=== PATIENT | female | born 1980 | race Caucasian/White ===

== ENCOUNTER 2016-06-04 23:43 | Emergency (ER) | payer OTHER ==
[2016-06-05] MEDS ORDERED: Aspirin Low Dose CHEW TAB* 81 MG PO ONE (00:02)
[2016-06-05] MEDS ORDERED: Ondansetron INJ* 2 MG/ML VIAL IV ONE (00:45)
[2016-06-05] MEDS ORDERED: Ketorolac INJ* 30 MG/ML 1 ML VIAL IV PUSH ONE (00:46)
[2016-06-05 00:49] LABS: ALT 14 U/L (7-52); AST 17 U/L (13-39); Albumin 3.8 g/dL (3.2-5.2); Alkaline Phosphatase 65 U/L (34-104); Anion Gap 6 mmol/L (2-11); BUN/Creatinine Ratio 16.7 (8-20); Blood Urea Nitrogen 14 mg/dL (6-24); CO2 Carbon Dioxide 25 mmol/L (22-32); Calcium 8.6 mg/dL (8.6-10.3); Chloride 106 mmol/L (101-111); EGFR African American 100.4 (>60); EGFR Non-African American 78.1 (>60); Globulin 2.9 g/dL (2-4); Glucose 107 mg/dL (70-100); Hematocrit 37 % (35-47); Hemoglobin 12.1 g/dl (12.0-16.0); Magnesium 1.9 mg/dL (1.9-2.7); Mean Corpuscular HGB Conc 33 g/dl (31-36); Mean Corpuscular Hemoglobin 28 pg (27-31); Mean Corpuscular Volume 83 fL (80-97); Mean Platelet Volume 9 um3 (7.4-10.4); Potassium 3.9 mmol/L (3.5-5.0); Red Blood Count 4.39 10^6/ul (4.0-5.4); Red Cell Distribution Width 14 % (10.5-15); Sodium 137 mmol/L (133-145); Total Protein 6.7 g/dL (6.4-8.9); White Blood Count 10.8 10^3/ul (3.5-10.8)
--- NOTE | 2016-06-05 01:02 | ED ---
Evaristo Morrison Anna, scribed for Moshe Banks MD on 06/05/16 at 0014 . HPI Chest Pain - HPI Summary HPI Summary: Patient is a 35 y/o female coming to [facility] presenting with sudden onset of constant chest pain that began tonight at 2130. She describes the severity as 6/ 10. The pain radiates to her back. She additionally felt nausea and SOB beginning at the same time. She has felt palpitations for the last five days, worse at night and exacerbated by lying down. Her family history is significant for MS and CAD before age 55. - History of Current Complaint Chief Complaint: EDChestPainROMI Hx Obtained From: Patient Onset/Duration: Started Hours Ago Timing: Constant Pain Intensity: 6 Pain Scale Used: 0-10 Numeric - Allergy/Home Medications Allergies/Adverse Reactions: Allergies Allergy/AdvReac Type Severity Reaction Status Date / Time No Known Allergies Allergy Verified 10/13/15 13:28 Home Medications: Home Medications Bupropion XL* [Wellbutrin XL *] DAILY 06/05/16 [History] Ibuprofen TAB* [Motrin TAB* 800 MG] 800 mg PO Q6H 06/05/16 [History Confirmed ] LORazepam TAB(*) [Ativan TAB(*)] 2 mg PO BID 06/05/16 [History Confirmed ] Methocarbamol TAB* [Robaxin TAB*] 1,000 mg PO TID 06/05/16 [History Confirmed ] Morphine Sulfate ER 30 mg PO BID 06/05/16 [History Confirmed 06/05/16] Pregabalin CAP(*) [Lyrica CAP(*)] 150 mg PO TID 06/05/16 [History Confirmed 09/16] Vortioxetine HBr [Brintellix] 10 mg PO DAILY 06/05/16 [History Confirmed ] hydrOXYzine HCL TAB* [Atarax TAB*] 25 mg PO TID PRN 06/05/16 [History Confirmed 06/05/16] oxyCODONE/Acetamin 10/325(NF) [Percocet 10/325 (NF)] 1 tab PO BID PRN 06/05/16 [ History Confirmed 06/05/16] PMH/Surg Hx/FS Hx/Imm Hx Endocrine/Hematology History: Denies: Hx Diabetes, Hx Thyroid Disease Cardiovascular History: Reports: Hx Hypertension - not since 2012 Denies: Hx Pacemaker/ICD Respiratory History: Denies: Hx Asthma, Hx Chronic Obstructive Pulmonary Disease (COPD) GI History: Denies: Hx Ulcer History: Reports: Other Problems/Disorders - history of renal calculi Sensory History: Reports: Hx Contacts or Glasses - not wearing Denies: Hx Hearing Aid Opthamlomology History: Reports: Hx Contacts or Glasses - not wearing Psychiatric History: Reports: Hx Anxiety, Hx Depression, Other Psychiatric Issues/Disorders - opiate addiction Denies: Hx Panic Disorder - Surgical History Surgery Procedure, Year, and Place: 2 C-SECTIONS - Immunization History Date of Tetanus Vaccine: utd Date of Influenza Vaccine: utd Infectious Disease History: No Infectious Disease History: Denies: Hx Clostridium Difficile, Hx Hepatitis, Hx Human Immunodeficiency Virus (HIV), Hx of Known/Suspected MRSA, Hx Shingles, Hx Tuberculosis, Hx Known/ Suspected VRE, Hx Known/Suspected VRSA, History Other Infectious Disease, Traveled Outside the [place] in Last 30 Days - Family History Known Family History: Positive: Cardiac Disease - father [place] 48yo alive, Hypertension, Diabetes, Other - copd, parents - Social History Alcohol Use: None Substance Use Type: Reports: Prescribed Substance Use Comment - Amount & Last Used: Percocet bid, morphine er 30 mg bid Smoking Status (MU): Former Smoker Have You Smoked in the Last Year: No Review of Systems Positive: Palpitations, Chest Pain Positive: Shortness Of Breath Positive: Nausea Positive: Myalgia - back pain All Other Systems Reviewed And Are Negative: Yes Physical Exam Triage Information Reviewed: Yes Vital Signs On Initial Exam: Initial Vitals Temp Pulse Resp BP Pulse Ox 97.8 F 74 16 152/77 100 06/04/16 23:47 06/04/16 23:47 06/04/16 23:47 06/04/16 23:47 06/04/16 23:47 Vital Signs Reviewed: Yes Appearance: Positive: Well-Appearing, Pain Distress - mild discomfort Skin: Positive: Warm Head/Face: Positive: Normal Head/Face Inspection Eyes: Positive: COURTNEY ENT: Positive: Hearing grossly normal Neck: Positive: Supple Respiratory/Lung Sounds: Positive: Breath Sounds Present, Other - mild ant cwt to palp Cardiovascular: Positive: RRR. Negative: Murmur Abdomen Description: Positive: Nontender, Soft Bowel Sounds: Positive: Present Musculoskeletal: Positive: Strength/ROM Intact Neurological: Positive: Sensory/Motor Intact, Alert, Oriented to Person Place, Time, Normal Gait Psychiatric: Positive: Affect/Mood Appropriate - Christian Coma Scale Coma Scale Total: 15 Diagnostics - Vital Signs Vital Signs Temp Pulse Resp BP Pulse Ox 06/04/16 23:47 97.8 F 74 16 152/77 100 - Laboratory Lab Results: Lab Results 06/05/16 06/05/16 06/05/16 Range/Units 00:20 00:20 00:20 WBC 10.8 (3.5-10.8) 10^3/ul RBC 4.39 (4.0-5.4) 10^6/ul Hgb 12.1 (12.0-16.0) g/dl Hct 37 (35-47) % MCV 83 (80-97) fL MCH 28 (27-31) pg MCHC 33 (31-36) g/dl RDW 14 (10.5-15) % Plt Count 223 (150-450) 10^3/ul MPV 9 (7.4-10.4) um3 Neut % (Auto) 63.9 (38-83) % Lymph % (Auto) 28.1 (25-47) % [place] % (Auto) 4.9 (1-9) % Eos % (Auto) 2.7 (0-6) % Baso % (Auto) 0.4 (0-2) % Absolute Neuts (auto) 6.9 (1.5-7.7) 10^3/ul Absolute Lymphs (auto) 3.0 (1.0-4.8) 10^3/ul Absolute Monos (auto) 0.5 (0-0.8) 10^3/ul Absolute Eos (auto) 0.3 (0-0.6) 10^3/ul Absolute Basos (auto) 0 (0-0.2) 10^3/ul Absolute Nucleated RBC 0.01 10^3/ul Nucleated RBC % 0.1 Sodium 137 (133-145) mmol/L Potassium 3.9 (3.5-5.0) mmol/L Chloride 106 (101-111) mmol/L Carbon Dioxide 25 (22-32) mmol/L Anion Gap 6 (2-11) mmol/L BUN 14 (6-24) mg/dL Creatinine 0.84 (0.51-0.95) mg/dL Est GFR ( Amer) 100.4 (>60) Est GFR (Non-Af Amer) 78.1 (>60) BUN/Creatinine Ratio 16.7 (8-20) Glucose 107 H (70-100) mg/dL Lactic Acid 1.1 (0.5-2.0) mmol/L Calcium 8.6 (8.6-10.3) mg/dL Magnesium 1.9 (1.9-2.7) mg/dL Total Bilirubin 0.20 (0.2-1.0) mg/dL AST 17 (13-39) U/L ALT 14 (7-52) U/L Alkaline Phosphatase 65 (34-104) U/L Troponin I 0.00 (<0.04) ng/mL Total Protein 6.7 (6.4-8.9) g/dL Albumin 3.8 (3.2-5.2) g/dL Globulin 2.9 (2-4) g/dL Albumin/Globulin Ratio 1.3 (1-3) TSH Pending Result Diagrams: 06/05/16 00:20 06/05/16 00:20 Lab Statement: Any lab studies that have been ordered have been reviewed, and results considered in the medical decision making process. - Radiology CXR Xray Interpretation: No Acute Changes Radiology Interpretation Completed By: ED Physician - EKG 2350 Cardiac Rate: NL - 80 bpm EKG Rhythm: Sinus Rhythm ST Segment: Normal Ectopy: None EKG Interpretation: No STEMI Re-Evaluation - Re-Evaluation First Eval Re-Evaluation Time: 03:27 Change: Improved Comment: Discussed results and plan of care with patient. Patient agrees with plan. Chest Pain Course/Dx - Course Assessment/Plan: Patient is a 35 y/o female coming to [facility] presenting with sudden onset of constant chest pain that radiates to her back that began tonight at 2130. She describes the severity as 6/10. She additionally felt nausea and SOB beginning at the same time. She has felt palpitations for the last five days, worse at night and exacerbated by lying down. Her family history is significant for MS and CAD before age 55. EKG reveals NSR at 80 bpm with no ectopy and no STEMI. CXR is normal. Labs are WNL except for glucose of 107. Initial troponin is 0.00. Second troponin is 0.00. Patient will be discharged home with follow up from her doctor. - Diagnoses Provider Diagnoses: Chest pain Discharge - Discharge Plan Condition: Stable Disposition: HOME Patient Education Materials: Chest Pain (ED), Palpitations (ED) Referrals: Sebastian Zhang DO [Primary Care Provider] - Additional Instructions: Follow up with primary care physician within 48 hours. Return to the emergency department for changing or worsening symptoms. The documentation as recorded by the Evaristo pineda Anna accurately reflects the service I personally performed and the decisions made by , Moshe Banks MD.
[2016-06-05 01:33] LABS: TSH (Thyroid Stimulating Horm) 2.23 mcIU/mL (0.34-5.60)
[2016-06-05] MEDS ORDERED: LORazepam INJ* 2 MG/ML 1 ML VIAL IV PUSH ONE (02:23)
[2016-06-05 03:33] VITALS: BP 127/59
--- NOTE | 2016-06-05 07:20 | RAD ---
INDICATION: Chest pain. COMPARISON: Comparison is made with a prior chest x-ray study from June 07, 2010. TECHNIQUE: Dual-energy PA and lateral views of the chest were obtained. FINDINGS: The heart is within normal limits in size. Mediastinal and hilar contours appear within normal limits. The lungs are clear. No pleural effusion or pneumothorax is seen. Postsurgical changes are noted in the lower cervical spine. IMPRESSION: NO EVIDENCE FOR ACTIVE CARDIOPULMONARY DISEASE.
== END 2016-06-05 03:38 | disposition home or self-care (01) ==
LOC: ED 23:43
DX: R07.9 Chest pain, unspecified (principal)
CPT/HCPCS: 36415; 71020; 80053; 83605; 83735; 84443; 84484; 84702; 85025; 93005; 96374; 96375; 99283; A9270-GY; J1885; J2060; J2405

== ENCOUNTER 2016-11-10 20:37 | Emergency (ER) | payer OTHER ==
[2016-11-10 20:51] VITALS: BP 131/68
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
--- NOTE | 2016-11-10 21:39 | RAD ---
INDICATION: Pain at the third and fourth fingers after slamming hand in a door COMPARISON: None. TECHNIQUE: 4 views of the right hand were obtained. FINDINGS: The adequately corticated bones are in normal alignment. No significant focal osseous abnormality or fracture is seen. Joint spaces appear maintained. IMPRESSION: Normal right hand radiograph. If the patient's symptoms persist, follow-up imaging is recommended.
== END 2016-11-10 21:56 | disposition home or self-care (01) ==
LOC: UCEAST 20:37
DX: S63.612A Unspecified sprain of right middle finger, initial encounter (principal); S63.614A Unspecified sprain of right ring finger, initial encounter; W22.8XXA Striking against or struck by other objects, initial encounter; Y93.9 Activity, unspecified; Y99.9 Unspecified external cause status; Z87.442 Personal history of urinary calculi
CPT/HCPCS: 99213; G0463

== ENCOUNTER 2017-04-20 10:52 | Emergency (ER) | payer OTHER ==
[2017-04-20 10:59] VITALS: BP 166/87
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
--- NOTE | 2017-04-20 12:25 | RAD ---
HISTORY: C-spine injury, pain, status post fusion COMPARISONS: February 13, 2017 VIEWS: 6, Frontal, swimmer's, lateral, open-mouth odontoid, and bilateral oblique views of the cervical spine. FINDINGS: The cervical spine is visualized from the skull base through T1. ALIGNMENT: There is straightening of the normal cervical lordosis. VERTEBRAL BODIES: The patient is status post limiting spinal fusion with bilateral lateral mass screws from C3 through C7. There is no hardware failure or osteolysis. There is mild anterolateral marginal ossified formation. JOINTS: There is no subluxation or dislocation. The facet joints are unremarkable. On the oblique views, there is no osseous neural foraminal narrowing. INTERVERTEBRAL DISCS: There is diffuse loss of intervertebral disc height. SOFT TISSUE: The prevertebral soft tissues are normal. OTHER: The skull base is normal. The lung apices are clear. IMPRESSION: STATUS POST SPINAL FUSION. NO ACUTE OSSEOUS INJURY TO THE CERVICAL SPINE.
== END 2017-04-20 12:45 | disposition home or self-care (01) ==
LOC: UCEAST 10:52
DX: S16.1XXA Strain of muscle, fascia and tendon at neck level, initial encounter (principal); Y04.2XXA Assault by strike against or bumped into by another person, initial encounter; Y92.9 Unspecified place or not applicable; Z87.891 Personal history of nicotine dependence
CPT/HCPCS: 72050; 99212; G0463

== ENCOUNTER 2017-08-21 09:06 | Inpatient (IN) | payer OTHER ==
[2017-08-21] MEDS ORDERED: Heparin VIAL(*) 5000 UNITS/ML VIAL (FIVE THOUSAND) ONE (09:08)
[2017-08-21] MEDS ORDERED: ceFAZolin 2 GM PREMIX (*) 2 GM/50 ML BAG IVPB ONE (09:08)
[2017-08-21] MEDS ORDERED: Buffered Lidocaine 0.9% SYRIN* 5 ML/SYR SYRINGE ONE (09:08)
[2017-08-21] MEDS: Buffered Lidocaine 0.9% SYRIN* 5 ML/SYR SYRINGE INTRADERM ONE ×2 (10:09→10:10)
[2017-08-21] MEDS ORDERED: Bupivacaine 0.25% SDV* 30 ML ONE (11:18)
[2017-08-21] MEDS ORDERED: fentaNYL* 50 MCG/ML 5 ML VIAL (250 MCG VIAL) ONE (11:57)
[2017-08-21] MEDS ORDERED: fentaNYL* 50 MCG/ML 2 ML VIAL (100 MCG VIAL) ONE ×2 (12:23→15:08)
[2017-08-21] MEDS ORDERED: Midazolam* 1 MG/ML 5 ML VIAL (5 MG) ONE (12:23)
[2017-08-21] MEDS ORDERED: Rocuronium* 10 MG/ML VIAL ONE (12:29)
[2017-08-21] MEDS ORDERED: DiMENhydriNATE IV* 50 MG/ML VIAL ONE ×2 (13:02→13:30)
[2017-08-21] MEDS ORDERED: Dexamethasone IV* 4 MG/ML 1 ML (4 MG) ONE (13:02)
[2017-08-21] MEDS ORDERED: Propofol* 10 MG/ML 20 ML BTL IV PUSH ONE (13:02)
[2017-08-21] MEDS ORDERED: Ketorolac INJ* 30 MG/ML 1 ML VIAL ONE (13:02)
[2017-08-21] MEDS ORDERED: HYDROmorphone INJ* 1 MG/ML CARPUJECT SYRINGE ONE (13:03)
[2017-08-21] MEDS ORDERED: Acetaminophen IV 1GM/100ML * 1,000 MG/100 ML VIAL IVPB ONE (13:24)
[2017-08-21] MEDS ORDERED: Ondansetron INJ* 2 MG/ML VIAL IV PRN ×2 (13:24→13:32)
[2017-08-21] MEDS ORDERED: Naloxone* 0.4 MG/ML 1 ML VIAL IV PRN (13:24)
[2017-08-21] MEDS ORDERED: Acetaminophen IV 1GM/100ML * 100 ML ONE (13:25)
--- NOTE | 2017-08-21 13:28 | BRIEFOPN ---
Brief Operative Note - Surgery Procedures: Procedures Preop Dx: Morbid Obesity Postop Dx: Same Procedure: Laparoscopic Sleeve Gastrectomy Surgeon: Dulce Maria Assist: SIMON Toribio; EMILY Palmer Anesthesia: GET; Klufas Fluids: 1300mL RL EBL: <10mL Drains: None Specimen: Portion of stomach Complications: None Findings: Dictated
[2017-08-21] MEDS ORDERED: DiMENhydriNATE IV* 50 MG/ML VIAL IV PUSH ONE (13:30)
[2017-08-21] MEDS ORDERED: Acetaminophen ADULT LIQ* 650 MG/20.3 ML UDC PO PRN (13:32)
[2017-08-21] MEDS ORDERED: diPHENhydraMINE IV* 50 MG/ML 1 ml VIAL (BENADRYL) SLOW PUSH PRN (13:32)
[2017-08-21] MEDS: HYDROmorphone INJ* 1 MG/ML CARPUJECT SYRINGE IV PRN ×10 (13:35→14:52)
[2017-08-21] MEDS ORDERED: HYDROmorphone INJ* 2 MG/ML CARPUJECT SYRINGE IV PRN (13:44)
[2017-08-21] MEDS ORDERED: HYDROmorphone INJ* 2 MG/ML CARPUJECT SYRINGE ONE (14:17)
[2017-08-21] MEDS ORDERED: fentaNYL* 50 MCG/ML 2 ML VIAL (100 MCG VIAL) IV SLOW PU ONE (15:10)
[2017-08-21] MEDS: Ketorolac INJ* 30 MG/ML 1 ML VIAL IV PRN ×2 (16:18→22:22)
[2017-08-21] MEDS: Heparin VIAL(*) 5000 UNITS/ML VIAL (FIVE THOUSAND) SUBCUT SCH ×2 (16:19→21:45)
[2017-08-21] MEDS: HYDROmorphone INJ* 2 MG/ML CARPUJECT SYRINGE IV PRN ×3 (16:39→22:21)
[2017-08-21] MEDS: Famotidine IV* 10 MG/ML 2 ML (20 mg) IV SLOW PU SCH (19:39)
[2017-08-21] MEDS: oxyCODONE TAB* 5 MG TAB PO SCH (19:51)
[2017-08-21] MEDS: LORazepam TAB(*) 1 MG PO SCH (19:51)
[2017-08-21] MEDS: Lurasidone(*) 80 MG TAB PO SCH (19:51)
[2017-08-21] MEDS: Morphine TAB Extended Release (*) 30 MG TAB.ER PO SCH (19:51)
[2017-08-21] MEDS: Pregabalin CAP(*) 100 MG PO SCH (19:51)
[2017-08-21] MEDS: tiZANidine TAB* 2 MG PO SCH (19:52)
[2017-08-21] MEDS: CMC:Vilazodone (NF) 40 MG TAB PO SCH (19:52)
[2017-08-21] MEDS: Ondansetron 40 MG VIAL* 2 MG/ML 20 ML VIAL IV PRN (21:44)
[2017-08-22] MEDS: HYDROmorphone INJ* 2 MG/ML CARPUJECT SYRINGE IV PRN ×6 (01:18→18:39)
[2017-08-22] MEDS: Ketorolac INJ* 30 MG/ML 1 ML VIAL IV PRN ×2 (04:42→15:38)
[2017-08-22] MEDS: Ondansetron 40 MG VIAL* 2 MG/ML 20 ML VIAL IV PRN ×2 (04:54→15:38)
[2017-08-22] MEDS: Heparin VIAL(*) 5000 UNITS/ML VIAL (FIVE THOUSAND) SUBCUT SCH ×3 (05:11→21:50)
--- NOTE | 2017-08-22 06:21 | OP ---
CC: Sebastian Zhang DO; [facility]; Juanito SargentDO * DATE OF OPERATION: 08/21/17 - ROOM #351 DATE OF : 84 SURGEON: Selwyn العراقي MD PROCUREMENT ENGINEER: NATALIIA Capps ANESTHESIOLOGIST: Franchesca Diaz MD ANESTHESIA: General endotracheal. PRE-OP DIAGNOSIS: Clinically severe obesity. POST-OP DIAGNOSIS: Clinically severe obesity. OPERATIVE PROCEDURE: Laparoscopic sleeve gastrectomy. ESTIMATED BLOOD LOSS: Minimal. IV FLUIDS: 1.3 L of crystalloid. SPECIMEN: Portion of the stomach. DRAINS: None. COMPLICATIONS: None. COUNTS: Instrument, needle, and sponge counts correct. DESCRIPTION OF PROCEDURE: The patient was brought to the operating room and placed on the table supine. Sequential compression devices were placed on both lower extremities. General anesthesia was administered. The patient received appropriate intravenous antibiotics. The abdomen was prepped and draped in the usual sterile fashion and time-out was performed. Local anesthetic was infiltrated to the skin and soft tissue prior to each incision. Entry into the abdomen was through a left upper quadrant incision accommodating a 5-mm optical trocar. After accessing the peritoneal cavity, carbon dioxide was insufflated to a pressure of 15 mmHg. Under direct visualization, an additional 5-mm trocar was placed in the left upper quadrant laterally, 12-mm trocars were placed in the supraumbilical midline and right upper quadrant. A Ventura liver retractor was placed percutaneously in the subxiphoid position and used to elevate the left lobe of the liver. The gastric anatomy appeared normal. The greater curvature was measured 6 cm from the pylorus and the short gastric vessels were divided to free the greater curvature including a posterior short gastric near the fundus. Once the vessels were divided, the sleeve gastrectomy was performed over a 40-Vietnamese bougie with the EndoGIA stapler with purple cartridges with reinforcement. After completing the gastric resection, the specimen was placed to retrieval bag and retrieved through the right upper quadrant wound. Hemostasis was assured. Ports were removed under direct visualization and carbon dioxide was released. Wounds were closed with 4-0 Monocryl in a subcuticular fashion and Steri-Strips were applied. The patient tolerated this procedure well, was extubated and transferred to Recovery in stable condition. [id number]/[facility] #: [id number] [facility]
--- NOTE | 2017-08-22 09:09 | PN ---
Progress Note - Progress Note Date of Service: 08/22/17 SOAP: Subjective:POD#1 s/p lap sleeve gastrectomy mild nausea overnight;c/o upper abd discomfort;no dysuria;no flatus; ambulating in halls [] Objective:afeb VSS,O2sat 99%;lungs:clear bilat;heart:RRR,48-50bpm;abd:+bs,soft; dressings intact,no drainage or surrounding erythema;ext:nontender [] Assessment:stable POD#1 [] Plan:start bariatric clears;d/c pulse ox;reassess this afternoon []
[2017-08-22] MEDS: Morphine TAB Extended Release (*) 30 MG TAB.ER PO SCH ×2 (09:45→21:10)
[2017-08-22] MEDS: oxyCODONE TAB* 5 MG TAB PO SCH ×3 (09:45→21:11)
[2017-08-22] MEDS: LORazepam TAB(*) 1 MG PO SCH ×2 (09:45→21:10)
[2017-08-22] MEDS: Famotidine IV* 10 MG/ML 2 ML (20 mg) IV SLOW PU SCH ×2 (09:46→21:10)
[2017-08-22] MEDS: tiZANidine TAB* 2 MG PO SCH ×3 (10:19→21:11)
[2017-08-22] MEDS: Pregabalin CAP(*) 100 MG PO SCH ×3 (10:40→21:11)
[2017-08-22] MEDS: Lisdexamfetamine(NF) 10 MG CAP PO SCH (10:41)
[2017-08-22] MEDS: D5W 1/2 NS KCl 20 Meq 1000 ML* 1,000 ML IV SCH ×2 (13:53→21:50)
[2017-08-22] MEDS: HYDROcodone/ACET. 7.5/325 LIQ* 15 ML UDC PO PRN (19:49)
[2017-08-22] MEDS: Lurasidone(*) 80 MG TAB PO SCH (21:10)
[2017-08-22] MEDS: CMC:Vilazodone (NF) 40 MG TAB PO SCH (21:12)
[2017-08-23] MEDS: Ketorolac INJ* 30 MG/ML 1 ML VIAL IV PRN (03:09)
[2017-08-23] MEDS: HYDROmorphone INJ* 2 MG/ML CARPUJECT SYRINGE IV PRN (03:10)
[2017-08-23] MEDS: Ondansetron 40 MG VIAL* 2 MG/ML 20 ML VIAL IV PRN (03:10)
[2017-08-23] MEDS: Heparin VIAL(*) 5000 UNITS/ML VIAL (FIVE THOUSAND) SUBCUT SCH (05:41)
[2017-08-23] MEDS: D5W 1/2 NS KCl 20 Meq 1000 ML* 1,000 ML IV SCH (05:45)
[2017-08-23] MEDS: Lisdexamfetamine(NF) 10 MG CAP PO SCH (07:37)
[2017-08-23] MEDS: Morphine TAB Extended Release (*) 30 MG TAB.ER PO SCH (07:37)
[2017-08-23] MEDS: oxyCODONE TAB* 5 MG TAB PO SCH (07:37)
[2017-08-23 07:40] VITALS: BP 113/60
[2017-08-23] MEDS: LORazepam TAB(*) 1 MG PO SCH (08:52)
[2017-08-23] MEDS: Famotidine IV* 10 MG/ML 2 ML (20 mg) IV SLOW PU SCH (08:53)
[2017-08-23] MEDS: tiZANidine TAB* 2 MG PO SCH (08:59)
[2017-08-23] MEDS: Pregabalin CAP(*) 100 MG PO SCH (09:00)
--- NOTE | 2017-08-23 09:19 | PN ---
Progress Note - Progress Note Date of Service: 08/23/17 Note: S: POD #2. Also seen by Dr. العراقي. Doing well w/ po intake; no N/V. Ambulating well. Pain controlled. O: Vital Signs - 8 hr 08/23/17 08/23/17 08/23/17 02:06 03:10 03:11 Temperature 97.7 F Pulse Rate 70 Respiratory 16 18 16 Rate Blood Pressure 122/65 (mmHg) O2 Sat by Pulse 100 Oximetry 08/23/17 08/23/17 08/23/17 05:42 07:24 07:37 Temperature 97.6 F Pulse Rate 68 Respiratory 16 16 18 Rate Blood Pressure 113/60 (mmHg) O2 Sat by Pulse 99 Oximetry 08/23/17 08/23/17 08/23/17 08:00 08:52 09:00 Temperature Pulse Rate Respiratory 18 18 18 Rate Blood Pressure (mmHg) O2 Sat by Pulse 99 Oximetry Intake and Output Last 24 Hours 08/21/17 08/22/17 08/23/17 08/24/17 06:59 06:59 06:59 06:59 Intake Total 3345 4801 568 Output Total 1550 2950 500 Balance 1795 1851 68 Weight 238 lb Intake: IV Fluids 3345 3361 388 D5 1/2 20 KCL 1980 388 LR 3345 1381 Oral 0 1440 180 Output: Urine 1550 2950 500 Other: # Bowel Movements 0 Heart: reg Lungs: clear Abd: lap sites clean and dry; steris intact; soft; min incisional tenderness; remainder soft, nontender A: s/p lap sleeve gastrectomy, doing well P: home today; instructions reviewed; see d/c summary
[2017-08-23] MEDS: HYDROcodone/ACET. 7.5/325 LIQ* 15 ML UDC PO PRN (09:56)
--- NOTE | 2017-08-24 08:18 | DS ---
AMENDED REPORT NOW INCLUDES COSIGNER DESIGNATION - ESIGNED BEFORE ADJUSTMENTS CC: Dr. Sebastian Zhang; Dr. Mario Iglesias; Dr. Juanito Sargent * DISCHARGE SUMMARY: DATE OF ADMISSION: 08/21/17 DATE OF DISCHARGE: 08/23/17 ATTENDING SURGEON: Selwyn العراقي MD * (DICTATED BY NATALIIA AWAD) HOSPITAL COURSE: Please refer to admission history and physical and operative note for details. The patient was taken to the operating room on 08/21/17 and underwent laparoscopic sleeve gastrectomy with Dr. العراقي. Surgery itself was uneventful and she has had a fairly expected postoperative course with gradual improvement in pain and oral intake. PHYSICAL EXAM ON THE MORNING OF DISCHARGE: Vital Signs: Temperature 97.6, blood pressure 113/60, pulse 68, respirations 16, room air saturation 99%. General: Appears comfortable and in no acute distress. Heart: Regular rate and rhythm. No murmur noted. Lungs: Clear to auscultation. No rales or wheezes. Abdomen: Soft with incisional tenderness as would be expected. Incision is healing well under Steri-Strips which are left in place. No evidence of wound infection or hematoma. Remainder of the abdomen is soft and nontender. IMPRESSION: Status post laparoscopic sleeve gastrectomy, doing well. PLAN: Home today. Instructions were reviewed regarding wound care, diet, and activity. She will resume all of her usual home medications including her pain regimen with use of hydrocodone/APAP liquid p.r.n. for the breakthrough. She is off the methotrexate and therefore will also hold the folic acid. She has an appointment scheduled for next week at the [facility] for metabolic and bariatric surgery with Dr. العراقي. NATALIIA AWAD [id number]/[facility] #: [id number] [facility]PITALMalvin
== END 2017-08-23 10:30 | disposition home or self-care (01) | DRG 403 ==
LOC: AA 09:06 → SSU 15:50
PROVIDERS: ADMIT Surgery; ATTEND Surgery
PROC: 0DB64Z3 Excision of Stomach, Percutaneous Endoscopic Approach, Vertical (ICD-10-PCS; principal; 2017-08-21 10:45)
DX: E66.01 Morbid (severe) obesity due to excess calories (principal); I10 Essential (primary) hypertension; M79.7 Fibromyalgia; G89.29 Other chronic pain; K59.03 Drug induced constipation; T40.2X5A Adverse effect of other opioids, initial encounter; M06.00 Rheumatoid arthritis without rheumatoid factor, unspecified site; F32.9 Major depressive disorder, single episode, unspecified; F41.9 Anxiety disorder, unspecified; F43.10 Post-traumatic stress disorder, unspecified; F50.81 Binge eating disorder; G47.33 Obstructive sleep apnea (adult) (pediatric); Z68.41 Body mass index [BMI] 40.0-44.9, adult; Z98.51 Tubal ligation status; Z82.49 Family history of ischemic heart disease and other diseases of the circulatory system; Z80.42 Family history of malignant neoplasm of prostate; Z82.61 Family history of arthritis; Z83.3 Family history of diabetes mellitus; Z84.1 Family history of disorders of kidney and ureter; Z72.89 Other problems related to lifestyle; Z87.891 Personal history of nicotine dependence; Z98.1 Arthrodesis status; Z87.442 Personal history of urinary calculi
CPT/HCPCS: 43775; 81025; 88307; A9270-GY; J0690; J1100; J1170; J1240; J1644; J1885; J2250; J2704; J3010

== ENCOUNTER 2018-07-23 11:28 | Inpatient (IN) | payer OTHER ==
[2018-07-23] MEDS ORDERED: oxyCODONE/Acetamin 5/325 MG* TAB PO ONE (11:56)
[2018-07-23] MEDS ORDERED: Albuterol/Ipratropium NEB.SOL* Albuterol 2.5 MG/Ipratropium 0.5 MG 3 ML INH ONE (11:57)
--- OUTSIDE RECORDS SUMMARY | 2018-07-23 12:01 | XMS REPORT | Continuity of Care Document ---
:1980 External Reference #:[id number] Author Name Juanito Sargent DO, MPH Address [address] [place] [address], [address] [place] [address] Care Team Providers Name Role Phone Mario Iglesias MD Care Team Information Steward/Stewardess Bath Unavailable Sebastian Zhang M.D. 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 Cigarette Use Former Cigarette Smoker 1-5 Cigarettes Daily ETOH Use Denies alcohol use Tobacco Use Start: Unknown End: Unknown Patient is a former smoker Smoking Status Reviewed: 07/17/18 Patient is a former smoker Allergies, Adverse Reactions, Alerts Description No Known Drug Allergies Medications Active Medications SIG Qnty Indications Ordering Provider Date Tizanidine HCL si/2-1 by 120tabs Juanito Sargent DO, 05/17/2018 4mg mouth every 6 MPH Tablets hours as directed Lyrica si by mouth 90caps Juanito Sargent DO, 10/16/2017 200mg Capsules every 8 hours as MPH directed chronic pain patient, [id number], id # [id number] Oxycodone HCL si by mouth 90tabs Juanito Sargent DO, 12/25/2016 15mg every 8 hours as MPH Tablets directed chronic pain patient Morphine Sulfate ER si by mouth 60tabs Juanito Sargent DO, 09/11/2016 q12 hours as MPH 30mg Tablets ER directed chronic pain. Kevzara Unknown 150mg/1.14ML Solution Auto-Inject Viactiv Unknown [id number] Chewtabs Wellbutrin XL si by mouth Unknown 300mg every day as Tablets ER 24HR directed chronic pain patient Flintstones Complete Unknown 60mg Chewtabs Alpha-Lipoic Acid take one capsule Unknown by mouth every 8 200mg Capsules hours as directed chronic pain. Vitamin D3 Unknown 5000Unit Chewtabs Vitamin C Unknown 500mg Capsules Vitamin B12 5 qd Unknown 100mcg Tablets Vitamin B-1 Unknown 250mg Tablets Vyvanse once a Unknown 70mg Capsules day-Dr.Karen Jackson Hydroxyzine HCL si by mouth Unknown 25mg every night at Tablets bedtime chronic pain patient Viibryd 1 by mouth daily Unknown 40mg Tablets Latuda daily 30tabs Unknown 80mg Tablets Ativan 1 by mouth twice Unknown 2mg Tablets daily as needed History Medications Promethazine HCL si/2 by mouth 5tabs Juanito Sargent, DO, 05/21/2017 - 25mg every 12 hours as MPH 08/20/2017 Tablets directed Lyrica si by mouth 90caps Juanito Sargent, DO, 01/24/2017 - 200mg Capsules every 8 hours as MPH 10/16/2017 directed chronic pain patient dose increase. [id number], Alpha Lipoic Acid take one capsule 60caps SargentMalvinph, DO, 01/24/2017 - 200mg by mouth every 12 MPH 02/24/2017 Capsules hours as directed chronic pain. Lyrica si by mouth 90caps SargentMalvinph, DO, 10/20/2016 - 150mg Capsules three times a day MPH 01/24/2017 as directed chronic pain patient code: [id number], Oxycodone HCL si by mouth 90tabs Sargent Juanito, DO, 09/11/2016 - 10mg every 6 to 8 hours MPH 12/25/2016 Tablets as directed chronic pain patient Tizanidine HCL si by mouth 90tabs Juanito Sargent DO, 08/29/2016 - 4mg every 8 hours as MPH 05/17/2018 Tablets directed chronic pain. Provigil si by mouth Unknown - 200mg Tablets every morning as 03/19/2018 directed Wellbutrin XL si by mouth Unknown - 150mg every day as 10/23/2016 Tablets ER 24HR directed Robaxin siby mouth Unknown - 500mg Tablets every 8 hours as 08/29/2016 needed Percocet si by mouth Unknown - 10-325mg Tablets every 12 hours as 09/11/2016 directed chronic pain patient Morphine Sulfate ER si by mouth q12 Unknown - 30mg hours as directed 09/11/2016 Tablets ER chronic pain. Methotrexate Sodium 5 by mouth on Unknown - 2.5mg Fridays08/20/2017 Tablets Folic Acid 1 by mouth every Unknown - 1mg Tablets day 08/20/2017 Enbrel Unknown - 25mg/0.5ML Soln 03/19/2018 Prefill Syringe Humira Pen Unknown - 40mg/0.4ML 05/17/2018 PNKT Immunizations Description No Information Available Vital Signs Date Vital Result Comment 07/17/2018 11:19am BP Systolic 144 mmHg BP Diastolic 86 mmHg Heart Rate 82 /min Respiratory Rate 20 /min Height 66 inches 5'6" Weight 228.00 lb Pain Level 5 Pain at this time. Pain Level With Medicine 4 on average with meds Pain Level Without Medicine 9 01/09 without meds BMI (Body Mass Index) 36.8 kg/m2 06/17/2018 11:27am BP Systolic 130 mmHg BP Diastolic 84 mmHg Heart Rate 82 /min Respiratory Rate 20 /min Height 66 inches 5'6" Weight 228.00 lb Pain Level 7 Pain at this time. Pain Level With Medicine 6 on average with meds Pain Level Without Medicine 10 01/09 without meds BMI (Body Mass Index) 36.8 kg/m2 05/17/2018 11:16am BP Systolic 128 mmHg BP Diastolic 74 mmHg Heart Rate 78 /min Respiratory Rate 20 /min Height 66 inches 5'6" Weight 224.00 lb Pain Level 9 Pain at this time. Pain Level With Medicine 8 on average with meds Pain Level Without Medicine 10 01/09 without meds BMI (Body Mass Index) 36.2 kg/m2 04/18/2018 10:55am BP Systolic 138 mmHg BP Diastolic 86 mmHg Heart Rate 84 /min Respiratory Rate 20 /min Height 66 inches 5'6" Weight 223.00 lb Pain Level 8 Pain at this time. Pain Level With Medicine 7 on average with meds Pain Level Without Medicine 10 01/09 without meds Pain Level After Procedure 3 BP Systolic Recheck 138 mmHg Pulse: 88 BP Diastolic Recheck 82 mmHg Pulse: 88 BMI (Body Mass Index) 36.0 kg/m2 03/19/2018 11:25am BP Systolic 128 mmHg BP Diastolic 84 mmHg Heart Rate 86 /min Respiratory Rate 20 /min Height 66 inches 5'6" Weight 221.00 lb Pain Level 7 Pain at this time. Pain Level With Medicine 6 on average with meds Pain Level Without Medicine 10 01/09 without meds BMI (Body Mass Index) 35.7 kg/m2 02/15/2018 11:01am BP Systolic 124 mmHg BP Diastolic 86 mmHg Heart Rate 82 /min Respiratory Rate 20 /min Height 66 inches 5'6" Weight 216.00 lb Pain Level 6 Pain at this time. Pain Level With Medicine 5 on average with meds Pain Level Without Medicine 10 01/09 without meds Pain Level After Procedure 4 BP Systolic Recheck 120 mmHg Pulse:80 BP Diastolic Recheck 78 mmHg Pulse:80 BMI (Body Mass Index) 34.9 kg/m2 01/17/2018 11:00am BP Systolic 140 mmHg BP Diastolic 86 mmHg Heart Rate 88 /min Respiratory Rate 20 /min Height 66 inches 5'6" Weight 209.00 lb Pain Level 8 Pain at this time. Pain Level With Medicine 7 on average with meds Pain Level Without Medicine 10 01/09 without meds BMI (Body Mass Index) 33.7 kg/m2 12/19/2017 2:46pm Respiratory Rate 20 /min Height 66 inches 5'6" Weight 213.00 lb Pain Level Without Medicine 10 01/09 without meds BMI (Body Mass Index) 34.4 kg/m2 11/19/2017 2:57pm BP Systolic 132 mmHg BP Diastolic 84 mmHg Heart Rate 80 /min Respiratory Rate 20 /min Height 66 inches 5'6" Weight 213.00 lb Pain Level 6 Pain at this time. Pain Level With Medicine 5 on average with meds Pain Level Without Medicine 10 01/09 without meds Pain Level After Procedure 4 BP Systolic Recheck 126 mmHg Pulse: 88 BP Diastolic Recheck 74 mmHg Pulse: 88 BMI (Body Mass Index) 34.4 kg/m2 11/05/2017 2:09pm BP Systolic 118 mmHg BP Diastolic 74 mmHg Heart Rate 76 /min Respiratory Rate 20 /min Height 66 inches 5'6" Weight 212.00 lb Pain Level 6 Pain at this time. Pain Level With Medicine 6 on average with meds Pain Level Without Medicine 10 01/09 without meds Pain Level After Procedure 5 BP Systolic Recheck 112 mmHg Pulse: 72 BP Diastolic Recheck 70 mmHg Pulse: 72 BMI (Body Mass Index) 34.2 kg/m2 10/19/2017 11:09am BP Systolic 126 mmHg BP Diastolic 78 mmHg Heart Rate 74 /min Respiratory Rate 20 /min Height 66 inches 5'6" Weight 219.00 lb Pain Level 6 Pain at this time. Pain Level With Medicine 6 on average with meds Pain Level Without Medicine 10 01/09 without meds BMI (Body Mass Index) 35.3 kg/m2 09/18/2017 11:08am BP Systolic 126 mmHg BP Diastolic 78 mmHg Heart Rate 74 /min Respiratory Rate 20 /min Height 66 inches 5'6" Weight 228.00 lb Pain Level 5 Pain at this time. Pain Level With Medicine 4 on average with meds Pain Level Without Medicine 10 01/09 without meds Pain Level After Procedure 4 BP Systolic Recheck 124 mmHg Pulse:74 BP Diastolic Recheck 76 mmHg Pulse:74 BMI (Body Mass Index) 36.8 kg/m2 08/20/2017 10:52am BP Systolic 136 mmHg BP Diastolic 84 mmHg Heart Rate 82 /min Respiratory Rate 20 /min Height 66 inches 5'6" Weight 236.00 lb Pain Level 7 Pain at this time. Pain Level With Medicine 6 on average with meds Pain Level Without Medicine 10 01/09 without meds BMI (Body Mass Index) 38.1 kg/m2 07/20/2017 11:01am BP Systolic 128 mmHg BP Diastolic 82 mmHg Heart Rate 80 /min Respiratory Rate 20 /min Height 66 inches 5'6" Weight 247.00 lb Pain Level 8 Pain at this time. Pain Level With Medicine 7 on average with meds Pain Level Without Medicine 10 01/09 without meds Pain Level After Procedure 7 BP Systolic Recheck 130 mmHg Pulse: 74 BP Diastolic Recheck 78 mmHg Pulse: 74 BMI (Body Mass Index) 39.9 kg/m2 06/20/2017 10:28am BP Systolic 128 mmHg BP Diastolic 84 mmHg Heart Rate 86 /min Respiratory Rate 20 /min Height 66 inches 5'6" Weight 254.00 lb Pain Level 8 Pain at this time. Pain Level With Medicine 7 on average with meds Pain Level Without Medicine 10 01/09 without meds BMI (Body Mass Index) 41.0 kg/m2 05/21/2017 11:25am BP Systolic 128 mmHg BP Diastolic 84 mmHg Heart Rate 86 /min Respiratory Rate 20 /min Height 66 inches 5'6" Weight 267.00 lb Pain Level 6 Pain at this time. Pain Level With Medicine 5 on average with meds Pain Level Without Medicine 10 01/09 without meds Pain Level After Procedure 3 BP Systolic Recheck 126 mmHg Pulse: 80 BP Diastolic Recheck 72 mmHg Pulse: 80 BMI (Body Mass Index) 43.1 kg/m2 05/04/2017 1:09pm BP Systolic 128 mmHg BP Diastolic 76 mmHg Heart Rate 74 /min Respiratory Rate 20 /min Height 66 inches 5'6" Weight 267.00 lb Pain Level 6 Pain at this time. Pain Level With Medicine 5 on average with meds Pain Level Without Medicine 10 01/09 without meds Pain Level After Procedure 5 BP Systolic Recheck 128 mmHg Pulse: 78 BP Diastolic Recheck 72 mmHg Pulse: 78 BMI (Body Mass Index) 43.1 kg/m2 04/20/2017 9:56am BP Systolic 136 mmHg BP Diastolic 88 mmHg Heart Rate 84 /min Respiratory Rate 20 /min Height 66 inches 5'6" Weight 276.00 lb Pain Level 8 Pain at this time. Pain Level With Medicine 7 on average with meds Pain Level Without Medicine 10 01/09 without meds BMI (Body Mass Index) 44.5 kg/m2 03/22/2017 9:54am BP Systolic 130 mmHg BP Diastolic 84 mmHg Heart Rate 82 /min Respiratory Rate 20 /min Height 66 inches 5'6" Weight 270.00 lb Pain Level 6 Pain at this time. Pain Level With Medicine 5 on average with meds Pain Level Without Medicine 10 01/09 without meds BMI (Body Mass Index) 43.6 kg/m2 03/08/2017 2:15pm BP Systolic 136 mmHg BP Diastolic 80 mmHg Heart Rate 84 /min Respiratory Rate 20 /min Height 66 inches 5'6" Weight 270.00 lb Pain Level 8 Pain at this time. Pain Level With Medicine 7 on average with meds Pain Level Without Medicine 10 01/09 without meds Pain Level After Procedure 5 BP Systolic Recheck 128 mmHg Pulse: 92 BP Diastolic Recheck 88 mmHg Pulse: 92 BMI (Body Mass Index) 43.6 kg/m2 02/20/2017 3:27pm BP Systolic 144 mmHg BP Diastolic 86 mmHg Heart Rate 80 /min Respiratory Rate 18 /min Height 66 inches 5'6" Weight 277.00 lb Pain Level 6 Pain at this time. Pain Level With Medicine 5 on average with meds Pain Level Without Medicine 10 01/09 without meds BMI (Body Mass Index) 44.7 kg/m2 01/24/2017 2:06pm BP Systolic 140 mmHg BP Diastolic 80 mmHg Heart Rate 76 /min Respiratory Rate 16 /min Height 66 inches 5'6" Weight 278.00 lb Pain Level 8 8/10, Pain at this time. Pain Level With Medicine 6 6/10, on average with meds Pain Level Without Medicine 10 01/09 without meds BMI (Body Mass Index) 44.9 kg/m2 01/09/2017 12:00pm BP Systolic 130 mmHg BP Diastolic 76 mmHg Heart Rate 80 /min Respiratory Rate 20 /min Height 66 inches 5'6" Weight 268.00 lb Pain Level 7 Pain at this time. Pain Level With Medicine 6 on average with meds Pain Level Without Medicine 10 01/09 without meds BMI (Body Mass Index) 43.3 kg/m2 12/25/2016 9:28am BP Systolic 138 mmHg BP Diastolic 84 mmHg Heart Rate 78 /min Respiratory Rate 20 /min Height 66 inches 5'6" Weight 268.00 lb Pain Level 8 8 Pain Level With Medicine 8 on average with meds Pain Level Without Medicine 10 10 without meds BMI (Body Mass Index) 43.3 kg/m2 11/27/2016 2:30pm BP Systolic 132 mmHg BP Diastolic 84 mmHg Heart Rate 80 /min Respiratory Rate 20 /min Height 66 inches 5'6" Weight 268.00 lb Pain Level 8 Pain at this time. Pain Level With Medicine 7 on average with meds Pain Level Without Medicine 10 01/09 without meds BMI (Body Mass Index) 43.3 kg/m2 11/23/2016 9:20am BP Systolic 126 mmHg BP Diastolic 78 mmHg Heart Rate 72 /min Respiratory Rate 20 /min Height 66 inches 5'6" Weight 268.00 lb Pain Level 7 Pain at this time. Pain Level With Medicine 6 on average with meds Pain Level Without Medicine 10 01/09 without meds BMI (Body Mass Index) 43.3 kg/m2 10/23/2016 11:11am BP Systolic 128 mmHg BP Diastolic 82 mmHg Heart Rate 80 /min Respiratory Rate 20 /min Height 66 inches 5'6" Weight 268.00 lb Pain Level 8 Pain at this time. Pain Level With Medicine 7 on average with meds Pain Level Without Medicine 10 01/09 without meds Pain Level After Procedure 6 BP Systolic Recheck 130 mmHg Pulse: 84 BP Diastolic Recheck 86 mmHg Pulse: 84 BMI (Body Mass Index) 43.3 kg/m2 10/10/2016 2:19pm BP Systolic 140 mmHg BP Diastolic 86 mmHg Heart Rate 80 /min Respiratory Rate 20 /min Height 66 inches 5'6" Weight 268.00 lb Pain Level 7 Pain at this time. Pain Level With Medicine 6 on average with meds Pain Level Without Medicine 01/09 without meds BMI (Body Mass Index) 43.3 kg/m2 09/25/2016 11:26am BP Systolic 130 mmHg BP Diastolic 76 mmHg Heart Rate 88 /min Respiratory Rate 20 /min Height 66 inches 5'6" Weight 274.00 lb Pain Level 8 Pain at this time. Pain Level With Medicine 7 on average with meds Pain Level Without Medicine 10 01/09 without meds Pain Level After Procedure 7 BP Systolic Recheck 126 mmHg Pulse: 80 BP Diastolic Recheck 82 mmHg Pulse: 80 BMI (Body Mass Index) 44.2 kg/m2 09/11/2016 10:19am BP Systolic 136 mmHg BP Diastolic 82 mmHg Heart Rate 84 /min Respiratory Rate 20 /min Height 66 inches 5'6" Weight 274.00 lb Pain Level 8 Pain at this time. Pain Level Without Medicine 10 01/09 without meds BMI (Body Mass Index) 44.2 kg/m2 08/29/2016 9:34am BP Systolic 136 mmHg BP Diastolic 84 mmHg Heart Rate 84 /min Respiratory Rate 20 /min Height 66 inches 5'6" Weight 260.00 lb Pain Level 8 Pain at this time. Pain Level Without Medicine 10 01/09 without meds BMI (Body Mass Index) 42.0 kg/m2 Results Test Date Facility Test Result H/L Range Note Comp Metabolic Panel 06/04/2018 [facility] Sodium 139 mmol/L N 135-145 [address] [place] [address] [phone] Potassium 4.0 mmol/L N 3.5-5.0 Chloride 104 mmol/L N 101-111 Co2 Carbon Dioxide 31 mmol/L N 22-32 Anion Gap 4 mmol/L N 2-11 Glucose 89 mg/dL N 70-100 Blood Urea Nitrogen 16 mg/dL N 6-24 Creatinine 0.80 mg/dL N 0.51-0.95 BUN/Creatinine Ratio 20.0 N 8-20 Calcium 9.1 mg/dL N 8.6-10.3 Total Protein 6.6 g/dL N 6.4-8.9 Albumin 4.1 g/dL N 3.2-5.2 Globulin 2.5 g/dL N 2-4 Albumin/Globulin Ratio 1.6 N 1-3 Total Bilirubin 0.30 mg/dL N 0.2-1.0 Alkaline Phosphatase 72 U/L N 34-104 Alt 23 U/L N 7-52 Ast 18 U/L N 13-39 Egfr Non- 81.6 >60 Egfr 98.8 >60 2 Iron & Iron Binding 06/04/2018 [facility] Iron 84 g/ dL N 50-[address] [place] [address] [phone] Unsaturated Iron Binding < 317 g/dL Total Iron Binding Capacity 332 g/dL N 250-450 Transferrin 237 mg/dL N 203-362 % Iron Saturation 25 % N 15-55 Laboratory test 06/04/2018 [facility] Ferritin 21.6 ng /mL N 11-307 3 finding [address] [place] [address] [phone] Folic Acid (Folate) > 20.00 ng/mL >3.99 4 Vitamin B12 > 1450 pg/mL High 180-914 5 Vitamin D Total 25(Oh) 33.8 ng/mL N 20-50 6 Vitamin B1 (Whole Blood) 223 nmol/L Abnormal 70-180 7 PTH Related Peptide <0.2 pmol/L <2.0 8 Vitamin E Level 9.6 mg/L 5.5 - 17.0 9 Urine Microalbumin 06/04/2018 [facility] Ur Microalbumin < 15.[address] (mg/L) [place], [place] [id number] [phone] Urine Creatinine 62.27 mg/dL Urine Microalbumin/Creatinine TNP <31 10 Urinalysis Profile 06/04/2018 [facility] Urine Color Yellow [address] [place] [address] [phone] Urine Appearance Cloudy Urine Specific [place] 1.016 N 1.010-1.030 Urine pH 8.0 N 5-9 Urine Urobilinogen Negative Negative Urine Ketones Negative Negative Urine Protein Negative Negative Urine Leukocytes Negative Negative Urine Blood 1+ Abnormal Negative Urine Nitrite Negative Negative Urine Bilirubin Negative Negative Urine Glucose Negative Negative Urine White Blood Cell Trace(0-5/hpf) Absent Urine Red Blood Cell 3+(>10/hpf) Abnormal Absent Urine Bacteria Absent Absent Urine Squamous Epithelial Cell Present Abnormal Absent Lipid Profile 06/04/2018 [facility] Triglycerides 56 mg/dL 11 (Trig/Chol/HDL) [address] [place], [place] [id number] [phone] Cholesterol 139 mg/dL 12 HDL Cholesterol 49.1 mg/dL 13 LDL Cholesterol 79 mg/dL 14 Laboratory test 06/04/2018 [facility] TSH (Thyroid 0.97 N 0.34-5.60 [address] Stimulating mcIU/[place] [address] Horm) [phone] Urine Culture And 06/04/2018 [facility] Urine Culture SEE RESULT [address] [place] [address] [phone] CBC Auto Diff 06/04/2018 [facility] White Blood 6.3 N 3.5-10.[address] Count 10^3/uL [place], [place] [address] [phone] Red Blood Count 4.55 10^6/uL N 4.00-5.40 Hemoglobin 13.2 g/dL N 12.0-16.0 Hematocrit 40 % N 35-47 Mean Corpuscular Volume 87 fL N 80-97 Mean Corpuscular Hemoglobin 29 pg N 27-31 Mean Corpuscular HGB Conc 33 g/dL N 31-36 Red Cell Distribution Width 13 % N 10.5-15 Platelet Count 253 10^3/uL N 150-450 Mean Platelet Volume 9.2 fL N 7.4-10.4 Abs Neutrophils 4.0 10^3/uL N 1.5-7.7 Abs Lymphocytes 1.8 10^3/uL N 1.0-4.8 Abs Monocytes 0.3 10^3/uL N 0-0.8 Abs Eosinophils 0.1 10^3/uL N 0-0.6 Abs Basophils 0 10^3/uL N 0-0.2 Abs Nucleated RBC 0 10^3/uL Granulocyte % 64.3 % Lymphocyte % 29.1 % Monocyte % 5.1 % Eosinophil % 1.1 % Basophil % 0.4 % Nucleated Red Blood Cells % 0.1 1 FASTING 2 Because ethnic data is not always readily available, this report includes an eGFR for both -Americans and non- Americans. The National Kidney Disease Education Program (NKDEP) does not endorse the use of the MDRD equation for patients that are not between the ages of 18 and 70, are , have extremes of body size, muscle mass, or nutritional status, or are non- or non-. According to the National Kidney Foundation, irrespective of diagnosis, the stage of the disease is based on the level of kidney function: Stage Description GFR(mL/min/1.73 m(2)) 1 Kidney damage with normal or decreased GFR 90 2 Kidney damage with mild decrease in GFR 60-89 3 Moderate decrease in GFR 30-59 4 Severe decrease in GFR 15-29 5 Kidney failure <15 (or dialysis) 3 FASTING 4 FASTING 5 Normal Range 180 to 914 Indeterminate Range 145 to 180 Deficient Range <145 6 FASTING 7 ADDITIONAL INFORMATION This test was developed and its performance characteristics determined by [facility] in a manner consistent with CLIA requirements. This test has not been cleared or approved by the U.S. Food and Drug Administration. Test Performed by: [facility] - [address] [address] 8 ADDITIONAL INFORMATION This test was developed and its performance characteristics determined by [facility] in a manner consistent with CLIA requirements. This test has not been cleared or approved by the U.S. Food and Drug Administration. Test Performed by: [facility] - [address] [address] 9 ADDITIONAL INFORMATION This test was developed and its performance characteristics determined by [facility] in a manner consistent with CLIA requirements. This test has not been cleared or approved by the U.S. Food and Drug Administration. Test Performed by: [facility] - [address] [address] 10 Unable to calculate due to low microalbumin 11 Desirable: <150 Borderline High: 150-199 High: 200-499 Very High: >500 12 Desirable: <200 Borderline High: 200-239 High: >239 13 Low: <40 Desirable: 40-60 High: >60 14 Desirable: <100 Near Optimal: 100-129 Borderline High: 130-159 High: 160-189 Very High: >189 15 FASTING 16 SEE RESULT BELOW Name: CHAVA GILES : [address]: Sebastian Zhang DO Acct: [id number] Unit: [id number] AGE: 37 Location: LAB Re06/04/18 SEX: F Status: REG REF SPEC: [id number] SAUL: 06/04/[address]: Sebastian Zhang DO REQ: [id number] RECD: 06/04/18 STATUS: TRENT PICKENS DR: Juanito Sargent DO _ SOURCE: URINE [facility]: ORDERED: Urine Culture Procedure Result Reported Site Urine Culture Final 06/06/18908 ML Organism 1 KLEBSIELLA PNEUMONIAE [place] Count 75-100,000 (Many) CFU/ML 1. KLEBSIELLA PNEUMONIAE [facility] RX --------- ------ Ampicillin >=32 R Cefazolin <=4 S Cefepime <=1 S Ceftriaxone <=1 S Ciprofloxacin <=0.25 S Gentamicin <=1 S Levofloxacin <=0.12 S Meropenem <=0.25 S Nitrofurantoin 64 I Tetracycline <=1 S Pipercillin/Tazobactam <=4 S Trimethoprim/Sulfamethoxazole <=20 S Amoxicillin/Clavulanic Acid <=2 S Aztreonam <=1 S Contact the Microbiology Department for any additional antibiotic reporting. * - Main Lab . END OF REPORT DEPARTMENT OF PATHOLOGY, [address] [place] [address] Matthias Link M.D. Director [facility] # [id number] Procedures Date Code Description Status 06/17/2018 55451 Therapeutic, Prophylactic Or Diagnostic Injection Subq/Im Completed 05/17/2018 53758 Therapeutic, Prophylactic Or Diagnostic Injection Subq/Im Completed 05/17/2018 87589 Brief Emotional/Behav Assessment W/ Scoring Doc Per Completed Standard Inst 04/18/2018 Arthrocentesis Aspiration Inj, Small Joint/Bursa W US Completed Guidance 04/18/2018 Arthrocentesis Aspiration Inj, Small Joint/Bursa W US Completed Guidance 04/18/2018 Arthrocentesis Aspiration Inj, Small Joint/Bursa W US Completed Guidance 04/18/2018 Arthrocentesis Aspiration Inj, Small Joint/Bursa W US Completed Guidance 04/18/2018 Arthrocentesis Aspiration Inj, Small Joint/Bursa W US Completed Guidance 04/18/2018 Arthrocentesis Aspiration Inj, Small Joint/Bursa W US Completed Guidance 04/18/2018 Arthrocentesis Aspiration Inj, Small Joint/Bursa W US Completed Guidance 04/18/2018 Arthrocentesis Aspiration Inj, Small Joint/Bursa W US Completed Guidance 04/18/2018 Arthrocentesis Aspiration Inj, Small Joint/Bursa W US Completed Guidance 03/19/2018 03447 Therapeutic, Prophylactic Or Diagnostic Injection Subq/Im Completed 03/19/2018 47584 Omt 1-2 Body Regions Completed 02/15/2018 01618 Injection For Nerve Block, Suprascapular Nerve Completed 02/15/201802860 Injection, Single Or Mutiple Trigger Points One Or Two Completed Muscles 02/15/201896937 Injection, Tendon Origin/Insertion Completed 02/15/201815854 Injection, Tendon Origin/Insertion Completed 02/15/201871940 Inject Tendon/Ligament Completed 02/15/201861018 Inject Tendon/Ligament Completed 02/15/201801514 Inject Tendon/Ligament Completed 02/15/201823457 Inject Tendon/Ligament Completed 01/17/2018 11700 Therapeutic, Prophylactic Or Diagnostic Injection Subq/Im Completed 12/19/2017 89431 Omt 1-2 Body Regions Completed 12/19/2017 Arthrocentesis/Aspiration/Inj Of Major Joint Or Bursa W/ Completed Ultra 11/19/201712943 Arthrocentesis Aspirtation Inj,Intermediate W/ US Guide & Completed Report 11/19/2017 08057 Therapeutic, Prophylactic Or Diagnostic Injection Subq/Im Completed 11/19/2017 10533 Omt 1-2 Body Regions Completed 11/05/201772108 Injection, Single Or Mutiple Trigger Points One Or Two Completed Muscles 11/05/201750502 Injection, Tendon Origin/Insertion Completed 11/05/201726499 Injection, Tendon Origin/Insertion Completed 11/05/201714860 Inject Tendon/Ligament Completed 11/05/201736112 Inject Tendon/Ligament Completed 11/05/201717733 Inject Tendon/Ligament Completed 11/05/201734428 Inject Tendon/Ligament Completed 10/19/2017 48718 Omt 1-2 Body Regions Completed 10/19/2017 31992 Therapeutic, Prophylactic Or Diagnostic Injection Subq/Im Completed 10/19/201756380 Arthrocentesis/Aspiration/Inj Of Major Joint Or Bursa W/ Completed Ultra 09/18/201750910 Inject Tendon/Ligament Completed 09/18/201712181 Inject Tendon/Ligament Completed 09/18/201727891 Inject Tendon/Ligament Completed 09/18/201756216 Inject Tendon/Ligament Completed 09/18/201781325 Injection, Tendon Origin/Insertion Completed 09/18/201755770 Injection, Tendon Origin/Insertion Completed 09/18/201709559 Injection, Single Or Mutiple Trigger Points One Or Two Completed Muscles 09/18/2017 46966 Therapeutic, Prophylactic Or Diagnostic Injection Subq/Im Completed 08/20/2017 76129 Omt 3-4 Body Regions Completed 07/20/201710210 Inject Tendon/Ligament Completed 07/20/201798539 Inject Tendon/Ligament Completed 07/20/201761901 Inject Tendon/Ligament Completed 07/20/201703392 Inject Tendon/Ligament Completed 07/20/201742598 Injection, Tendon Origin/Insertion Completed 07/20/201791840 Injection, Tendon Origin/Insertion Completed 07/20/201716621 Injection, Single Or Mutiple Trigger Points One Or Two Completed Muscles 07/20/2017 33022 Therapeutic, Prophylactic Or Diagnostic Injection Subq/Im Completed 06/20/2017 62711 Omt 3-4 Body Regions Completed 06/20/2017 64493 Therapeutic, Prophylactic Or Diagnostic Injection Subq/Im Completed 05/21/201703882 Inject Tendon/Ligament Completed 05/21/201769936 Inject Tendon/Ligament Completed 05/21/201746886 Inject Tendon/Ligament Completed 05/21/201743131 Inject Tendon/Ligament Completed 05/21/201702740 Injection, Tendon Origin/Insertion Completed 05/21/201749620 Injection, Tendon Origin/Insertion Completed 05/21/201778035 Injection, Single Or Mutiple Trigger Points One Or Two Completed Muscles 05/21/2017 30758 Injection For Nerve Block, Suprascapular Nerve Completed 05/21/2017 61176 Omt 1-2 Body Regions Completed 05/04/2017 86879 Omt 1-2 Body Regions Completed 05/04/201717953 Arthrocentesis/Aspiration/Inj Of Major Joint Or Bursa W/ Completed Ultra 04/20/2017 97928 Therapeutic, Prophylactic Or Diagnostic Injection Subq/Im Completed 03/22/2017 16503 Omt 1-2 Body Regions Completed 03/08/2017 17814 Omt 1-2 Body Regions Completed 03/08/2017 37386 Injection For Nerve Block, Other Peripheral Nerve Or Completed Branch 02/20/2017 11726 Omt 1-2 Body Regions Completed 01/24/2017 96511 Omt 3-4 Body Regions Completed 01/09/2017 69950 Omt 1-2 Body Regions Completed 01/09/2017 84815 Test Autonomic Nervous System, Sudomotor Completed 01/04/2017 71902 Nerve Conduction 11-12 Studies Completed 12/25/2016 15242 Omt 1-2 Body Regions Completed 11/27/2016 43804 Omt 1-2 Body Regions Completed 11/27/2016 42162 Nerve Conduction 11-12 Studies Completed 11/23/2016 16292 Omt 1-2 Body Regions Completed 10/23/201660389 Arthrocentesis/Aspiration/Inj Of Major Joint Or Bursa W/ Completed Ultra 10/10/201661311 Injection, Single Or Mutiple Trigger Points One Or Two Completed Muscles 10/10/2016 96237 Injection For Nerve Block, Greater Occipital Nerve Completed 10/10/2016 21468 Therapeutic, Prophylactic Or Diagnostic Injection Subq/Im Completed 10/10/2016 10458 Omt 1-2 Body Regions Completed 09/25/2016 10133 Omt 1-2 Body Regions Completed 09/25/2016 82888 Therapeutic, Prophylactic Or Diagnostic Injection Subq/Im Completed 09/25/2016 51321 Injection For Nerve Block, Suprascapular Nerve Completed 09/25/201620032 Injection, Single Or Mutiple Trigger Points One Or Two Completed Muscles 09/25/201641703 Injection, Tendon Origin/Insertion Completed 09/25/201649989 Injection, Tendon Origin/Insertion Completed 09/25/2016 30534 Inject Tendon/Ligament Completed 09/25/201646214 Inject Tendon/Ligament Completed 09/25/2016 25067 Inject Tendon/Ligament Completed 09/25/2016 96051 Inject Tendon/Ligament Completed Encounters Type Date Location Provider Dx Diagnosis Office Visit 06/17/2018 Main Office as Of Juanito Sargent DO, G89.29 Other chronic pain 11:30a 05/03/13 MPH 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, cervical region M54.5 Low back pain M65.879 Other synovitis and tenosynovitis, unsp ankle and foot R53.83 Other fatigue 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 Office Visit 05/17/2018 11:30a Main Office as Juanito Sargent G89.29 Other chronic Of 05/03/13 DO, MPH pain 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, cervical region M54.5 Low back pain Z13.31 Encounter for screening for depression Z79.891 USP (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 R53.83 Other fatigue Office Visit 04/18/2018 11:15a Main Office as Juanito Sargent G89.29 Other chronic Of 05/03/13 DO, MPH pain 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, cervical region M25.542 Pain in joints of left hand M25.541 Pain in joints of right hand M54.5 Low back pain R53.83 Other fatigue 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 Office Visit 03/19/2018 11:00a Main Office as Juanito Sargent G89.29 Other chronic Of 05/03/13 DO, MPH pain 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, cervical region M54.5 Low back pain M25.511 Pain in right shoulder M25.512 Pain in left shoulder M99.07 Segmental and somatic dysfunction of upper extremity R53.83 Other fatigue 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 Office Visit 02/15/2018 11:15a Main Office as Juanito Sargent G89.29 Other chronic Of 05/03/13 DO, MPH pain 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, cervical region M54.5 Low back pain M65.88 Other synovitis and tenosynovitis, other site M79.12 Myalgia of auxiliary muscles, head and neck M54.2 Cervicalgia Z79.891 USP (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 Office Visit 01/17/2018 11:30a Main Office as Juanito Sargent G89.29 Other chronic Of 05/03/13 DO, MPH pain 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, cervical region M54.5 Low back pain R53.83 Other fatigue 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 Office Visit 12/19/2017 2:30p Main Office as Juanito Sargent G89.29 Other chronic Of 05/03/13 DO, MPH pain 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, cervical region M54.5 Low back pain M25.511 Pain in right shoulder M99.07 Segmental and somatic dysfunction of upper extremity M25.552 Pain in left hip R53.83 Other fatigue 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 Office Visit 11/19/2017 2:45p Main Office as Juanito Sargent G89.29 Other chronic Of 05/03/13 DO, MPH pain 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, cervical region M54.2 Cervicalgia M79.1 Myalgia M25.521 Pain in right elbow M99.07 Segmental and somatic dysfunction of upper extremity R53.83 Other fatigue Z79.891 USP (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 Office Visit 11/05/2017 2:00p Main Office as Juanito Sargent, G89.29 Other chronic Of 05/03/13 DO, MPH pain 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, cervical region M54.2 Cervicalgia M79.1 Myalgia M46.02 Spinal enthesopathy, cervical region M65.88 Other synovitis and tenosynovitis, other site 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 Office Visit 10/19/2017 11:00a Main Office as Juanito Sargent G89.29 Other chronic Of 05/03/13 DO, MPH pain 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, cervical region M54.2 Cervicalgia M25.552 Pain in left hip M99.06 Segmental and somatic dysfunction of lower extremity R53.83 Other fatigue 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 Office Visit 09/18/2017 11:00a Main Office as Juanito Sargent G89.29 Other chronic Of 05/03/13 DO, MPH pain 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, cervical region M54.2 Cervicalgia M65.88 Other synovitis and tenosynovitis, other site M79.1 Myalgia 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 R53.83 Other fatigue Office Visit 08/20/2017 10:45a Main Office as Juanito Sargent G89.29 Other chronic Of 05/03/13 DO, MPH pain 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, cervical region M54.2 Cervicalgia M99.01 Segmental and somatic dysfunction of cervical region M54.6 Pain in thoracic spine M99.02 Segmental and somatic dysfunction of thoracic region M25.511 Pain in right shoulder M99.07 Segmental and somatic dysfunction of upper extremity Z79.891 USP (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 Office Visit 07/20/2017 11:00a Main Office as Juanito Sargent G89.29 Other chronic Of 05/03/13 DO, MPH pain 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, cervical region M54.2 Cervicalgia M99.01 Segmental and somatic dysfunction of cervical region M65.88 Other synovitis and tenosynovitis, other site M79.1 Myalgia M54.6 Pain in thoracic spine M99.02 Segmental and somatic dysfunction of thoracic region M25.511 Pain in right shoulder M99.07 Segmental and somatic dysfunction of upper extremity R53.83 Other fatigue Z79.891 USP (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 Office Visit 06/20/2017 11:00a Main Office as Juanito Sargent G89.29 Other chronic Of 05/03/13 DO, MPH pain 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, cervical region M54.2 Cervicalgia M99.01 Segmental and somatic dysfunction of cervical region M79.1 Myalgia M54.6 Pain in thoracic spine M99.02 Segmental and somatic dysfunction of thoracic region M25.511 Pain in right shoulder M99.07 Segmental and somatic dysfunction of upper extremity R53.83 Other fatigue Z79.891 USP (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 Office Visit 05/21/2017 11:30a Main Office as Juanito Sargent G89.29 Other chronic Of 05/03/13 DO, MPH pain 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, cervical region M54.2 Cervicalgia M79.1 Myalgia M65.88 Other synovitis and tenosynovitis, other site M54.13 Radiculopathy, cervicothoracic region M99.01 Segmental and somatic dysfunction of cervical region 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 Office Visit 05/04/2017 1:00p Main Office as Juanito Sargent G89.29 Other chronic Of 05/03/13 DO, MPH pain M54.5 Low back pain M54.16 Radiculopathy, lumbar region M54.2 Cervicalgia M99.01 Segmental and somatic dysfunction of cervical region Z13.89 Encounter for screening for other disorder M46.1 Sacroiliitis, not elsewhere classified Office Visit 04/20/2017 10:15a Main Office as Juanito Sargent G89.29 Other chronic Of 05/03/13 DO, MPH pain M54.5 Low back pain M54.16 Radiculopathy, lumbar region M54.2 Cervicalgia R53.83 Other fatigue 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 Office Visit 03/22/2017 9:45a Main Office as Juanito Sargent G89.29 Other chronic Of 05/03/13 DO, MPH pain M54.5 Low back pain M54.16 Radiculopathy, lumbar region M54.2 Cervicalgia 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, cervical region M99.01 Segmental and somatic dysfunction of cervical region Z79.891 USP (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 Office Visit 03/08/2017 2:15p Main Office as Juanito Sargent G89.29 Other chronic Of 05/03/13 DO, MPH pain M54.5 Low back pain M54.16 Radiculopathy, lumbar region M54.2 Cervicalgia M99.01 Segmental and somatic dysfunction of cervical region Z79.891 USP (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 Office Visit 02/20/2017 3:30p Main Office as Juanito Sargent G89.29 Other chronic Of 05/03/13 DO, MPH pain M54.5 Low back pain M54.16 Radiculopathy, lumbar region M54.2 Cervicalgia M99.01 Segmental and somatic dysfunction of cervical region 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 Office Visit 01/24/2017 2:00p Main Office as Chelsea Baer G89.29 Other chronic Of 05/03/13 [employer] pain M54.5 Low back pain M99.03 Segmental and somatic dysfunction of lumbar region M54.6 Pain in thoracic spine M99.02 Segmental and somatic dysfunction of thoracic region M54.2 Cervicalgia M99.01 Segmental and somatic dysfunction of cervical region 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, cervical region M54.17 Radiculopathy, lumbosacral region Z79.891 USP (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 G90.3 Multi-system degeneration of the autonomic nervous system Z71.89 Other specified counseling Office Visit 01/09/2017 11:45a Main Office as Juanito Sargent G89.29 Other chronic Of 05/03/13 DO, MPH pain 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, cervical region M99.01 Segmental and somatic dysfunction of cervical region M54.5 Low back pain G54.4 Lumbosacral root disorders, not elsewhere classified Z79.891 USP (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 G90.3 Multi-system degeneration of the autonomic nervous system Office Visit 12/25/2016 9:30a Main Office as Chelsea Baer G89.29 Other chronic Of 05/03/13 [employer] pain 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, cervical region M54.12 Radiculopathy, cervical region M99.01 Segmental and somatic dysfunction of cervical region M54.6 Pain in thoracic spine M54.5 Low back pain G54.4 Lumbosacral root disorders, not elsewhere classified Z71.89 Other specified counseling 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 Office Visit 11/27/2016 2:15p Main Office as Juanito Sargent G89.29 Other chronic Of 05/03/13 DO, MPH pain 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, cervical region M99.01 Segmental and somatic dysfunction of cervical region M54.12 Radiculopathy, cervical region Z79.891 USP (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 Office Visit 11/23/2016 9:15a Main Office as Juanito Sargent G89.29 Other chronic Of 05/03/13 DO, MPH pain 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, cervical region M54.12 Radiculopathy, cervical region M99.01 Segmental and somatic dysfunction of cervical region M54.5 Low back pain M79.1 Myalgia R53.83 Other fatigue 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 Office Visit 10/23/2016 11:00a Main Office as Juanito Sargent G89.29 Other chronic Of 05/03/13 DO, MPH pain 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, cervical region M54.12 Radiculopathy, cervical region M54.5 Low back pain M79.1 Myalgia R53.83 Other fatigue M99.01 Segmental and somatic dysfunction of cervical region M70.62 Trochanteric bursitis, left hip 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 Office Visit 10/10/2016 2:45p Main Office as Juanito Sargent G89.29 Other chronic Of 05/03/13 DO, MPH pain 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, cervical region M54.12 Radiculopathy, cervical region M65.88 Other synovitis and tenosynovitis, other site M79.1 Myalgia M54.5 Low back pain R53.83 Other fatigue 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 Office Visit 09/25/2016 11:00a Main Office as Juanito Sargent G89.29 Other chronic Of 05/03/13 DO, MPH pain 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, cervical region M54.12 Radiculopathy, cervical region M54.5 Low back pain M79.1 Myalgia M46.07 Spinal enthesopathy, lumbosacral region M65.88 Other synovitis and tenosynovitis, other site R53.83 Other fatigue 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 M99.01 Segmental and somatic dysfunction of cervical region Office Visit 09/11/2016 10:00a Main Office as Juanito Sargent G89.29 Other chronic Of 05/03/13 DO, MPH pain 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, cervical region M54.12 Radiculopathy, cervical region M54.5 Low back pain Z79.891 USP (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 Office Visit 08/29/2016 9:00a Main Office as Juanito Sargent G89.29 Other chronic Of 05/03/13 DO, MPH pain 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, cervical region M54.12 Radiculopathy, cervical region M54.5 Low back pain Z71.3 Dietary counseling and surveillance Z71.89 Other specified counseling Z79.891 USP (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 Plan of Treatment Future Appointment(s):08/14/2018 11:30 am - Juanito Sargent DO MPH at Main Office as Of 05/03/1403 - Juanito Sargent DO, MPHG89.29 Other chronic painComments:Chronic. Symptoms and complaints discussed and reviewed today. No significant changes in physical findings. Continue current medical pain management.M54.5 Low back painComments:Chronic. Symptoms and complaints discussed and reviewed today.No changes in physical findings. Patient is stable and comfortable when current medical therapy is rendered.M72.2 Plantar fascial fibromatosisComments:Injection therapy to left foot tendon sheath, performed today under musculoskeletal ultrasound for visualization and demarcation of structures and needle guidance for injection - see procedure sheet.R53.83 Other fatigueComments:Symptoms and complaints discussed and reviewed today. No significant changes in physical findings. Continue current medical pain management. B12 injection administered after patient evaluated. 1ml IM for fatigue. (See Consent for injection-B12 document for lot number and expiration date.)Z79.891 USP (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New Labs:Urine Drug Screen, Ordered: 07/17/18Comments:Urine drug screen sample taken. Rapid Point of Care Cup was reviewed in office with patient. Will send out UDT Rapid to [facility] lab for confirmation testing. Urine Drug Testing (UDT) was done today to monitor opiate use and to monitor possible use of illicit substances. I will discuss the results at the next appointment from the [facility] lab.The following tests were ordered:6 AM, AMPH, JOSELUIS, RAMIREZ, BUP, CARIS, COCM, COT, ETG, FENT, MCSHSG, OPI, OXY, PCP, TAPEN, XTSY, ZOLP. A urine drug test (UDT) was ordered for this patient and collected on site today. Creatinine has been ordered as well for specimen validity, not for kidney function. Preliminary UDT results are not final and should not be used to determine patient care or plan of treatment. Initially a qualitative immunoassay screen will be done. Any inconsistent or positive findings will be further tested with a more comprehensive quantitative confirmation LCMS study. It is part of the treatment process of prescribing controlled substances and is considered standard of care.AllComments:The injections that we are requesting on the behalf of the patient areTendon Sheath Injection () quantity of 4, Tendon Origin Insertion () quantity of 2,Trigger Point Injection () quantity of 6, Bilateral Suprascapular Nerve Block (37424) quantity of 2. If she is able to have injections as a secondary option for pain relief, that may be another option other than increases in opioid medications. Please feel free to contact the office with any questions.All above symptoms and complaints discussed as well as diagnoses reviewed.Continue trial of opioid pain management - note changes below; injection therapy, osteopathic manipulation ( OMT), PT / modalities, and consults as needed to manage chronic pain.Side effects discussed; anticipatory guidance given. Patient clearly understands and agrees with all medical treatments and suggestions. All medicines prescribed are adequate and appropriate for this patient's complaint of pain, medical history, physical, and personal goals.Goals of Treatment are to provide adequate and appropriate multidisciplinary medical pain management to increase/ maintain patient's quality of life and functionality while maintaining satisfactory side effect profile and minimizing snf end-organ damage. Activity as toleratedContinue with PCP
[2018-07-23 12:10] LABS: Influenza A Molecular NEGATIVE (Negative); Influenza B Molecular NEGATIVE (Negative)
--- NOTE | 2018-07-23 12:22 | ED ---
Respiratory - HPI Summary HPI Summary: Patient is a 37 y/o female who presents to the ED c/o cough. 3 days ago she began to have a wet cough, and reports having thick yellow sputum. Today she also have constant SOB and chest pressure, radiating from her left ribs to her back. Patient describes the sensation as a rattle in my chest. Pain is rated a 10/10 in severity, and is made worse with deep breaths. This morning she also had a subjective fever, and reports having chills and diaphoresis. She denies any LE edema. As per partner, she also had a panic attack this morning after feeling racing palpitations. Patient is on Kevzara for her RA, and she takes it every other week. She denies any recent surgery, travel, or hospitalizations in the past several months. She is a former smoker, and notes that she has second- hand smoke exposure at home. Patient denies taking control. She denies any hx of asthma. PMHx RA, left plantar fasciitis, C3-C7 fusion, fibromyalgia, osteoarthritis. LNMP currently. - History of Current Complaint Chief Complaint: EDFluSymptoms Stated Complaint: SOB/CHEST PAIN/UPPER BACK PAIN/COUGHING PER PT Time Seen by Provider: 07/23/18 11:43 Hx Obtained From: Patient, Family/Patternmaker Bench - Partner Onset/Duration: Gradual Onset, Lasting Days - 3, Worse Since Timing: Constant Current Severity: Severe Pain Intensity: 10 Character: Cough (Productive) Sputum Amount: Moderate Sputum Color: Yellow Aggravating Factor(s): Deep Breaths Alleviating Factor(s): Nothing Associated Signs and Symptoms: Fever - subjective, SOB, Chest Pain, Chills, Diaphoresis - Allergy/Home Medications Allergies/Adverse Reactions: Allergies Allergy/AdvReac Type Severity Reaction Status Date / Time No Known Allergies Allergy Verified 05/14/18 14:14 Home Medications: Home Medications Calcium Carb/Vitamin D3/Vit K1 [Viactiv 500-500-40 mg-Unt-Mcg] 1 chw PO BID [History Confirmed 07/23/18] Cholecalciferol (Vitamin D3) [Vitamin D3] 2,000 unit PO DAILY 07/23/18 [History Confirmed 07/23/18] Cyanocobalamin TAB* [Vitamin B12 TAB*] 2,500 mcg PO DAILY 07/23/18 [History Confirmed 07/23/18] Docusate CAP* [Colace Cap*] 100 mg PO QID 07/23/18 [History Confirmed 07/23/18] Lisdexamfetamine (NF) [Vyvanse (NF)] 70 mg PO DAILY 07/23/18 [History Confirmed 07/23/18] Lurasidone(*) [Latuda] 80 mg PO BEDTIME 07/23/18 [History Confirmed 07/23/18] Morphine Sulfate [Morphine Sulfate ER] 30 mg PO BID 07/23/18 [History Confirmed 07/23/18] Pedi Multivit No.25/Folic Acid [Flintstones Multivit Chew Tab] 300 mcg PO BID [History Confirmed 07/23/18] Pregabalin CAP(*) [Lyrica CAP(*)] 200 mg PO TID 07/23/18 [History Confirmed ] Sarilumab [Kevzara] 200 mg SUBCUT .EVERY OTHER WED. 07/23/18 [History Confirmed 07/23/18] Senna TAB* [Senokot TAB*] 1 tab PO QID 07/23/18 [History Confirmed 07/23/18] Thiamine Mononitrate (Vit B1) [Vitamin B-1] 250 mg PO DAILY 07/23/18 [History Confirmed 07/23/18] Vilazodone (NF) [Viibryd (NF)] 40 mg PO BEDTIME 07/23/18 [History Confirmed ] buPROPion SR TAB* [Wellbutrin SR TAB*] 200 mg PO QAM 07/23/18 [History Confirmed 07/23/18] tiZANidine TAB* [Zanaflex TAB*] 4 mg PO QID 07/23/18 [History Confirmed 07/23/18 ] PMH/Surg Hx/FS Hx/Imm Hx Endocrine/Hematology History: Denies: Hx Diabetes, Hx Thyroid Disease Cardiovascular History: Denies: Hx Hypertension, Hx Pacemaker/ICD, Other Cardiovascular Problems/ Disorders Respiratory History: Reports: Hx Sleep Apnea - position controled Denies: Hx Asthma, Hx Chronic Obstructive Pulmonary Disease (COPD), Other Respiratory Problems/Disorders GI History: Denies: Hx Ulcer, Other GI Disorders History: Reports: Other Problems/Disorders - history of renal calculi Denies: Hx Renal Disease Musculoskeletal History: Reports: Hx Arthritis - hands, elbows, ankles, osteoarthritis, Hx Rheumatoid Arthritis, Hx Bursitis - left hip, Other Musculoskeletal History - left plantar fasciitis Sensory History: Reports: Hx Contacts or Glasses - not wearing Denies: Hx Hearing Aid Opthamlomology History: Reports: Hx Contacts or Glasses - not wearing Neurological History: Reports: Hx Nerve Disease - myopathic feet, legs and hands , fibromyalgia Denies: Other Neuro Impairments/Disorders Psychiatric History: Reports: Hx Anxiety, Hx Depression, Hx Panic Disorder - ANXIETY, Hx Post Traumatic Stress Disorder, Hx Bipolar Disorder, Other Psychiatric Issues/Disorders - opiate addiction - Surgical History Surgery Procedure, Year, and Place: 3 C-SECTIONS. C3 to C7 fusion. TUBAL LIGATION Hx Anesthesia Reactions: No - Immunization History Date of Tetanus Vaccine: utd Date of Influenza Vaccine: utd Infectious Disease History: No Infectious Disease History: Denies: Hx Clostridium Difficile, Hx Hepatitis, Hx Human Immunodeficiency Virus (HIV), Hx of Known/Suspected MRSA, Hx Shingles, Hx Tuberculosis, Hx Known/ Suspected VRE, Hx Known/Suspected VRSA, History Other Infectious Disease, Traveled Outside the [place] in Last 30 Days - Family History Known Family History: Positive: Cardiac Disease - father [place] 48yo alive, Hypertension, Diabetes, Respiratory Disease - COPD - parents - Social History Alcohol Use: None Hx Substance Use: Yes Substance Use Type: Reports: Prescribed Substance Use Comment - Amount & Last Used: Percocet bid, morphine er 30 mg bid Hx Tobacco Use: Yes Smoking Status (MU): Former Smoker Amount Used/How Often: 1/4 pack a day for 9 months Have You Smoked in the Last Year: No Review of Systems Positive: Fever - subjective, Chills, Skin Diaphoresis Positive: Palpitations - tachycardia, Chest Pain - pressure Positive: Shortness Of Breath, Cough - wet Negative: Edema - LE Positive: Anxious - panic attack All Other Systems Reviewed And Are Negative: Yes Physical Exam - Summary Physical Exam Summary: Constitutional: Well-developed, Well-nourished, Alert. (-) Distressed Skin: Warm, Dry HENT: Normocephalic; Atraumatic Eyes: Conjunctiva normal Neck: Musculoskeletal ROM normal neck. (-) JVD, (-) Stridor, (-) Tracheal deviation Cardio: Rhythm regular, Mildly tachycardic rate, Heart sounds normal; Intact distal pulses; The pedal pulses are 2+ and symmetric. Radial pulses are 2+ and symmetric. (-) Murmur Pulmonary/Chest wall: Effort normal, Chest wall non-tender, (+) Crackles and wheezes in left side, (+) High-pitched crackles and wheezes in left external lung roberts, (-) Respiratory distress, (-) Rales Abd: Soft, (-) tenderness, (-) Distension, (-) Guarding, (-) Rebound Musculoskeletal: (-) Edema Lymph: (-) Cervical adenopathy Neuro: Alert, Oriented x3 Psych: Mood and affect Normal Triage Information Reviewed: Yes Vital Signs On Initial Exam: Initial Vitals Temp Pulse Resp BP Pulse Ox 98.7 F 128 20 104/72 95 07/23/18 11:30 07/23/18 11:30 07/23/18 11:30 07/23/18 11:30 07/23/18 11:30 Vital Signs Reviewed: Yes Diagnostics - Vital Signs Vital Signs Temp Pulse Resp BP Pulse Ox 07/23/18 11:30 98.7 F 128 20 104/72 95 - Laboratory Lab Results: Lab Results 07/23/18 Range/Units 11:35 Influenza A (Rapid) Negative (Negative) Influenza B (Rapid) Negative (Negative) Result Diagrams: 07/23/18 12:07 07/23/18 12:07 Lab Statement: Any lab studies that have been ordered have been reviewed, and results considered in the medical decision making process. - Radiology CXR Radiology Interpretation Completed By: Radiologist Summary of Radiographic Findings: LEFT UPPER LOBE CONSOLIDATION. RECOMMEND FOLLOW-UP UNTIL RESOLUTION TO EXCLUDE UNDERLYING PULMONARY PARENCHYMAL PATHOLOGY. ED physician reviewed radiology report. - EKG 11:44 Cardiac Rate: Tachycardia - 106 bpm EKG Rhythm: Sinus Tachycardia Summary of EKG Findings: Tachycardia at 106 bpm, normal MA, normal QRS, normal QTc, normal axis, normal ST, normal T-waves, normal EKG. Re-Evaluation - Re-Evaluation First Eval Re-Evaluation Time: 14:30 Change: Unchanged Comment: Pt is still in a lot of pain, but has not yet received her morphine. Disposition - Course Course Of Treatment: Patient is a 37 y/o female who presents to the ED c/o wet cough, SOB, chest pressure, subjective fever, chills, and diaphoresis. She is a former smoker, and notes that she has second-hand smoke exposure at home. A physical exam revealed Chest wall non-tender, Crackles and wheezes in left side , High-pitched crackles and wheezes in left external lung roberts, mildly tachycardic. A CXR revealed LEFT UPPER LOBE CONSOLIDATION. RECOMMEND FOLLOW-UP UNTIL RESOLUTION TO EXCLUDE UNDERLYING PULMONARY PARENCHYMAL PATHOLOGY. An EKG revealed tachycardia at a rate of 106 bpm. Bloodwork revealed a lactic acid of 2.7. Rapid flu tests were both negative. In the course, patient was given a breathing treatment, Zithromax, Ativan, Morphine, fluids, Percocet, KCl, Lyrica , and Zosyn. Final dx are PNA and sepsis. Patient is admitted to Dr. Taylor. She is agreeable with this plan. - Diagnoses Provider Diagnoses: Pneumonia, Sepsis - Physician Notifications Discussed Care Of Patient With: Betsy Taylor Time Discussed With Above Provider: 14:54 Instructed by Provider To: Admit As Inpatient Discharge - Sign-Out/Discharge Documenting (check all that apply): Patient Departure - Admit Patient Received Moderate/Deep Sedation with Procedure: No - Discharge Plan Condition: Stable Disposition: ADMITTED TO [facility] - Billing Disposition and Condition Condition: STABLE Disposition: Admitted to [facility] - Attestation Statements Document Initiated by Maria E: Yes Documenting Scribe: Rach Jimenez Provider For Whom Maria E is Documenting (Include Credential): Jennifer Galvez MD Scribe Attestation: Rcah Morrison scribed for Jennifer Mejias MD on 07/23/18 at 2235. Scribe Documentation Reviewed: Yes Provider Attestation: The documentation as recorded by the Rach pineda accurately reflects the service I personally performed and the decisions made by me, Jennifer Galvez MD Status of Scribe Document: Viewed
[2018-07-23 12:31] LABS: ABS Basophils 0 10^3/ul (0-0.2); ABS Eosinophils 0.1 10^3/ul (0-0.6); ABS Lymphocytes 0.5 10^3/ul (1.0-4.8); ABS Monocytes 0.4 10^3/ul (0-0.8); ABS Neutrophils 8.3 10^3/ul (1.5-7.7); ABS Nucleated RBC 0 10^3/ul; Eosinophil % 0.9 %; Hematocrit 39 % (33-41); Hemoglobin 13.1 g/dL (12.0-16.0); Lymphocyte % 5.8 %; Mean Corpuscular HGB Conc 34 g/dL (31-36); Mean Corpuscular Hemoglobin 30 pg (27-31); Mean Corpuscular Volume 88 fL (80-97); Mean Platelet Volume 9.6 fL (7.4-10.4); Nucleated Red Blood Cells % 0; Platelet Count 176 10^3/uL (150-450); Red Blood Count 4.43 10^6 /uL (3.70-4.87); Red Cell Distribution Width 13 % (10.5-15); White Blood Count 9.4 10^3/uL (3.5-10.8)
[2018-07-23 12:45] LABS: Activated Partial Thrombo Time 27.9 seconds (26.0-36.3); INR 0.99 (0.82-1.09)
[2018-07-23 12:58] LABS: Albumin 3.7 g/dL (3.2-5.2); Albumin/Globulin Ratio 1.5 (1-3); BUN/Creatinine Ratio 18.6 (8-20); Calcium 9.2 mg/dL (8.6-10.3); EGFR African American 66.3 (>60); EGFR Non-African American 54.8 (>60); Globulin 2.5 g/dL (2-4); Potassium 3.4 mmol/L (3.5-5.0); Total Bilirubin 0.5 mg/dL (0.2-1.0); Total Protein 6.2 g/dL (6.4-8.9); Troponin I 0.01 ng/mL (<0.04)
[2018-07-23] MEDS ORDERED: Azithromycin 500 mg/250 ml NS 500 MG/250 ML BAG IVPB ONE (13:38)
[2018-07-23] MEDS ORDERED: ED Piperacillin/Tazobac 3.375 3.375 GM/100 ML PREMIX.SET IVPB ONE (13:38)
[2018-07-23] MEDS ORDERED: Potassium Chlor TAB* 20 MEQ TAB.ER PO ONE (14:04)
[2018-07-23] MEDS: Morphine 4 MG/ML VIAL (1 ml) 4 MG/ML VIAL IV PRN ×2 (14:37→20:00)
[2018-07-23] MEDS ORDERED: NS 0.9% 1000 ML** 1,000 ML IV.FLUID IV ONE (14:57)
[2018-07-23] MEDS ORDERED: LORazepam TAB(*) 1 MG PO ONE (15:00)
[2018-07-23] MEDS ORDERED: Pregabalin CAP(*) 100 MG PO ONE (15:00)
[2018-07-23] MEDS ORDERED: Morphine TAB Extended Release (*) 30 MG TAB.ER PO ONE (15:00)
[2018-07-23] MEDS ORDERED: Oxycodone TAB(NF) 10 MG TAB IMMEDIATE RELEASE PO ONE (15:05)
[2018-07-23 15:43] LABS: C Reactive Protein 12.08 mg/L (<8.01)
[2018-07-23] MEDS ORDERED: NS 0.9% 1000 ML** 1,000 ML IV SCH (16:45)
[2018-07-23] MEDS ORDERED: DOXYcycline IV* 100 MG in NS 0.9% 250 ML* 250 ML IVPB SCH ×2 (17:00→21:00)
[2018-07-23] MEDS ORDERED: Albuterol 2.5 MG/3 ML NEB.SOL* (0.083%) INH PRN (17:01)
[2018-07-23 17:05] LABS: Urine Appearance Clear; Urine Bacteria 3+ (Absent); Urine Bilirubin Negative (Negative); Urine Blood 1+ (Negative); Urine Color Yellow; Urine Glucose Negative (Negative); Urine Ketones Negative (Negative); Urine Nitrite Negative (Negative); Urine Protein Negative (Negative); Urine Red Blood Cell Trace(0-2/hpf) (Absent); Urine Squamous Epithelial Cell Present (Absent); Urine Urobilinogen Negative (Negative); Urine White Blood Cell Trace(0-5/hpf) (Absent)
[2018-07-23] MEDS ORDERED: methylPREDNISolone SOD 40 MG* 1 ML VIAL IV ONE (17:17)
[2018-07-23] MEDS ORDERED: Piperacillin/Tazobac (*) 3.375 GM BAG ONE (17:46)
[2018-07-23] MEDS ORDERED: oxyCODONE TAB* 5 MG TAB PO ONE (18:01)
[2018-07-23] MEDS ORDERED: cefTRIAXone(*) 1 GM in NS 0.9% 50 ML* 50 ML IVPB SCH (20:00)
[2018-07-23] MEDS: Senna TAB PO SCH (20:04)
[2018-07-23] MEDS: oxyCODONE TAB* 5 MG TAB PO SCH (20:05)
[2018-07-23] MEDS: Docusate CAP* 100 MG PO SCH (20:05)
[2018-07-23] MEDS: LORazepam TAB(*) 1 MG PO SCH (20:06)
[2018-07-23] MEDS: Pregabalin CAP(*) 100 MG PO SCH (20:06)
[2018-07-23] MEDS: hydrOXYzine HCL TAB* 25 MG PO SCH (20:06)
[2018-07-23] MEDS: CMCS:Vilazodone (NF) 40 MG TAB PO SCH (20:07)
[2018-07-23] MEDS: tiZANidine TAB* 2 MG PO PRN (20:07)
[2018-07-23] MEDS: Lurasidone(*) 80 MG TAB PO SCH (20:08)
--- NOTE | 2018-07-23 20:36 | HP ---
CC: Dr. Zhang; Dr. Iglesias; Dr. Sargent * HISTORY AND PHYSICAL: DATE OF ADMISSION: 07/23/18 PROVIDER: Tamia Hwang NP PRIMARY CARE PROVIDER: Dr. Zhang. PAIN MANAGEMENT PHYSICIAN: Dr. Sargent ATTENDING PHYSICIAN WHILE IN THE HOSPITAL: Dr. Betsy Taylor * (dictated by Tamia Hwang NP) CHIEF COMPLAINT: Shortness of breath and chest pain. HISTORY OF PRESENT ILLNESS: Ms. Giles is a 37-year-old female with a past medical history significant for rheumatoid arthritis, Raynaud's, osteoarthritis , inflammatory arthropathy, degenerative disk disease, fibromyalgia and chronic pain since the age of 29, who presented to the emergency room with complaints of 3 days of cough with progressively worsening shortness of breath. The patient reports that she developed a cough approximately 3 days ago with thick yellow sputum and was doing okay today. She developed some shortness of breath and chills and was concerned. She felt like she was tachycardiac with her heart racing. She also complained of left upper chest pain radiating to her back due to her increased shortness of breath, fever and chills. She presented to emergency room for further evaluation. She denied any edema. She denied any hemoptysis. No nausea, vomiting, diarrhea or abdominal pain, hematuria, dysuria, focal weakness or sensory loss. No visual complaints, dysphagia, arthralgias, myalgias, rashes, lesions, or open sores. While in the emergency room, the patient had routine lab work drawn. She had a chest x-ray, which showed left upper lobe pneumonia. The patient became hypoxic and hypotensive in the emergency room and due to these symptoms of progressively worsening shortness of breath, we were asked to see and evaluate her for admission. PAST MEDICAL HISTORY: Significant for: 1. Rheumatoid arthritis. 2. Raynaud's. 3. Osteoarthritis. 4. Inflammatory arthropathy. 5. Degenerative disk disease. 6. Fibromyalgia. 7. Chronic pain since the age of 29. PAST SURGICAL HISTORY: 1. Posterior cervical fusion of C3 to C7. 2. in 2006, 2008, and 2016. 3. Gastric sleeve. HOME MEDICATIONS: Include: 1. Morphine 30 mg p.o. b.i.d. 2. Senna 1 tab 4 times a day. 3. Docusate 100 mg p.o. 4 times a day. 4. Vitamin D3 2000 units p.o. daily. 5. Vitamin B1 250 mcg p.o. daily. 6. Vitamin B12 25 mcg p.o. daily. 7. Calcium carbonate, vitamin D, vitamin K1 one chew p.o. daily. 8. Atarax 25 mg p.o. at bedtime. 9. Children's multivitamin 300 mcg p.o. b.i.d. 10. Kevzara 200 mg subcu every other Sunday. Last dose was 07/10/18. 11. Alpha lipoic acid 200 mg p.o. b.i.d. 12. Zanaflex 4 mg p.o. 4 times a day. 13. Lyrica 200 mg p.o. t.i.d. 14. Oxycodone 15 mg p.o. t.i.d. 15. Wellbutrin 200 mg p.o. q.a.m. 16. Lorazepam 2 mg p.o. b.i.d. 17. Viibryd 40 mg at bedtime. 18. Latuda 80 mg p.o. at bedtime. 19. Vyvanse 70 mg p.o. daily. ALLERGIES: No known drug allergies. FAMILY HISTORY: Father with a history of [place] at 48 and hypertension. Mother with a history of hypertension. Father with a history of type 2 diabetes. Father with the history of prostate cancer. Mother with the history of lung cancer, Stage 1. SOCIAL HISTORY: The patient reports she quit smoking in 2014, prior to that, she smoked a half a pack a day for approximately 9 months. She does report occasional alcohol use. Denies any illicit drug use. She has a significant other. She lives with her children. Surrogate decision maker in the event she is unable to make her own decisions is her father. She is a full code. REVIEW OF SYSTEMS: The patient does report chills, left-sided chest pain, cough , productive of yellow secretions and increased shortness of breath. Denies any nausea, vomiting, diarrhea, abdominal pain, hematuria, dysuria, focal weakness, sensory loss. Denies any visual complaints, dysphagia, arthralgias, myalgias, rashes, lesions, or open sores. Denies any psychosis or anxiety. Denies any unintended weight loss. PHYSICAL EXAMINATION GENERAL: At this time, Ms. giles is a 37-year-old female, she is resting on the stretcher in the emergency room. She does appear to be [id number] short of breath. She does have audible wheezing and rhonchi. She is alert and oriented x3. VITAL SIGNS: Blood pressure 92/46, heart rate 126, respirations are 26, O2 saturation 91% on 12 L. Face mask temperature was 98.7. HEENT: Head is atraumatic, normocephalic. Eyes: EOMs are intact. Sclerae anicteric, not pale. Oral mucosa appear to be moist. NECK: Supple. LUNGS: With expiratory wheezes and scattered rhonchi throughout bilat. She does have audible rhonchi. Respirations are labored. Chest expansion is symmetrical. Cardiac: S1 and S2. Regular rate and rhythm. She is tachycardiac. No murmurs , rubs, or gallops. ABDOMEN: Soft and nontender. Bowel sounds are present x4. EXTREMITIES: She is able to move all 4 extremities. There is no clubbing or cyanosis. NEUROLOGIC: She is awake, alert and oriented x3. Speech is clear. Thought process is intact. There are no gross focal deficits. PSYCH: She is awake, alert and oriented x3. She appears appropriate. SKIN: Intact. DIAGNOSTIC STUDIES/LAB DATA: WBCs are 9.4, RBCs 13.1, hematocrit was 39, platelet count 176. INR was 0.99. Sodium 137, potassium 3.4, chloride 102, carbon dioxide was 28, anion gap was 7, BUN was 21, creatinine 1.13, glucose was 97, lactic acid 2.7 and repeat was 3.0, calcium 9.2. Total bilirubin 0.50, ASTs were 66, ALTs were 120. Troponin was 0.01. C-reactive protein 12.08. Albumin 3.7. Urine pH was 5, specific gravity 1.020. Protein was negative. Ketones were negative. Blood was 1+, nitrites were negative. Bilirubin, urobilinogen, leukocyte esterase were all negative. Urine wbc's were trace, rbc 's were trace. Squamous epithelial cells were present, bacteria was 3+. Influenza A and B were both negative. Chest x-ray, radiologist impression: Left upper lobe consolidation. Recommend followup until resolution to exclude underlying pulmonary parenchymal pathology. Electrocardiogram showed sinus tachycardia at a rate of 106, QTc was 456. ASSESSMENT AND PLAN: Ms. Giles is a 37-year-old female with a past medical history significant for rheumatoid arthritis, currently on Kevzara; osteoarthritis; inflammatory arthropathy; degenerative disk disease; fibromyalgia; and chronic pain, who presented to the emergency room with shortness of breath and chest pain, found to have left-sided pneumonia. She will be admitted inpatient in ICU for: 1. Sepsis. The patient does meet sepsis criteria with tachycardia and tachypnea, hypoxia, elevated creatinine and elevated lactic acid of 2.7. Suspect this is related to pneumonia. She was given 30 cc/kg bolus in the emergency room and repeat lactic acid was drawn prior to completion of her IV bolus. I will continue her on IV at 100 cc/hour. We will repeat a lactic acid at 2030 today. She will be placed on doxycycline and ceftriaxone. I will also give her Solu-Medrol 60 mg x1 and then start her on 40 mg p.o. daily. We may need to broaden coverage if the patient does not improve as she is immunocompromised from her RA treatment. 2. Acute hypoxic respiratory failure. suspect this is related to pneumonia. Will continue treatment as listed above. If patients respiratory status does not improve will consider Vapotherm. 3. Hypokalemia. The patient did have a low potassium of 3.4. She was given 20 mEq of potassium in the ER. We will repeat a BMP in the morning. 4. Rheumatoid arthritis. Currently on Kevzara. We will hold this medication at this time. 5. Chronic pain. The patient does have chronic pain, for which she takes morphine 30 mg p.o. b.i.d., Lyrica 200 mg 3 times a day, Zanaflex 4 mg 4 times a day. She reports that she takes tizanidine 2 mg p.o. 4 times a day and oxycodone 15 mg p.o. 3 times a day. 6. Elevated creatinine. I suspect this could be a component of dehydration as the patient reports that she has not been drinking a lot in the last couple of days. She was given IV fluids. We will repeat a BMP in the a.m. 7. Elevated lactic acid. I suspect this is related to sepsis related to her pneumonia. We will repeat lactic acid at 2030. Continue with fluid bolusing as needed. 8. History of gastric sleeve. The patient will be continued on home supplements as previous prescribed. 9. FEN. She can have a regular diet. 10. DVT prophylaxis. I will place her on heparin subcu. 11. Code status. She is a full code. TIME SPENT: Time spent on this admission was approximately 60 minutes, greater than half that time was spent at the bedside reviewing events leading thus far to her hospitalization, performing my physical exam and reviewing my plan of care. I have discussed this with my attending, Dr. Betsy Taylor; she is in agreement with my plan. Addendum : CT showed bilateral multilobar pneumonia left worse than right. Patient breathing continued to become worse and she was placed on Vapotherm in the ICU. TAMIA HWANG, TERESITA [id number]/CPS #: [id number] CESIA
[2018-07-23] MEDS: Albuterol/Ipratropium NEB.SOL* Albuterol 2.5 MG/Ipratropium 0.5 MG 3 ML INH PRN (20:42)
[2018-07-23] MEDS: NS 0.9% 1000 ML** 1,000 ML IV SCH (21:00)
[2018-07-23] MEDS ORDERED: Vancomycin(*) 2,000 MG in NS 0.9% 500 ML* 500 ML IVPB ONE (21:00)
[2018-07-23] MEDS ORDERED: tiZANidine TAB* 2 MG PO SCH (21:00)
[2018-07-23] MEDS ORDERED: Vancomycin per Pharmacy* NOTE FOLLOW UP PRN (21:28)
[2018-07-23] MEDS: Heparin VIAL(*) 5000 UNITS/ML VIAL (FIVE THOUSAND) SUBCUT SCH (21:40)
[2018-07-23] MEDS ORDERED: NS 0.9% 1000 ML** 1,000 ML IV ONE (22:18)
--- NOTE | 2018-07-23 22:28 | PN ---
Sepsis Event Evaluation Date of Evaluation: 07/23/18 Time of Evaluation: 19:00 Current Stage of Sepsis: Severe Sepsis Vital Signs - Last 12 Hours: Vital Signs - 12 hr Temp Pulse Resp BP Pulse Ox 07/23/18 21:04 126 23 111/55 95 07/23/18 21:00 128 26 92 07/23/18 20:42 121 20 96 07/23/18 20:30 124 31 112/54 95 07/23/18 20:15 124 26 103/57 96 07/23/18 20:06 23 07/23/18 20:00 124 26 100/58 98 07/23/18 19:42 99.9 F 127 25 109/60 93 07/23/18 19:34 124 22 109/60 88 07/23/18 19:30 99.9 F 07/23/18 19:03 99.8 F 124 28 102/68 93 07/23/18 19:00 120 32 92 07/23/18 18:58 123 28 102/88 91 07/23/18 18:52 122 31 95/70 94 07/23/18 18:50 124 28 114/63 93 07/23/18 18:49 123 28 99/59 85 07/23/18 18:48 121 45 105/67 92 07/23/18 18:29 127 28 84/64 95 07/23/18 18:13 126 26 94/58 07/23/18 17:58 128 26 92/46 91 07/23/18 17:57 126 25 89/62 91 07/23/18 17:44 21 99/59 07/23/18 17:28 127 24 110/64 90 07/23/18 17:14 129 22 106/57 91 07/23/18 17:00 128 23 95 07/23/18 16:58 130 26 110/62 93 07/23/18 16:43 125 17 88/61 93 07/23/18 16:28 128 22 111/60 94 07/23/18 16:13 126 27 102/69 93 07/23/18 16:00 124 23 94 07/23/18 15:58 121 30 89/62 94 07/23/18 15:43 125 29 113/55 96 07/23/18 15:28 125 31 108/64 97 07/23/18 15:18 22 07/23/18 15:13 121 23 111/63 92 07/23/18 15:00 121 24 92 07/23/18 14:58 121 30 108/64 92 07/23/18 14:43 117 33 111/70 93 07/23/18 14:37 22 07/23/18 14:28 114 28 102/58 93 07/23/18 14:23 127 20 95/55 93 07/23/18 14:01 112 37 94 07/23/18 13:59 112 28 92/51 93 07/23/18 13:46 22 07/23/18 13:33 118 22 105/63 94 07/23/18 13:03 123 23 107/66 94 07/23/18 13:01 122 20 94 07/23/18 12:33 119 25 99/59 93 07/23/18 12:03 110 21 95/61 95 07/23/18 11:57 120 18 100 07/23/18 11:30 98.7 F 128 20 104/72 95 Lactic Acid: 07/23/18 07/23/18 07/23/18 12:07 16:38 20:28 Lactic Acid 2.7 H* 3.0 H* 3.7 H* - Cardiopulmonary Exam Capillary Refill: Immediate Respiratory: Symmetrical Chest Expansion and Respiratory Effort, - - scattered rhonchi thoughout bilat Cardiovascular: NL Sounds; No Murmurs; No JVD, No Edema - Peripheral Pulse Exam Radial Pulses: Bilateral Normal Pedal Pulses: Bilateral Normal - Skin Exam Skin Exam: Normal Turgor, Flushed - Christian Coma Scale Best Eye Response: 4 - Spontaneous Best Motor Response: 6 - Obeys Commands Best Verbal Response: 5 - Oriented Coma Scale Total: 15 Assess/Plan/Problems-Billing Assessment: Ms. Giles is a 37 y.o female with a Pmhx of RA, osteoarthritis , fibromyalgia and chronic pain who presented to the ER with cough , fever, chills and shortness of breath found to have let upper lobe pneumonia. - Patient Problems (1) Sepsis Current Visit: Yes Status: Acute Comment: - suspect this is related to pneumonia - Lactic acid is trending up will continue to repeat lactic acid, next lactic acid is at 2030 - Will give normal saline at 100cc hour and increase as needed (2) Pneumonia Current Visit: Yes Status: Acute Code(s): J18.9 - PNEUMONIA, UNSPECIFIED ORGANISM SNOMED Code(s): 661007534 Comment: - CT chest showed multilobar PNA bilat - sputum - concerning for staph and strep - consult to Dr. Phillips - will change antibiotics to broaden coverage - will cover with cefepime, levaquin and vancomycin - may need to consider fungal coverage if no improvement - nebulizer as needed for shortness of breath - will add Vapotherm if no improvement - solumedrol 60 mg IV given urine pending Status and Disposition: inpatient ICU
[2018-07-23] MEDS ORDERED: Ketorolac INJ* 15 MG/ML 1 ML VIAL IV PUSH PRN (23:12)
[2018-07-24] MEDS ORDERED: Cefepime 2 GM in Dextrose(*) 2 GM/50 ML BAG IV SCH (04:00)
[2018-07-24] MEDS: NS 0.9% 1000 ML** 1,000 ML IV SCH ×3 (04:15→13:44)
[2018-07-24] MEDS: Heparin VIAL(*) 5000 UNITS/ML VIAL (FIVE THOUSAND) SUBCUT SCH ×3 (05:13→21:42)
[2018-07-24 05:28] LABS: Hematocrit 32 % (33-41); Hemoglobin 10.7 g/dL (12.0-16.0); Mean Corpuscular HGB Conc 33 g/dL (31-36); Mean Corpuscular Hemoglobin 29 pg (27-31); Mean Corpuscular Volume 88 fL (80-97); Mean Platelet Volume 9.7 fL (7.4-10.4); Platelet Count 160 10^3/uL (150-450); Red Blood Count 3.68 10^6 /uL (3.70-4.87); Red Cell Distribution Width 14 % (10.5-15); White Blood Count 29.6 10^3/uL (3.5-10.8)
[2018-07-24 05:45] LABS: Albumin 2.9 g/dL (3.2-5.2); Albumin/Globulin Ratio 1.4 (1-3); Calcium 7.2 mg/dL (8.6-10.3); EGFR African American 92.1 (>60); EGFR Non-African American 76.1 (>60); Globulin 2.1 g/dL (2-4); Indirect Bilirubin 0.2 mg/dL (0.3-1.0); Potassium 4.6 mmol/L (3.5-5.0); Total Bilirubin 0.4 mg/dL (0.2-1.0)
[2018-07-24 05:57] LABS: ABS Basophils 0 10^3/ul (0-0.2); ABS Eosinophils 0 10^3/ul (0-0.6); ABS Lymphocytes 0.6 10^3/ul (1.0-4.8); ABS Monocytes 0.5 10^3/ul (0-0.8); ABS Neutrophils 28.5 10^3/ul (1.5-7.7); ABS Nucleated RBC 0 10^3/ul; Eosinophil % 0 %; Lymphocyte % 2.1 %; Nucleated Red Blood Cells % 0
[2018-07-24] MEDS: oxyCODONE TAB* 5 MG TAB PO SCH ×3 (07:35→21:43)
[2018-07-24] MEDS: LORazepam TAB(*) 1 MG PO SCH ×2 (07:36→21:42)
[2018-07-24] MEDS: Pregabalin CAP(*) 100 MG PO SCH ×3 (07:37→21:42)
[2018-07-24] MEDS: predniSONE TAB* 20 MG PO SCH (07:38)
[2018-07-24] MEDS: buPROPion SR TAB.SR* 200 MG PO SCH (07:38)
[2018-07-24] MEDS: Lisdexamfetamine(NF) 10 MG CAP PO SCH (07:39)
[2018-07-24] MEDS: Cyanocobalamin TAB* 500 MCG PO SCH (07:41)
[2018-07-24] MEDS: Cholecalciferol TAB* 1000 UNITS PO SCH (07:41)
[2018-07-24] MEDS: Senna TAB PO SCH ×4 (07:41→21:43)
[2018-07-24] MEDS: Vitamin THERAPEUTIC TAB PO SCH (07:41)
[2018-07-24] MEDS: Docusate CAP* 100 MG PO SCH ×4 (07:42→21:44)
[2018-07-24] MEDS: Thiamine TAB* 100 MG TAB PO SCH (07:43)
[2018-07-24] MEDS: Albuterol/Ipratropium NEB.SOL* Albuterol 2.5 MG/Ipratropium 0.5 MG 3 ML INH PRN ×3 (08:10→23:29)
[2018-07-24] MEDS ORDERED: Morphine 10 MG/ML VIAL (1 ml) ONE ×3 (08:34→09:59)
[2018-07-24] MEDS ORDERED: Levofloxacin 750 MG IVPREMIX(* 750 MG/150 ML BAG IVPB SCH (09:00)
[2018-07-24] MEDS ORDERED: Vancomycin(*) 1,000 MG in NS 0.9% 250 ML* 250 ML IVPB SCH (09:00)
[2018-07-24] MEDS ORDERED: Morphine 10 MG/ML VIAL (1 ml) IV ONE ×3 (09:03→10:10)
--- NOTE | 2018-07-24 10:10 | PN ---
Date of Service: 07/24/18 Critical Care Services: 37 y/o female admitted last night with community-acquired pneumonia, which is probably a pneumococcal pneumonia (positive pneumococcal antigen in urine). Came to ICU because of high O2 needs, but this AM is oxygenating well with nasal O2 at 8-10 L/min. Patient complains of nonpleuritic pain in left hemithorax which requires high doses of morphine - she has a hx of fibromyalgia , and has been on high-dose opiates as an outpatient. Vital Signs: Temp Pulse Resp BP SpO2 FiO2 100.4 F 117 25 101/61 98 95 Physical Exam: Gen:Anxious HEENT:Pupils midposition. OP clear Lungs: Scaterred rhonchi, R>L Cardiac: Reg rhythm Extremities:Warm. No cyanosis or edema Fluid Balance (Past 24 Hours): 07/24/18 06:59 Intake Total 4165 Output Total 1355 Balance 2810 Weight 244 lb 7.882 oz Intake: IV Fluids 3471 NS (0.9%) 3471 IVPB 694 ABX - CEFEPIME 60 ABX - CEFTRIAXONE 59 ABX - VANCOMYCIN 575 Output: Frank 1355 Other: Estimated Void Large # Voids 1 Labs: Laboratory Results - last 24 hr 07/23/18 07/23/18 07/23/18 11:35 12:07 12:07 WBC 9.4 RBC 4.43 Hgb 13.1 Hct 39 MCV 88 MCH 30 MCHC 34 RDW 13 Plt Count 176 MPV 9.6 Neut % (Auto) 88.9 Lymph % (Auto) 5.8 Dixon % (Auto) 4.3 Eos % (Auto) 0.9 Baso % (Auto) 0.1 Absolute Neuts (auto) 8.3 H Absolute Lymphs (auto) 0.5 L Absolute Monos (auto) 0.4 Absolute Eos (auto) 0.1 Absolute Basos (auto) 0 Absolute Nucleated RBC 0 Nucleated RBC % 0 INR (Anticoag Therapy) 0.99 APTT 27.9 Sodium Potassium Chloride Carbon Dioxide Anion Gap BUN Creatinine Est GFR ( Amer) Est GFR (Non-Af Amer) BUN/Creatinine Ratio Glucose Lactic Acid Calcium Total Bilirubin Direct Bilirubin Indirect Bilirubin AST ALT Alkaline Phosphatase Troponin I C-Reactive Protein Total Protein Albumin Globulin Albumin/Globulin Ratio Urine Color Urine Appearance Urine pH Ur Specific Brock Urine Protein Urine Ketones Urine Blood Urine Nitrate Urine Bilirubin Urine Urobilinogen Ur Leukocyte Esterase Urine WBC (Auto) Urine RBC (Auto) Ur Squamous Epith Cells Urine Bacteria Urine Glucose Influenza A (Rapid) Negative Influenza B (Rapid) Negative 07/23/18 07/23/18 07/23/18 12:07 12:07 16:38 WBC RBC Hgb Hct MCV MCH MCHC RDW Plt Count MPV Neut % (Auto) Lymph % (Auto) Dixon % (Auto) Eos % (Auto) Baso % (Auto) Absolute Neuts (auto) Absolute Lymphs (auto) Absolute Monos (auto) Absolute Eos (auto) Absolute Basos (auto) Absolute Nucleated RBC Nucleated RBC % INR (Anticoag Therapy) APTT Sodium 137 Potassium 3.4 L Chloride 102 Carbon Dioxide 28 Anion Gap 7 BUN 21 Creatinine 1.13 H Est GFR ( Amer) 66.3 Est GFR (Non-Af Amer) 54.8 BUN/Creatinine Ratio 18.6 Glucose 97 Lactic Acid 2.7 H* 3.0 H* Calcium 9.2 Total Bilirubin 0.50 Direct Bilirubin Indirect Bilirubin AST 66 H ALT 120 H Alkaline Phosphatase 69 Troponin I 0.01 C-Reactive Protein 12.08 H Total Protein 6.2 L Albumin 3.7 Globulin 2.5 Albumin/Globulin Ratio 1.5 Urine Color Urine Appearance Urine pH Ur Specific Brock Urine Protein Urine Ketones Urine Blood Urine Nitrate Urine Bilirubin Urine Urobilinogen Ur Leukocyte Esterase Urine WBC (Auto) Urine RBC (Auto) Ur Squamous Epith Cells Urine Bacteria Urine Glucose Influenza A (Rapid) Influenza B (Rapid) 07/23/18 07/23/18 07/24/18 16:46 20:28 00:40 WBC RBC Hgb Hct MCV MCH MCHC RDW Plt Count MPV Neut % (Auto) Lymph % (Auto) Dixon % (Auto) Eos % (Auto) Baso % (Auto) Absolute Neuts (auto) Absolute Lymphs (auto) Absolute Monos (auto) Absolute Eos (auto) Absolute Basos (auto) Absolute Nucleated RBC Nucleated RBC % INR (Anticoag Therapy) APTT Sodium Potassium Chloride Carbon Dioxide Anion Gap BUN Creatinine Est GFR ( Amer) Est GFR (Non-Af Amer) BUN/Creatinine Ratio Glucose Lactic Acid 3.7 H* 2.7 H* Calcium Total Bilirubin Direct Bilirubin Indirect Bilirubin AST ALT Alkaline Phosphatase Troponin I C-Reactive Protein Total Protein Albumin Globulin Albumin/Globulin Ratio Urine Color Yellow Urine Appearance Clear Urine pH 5.0 Ur Specific Brock 1.020 Urine Protein Negative Urine Ketones Negative Urine Blood 1+ A Urine Nitrate Negative Urine Bilirubin Negative Urine Urobilinogen Negative Ur Leukocyte Esterase Negative Urine WBC (Auto) Trace(0-5/hpf) Urine RBC (Auto) Trace(0-2/hpf) Ur Squamous Epith Cells Present A Urine Bacteria 3+ A Urine Glucose Negative Influenza A (Rapid) Influenza B (Rapid) 07/24/18 07/24/18 07/24/18 05:18 05:18 05:18 WBC 29.6 H RBC 3.68 L Hgb 10.7 L Hct 32 L MCV 88 MCH 29 MCHC 33 RDW 14 Plt Count 160 MPV 9.7 Neut % (Auto) 96.2 Lymph % (Auto) 2.1 Dixon % (Auto) 1.6 Eos % (Auto) 0 Baso % (Auto) 0.1 Absolute Neuts (auto) 28.5 H Absolute Lymphs (auto) 0.6 L Absolute Monos (auto) 0.5 Absolute Eos (auto) 0 Absolute Basos (auto) 0 Absolute Nucleated RBC 0 Nucleated RBC % 0 INR (Anticoag Therapy) APTT Sodium 139 Potassium 4.6 Chloride 113 H Carbon Dioxide 22 Anion Gap 4 BUN 17 Creatinine 0.85 Est GFR ( Amer) 92.1 Est GFR (Non-Af Amer) 76.1 BUN/Creatinine Ratio 20.0 Glucose 149 H Lactic Acid 1.7 Calcium 7.2 L Total Bilirubin 0.40 Direct Bilirubin 0.20 H Indirect Bilirubin 0.2 L AST 38 ALT 76 H Alkaline Phosphatase 34 Troponin I C-Reactive Protein Total Protein 5.0 L Albumin 2.9 L Studies: CXR: Patchy infiltrate left midlung field Nutrition: Oral diet Impression: 1. Pneumococcal pneumonia 2. Fibromyalgia, with high opioid requirement 3. Anxiety disorder Plan: 1. Switch antibiotics to ceftriaxone (2 gm daily) 2. Maintain outpatient pain regimen 3. Transfer out of ICU Critical Care Time: 40 minutes
[2018-07-24] MEDS: cefTRIAXone(*) 2 GM in NS 0.9% 100 ML* 100 ML IVPB SCH (11:08)
[2018-07-24] MEDS: Morphine TAB Extended Release (*) 30 MG TAB.ER PO SCH (12:03)
[2018-07-24] MEDS: Acetaminophen TAB* 325 MG PO PRN (15:25)
[2018-07-24] MEDS: tiZANidine TAB* 2 MG PO PRN (15:25)
[2018-07-24] MEDS: oxyCODONE TAB* 5 MG TAB PO PRN ×2 (18:31→22:36)
--- NOTE | 2018-07-24 21:22 | CONS ---
PULMONARY CONSULTATION REPORT: DATE OF CONSULT: 07/24/18 CONSULTATION REQUESTED BY: Tamia Hwang NP. REASON FOR CONSULT: Evaluation of shortness of breath and abnormal CT chest. HISTORY OF PRESENT ILLNESS: The patient is a 37-year-old female with history of rheumatoid arthritis on immunosuppressive medications, fibromyalgia, chronic pain, Raynaud's and osteoarthritis. The patient presents for evaluation of worsening shortness of breath and chest pain. The patient reports having cough over the past 3 days prior to admission with worsening shortness of breath. Cough is productive of yellow phlegm. The patient also reports chills and subjective fevers. The patient also reported palpitations. She had discomfort in her left upper chest radiating to her back associated with chest pain. Denied lower extremity edema. The patient denied hemoptysis. Denied nausea, vomiting, diarrhea, abdominal pain, hematuria, dysuria, headaches, sensory symptoms. She has chronic pain and fibromyalgia and reports worsening of those symptoms. She has denied visual complaints, dysphagia, arthralgias, myalgias, rash, lesions or open sores. Further evaluation in the emergency room included labs and chest x-ray. She was noted to have elevated white count at 29.6. The patient had elevated lactate on admission, which normalized after fluid hydration. The patient had chest x-ray which was personally reviewed by me and also the CT of chest was also personally reviewed. Chest x-ray showed evidence of air space opacities with evidence of dense consolidation in the left lung. CT scan of the chest showed dense consolidation in the left lower lobe and the lingular segment. The patient is also with multiple other patchy airspace opacities, also airspace opacity in the left lower lung. The patient had Strep pneumo antigen that was positive. Her UA and urine culture is positive for Klebsiella. Sputum cultures showed 3+ gram positive cocci and change resembling Strep and 3+ cocci in clusters resembling Staph. Susceptibilities are pending. She was initiated on broad spectrum antibiotics. She is on ceftriaxone, has received vancomycin on admission. She was also given a dose of cefepime. The patient was also started on prednisone for stress dose steroid effect. She was also started on MetaNeb and nebulizer with albuterol. The patient was seen and examined at bedside. The patient reports a slight improvement in her chest pain with pain medications. The patient is still significantly short of breath with talking. Her O2 requirements have improved since admission. She has required high flow oxygen on admission. She is currently requiring O2 through nasal cannula around 4 L. PAST MEDICAL HISTORY: 1. Rheumatoid arthritis. 2. Raynaud's. 3. Osteoarthritis. 4. Inflammatory arthropathy. 5. Degenerative disk disease. 6. Fibromyalgia. 7. Chronic pain since age 29. PAST SURGICAL HISTORY: 1. Posterior cervical fusion of C3-C7. 2. in 2006, 2008, and 2016. 3. Gastric sleeve. MEDICATIONS AT HOME: 1. Morphine 30 mg p.o. b.i.d. 2. Senna 1 tablet daily. 3. Docusate 100 mg p.o. q.4 times. 4. Vitamin D3. 5. Vitamin B1 and B12. 6. Calcium and vitamin D and vitamin K. 7. Atarax. 8. Multivitamin. 9. Kevzara 200 mg subcutaneous every Sunday, last dose on 07/10/18. 10. Alpha lipoic acid 200 mg p.o. b.i.d. 11. Zanaflex. 12. Lyrica. 13. Oxycodone. 14. Wellbutrin. 15. Ativan. 16. Viibryd. 17. Latuda. 18. Vyvanse. ALLERGIES: No known drug allergies. FAMILY HISTORY: Father with AK at age 48 and hypertension. Mother with history of hypertension. Father with also history of prostate cancer and mother with lung cancer stage I. SOCIAL HISTORY: Quit smoking in 2014, smoked half a pack per day for approximately 9 months. She does not report alcohol abuse or drug abuse. REVIEW OF SYSTEMS: All 14 systems reviewed and as per HPI. PHYSICAL EXAM: Obese female in bed, in mild distress secondary to shortness of breath. Vital Signs: Temperature 97.8, pulse 110 beats per minute, respiratory rate 20 per minute, O2 sat 96% on 3 L, blood pressure 139/70. HEENT : Pupils equal, reactive to light. Mucous membranes are dry. Lungs: Expiratory wheeze on left side and crackles bilaterally, more on the left lung. Cardiovascular: S1, S2 present, regular. Abdomen: Obese, bowel sounds present, nontender, nondistended. Extremities: Normal range of motion. Neurological: Alert, awake, oriented x3. No focal deficits. Skin: No rash. DIAGNOSTIC STUDIES/LAB DATA: WBC count 29.6, hemoglobin 10.7, hematocrit 32, platelet count 160,000. Sodium 139, potassium 4.6, chloride 113, bicarb 22, BUN 17, creatinine 0.85, lactate normalized since admission. Chest x-ray and CT chest as described above in HPI. IMPRESSION AND RECOMMENDATIONS: 37-year-old female admitted with shortness of breath, cough productive of brown phlegm, diagnosed with Streptococcal pneumonia. The patient is with urinary Strep antigen positive and also sputum cultures positive for Strep pneumonia. The patient is currently on Rocephin. Susceptibilities are pending from sputum cultures. The patient is afebrile. O2 requirements are coming down. Continue with current management. Titrate FiO2 as needed. Will continue with MetaNeb and nebulizers as needed for wheezing. Will also provide the patient with flutter device with instructions regarding usage. Thank you for allowing me to participate in the care of your patient. Will follow up with you. [id number]/CPS #: [id number] CESIA
[2018-07-24] MEDS: hydrOXYzine HCL TAB* 25 MG PO SCH (21:43)
[2018-07-24] MEDS: Ibuprofen TAB* 400 MG PO PRN (22:36)
[2018-07-25] MEDS: CMCS:Vilazodone (NF) 40 MG TAB PO SCH ×2 (00:05→22:33)
[2018-07-25] MEDS: Lurasidone(*) 80 MG TAB PO SCH ×2 (00:05→22:20)
[2018-07-25] MEDS: NS 0.9% 1000 ML** 1,000 ML IV SCH (00:05)
[2018-07-25] MEDS: Morphine TAB Extended Release (*) 30 MG TAB.ER PO SCH ×2 (00:09→12:10)
[2018-07-25] MEDS: Acetaminophen TAB* 325 MG PO PRN ×3 (02:35→22:22)
[2018-07-25] MEDS: oxyCODONE TAB* 5 MG TAB PO PRN ×3 (02:36→18:57)
[2018-07-25] MEDS: Heparin VIAL(*) 5000 UNITS/ML VIAL (FIVE THOUSAND) SUBCUT SCH ×3 (06:29→22:17)
[2018-07-25 08:29] LABS: Hematocrit 32 % (33-41); Hemoglobin 10.5 g/dL (12.0-16.0); Mean Corpuscular HGB Conc 33 g/dL (31-36); Mean Corpuscular Hemoglobin 29 pg (27-31); Mean Corpuscular Volume 88 fL (80-97); Mean Platelet Volume 9.6 fL (7.4-10.4); Platelet Count 156 10^3/uL (150-450); Red Blood Count 3.63 10^6 /uL (3.70-4.87); Red Cell Distribution Width 14 % (10.5-15); White Blood Count 35.8 10^3/uL (3.5-10.8)
[2018-07-25] MEDS ORDERED: Vancomycin Trough Check NOTE FOLLOW UP ONE (08:30)
[2018-07-25] MEDS: LORazepam TAB(*) 1 MG PO SCH ×2 (09:20→22:21)
[2018-07-25] MEDS: Vitamin THERAPEUTIC TAB PO SCH (09:20)
[2018-07-25] MEDS: Cholecalciferol TAB* 1000 UNITS PO SCH (09:20)
[2018-07-25] MEDS: Senna TAB PO SCH ×4 (09:21→22:22)
[2018-07-25] MEDS: Pregabalin CAP(*) 100 MG PO SCH ×3 (09:21→22:22)
[2018-07-25] MEDS: Thiamine TAB* 100 MG TAB PO SCH (09:21)
[2018-07-25] MEDS: Cyanocobalamin TAB* 500 MCG PO SCH (09:22)
[2018-07-25] MEDS: Docusate CAP* 100 MG PO SCH ×4 (09:22→22:21)
[2018-07-25] MEDS: oxyCODONE TAB* 5 MG TAB PO SCH ×3 (09:23→22:20)
[2018-07-25] MEDS: predniSONE TAB* 20 MG PO SCH (09:23)
[2018-07-25] MEDS: buPROPion SR TAB.SR* 200 MG PO SCH (10:46)
[2018-07-25] MEDS: Lisdexamfetamine(NF) 10 MG CAP PO SCH (10:46)
[2018-07-25] MEDS: Albuterol/Ipratropium NEB.SOL* Albuterol 2.5 MG/Ipratropium 0.5 MG 3 ML INH PRN ×2 (12:02→18:13)
[2018-07-25] MEDS: cefTRIAXone(*) 2 GM in NS 0.9% 100 ML* 100 ML IVPB SCH (12:10)
[2018-07-25] MEDS: Ibuprofen TAB* 400 MG PO PRN ×2 (12:32→18:56)
--- NOTE | 2018-07-25 15:11 | PN ---
Subjective Date of Service: 07/25/18 Interval History: Pt still feels SOB, but is slowly improving Objective Active Medications: Acetaminophen (Tylenol Tab*) 650 mg PO Q4H PRN PRN Reason: FEVER/PAIN Last Admin: 07/25/18 02:35 Dose: 650 mg Albuterol (Ventolin 2.5 Mg/3 Ml Neb.Gabbi*) 2.5 mg INH Q4H PRN PRN Reason: SOB/WHEEZING Albuterol/Ipratropium (Duoneb (Albuterol 2.5 Mg/Ipratropium 0.5 Mg)) 1 neb INH Q4H PRN PRN Reason: SOB/WHEEZING Last Admin: 07/25/18 12:02 Dose: 1 neb Bupropion HCl (Wellbutrin Sr Tab*) 200 mg PO QAM [facility] Last Admin: 07/25/18 10:46 Dose: 200 mg Cholecalciferol (Vitamin D Tab*) 2,000 units PO DAILY [facility] Last Admin: 07/25/18 09:20 Dose: 2,000 units Cyanocobalamin (Vitamin B12 Tab*) 2,500 mcg PO DAILY [facility] Last Admin: 07/25/18 09:22 Dose: 2,500 mcg Docusate Sodium (Colace Cap*) 100 mg PO QID [facility] Last Admin: 07/25/18 12:10 Dose: 100 mg Heparin Sodium (Porcine) (Heparin Vial(*)) 5,000 units SUBCUT Q8HR [facility] Last Admin: 07/25/18 14:07 Dose: 5,000 units Hydroxyzine HCl (Atarax Tab*) 25 mg PO BEDTIME [facility] Last Admin: 07/24/18 21:43 Dose: 25 mg Ceftriaxone Sodium 2 gm/ (Sodium Chloride) 100 mls @ 200 mls/hr IVPB Q24H [facility] Last Admin: 07/25/18 12:10 Dose: 200 mls/hr Ibuprofen (Motrin Tab*) 400 mg PO Q6H PRN PRN Reason: PAIN Last Admin: 07/25/18 12:32 Dose: 400 mg Lisdexamfetamine Dimesylate (Vyvanse(Nf)) 70 mg PO DAILY [facility] Last Admin: 07/25/18 10:46 Dose: 70 mg Lorazepam (Ativan Tab(*)) 2 mg PO BID [facility] Last Admin: 07/25/18 09:20 Dose: 2 mg Lurasidone HCl (Latuda) 80 mg PO BEDTIME [facility] Last Admin: 07/25/18 00:05 Dose: 80 mg Morphine Sulfate (Ms Contin(*)) 30 mg PO Q12H [facility] Last Admin: 07/25/18 12:10 Dose: 30 mg Multivitamins (Theragran Tab*) 1 tab PO DAILY [facility] Last Admin: 07/25/18 09:20 Dose: 1 tab Oxycodone HCl (Roxycodone Tab*) 15 mg PO TID [facility] Last Admin: 07/25/18 14:10 Dose: 15 mg Oxycodone HCl (Roxycodone Tab*) 5 mg PO Q4H PRN PRN Reason: PAIN Last Admin: 07/25/18 14:45 Dose: 5 mg Prednisone (Deltasone Tab*) 40 mg PO DAILY [facility] Last Admin: 07/25/18 09:23 Dose: 40 mg Pregabalin (Lyrica Cap(*)) 200 mg PO TID [facility] Last Admin: 07/25/18 14:11 Dose: 200 mg Senna (Senokot Tab*) 1 tab PO QID [facility] Last Admin: 07/25/18 12:11 Dose: 1 tab Thiamine HCl (Vitamin B-1 Tab*) 250 mg PO DAILY [facility] Last Admin: 07/25/18 09:21 Dose: 250 mg Tizanidine HCl (Zanaflex Tab*) 4 mg PO QID PRN PRN Reason: SPASMS Vilazodone HCl (Viibryd (Nf)) 40 mg PO BEDTIME [facility] Last Admin: 07/25/18 00:05 Dose: 40 mg Vital Signs - 8 hr 07/25/18 07/25/18 07/25/18 07:38 09:20 09:21 Temperature 97.0 F Pulse Rate 91 Respiratory 20 18 18 Rate Blood Pressure 111/61 (mmHg) O2 Sat by Pulse 99 Oximetry 07/25/18 07/25/18 07/25/18 09:23 11:09 11:27 Temperature 97.5 F Pulse Rate 97 Respiratory 18 20 20 Rate Blood Pressure 127/68 (mmHg) O2 Sat by Pulse 97 Oximetry 07/25/18 07/25/18 07/25/18 12:04 12:10 13:09 Temperature Pulse Rate 91 Respiratory 18 20 20 Rate Blood Pressure (mmHg) O2 Sat by Pulse 95 Oximetry 07/25/18 07/25/18 07/25/18 14:10 14:11 14:45 Temperature Pulse Rate Respiratory 18 18 20 Rate Blood Pressure (mmHg) O2 Sat by Pulse Oximetry Oxygen Devices in Use Now: Nasal Cannula Appearance: 37 yo F in nAD, aAOx3 Eyes: No Scleral Icterus, PERRLA Ears/Nose/Mouth/Throat: NL Teeth, Lips, Gums, Mucous Membranes Moist Neck: NL Appearance and Movements; NL JVP, Trachea Midline Respiratory: Symmetrical Chest Expansion and Respiratory Effort, - - coarse breath sounds b/l mid lungs Cardiovascular: NL Sounds; No Murmurs; No JVD, RRR Abdominal: NL Sounds; No Tenderness; No Distention, No Hepatosplenomegaly Lymphatic: No Cervical Adenopathy Extremities: No Edema, No Clubbing, Cyanosis Skin: No Rash or Ulcers, No Nodules or Sclerosis Neurological: Alert and Oriented x 3, NL Muscle Strength and Tone Result Diagrams: 07/25/18 07:59 07/24/18 05:18 Additional Lab and Data: Lab Results 07/23/18 Range/Units 11:35 Influenza A (Rapid) Negative (Negative) Influenza B (Rapid) Negative (Negative) Microbiology and Other Data: Microbiology 07/23/18 12:12 Aerobic Blood Culture - Preliminary Blood Venous No Growth Day 2 Anaerobic Blood Culture - Preliminary No Growth Day 2 07/23/18 12:07 Aerobic Blood Culture - Preliminary Blood Venous No Growth Day 2 Anaerobic Blood Culture - Preliminary No Growth Day 2 07/23/18 18:44 Gram Stain - Final Sputum Expectorated Sputum Culture - Final Streptococcus Pneumoniae Normal Kellie 07/23/18 16:46 Urine Culture - Final Urine Klebsiella Pneumoniae 07/23/18 16:46 Legionella Urinary Antigen - Final Urine Negative Legionella Antigen Streptococcus pneumoniae Ag Screen - Final Positive S. Pneumo Antigen 07/23/18 19:40 Nasal Screen MRSA (PCR) - Final Nasal Mrsa Not Detected Assess/Plan/Problems-Billing Assessment: Ms. Giles is a 37 y.o female with a Pmhx of RA, osteoarthritis , fibromyalgia and chronic pain who presented to the ER with cough , fever, chills and shortness of breath found to have let upper lobe pneumonia. - Patient Problems (1) Pneumonia Comment: - CT chest showed multilobar PNA bilat -pneumonia caused severe sepsis with acute hypoxemic respiratory failure and lactic acidodid (resolved) - sputum positive for Strep pneumo - consult to Dr. Phillips -appreciated -will start weaning down prednisone today, no significant wheezing noted today - cont Ceftriaxone - nebulizer as needed for shortness of breath (2) Rheumatoid arthritis Comment: hold Kevzara for now when infected (3) UTI (urinary tract infection) Comment: Urine cx positive for K. Pneumoniae, due to immunosupression pt will be treated with Ceftriaxone as above (4) Chronic pain Comment: cont home doses of narcotics in addition to oxycodone prn breaktrough pain. (5) DVT prophylaxis Comment: HSQ Status and Disposition: inpatient
[2018-07-25] MEDS: tiZANidine TAB* 2 MG PO PRN ×2 (17:27→22:21)
--- NOTE | 2018-07-25 17:30 | PN ---
Progress Note - Progress Note Date of Service: 07/25/18 - Pulm f/u Note: Pt seen and [id number] at bedside. SOB is improved, fatigue is unchanged. Not coughing much Active Medications Generic Name Dose Route Start Last Admin Trade Name Freq PRN Reason Stop Dose Admin Acetaminophen 650 mg 07/23/18 16:33 07/25/18 17:22 Tylenol Tab* PO 650 mg Q4H PRN Administration FEVER/PAIN Albuterol 2.5 mg 07/23/18 17:01 Ventolin 2.5 Mg/3 Ml Neb.Gabbi* INH Q4H PRN SOB/WHEEZING Albuterol/Ipratropium 1 neb 07/23/18 18:16 07/25/18 12:02 Duoneb (Albuterol 2.5 Mg/Ipratropium 0.5 Mg) INH 1 neb Q4H PRN Administration SOB/WHEEZING Bupropion HCl 200 mg 07/24/18 09:00 07/25/18 10:46 Wellbutrin Sr Tab* PO 200 mg QAM ANITA Administration Cholecalciferol 2,000 units 07/24/18 09:00 07/25/18 09:20 Vitamin D Tab* PO 2,000 units DAILY ANITA Administration Cyanocobalamin 2,500 mcg 07/24/18 09:00 07/25/18 09:22 Vitamin B12 Tab* PO 2,500 mcg DAILY ANITA Administration Docusate Sodium 100 mg 07/23/18 21:00 07/25/18 17:17 Colace Cap* PO 100 mg QID ANITA Administration Heparin Sodium (Porcine) 5,000 units 07/23/18 22:00 07/25/18 14:07 Heparin Vial(*) SUBCUT 5,000 units Q8HR ANITA Administration Hydroxyzine HCl 25 mg 07/23/18 21:00 07/24/18 21:43 Atarax Tab* PO 25 mg BEDTIME ANITA Administration Ceftriaxone Sodium 2 gm/ 100 mls @ 200 mls/hr 07/24/18 11:00 07/25/18 12:10 Sodium Chloride IVPB 200 mls/hr Q24H ANITA Administration Ibuprofen 400 mg 07/24/18 17:23 07/25/18 12:32 Motrin Tab* PO 400 mg Q6H PRN Administration PAIN Lisdexamfetamine Dimesylate 70 mg 07/24/18 09:00 07/25/18 10:46 Vyvanse(Nf) PO 70 mg DAILY ANITA Administration Lorazepam 2 mg 07/23/18 21:00 07/25/18 09:20 Ativan Tab(*) PO 2 mg BID ANITA Administration Lurasidone HCl 80 mg 07/23/18 21:00 07/25/18 00:05 Latuda PO 80 mg BEDTIME ANITA Administration Morphine Sulfate 30 mg 07/24/18 12:00 07/25/18 12:10 Ms Contin(*) PO 30 mg Q12H ANITA Administration Multivitamins 1 tab 07/24/18 09:00 07/25/18 09:20 Theragran Tab* PO 1 tab DAILY ANITA Administration Oxycodone HCl 15 mg 07/23/18 21:00 07/25/18 14:10 Roxycodone Tab* PO 15 mg TID ANITA Administration Oxycodone HCl 5 mg 07/24/18 17:24 07/25/18 14:45 Roxycodone Tab* PO 5 mg Q4H PRN Administration PAIN Prednisone 20 mg 07/26/18 09:00 Deltasone Tab* PO DAILY ANITA Pregabalin 200 mg 07/23/18 21:00 07/25/18 14:11 Lyrica Cap(*) PO 200 mg TID ANITA Administration Senna 1 tab 07/23/18 21:00 07/25/18 17:17 Senokot Tab* PO 1 tab QID ANITA Administration Thiamine HCl 250 mg 07/24/18 09:00 07/25/18 09:21 Vitamin B-1 Tab* PO 250 mg DAILY ANITA Administration Tizanidine HCl 4 mg 07/24/18 17:25 07/25/18 17:27 Zanaflex Tab* PO 4 mg QID PRN Administration SPASMS Vilazodone HCl 40 mg 07/23/18 21:00 07/25/18 00:05 Viibryd (Nf) PO 40 mg BEDTIME ANITA Administration Vital Signs Temp Pulse Resp BP Pulse Ox 97.9 F 96 18 133/74 97 07/25/18 15:48 07/25/18 15:48 07/25/18 15:48 07/25/18 15:48 07/25/18 15:48 Laboratory Results - last 24 hr 07/25/18 07:59 WBC 35.8 H RBC 3.63 L Hgb 10.5 L Hct 32 L MCV 88 MCH 29 MCHC 33 RDW 14 Plt Count 156 MPV 9.6 O/E: Pt in NAD HEENT: PERRLA, mucus membranes moist Lungs: Good a/e b/l, clear to auscultation CVS: S1, S2+ Abd: Obese, BS+ Ext: Normal ROM Neuro: No focal deficits Skin: NO rash I/R: 37 y o obese f with strep PNA and hypoxic resp failure Pt improving FiO2 requirement trending down c/w abx Encouraged flutter usage and deep breathing OOB to chair and ambulate as tolerated
[2018-07-25] MEDS ORDERED: Ondansetron ODT TAB* 4 MG SL PRN (21:24)
[2018-07-25] MEDS: hydrOXYzine HCL TAB* 25 MG PO SCH (22:23)
[2018-07-26] MEDS: Morphine TAB Extended Release (*) 30 MG TAB.ER PO SCH ×2 (01:53→11:32)
[2018-07-26] MEDS: Ibuprofen TAB* 400 MG PO PRN ×4 (01:54→21:02)
[2018-07-26] MEDS: oxyCODONE TAB* 5 MG TAB PO PRN ×5 (01:54→21:02)
[2018-07-26] MEDS: Heparin VIAL(*) 5000 UNITS/ML VIAL (FIVE THOUSAND) SUBCUT SCH ×3 (06:18→20:58)
[2018-07-26 06:50] LABS: Hematocrit 30 % (33-41); Mean Corpuscular HGB Conc 33 g/dL (31-36); Mean Corpuscular Hemoglobin 29 pg (27-31); Mean Corpuscular Volume 88 fL (80-97); Mean Platelet Volume 9.3 fL (7.4-10.4); Platelet Count 143 10^3/uL (150-450); Red Blood Count 3.43 10^6 /uL (3.70-4.87); Red Cell Distribution Width 14 % (10.5-15); White Blood Count 23.7 10^3/uL (3.5-10.8)
[2018-07-26 06:51] LABS: ABS Basophils 0 10^3/ul (0-0.2); ABS Eosinophils 0.1 10^3/ul (0-0.6); ABS Lymphocytes 2.2 10^3/ul (1.0-4.8); ABS Monocytes 0.7 10^3/ul (0-0.8); ABS Neutrophils 20.7 10^3/ul (1.5-7.7); ABS Nucleated RBC 0 10^3/ul; Eosinophil % 0.4 %; Lymphocyte % 9.2 %; Nucleated Red Blood Cells % 0
[2018-07-26 07:05] LABS: BUN/Creatinine Ratio 22.8 (8-20); Calcium 7.9 mg/dL (8.6-10.3); EGFR African American 146.1 (>60); EGFR Non-African American 120.7 (>60); Potassium 3.5 mmol/L (3.5-5.0)
[2018-07-26] MEDS: Albuterol/Ipratropium NEB.SOL* Albuterol 2.5 MG/Ipratropium 0.5 MG 3 ML INH PRN ×3 (07:56→22:19)
[2018-07-26] MEDS: Cholecalciferol TAB* 1000 UNITS PO SCH (08:10)
[2018-07-26] MEDS: Thiamine TAB* 100 MG TAB PO SCH (08:10)
[2018-07-26] MEDS: LORazepam TAB(*) 1 MG PO SCH ×2 (08:11→20:55)
[2018-07-26] MEDS: Senna TAB PO SCH ×4 (08:11→20:54)
[2018-07-26] MEDS: Docusate CAP* 100 MG PO SCH ×4 (08:11→20:54)
[2018-07-26] MEDS: buPROPion SR TAB.SR* 200 MG PO SCH (08:12)
[2018-07-26] MEDS: Pregabalin CAP(*) 100 MG PO SCH ×3 (08:12→20:55)
[2018-07-26] MEDS: Vitamin THERAPEUTIC TAB PO SCH (08:12)
[2018-07-26] MEDS: oxyCODONE TAB* 5 MG TAB PO SCH ×3 (08:13→20:54)
[2018-07-26] MEDS: Cyanocobalamin TAB* 500 MCG PO SCH (08:14)
[2018-07-26] MEDS: tiZANidine TAB* 2 MG PO PRN ×3 (08:26→22:15)
[2018-07-26] MEDS: Lisdexamfetamine(NF) 10 MG CAP PO SCH (08:26)
[2018-07-26] MEDS ORDERED: predniSONE TAB* 20 MG PO SCH (09:00)
[2018-07-26] MEDS: cefTRIAXone(*) 2 GM in NS 0.9% 100 ML* 100 ML IVPB SCH (11:32)
--- NOTE | 2018-07-26 14:31 | PN ---
Subjective Date of Service: 07/26/18 Interval History: Pt c/o felling very winded when walking to bathroom and "exhausted " after taking a shower Objective Active Medications: Acetaminophen (Tylenol Tab*) 650 mg PO Q4H PRN PRN Reason: FEVER/PAIN Last Admin: 07/25/18 22:22 Dose: 650 mg Albuterol (Ventolin 2.5 Mg/3 Ml Neb.Gabbi*) 2.5 mg INH Q4H PRN PRN Reason: SOB/WHEEZING Albuterol/Ipratropium (Duoneb (Albuterol 2.5 Mg/Ipratropium 0.5 Mg)) 1 neb INH Q4H PRN PRN Reason: SOB/WHEEZING Last Admin: 07/26/18 07:56 Dose: 1 neb Bupropion HCl (Wellbutrin Sr Tab*) 200 mg PO QAM [facility] Last Admin: 07/26/18 08:12 Dose: 200 mg Cholecalciferol (Vitamin D Tab*) 2,000 units PO DAILY [facility] Last Admin: 07/26/18 08:10 Dose: 2,000 units Cyanocobalamin (Vitamin B12 Tab*) 2,500 mcg PO DAILY [facility] Last Admin: 07/26/18 08:14 Dose: 2,500 mcg Docusate Sodium (Colace Cap*) 100 mg PO QID [facility] Last Admin: 07/26/18 11:33 Dose: 100 mg Heparin Sodium (Porcine) (Heparin Vial(*)) 5,000 units SUBCUT Q8HR [facility] Last Admin: 07/26/18 14:19 Dose: 5,000 units Hydroxyzine HCl (Atarax Tab*) 25 mg PO BEDTIME [facility] Last Admin: 07/25/18 22:23 Dose: 25 mg Ceftriaxone Sodium 2 gm/ (Sodium Chloride) 100 mls @ 200 mls/hr IVPB Q24H [facility] Last Admin: 07/26/18 11:32 Dose: 200 mls/hr Ibuprofen (Motrin Tab*) 400 mg PO Q6H PRN PRN Reason: PAIN Last Admin: 07/26/18 14:24 Dose: 400 mg Lisdexamfetamine Dimesylate (Vyvanse(Nf)) 70 mg PO DAILY [facility] Last Admin: 07/26/18 08:26 Dose: 70 mg Lorazepam (Ativan Tab(*)) 2 mg PO BID [facility] Last Admin: 07/26/18 08:11 Dose: 2 mg Lurasidone HCl (Latuda) 80 mg PO BEDTIME [facility] Last Admin: 07/25/18 22:20 Dose: 80 mg Morphine Sulfate (Ms Contin(*)) 30 mg PO Q12H [facility] Last Admin: 07/26/18 11:32 Dose: 30 mg Multivitamins (Theragran Tab*) 1 tab PO DAILY [facility] Last Admin: 07/26/18 08:12 Dose: 1 tab Ondansetron HCl (Zofran Odt Tab*) 4 mg SL Q6H PRN PRN Reason: NAUSEA/VOMITING Last Admin: 07/25/18 22:17 Dose: 4 mg Oxycodone HCl (Roxycodone Tab*) 15 mg PO TID [facility] Last Admin: 07/26/18 14:18 Dose: 15 mg Oxycodone HCl (Roxycodone Tab*) 5 mg PO Q4H PRN PRN Reason: PAIN Last Admin: 07/26/18 11:32 Dose: 5 mg Prednisone (Deltasone Tab*) 20 mg PO DAILY [facility] Last Admin: 07/26/18 08:12 Dose: 20 mg Pregabalin (Lyrica Cap(*)) 200 mg PO TID [facility] Last Admin: 07/26/18 14:19 Dose: 200 mg Senna (Senokot Tab*) 1 tab PO QID [facility] Last Admin: 07/26/18 11:33 Dose: 1 tab Thiamine HCl (Vitamin B-1 Tab*) 250 mg PO DAILY [facility] Last Admin: 07/26/18 08:10 Dose: 250 mg Tizanidine HCl (Zanaflex Tab*) 4 mg PO QID PRN PRN Reason: SPASMS Last Admin: 07/26/18 08:26 Dose: 4 mg Vilazodone HCl (Viibryd (Nf)) 40 mg PO BEDTIME [facility] Last Admin: 07/25/18 22:33 Dose: 40 mg Vital Signs - 8 hr 07/26/18 07/26/18 07/26/18 07:34 07:53 08:00 Temperature 98.1 F Pulse Rate 79 81 Respiratory 26 18 22 Rate Blood Pressure 141/82 (mmHg) O2 Sat by Pulse 97 99 Oximetry 07/26/18 07/26/18 07/26/18 08:11 08:12 08:13 Temperature Pulse Rate Respiratory 18 18 18 Rate Blood Pressure (mmHg) O2 Sat by Pulse Oximetry 07/26/18 07/26/18 07/26/18 11:11 11:22 11:32 Temperature 98.1 F Pulse Rate 77 Respiratory 20 24 18 Rate Blood Pressure 142/84 (mmHg) O2 Sat by Pulse 97 Oximetry 07/26/18 07/26/18 14:18 14:19 Temperature Pulse Rate Respiratory 20 20 Rate Blood Pressure (mmHg) O2 Sat by Pulse Oximetry Oxygen Devices in Use Now: Nasal Cannula Appearance: 37 yo F in nAD, aAOx3 Eyes: No Scleral Icterus, PERRLA Ears/Nose/Mouth/Throat: NL Teeth, Lips, Gums, Mucous Membranes Moist Neck: NL Appearance and Movements; NL JVP, Trachea Midline Respiratory: Symmetrical Chest Expansion and Respiratory Effort, Clear to Auscultation Cardiovascular: NL Sounds; No Murmurs; No JVD, RRR Abdominal: NL Sounds; No Tenderness; No Distention Lymphatic: No Cervical Adenopathy Extremities: No Edema, No Clubbing, Cyanosis Skin: No Rash or Ulcers Neurological: Alert and Oriented x 3, NL Muscle Strength and Tone Result Diagrams: 07/26/18 06:40 07/26/18 06:40 Additional Lab and Data: Lab Results 07/23/18 Range/Units 11:35 Influenza A (Rapid) Negative (Negative) Influenza B (Rapid) Negative (Negative) Microbiology and Other Data: Microbiology 07/23/18 12:12 Aerobic Blood Culture - Preliminary Blood Venous No Growth Day 2 Anaerobic Blood Culture - Preliminary No Growth Day 2 07/23/18 12:07 Aerobic Blood Culture - Preliminary Blood Venous No Growth Day 2 Anaerobic Blood Culture - Preliminary No Growth Day 2 07/23/18 18:44 Gram Stain - Final Sputum Expectorated Sputum Culture - Final Streptococcus Pneumoniae Normal Kellie 07/23/18 16:46 Urine Culture - Final Urine Klebsiella Pneumoniae 07/23/18 16:46 Legionella Urinary Antigen - Final Urine Negative Legionella Antigen Streptococcus pneumoniae Ag Screen - Final Positive S. Pneumo Antigen 07/23/18 19:40 Nasal Screen MRSA (PCR) - Final Nasal Mrsa Not Detected Assess/Plan/Problems-Billing Assessment: Ms. Giles is a 37 y.o female with a Pmhx of RA, osteoarthritis , fibromyalgia and chronic pain who presented to the ER with cough , fever, chills and shortness of breath found to have let upper lobe pneumonia. - Patient Problems (1) Pneumonia Comment: - CT chest showed multilobar PNA bilat -pneumonia caused severe sepsis with acute hypoxemic respiratory failure and lactic acidosis (resolved) - sputum positive for Strep pneumo - consult to Dr. Phillips -appreciated -will d/c prednisone today, no significant wheezing noted today, lungs actually clear on ascultation, but pt still has 02 needs - cont Ceftriaxone - marked leukocytosis-improving (2) Rheumatoid arthritis Comment: hold Kevzara for now when infected (3) UTI (urinary tract infection) Comment: Urine cx positive for K. Pneumoniae, due to immunosupression pt will be treated with Ceftriaxone as above (4) Chronic pain Comment: cont home doses of narcotics in addition to oxycodone prn breaktrough pain. (5) DVT prophylaxis Comment: HSQ Status and Disposition: inpatient
--- NOTE | 2018-07-26 14:43 | PN ---
Progress Note - Progress Note Date of Service: 07/26/18 - Pulm f/u note Note: Pt seen and examined at bedside. Pt reports feeling better. Not much cough, is fatigued, appetite is poor Active Medications Generic Name Dose Route Start Last Admin Trade Name Freq PRN Reason Stop Dose Admin Acetaminophen 650 mg 07/23/18 16:33 07/25/18 22:22 Tylenol Tab* PO 650 mg Q4H PRN Administration FEVER/PAIN Albuterol 2.5 mg 07/23/18 17:01 Ventolin 2.5 Mg/3 Ml Neb.Gabbi* INH Q4H PRN SOB/WHEEZING Albuterol/Ipratropium 1 neb 07/23/18 18:16 07/26/18 07:56 Duoneb (Albuterol 2.5 Mg/Ipratropium 0.5 Mg) INH 1 neb Q4H PRN Administration SOB/WHEEZING Bupropion HCl 200 mg 07/24/18 09:00 07/26/18 08:12 Wellbutrin Sr Tab* PO 200 mg QAM [facility] Administration Cholecalciferol 2,000 units 07/24/18 09:00 07/26/18 08:10 Vitamin D Tab* PO 2,000 units DAILY [facility] Administration Cyanocobalamin 2,500 mcg 07/24/18 09:00 07/26/18 08:14 Vitamin B12 Tab* PO 2,500 mcg DAILY [facility] Administration Docusate Sodium 100 mg 07/23/18 21:00 07/26/18 11:33 Colace Cap* PO 100 mg QID [facility] Administration Heparin Sodium (Porcine) 5,000 units 07/23/18 22:00 07/26/18 14:19 Heparin Vial(*) SUBCUT 5,000 units Q8HR [facility] Administration Hydroxyzine HCl 25 mg 07/23/18 21:00 07/25/18 22:23 Atarax Tab* PO 25 mg BEDTIME [facility] Administration Ceftriaxone Sodium 2 gm/ 100 mls @ 200 mls/hr 07/24/18 11:00 07/26/18 11:32 Sodium Chloride IVPB 200 mls/hr Q24H [facility] Administration Ibuprofen 400 mg 07/24/18 17:23 07/26/18 14:24 Motrin Tab* PO 400 mg Q6H PRN Administration PAIN Lisdexamfetamine Dimesylate 70 mg 07/24/18 09:00 07/26/18 08:26 Vyvanse(Nf) PO 70 mg DAILY [facility] Administration Lorazepam 2 mg 07/23/18 21:00 07/26/18 08:11 Ativan Tab(*) PO 2 mg BID [facility] Administration Lurasidone HCl 80 mg 07/23/18 21:00 07/25/18 22:20 Latuda PO 80 mg BEDTIME [facility] Administration Morphine Sulfate 30 mg 07/24/18 12:00 07/26/18 11:32 Ms Contin(*) PO 30 mg Q12H [facility] Administration Multivitamins 1 tab 07/24/18 09:00 07/26/18 08:12 Theragran Tab* PO 1 tab DAILY [facility] Administration Ondansetron HCl 4 mg 07/25/18 21:24 07/25/18 22:17 Zofran Odt Tab* SL 4 mg Q6H PRN Administration NAUSEA/VOMITING Oxycodone HCl 15 mg 07/23/18 21:00 07/26/18 14:18 Roxycodone Tab* PO 15 mg TID [facility] Administration Oxycodone HCl 5 mg 07/24/18 17:24 07/26/18 11:32 Roxycodone Tab* PO 5 mg Q4H PRN Administration PAIN Pregabalin 200 mg 07/23/18 21:00 07/26/18 14:19 Lyrica Cap(*) PO 200 mg TID [facility] Administration Senna 1 tab 07/23/18 21:00 07/26/18 11:33 Senokot Tab* PO 1 tab QID [facility] Administration Thiamine HCl 250 mg 07/24/18 09:00 07/26/18 08:10 Vitamin B-1 Tab* PO 250 mg DAILY [facility] Administration Tizanidine HCl 4 mg 07/24/18 17:25 07/26/18 08:26 Zanaflex Tab* PO 4 mg QID PRN Administration SPASMS Vilazodone HCl 40 mg 07/23/18 21:00 07/25/18 22:33 Viibryd (Nf) PO 40 mg BEDTIME [facility] Administration Vital Signs Temp Pulse Resp BP Pulse Ox 98.1 F 77 20 142/84 97 07/26/18 11:22 07/26/18 11:22 07/26/18 14:19 07/26/18 11:22 04/26/19 11:22 O/E: Pt in NAD, lying in bed, is comfortable HEENT: PERRLA, mucus membranes moist Lungs: Good a/e b/l, clear to auscultation, no wheeze CVS: S1, S2+, regular Abd: Obese, BS+ Ext: Normal ROM Neuro: No focal deficits Skin: No rash Laboratory Results - last 24 hr 07/26/18 07/26/18 06:40 06:40 WBC 23.7 H RBC 3.43 L Hgb 10.0 L Hct 30 L MCV 88 MCH 29 MCHC 33 RDW 14 Plt Count 143 L MPV 9.3 Neut % (Auto) 87.5 Lymph % (Auto) 9.2 [place] % (Auto) 2.8 Eos % (Auto) 0.4 Baso % (Auto) 0.1 Absolute Neuts (auto) 20.7 H Absolute Lymphs (auto) 2.2 Absolute Monos (auto) 0.7 Absolute Eos (auto) 0.1 Absolute Basos (auto) 0 Absolute Nucleated RBC 0 Nucleated RBC % 0 Sodium 142 Potassium 3.5 Chloride 114 H Carbon Dioxide 24 Anion Gap 4 BUN 13 Creatinine 0.57 Est GFR ( Amer) 146.1 Est GFR (Non-Af Amer) 120.7 BUN/Creatinine Ratio 22.8 H Glucose 84 Calcium 7.9 L I/R: 37 y o obese f with strep PNA and hypoxic resp failure Pt improving FiO2 requirement trending down, Sats 98% on 2L c/w abx to complete 10 day course total Encouraged flutter usage and deep breathing OOB to chair and ambulate as tolerated Assess O2 requirements with ambulation
[2018-07-26] MEDS: hydrOXYzine HCL TAB* 25 MG PO SCH (20:55)
[2018-07-26] MEDS: Lurasidone(*) 80 MG TAB PO SCH (20:55)
[2018-07-26] MEDS: CMCS:Vilazodone (NF) 40 MG TAB PO SCH (20:56)
[2018-07-27] MEDS: Morphine TAB Extended Release (*) 30 MG TAB.ER PO SCH ×2 (00:21→11:56)
[2018-07-27] MEDS: oxyCODONE TAB* 5 MG TAB PO PRN ×4 (05:03→22:05)
[2018-07-27] MEDS: Ibuprofen TAB* 400 MG PO PRN ×3 (05:04→17:21)
[2018-07-27] MEDS: tiZANidine TAB* 2 MG PO PRN ×4 (05:04→21:57)
[2018-07-27] MEDS: Heparin VIAL(*) 5000 UNITS/ML VIAL (FIVE THOUSAND) SUBCUT SCH ×3 (05:05→21:59)
[2018-07-27] MEDS: Albuterol/Ipratropium NEB.SOL* Albuterol 2.5 MG/Ipratropium 0.5 MG 3 ML INH PRN (05:31)
[2018-07-27 07:24] LABS: Hematocrit 30 % (33-41); Mean Corpuscular HGB Conc 33 g/dL (31-36); Mean Corpuscular Hemoglobin 29 pg (27-31); Mean Corpuscular Volume 87 fL (80-97); Mean Platelet Volume 9.6 fL (7.4-10.4); Platelet Count 148 10^3/uL (150-450); Red Cell Distribution Width 14 % (10.5-15); White Blood Count 11.1 10^3/uL (3.5-10.8)
[2018-07-27 08:01] LABS: ABS Basophils 0 10^3/ul (0-0.2); ABS Eosinophils 0.2 10^3/ul (0-0.6); ABS Lymphocytes 2.9 10^3/ul (1.0-4.8); ABS Monocytes 0.6 10^3/ul (0-0.8); ABS Neutrophils 7.3 10^3/ul (1.5-7.7); ABS Nucleated RBC 0 10^3/ul; Eosinophil % 1.8 %; Lymphocyte % 26.7 %; Nucleated Red Blood Cells % 0
[2018-07-27 08:20] LABS: BUN/Creatinine Ratio 17.2 (8-20); C Reactive Protein 81.9 mg/L (<8.01); Calcium 8.3 mg/dL (8.6-10.3); EGFR African American 127.8 (>60); EGFR Non-African American 105.6 (>60); Potassium 3.1 mmol/L (3.5-5.0)
[2018-07-27] MEDS: Cyanocobalamin TAB* 500 MCG PO SCH (08:57)
[2018-07-27] MEDS: Senna TAB PO SCH ×4 (08:58→21:57)
[2018-07-27] MEDS: Docusate CAP* 100 MG PO SCH ×4 (08:58→21:57)
[2018-07-27] MEDS: Vitamin THERAPEUTIC TAB PO SCH (08:58)
[2018-07-27] MEDS: Lisdexamfetamine(NF) 10 MG CAP PO SCH (08:59)
[2018-07-27] MEDS: Thiamine TAB* 100 MG TAB PO SCH (09:00)
[2018-07-27] MEDS: Cholecalciferol TAB* 1000 UNITS PO SCH (09:01)
[2018-07-27] MEDS: buPROPion SR TAB.SR* 200 MG PO SCH (09:01)
[2018-07-27] MEDS: LORazepam TAB(*) 1 MG PO SCH ×2 (09:01→21:57)
[2018-07-27] MEDS: Pregabalin CAP(*) 100 MG PO SCH ×3 (09:02→21:58)
[2018-07-27] MEDS: oxyCODONE TAB* 5 MG TAB PO SCH ×3 (09:03→21:56)
[2018-07-27 09:34] LABS: Erythrocyte Sed Rate 70 mm/Hr (0-19)
[2018-07-27] MEDS: cefTRIAXone(*) 2 GM in NS 0.9% 100 ML* 100 ML IVPB SCH (11:57)
[2018-07-27] MEDS ORDERED: Potassium Chlor TAB* 20 MEQ TAB.ER PO ONE (14:14)
--- NOTE | 2018-07-27 14:19 | PN ---
Subjective Date of Service: 07/27/18 Interval History: Pt feels well, still SOB when walking, still requiring 02 Objective Active Medications: Acetaminophen (Tylenol Tab*) 650 mg PO Q4H PRN PRN Reason: FEVER/PAIN Last Admin: 07/25/18 22:22 Dose: 650 mg Albuterol (Ventolin 2.5 Mg/3 Ml Neb.Gabbi*) 2.5 mg INH Q4H PRN PRN Reason: SOB/WHEEZING Albuterol/Ipratropium (Duoneb (Albuterol 2.5 Mg/Ipratropium 0.5 Mg)) 1 neb INH Q4H PRN PRN Reason: SOB/WHEEZING Last Admin: 07/27/18 05:31 Dose: 1 neb Bupropion HCl (Wellbutrin Sr Tab*) 200 mg PO QAM [facility] Last Admin: 07/27/18 09:01 Dose: 200 mg Cholecalciferol (Vitamin D Tab*) 2,000 units PO DAILY [facility] Last Admin: 07/27/18 09:01 Dose: 2,000 units Cyanocobalamin (Vitamin B12 Tab*) 2,500 mcg PO DAILY [facility] Last Admin: 07/27/18 08:57 Dose: 2,500 mcg Docusate Sodium (Colace Cap*) 100 mg PO QID [facility] Last Admin: 07/27/18 11:57 Dose: 100 mg Heparin Sodium (Porcine) (Heparin Vial(*)) 5,000 units SUBCUT Q8HR [facility] Last Admin: 07/27/18 05:05 Dose: 5,000 units Hydroxyzine HCl (Atarax Tab*) 25 mg PO BEDTIME [facility] Last Admin: 07/26/18 20:55 Dose: 25 mg Ceftriaxone Sodium 2 gm/ (Sodium Chloride) 100 mls @ 200 mls/hr IVPB Q24H [facility] Last Admin: 07/27/18 11:57 Dose: 200 mls/hr Ibuprofen (Motrin Tab*) 400 mg PO Q6H PRN PRN Reason: PAIN Last Admin: 07/27/18 11:57 Dose: 400 mg Lisdexamfetamine Dimesylate (Vyvanse(Nf)) 70 mg PO DAILY [facility] Last Admin: 07/27/18 08:59 Dose: 70 mg Lorazepam (Ativan Tab(*)) 2 mg PO BID [facility] Last Admin: 07/27/18 09:01 Dose: 2 mg Lurasidone HCl (Latuda) 80 mg PO BEDTIME [facility] Last Admin: 07/26/18 20:55 Dose: 80 mg Morphine Sulfate (Ms Contin(*)) 30 mg PO Q12H [facility] Last Admin: 07/27/18 11:56 Dose: 30 mg Multivitamins (Theragran Tab*) 1 tab PO DAILY [facility] Last Admin: 07/27/18 08:58 Dose: 1 tab Ondansetron HCl (Zofran Odt Tab*) 4 mg SL Q6H PRN PRN Reason: NAUSEA/VOMITING Last Admin: 07/25/18 22:17 Dose: 4 mg Oxycodone HCl (Roxycodone Tab*) 15 mg PO TID [facility] Last Admin: 07/27/18 09:03 Dose: 15 mg Oxycodone HCl (Roxycodone Tab*) 5 mg PO Q4H PRN PRN Reason: PAIN Last Admin: 07/27/18 09:03 Dose: 5 mg Potassium Chloride (Klor Con Er Tab*) 60 meq PO ONCE ONE Stop: 07/27/18 14:15 Pregabalin (Lyrica Cap(*)) 200 mg PO TID [facility] Last Admin: 07/27/18 09:02 Dose: 200 mg Senna (Senokot Tab*) 1 tab PO QID [facility] Last Admin: 07/27/18 11:57 Dose: 1 tab Thiamine HCl (Vitamin B-1 Tab*) 250 mg PO DAILY [facility] Last Admin: 07/27/18 09:00 Dose: 250 mg Tizanidine HCl (Zanaflex Tab*) 4 mg PO QID PRN PRN Reason: SPASMS Last Admin: 07/27/18 11:57 Dose: 4 mg Vilazodone HCl (Viibryd (Nf)) 40 mg PO BEDTIME [facility] Last Admin: 07/26/18 20:56 Dose: 40 mg Vital Signs - 8 hr 07/27/18 07/27/18 07/27/18 07:29 08:00 08:17 Temperature 98.2 F Pulse Rate 90 Respiratory 16 22 18 Rate Blood Pressure 151/80 (mmHg) O2 Sat by Pulse 97 Oximetry 07/27/18 07/27/18 07/27/18 09:01 09:02 09:03 Temperature Pulse Rate Respiratory 18 18 18 Rate Blood Pressure (mmHg) O2 Sat by Pulse Oximetry 07/27/18 07/27/18 07/27/18 11:03 11:49 11:56 Temperature 98.5 F Pulse Rate 88 Respiratory 24 20 24 Rate Blood Pressure 136/89 (mmHg) O2 Sat by Pulse 97 Oximetry 07/27/18 13:55 Temperature Pulse Rate Respiratory 20 Rate Blood Pressure (mmHg) O2 Sat by Pulse Oximetry Oxygen Devices in Use Now: Nasal Cannula Appearance: 37 yo F in NAD, AAOx3 Eyes: No Scleral Icterus, PERRLA Ears/Nose/Mouth/Throat: NL Teeth, Lips, Gums, Mucous Membranes Moist Neck: NL Appearance and Movements; NL JVP, Trachea Midline Respiratory: Symmetrical Chest Expansion and Respiratory Effort, Clear to Auscultation Cardiovascular: NL Sounds; No Murmurs; No JVD, RRR Abdominal: NL Sounds; No Tenderness; No Distention Lymphatic: No Cervical Adenopathy Extremities: No Edema, No Clubbing, Cyanosis Skin: No Rash or Ulcers, No Nodules or Sclerosis Neurological: Alert and Oriented x 3, NL Muscle Strength and Tone Result Diagrams: 07/27/18 06:24 07/27/18 06:24 Additional Lab and Data: Lab Results 07/23/18 Range/Units 11:35 Influenza A (Rapid) Negative (Negative) Influenza B (Rapid) Negative (Negative) Microbiology and Other Data: Microbiology 07/23/18 12:12 Aerobic Blood Culture - Preliminary Blood Venous No Growth Day 2 Anaerobic Blood Culture - Preliminary No Growth Day 2 07/23/18 12:07 Aerobic Blood Culture - Preliminary Blood Venous No Growth Day 2 Anaerobic Blood Culture - Preliminary No Growth Day 2 07/23/18 18:44 Gram Stain - Final Sputum Expectorated Sputum Culture - Final Streptococcus Pneumoniae Normal Kellie 07/23/18 16:46 Urine Culture - Final Urine Klebsiella Pneumoniae 07/23/18 16:46 Legionella Urinary Antigen - Final Urine Negative Legionella Antigen Streptococcus pneumoniae Ag Screen - Final Positive S. Pneumo Antigen 07/23/18 19:40 Nasal Screen MRSA (PCR) - Final Nasal Mrsa Not Detected Assess/Plan/Problems-Billing Assessment: Ms. Giles is a 37 y.o female with a Pmhx of RA, osteoarthritis , fibromyalgia and chronic pain who presented to the ER with cough , fever, chills and shortness of breath found to have let upper lobe pneumonia. - Patient Problems (1) Pneumonia Comment: - CT chest showed multilobar PNA bilat -pneumonia caused severe sepsis with acute hypoxemic respiratory failure and lactic acidosis (resolved) - sputum positive for Strep pneumo - consult to Dr. Phillips -appreciated - prednisone d/c'd on 07/26/18 today, no significant wheezing noted today, lungs actually clear on ascultation, but pt still has 02 needs - cont Ceftriaxone - marked leukocytosis-improving (2) Rheumatoid arthritis Comment: hold Kevzara for now when infected (3) UTI (urinary tract infection) Comment: Urine cx positive for K. Pneumoniae, due to immunosupression pt will be treated with Ceftriaxone as above (4) Chronic pain Comment: cont home doses of narcotics in addition to oxycodone prn breaktrough pain. (5) DVT prophylaxis Comment: HSQ Status and Disposition: inpatient
[2018-07-27] MEDS: Lurasidone(*) 80 MG TAB PO SCH (21:56)
[2018-07-27] MEDS: CMCS:Vilazodone (NF) 40 MG TAB PO SCH (21:57)
[2018-07-27] MEDS: hydrOXYzine HCL TAB* 25 MG PO SCH (21:59)
[2018-07-28] MEDS: Ibuprofen TAB* 400 MG PO PRN ×4 (00:25→22:20)
[2018-07-28] MEDS: Morphine TAB Extended Release (*) 30 MG TAB.ER PO SCH ×2 (00:25→11:19)
[2018-07-28] MEDS: oxyCODONE TAB* 5 MG TAB PO PRN ×4 (06:10→20:54)
[2018-07-28] MEDS: Heparin VIAL(*) 5000 UNITS/ML VIAL (FIVE THOUSAND) SUBCUT SCH ×3 (06:11→20:54)
[2018-07-28] MEDS: oxyCODONE TAB* 5 MG TAB PO SCH ×3 (09:07→20:51)
[2018-07-28] MEDS: LORazepam TAB(*) 1 MG PO SCH ×2 (09:08→20:52)
[2018-07-28] MEDS: Thiamine TAB* 100 MG TAB PO SCH (09:09)
[2018-07-28] MEDS: Docusate CAP* 100 MG PO SCH ×4 (09:09→20:52)
[2018-07-28] MEDS: buPROPion SR TAB.SR* 200 MG PO SCH (09:09)
[2018-07-28] MEDS: Vitamin THERAPEUTIC TAB PO SCH (09:11)
[2018-07-28] MEDS: Cyanocobalamin TAB* 500 MCG PO SCH (09:11)
[2018-07-28] MEDS: tiZANidine TAB* 2 MG PO PRN ×3 (09:11→20:51)
[2018-07-28] MEDS: Senna TAB PO SCH ×4 (09:12→20:54)
[2018-07-28] MEDS: Pregabalin CAP(*) 100 MG PO SCH ×3 (09:13→20:53)
[2018-07-28] MEDS: Cholecalciferol TAB* 1000 UNITS PO SCH (09:13)
[2018-07-28] MEDS: Lisdexamfetamine(NF) 10 MG CAP PO SCH (11:18)
[2018-07-28] MEDS: cefTRIAXone(*) 2 GM in NS 0.9% 100 ML* 100 ML IVPB SCH (11:18)
--- NOTE | 2018-07-28 13:37 | PN ---
Subjective Date of Service: 07/28/18 Interval History: Pt feels better. Still coughing-better with flutter valve. Off 02 but desaturates when walking Objective Active Medications: Acetaminophen (Tylenol Tab*) 650 mg PO Q4H PRN PRN Reason: FEVER/PAIN Last Admin: 07/25/18 22:22 Dose: 650 mg Albuterol (Ventolin 2.5 Mg/3 Ml Neb.Gabbi*) 2.5 mg INH Q4H PRN PRN Reason: SOB/WHEEZING Last Admin: 07/27/18 20:29 Dose: 2.5 mg Albuterol/Ipratropium (Duoneb (Albuterol 2.5 Mg/Ipratropium 0.5 Mg)) 1 neb INH Q4H PRN PRN Reason: SOB/WHEEZING Last Admin: 07/27/18 05:31 Dose: 1 neb Bupropion HCl (Wellbutrin Sr Tab*) 200 mg PO QAM [facility] Last Admin: 07/28/18 09:09 Dose: 200 mg Cholecalciferol (Vitamin D Tab*) 2,000 units PO DAILY [facility] Last Admin: 07/28/18 09:13 Dose: 2,000 units Cyanocobalamin (Vitamin B12 Tab*) 2,500 mcg PO DAILY [facility] Last Admin: 07/28/18 09:11 Dose: 2,500 mcg Docusate Sodium (Colace Cap*) 100 mg PO QID [facility] Last Admin: 07/28/18 09:09 Dose: 100 mg Heparin Sodium (Porcine) (Heparin Vial(*)) 5,000 units SUBCUT Q8HR [facility] Last Admin: 07/28/18 06:11 Dose: 5,000 units Hydroxyzine HCl (Atarax Tab*) 25 mg PO BEDTIME [facility] Last Admin: 07/27/18 21:59 Dose: 25 mg Ceftriaxone Sodium 2 gm/ (Sodium Chloride) 100 mls @ 200 mls/hr IVPB Q24H [facility] Last Admin: 07/28/18 11:18 Dose: 200 mls/hr Ibuprofen (Motrin Tab*) 400 mg PO Q6H PRN PRN Reason: PAIN Last Admin: 07/28/18 09:10 Dose: 400 mg Lisdexamfetamine Dimesylate (Vyvanse(Nf)) 70 mg PO DAILY [facility] Last Admin: 07/28/18 11:18 Dose: 70 mg Lorazepam (Ativan Tab(*)) 2 mg PO BID [facility] Last Admin: 07/28/18 09:08 Dose: 2 mg Lurasidone HCl (Latuda) 80 mg PO BEDTIME [facility] Last Admin: 07/27/18 21:56 Dose: 80 mg Morphine Sulfate (Ms Contin(*)) 30 mg PO Q12H [facility] Last Admin: 07/28/18 11:19 Dose: 30 mg Multivitamins (Theragran Tab*) 1 tab PO DAILY [facility] Last Admin: 07/28/18 09:11 Dose: 1 tab Ondansetron HCl (Zofran Odt Tab*) 4 mg SL Q6H PRN PRN Reason: NAUSEA/VOMITING Last Admin: 07/25/18 22:17 Dose: 4 mg Oxycodone HCl (Roxycodone Tab*) 15 mg PO TID [facility] Last Admin: 07/28/18 09:07 Dose: 15 mg Oxycodone HCl (Roxycodone Tab*) 5 mg PO Q4H PRN PRN Reason: PAIN Last Admin: 07/28/18 11:20 Dose: 5 mg Pregabalin (Lyrica Cap(*)) 200 mg PO TID [facility] Last Admin: 07/28/18 09:13 Dose: 200 mg Senna (Senokot Tab*) 1 tab PO QID [facility] Last Admin: 07/28/18 09:12 Dose: 1 tab Thiamine HCl (Vitamin B-1 Tab*) 250 mg PO DAILY [facility] Last Admin: 07/28/18 09:09 Dose: 250 mg Tizanidine HCl (Zanaflex Tab*) 4 mg PO QID PRN PRN Reason: SPASMS Last Admin: 07/28/18 09:11 Dose: 4 mg Vilazodone HCl (Viibryd (Nf)) 40 mg PO BEDTIME [facility] Last Admin: 07/27/18 21:57 Dose: 40 mg Vital Signs - 8 hr 07/28/18 07/28/18 07/28/18 06:10 07:00 07:36 Temperature 98.8 F 98.8 F Pulse Rate 69 69 Respiratory 20 16 16 Rate Blood Pressure 126/71 126/71 (mmHg) O2 Sat by Pulse 96 96 Oximetry 07/28/18 07/28/18 07/28/18 08:00 09:07 09:08 Temperature Pulse Rate Respiratory 18 20 20 Rate Blood Pressure (mmHg) O2 Sat by Pulse Oximetry 07/28/18 07/28/18 07/28/18 09:13 11:19 11:20 Temperature Pulse Rate Respiratory 20 26 26 Rate Blood Pressure (mmHg) O2 Sat by Pulse Oximetry 07/28/18 07/28/18 11:28 11:34 Temperature 98.3 F Pulse Rate 80 Respiratory 26 26 Rate Blood Pressure 139/77 (mmHg) O2 Sat by Pulse 94 Oximetry Oxygen Devices in Use Now: None Appearance: 37 yo F in nAD, aAOx3 Eyes: No Scleral Icterus, PERRLA Ears/Nose/Mouth/Throat: NL Teeth, Lips, Gums, Mucous Membranes Moist Neck: NL Appearance and Movements; NL JVP, Trachea Midline Respiratory: Symmetrical Chest Expansion and Respiratory Effort, Clear to Auscultation Cardiovascular: NL Sounds; No Murmurs; No JVD, RRR Abdominal: NL Sounds; No Tenderness; No Distention Lymphatic: No Cervical Adenopathy Extremities: No Edema, No Clubbing, Cyanosis Skin: No Rash or Ulcers, No Nodules or Sclerosis Neurological: Alert and Oriented x 3, NL Muscle Strength and Tone Result Diagrams: 07/27/18 06:24 07/27/18 06:24 Additional Lab and Data: Lab Results 07/23/18 Range/Units 11:35 Influenza A (Rapid) Negative (Negative) Influenza B (Rapid) Negative (Negative) Microbiology and Other Data: Microbiology 07/23/18 12:12 Aerobic Blood Culture - Preliminary Blood Venous No Growth Day 2 Anaerobic Blood Culture - Preliminary No Growth Day 2 07/23/18 12:07 Aerobic Blood Culture - Preliminary Blood Venous No Growth Day 2 Anaerobic Blood Culture - Preliminary No Growth Day 2 07/23/18 18:44 Gram Stain - Final Sputum Expectorated Sputum Culture - Final Streptococcus Pneumoniae Normal Kellie 07/23/18 16:46 Urine Culture - Final Urine Klebsiella Pneumoniae 07/23/18 16:46 Legionella Urinary Antigen - Final Urine Negative Legionella Antigen Streptococcus pneumoniae Ag Screen - Final Positive S. Pneumo Antigen 07/23/18 19:40 Nasal Screen MRSA (PCR) - Final Nasal Mrsa Not Detected Assess/Plan/Problems-Billing Assessment: Ms. Giles is a 37 y.o female with a Pmhx of RA, osteoarthritis , fibromyalgia and chronic pain who presented to the ER with cough , fever, chills and shortness of breath found to have let upper lobe pneumonia. - Patient Problems (1) Pneumonia Comment: - CT chest showed multilobar PNA bilat -pneumonia caused severe sepsis with acute hypoxemic respiratory failure and lactic acidosis (resolved) - sputum positive for Strep pneumo - consult to Dr. Phillips -appreciated - prednisone d/c'd on 07/26/18 , no significant wheezing noted today, lungs actually clear on ascultation, but pt still has 02 needs when ambulating - cont Ceftriaxone - marked leukocytosis-improving (2) Rheumatoid arthritis Comment: hold Kevzara for now when infected (3) UTI (urinary tract infection) Comment: Urine cx positive for K. Pneumoniae, due to immunosupression pt will be treated with Ceftriaxone as above (4) Chronic pain Comment: cont home doses of narcotics in addition to oxycodone prn breaktrough pain. (5) DVT prophylaxis Comment: HSQ Status and Disposition: inpatient .Likely d/c home tomorrow
[2018-07-28] MEDS: CMCS:Vilazodone (NF) 40 MG TAB PO SCH (20:51)
[2018-07-28] MEDS: hydrOXYzine HCL TAB* 25 MG PO SCH (20:53)
[2018-07-28] MEDS: Lurasidone(*) 80 MG TAB PO SCH (20:54)
[2018-07-29] MEDS: Morphine TAB Extended Release (*) 30 MG TAB.ER PO SCH (00:27)
[2018-07-29] MEDS: Heparin VIAL(*) 5000 UNITS/ML VIAL (FIVE THOUSAND) SUBCUT SCH (06:10)
[2018-07-29] MEDS: oxyCODONE TAB* 5 MG TAB PO PRN (06:12)
[2018-07-29] MEDS: Ibuprofen TAB* 400 MG PO PRN (06:12)
[2018-07-29] MEDS: tiZANidine TAB* 2 MG PO PRN (06:15)
[2018-07-29 06:48] LABS: Hematocrit 37 % (33-41); Hemoglobin 12.4 g/dL (12.0-16.0); Mean Corpuscular HGB Conc 33 g/dL (31-36); Mean Corpuscular Hemoglobin 29 pg (27-31); Mean Corpuscular Volume 86 fL (80-97); Mean Platelet Volume 9.1 fL (7.4-10.4); Platelet Count 219 10^3/uL (150-450); Red Blood Count 4.33 10^6 /uL (3.70-4.87); Red Cell Distribution Width 14 % (10.5-15); White Blood Count 10.1 10^3/uL (3.5-10.8)
[2018-07-29 07:03] LABS: BUN/Creatinine Ratio 19.7 (8-20); C Reactive Protein 95.6 mg/L (<8.01); Calcium 8.8 mg/dL (8.6-10.3); EGFR African American 104.8 (>60); EGFR Non-African American 86.6 (>60); Potassium 4.3 mmol/L (3.5-5.0)
[2018-07-29 07:27] LABS: ABS Basophils 0 10^3/ul (0-0.2); ABS Eosinophils 0.4 10^3/ul (0-0.6); ABS Lymphocytes 2.9 10^3/ul (1.0-4.8); ABS Monocytes 0.7 10^3/ul (0-0.8); ABS Nucleated RBC 0 10^3/ul; Lymphocyte % 29.2 %; Nucleated Red Blood Cells % 0.2
[2018-07-29] MEDS ORDERED: Saline NASAL SPRAY 0.65%* BTL BOTH NARES PRN (09:05)
[2018-07-29] MEDS: Docusate CAP* 100 MG PO SCH (09:06)
[2018-07-29] MEDS: Lisdexamfetamine(NF) 10 MG CAP PO SCH (09:06)
[2018-07-29] MEDS: oxyCODONE TAB* 5 MG TAB PO SCH (09:08)
[2018-07-29] MEDS: Cholecalciferol TAB* 1000 UNITS PO SCH (09:09)
[2018-07-29] MEDS: LORazepam TAB(*) 1 MG PO SCH (09:09)
[2018-07-29] MEDS: Vitamin THERAPEUTIC TAB PO SCH (09:10)
[2018-07-29] MEDS: Pregabalin CAP(*) 100 MG PO SCH (09:10)
[2018-07-29] MEDS: Cyanocobalamin TAB* 500 MCG PO SCH (09:11)
[2018-07-29] MEDS: Senna TAB PO SCH (09:11)
[2018-07-29] MEDS: Thiamine TAB* 100 MG TAB PO SCH (09:12)
[2018-07-29] MEDS: buPROPion SR TAB.SR* 200 MG PO SCH (09:15)
[2018-07-29] MEDS: cefTRIAXone(*) 2 GM in NS 0.9% 100 ML* 100 ML IVPB SCH (10:12)
[2018-07-29 11:37] VITALS: BP 147/86
--- NOTE | 2018-07-29 12:44 | PN ---
Progress Note - Progress Note Date of Service: 07/29/18 - Pulm f/u note Note: Pt seen and examined at bedside, LORazepam TAB(*) [Ativan 1 MG TAB (*)] 2 mg PO BID 06/05/16 [History Confirmed 07/23/18] hydrOXYzine HCL TAB* [Atarax 25 MG TAB*] 25 mg PO BEDTIME 06/05/16 [History Confirmed 07/23/18] oxyCODONE TAB* [Roxycodone TAB 5 mg*] 15 mg PO TID 11/10/16 [His Vital Signs Temp Pulse Resp BP Pulse Ox 97.7 F 70 20 147/86 98 07/29/18 11:15 07/29/18 11:15 07/29/18 11:15 07/29/18 11:15 07/29/18 11:15 tory Confirmed 07/23/18] Alpha Lipoic Acid 200 mg PO BID 08/14/17 [History Confirmed 07/23/18] Calcium Carb/Vitamin D3/Vit K1 [Viactiv Soft Chew] 1 chw PO BID 07/23/18 [ History Confirmed 07/23/18] Cholecalciferol (Vitamin D3) [Vitamin D3] 2,000 unit PO DAILY 07/23/18 [History Confirmed 07/23/18] Cyanocobalamin TAB* [Vitamin B12 TAB*] 2,500 mcg PO DAILY 07/23/18 [History Confirmed 07/23/18] Docusate CAP* [Colace Cap*] 100 mg PO QID 07/23/18 [History Confirmed 07/23/18] Lisdexamfetamine (NF) [Vyvanse (NF)] 70 mg PO DAILY 07/23/18 [History Confirmed 07/23/18] Lurasidone(*) [Latuda] 80 mg PO BEDTIME 07/23/18 [History Confirmed 07/23/18] Morphine Sulfate [Morphine Sulfate ER] 30 mg PO BID 07/23/18 [History Confirmed 07/23/18] Pedi Multivit No.25/Folic Acid [Flintstones Multivit Chew Tab] 300 mcg PO BID [History Confirmed 07/23/18] Pregabalin CAP(*) [Lyrica CAP(*)] 200 mg PO TID 07/23/18 [History Confirmed ] Sarilumab [Kevzara] 200 mg SUBCUT .EVERY OTHER WED. 07/23/18 [History Confirmed 07/23/18] Senna TAB* [Senokot TAB*] 1 tab PO QID 07/23/18 [History Confirmed 07/23/18] Thiamine Mononitrate (Vit B1) [Vitamin B-1] 250 mg PO DAILY 07/23/18 [History Confirmed 07/23/18] Vilazodone (NF) [Viibryd (NF)] 40 mg PO BEDTIME 07/23/18 [History Confirmed ] buPROPion SR TAB* [Wellbutrin SR TAB*] 200 mg PO QAM 07/23/18 [History Confirmed 07/23/18] tiZANidine TAB* [Zanaflex TAB*] 4 mg PO QID 07/23/18 [History Confirmed 07/23/18 ] Cefdinir [Cefdinir 300 MG CAP] 300 mg PO BID #6 cap 07/29/18 [Rx] Vital Signs - 12 hr Temp Pulse Resp BP Pulse Ox 07/29/18 11:15 97.7 F 70 20 147/86 98 07/29/18 09:10 20 07/29/18 09:09 20 07/29/18 09:08 20 07/29/18 08:50 16 07/29/18 07:58 96.3 F 65 20 110/67 98 07/29/18 06:12 18 07/29/18 04:53 97.5 F 71 20 108/58 07/29/18 03:00 18 O/E: Pt in NAD, lying in bed, is comfortable HEENT: PERRLA, mucus membranes moist Lungs: Good a/e b/l, clear to auscultation, no wheeze CVS: S1, S2+, regular Abd: Obese, BS+ Ext: Normal ROM Neuro: No focal deficits Skin: No rash Laboratory Results - last 24 hr 07/29/18 07/29/18 06:29 06:30 WBC 10.1 RBC 4.33 Hgb 12.4 Hct 37 MCV 86 MCH 29 MCHC 33 RDW 14 Plt Count 219 MPV 9.1 Neut % (Auto) 59.9 Lymph % (Auto) 29.2 [place] % (Auto) 6.6 Eos % (Auto) 4.0 Baso % (Auto) 0.3 Absolute Neuts (auto) 6.0 Absolute Lymphs (auto) 2.9 Absolute Monos (auto) 0.7 Absolute Eos (auto) 0.4 Absolute Basos (auto) 0 Absolute Nucleated RBC 0 Nucleated RBC % 0.2 Sodium 137 D Potassium 4.3 Chloride 104 Carbon Dioxide 28 Anion Gap 5 BUN 15 Creatinine 0.76 Est GFR ( Amer) 104.8 Est GFR (Non-Af Amer) 86.6 BUN/Creatinine Ratio 19.7 Glucose 98 Calcium 8.8 C-Reactive Protein 95.60 H I/R: 37 y o obese f with strep PNA and hypoxic resp failure Pt improved, off O2, saturating well on RA c/w abx to complete 10 day course total, change to po as per susceptibilities Encouraged flutter usage and deep breathing Will f/u as outpt in 3 weeks for f/u of resolution of PNA Pt also with h/o sl apnea, rpt study was negative few years ago however pt with snoring and disruptive sleep and still with concern with sl apnea Will need rpt study as out pt
--- NOTE | 2018-07-29 16:06 | DS ---
CC: Dr. Sebastian Zhang; Dr. Sargent; Dr. Phillips; Dr. Iglesias * DISCHARGE SUMMARY: DATE OF ADMISSION: 07/23/18 DATE OF DISCHARGE: 07/29/18 PRIMARY CARE PROVIDER: Dr. Sebastian Zhang. CONDITION ON DISCHARGE: Stable. DISPOSITION: The patient is being discharged to home. DISCHARGE DIAGNOSIS: Severe sepsis with lactic acidosis and acute hypoxemic respiratory failure requiring high-flow oxygen in the intensive care unit in a patient with Streptococcus pneumoniae pneumonia. SECONDARY DIAGNOSES: 1. History of rheumatoid arthritis. 2. History of Raynaud's. 3. Osteoarthritis. 4. Inflammatory arthropathy. 5. Degenerative disk disease. 6. Fibromyalgia. 7. Status post gastric sleeve surgery. 8. History of C-spine fusion from C3-C7. MEDICATIONS AT DISCHARGE: Include: 1. Cefdinir 300 mg p.o. b.i.d. for a total of 3 days and stop. The remaining medications are unchanged from home and include: 1. Alcides lipoic acid 200 mg b.i.d. 2. Wellbutrin SR 200 mg b.i.d. 3. Calcium carbonate and vitamin D one chewable b.i.d. 4. Vitamin D3 2000 units daily. 5. Vitamin B12 2500 mcg daily. 6. Colace 100 mg 4 times a day p.r.n. 7. Hydroxyzine 25 mg at bedtime. 8. Vyvanse 70 mg a day. 9. Lorazepam 2 mg b.i.d. p.r.n. 10. Latuda 80 mg at bedtime. 11. Morphine sulfate 30 mg b.i.d. 12. Oxycodone 15 mg 3 times a day p.r.n. 13. vitamin with folic acid 300 mcg b.i.d. 14. Lyrica 200 mg 3 times a day. 15. Kevzara 200 mcg subcutaneously every other Sunday. 16. Senokot 1 tablet 4 times a day p.r.n. 17. Thiamine 250 mg daily. 18. Zanaflex 4 mg 4 times a day p.r.n. 19. Viibryd 40 mg at bedtime. CONSULTATIONS DURING THE HOSPITAL STAY: Included Dr. Phillips from Pulmonology. LABORATORY DATA AND STUDIES PERFORMED DURING THE HOSPITAL STAY: Included: On , white blood cell count of 10.1, hemoglobin of 12.4, hematocrit of 37, platelets of 119. The patient's ESR was last checked on 07/27/18 and was 70. On 07/29/18, sodium of 137, potassium 4.3, chloride 104, carbon dioxide 28, BUN 15, creatinine 0.76. C-reactive protein checked on 07/29/18 was 95.6. Urinalysis: Positive bacteria, squamous epithelial cells present. Negative for esterase, negative for nitrite, negative for wbc's, trace of blood. Serology was negative for influenza. Microbiology shows urine culture is positive for Klebsiella pneumoniae over 100, 000 colonies. Urine strep pneumo antigen was positive, negative for legionella antigen. Sputum cultures are positive for Strep pneumoniae. Chest CT obtained on 07/23/18, impression: "Findings most consistent with multilobar pneumonia involving the lobes of both lungs with areas of consolidation in the lingua, left lower lobe and lesser burden in the right lower lobe. Differential considerations include typical and atypical organisms including fungi and opportunistic etiologies, no cavitary lesions." HOSPITALIZATION COURSE: Chava Giles is a 37-year-old female with history of rheumatoid arthritis, on biologic agents, who presented to the hospital with acute respiratory distress on 07/23/18. She had significant hypoxemia requiring high- flow oxygen. Her lactic acid was markedly elevated and peaked at 3.7 on the day of admission. She was treated for severe sepsis with broad- spectrum antibiotics, intravenous fluids, and oxygen support. Throughout her hospital stay, the patient's cultures were positive for Strep pneumoniae pneumonia with positive sputum cultures and positive urine antigen. The patient 's antibiotics were narrowed to ceftriaxone. The patient's hospitalization was complicated by hypoxemia that lasted for several days. She was seen by Dr. Phillips in consultation. Bronchospasm developed at admission, the patient was placed on rather high-dose steroids but that was tapered off by the time of discharge. By the time of discharge, the patient needed no oxygen and ambulated on room air with oxygen saturation in the 96% range. She is going to be discharged home, recommendation to follow up with her primary care provider in approximately 4 to 7 days. As per discussion with Dr. Phillips, recommendation was to continue 3 more days of antibiotic treatment by the time of discharge. Please note the patient was treated with a total of 7 days of ceftriaxone during her hospitalization. PHYSICAL EXAM AT THE TIME OF DISCHARGE: Blood pressure of 110/67, heart rate of 65 and regular, respiratory rate 20, oxygen saturation 98% on room air, temperature 96.3. General: The patient is a pleasant 37-year-old female who is in no acute distress. Alert, awake and oriented x3. HEENT: Head: Atraumatic, normocephalic. Eyes: Pupils are equal, round, and reactive to light and accommodation. Oropharynx clear. Mucosa moist. Neck: Supple. No JVD. No bruits bilaterally. Cardiovascular: Regular rate and rhythm. No murmurs. Respiratory: Clear to auscultation bilaterally. Abdomen: Soft, nontender. Bowel sounds are present in all 4 quadrants. Extremities: There is no edema. Pulses 2+ bilaterally. No clubbing or cyanosis. On neuro evaluation, speech is clear. Cranial nerves II through XII are grossly intact. Motor strength is 5/5 bilaterally. Please note that this is a short summary of the patient's hospitalization. Please refer to further medical records for details. TIME SPENT: Approximately, 40 minutes was spent on the patient's discharge. CONDITION ON DISCHARGE: Stable. [id number]/[facility] #: [id number] [facility]ITAL[facility]
== END 2018-07-29 11:15 | disposition home health service (06) | DRG 720 ==
LOC: ED 11:28 → OBSVTOIN 16:33 → MED 16:33 → ICU 18:20 → MED 07-24 10:24
PROVIDERS: ADMIT Internal Medicine; ATTEND Internal Medicine
PROC: 5A09357 Assistance with Respiratory Ventilation, Less than 24 Consecutive Hours, Continuous Positive Airway Pressure (ICD-10-PCS; principal; 2018-07-23)
DX: A41.9 Sepsis, unspecified organism (principal); J13 Pneumonia due to Streptococcus pneumoniae; J96.01 Acute respiratory failure with hypoxia; E87.2 Acidosis; N39.0 Urinary tract infection, site not specified; Z68.41 Body mass index [BMI] 40.0-44.9, adult; R65.20 Severe sepsis without septic shock; I95.9 Hypotension, unspecified; M06.9 Rheumatoid arthritis, unspecified; I73.00 Raynaud's syndrome without gangrene; M19.90 Unspecified osteoarthritis, unspecified site; B96.1 Klebsiella pneumoniae [K. pneumoniae] as the cause of diseases classified elsewhere; M79.7 Fibromyalgia; E66.9 Obesity, unspecified; G89.29 Other chronic pain; M50.30 Other cervical disc degeneration, unspecified cervical region; E87.6 Hypokalemia; Z90.3 Acquired absence of stomach [part of]; Z79.891 Long term (current) use 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; Z79.899 Other long term (current) drug therapy; Z82.49 Family history of ischemic heart disease and other diseases of the circulatory system; Z83.3 Family history of diabetes mellitus; Z80.1 Family history of malignant neoplasm of trachea, bronchus and lung; Z80.42 Family history of malignant neoplasm of prostate; Z87.891 Personal history of nicotine dependence
CPT/HCPCS: 36415; 71046; 71250; 80048; 80053; 80076; 81003; 81015; 83605; 84484; 85025; 85027; 85610; 85652; 85730; 86140; 87040; 87070; 87077; 87086; 87186; 87205; 87641; 87899; 93005; 94640; 94667; 94668; 99282; A9270-GY; J0456; J0692; J0696; J1644; J1885; J2270; J2543; J2920; J3370; J7512

== ENCOUNTER 2018-08-19 18:37 | Emergency (ER) | payer OTHER ==
--- OUTSIDE RECORDS SUMMARY | 2018-08-19 18:54 | XMS REPORT | Continuity of Care Document ---
:1980 External Reference #:[id number] Author Name Juanito Sargent DO MPH Address [address] [place] [address], [address] [place] [address] Care Team Providers Name Role Phone Mario Iglesias MD Care Team Information Chief Physical Therapist Unavailable Sebastian Zhang M.D. Primary Care Physician Unavailable Payers Date Identification Numbers Payment Provider Subscriber Policy Number: [id number] [facility] Chava Giles PayID: [id number] [employer] Claims Dept [address] [place] [address] Family History Date Family Member(s) Observation Comments [...] is a former smoker Smoking Status Reviewed: 08/14/18 Patient is a former smoker Allergies, Adverse Reactions, Alerts Description No Known Drug Allergies Medications Active Medications SIG Qnty Indications Ordering Date Provider Tizanidine HCL si/2-1 by 120tabs Juanito Sargent, 05/17/2018 4mg mouth every 6 DO, MPH Tablets hours as directed Lyrica si by mouth 90caps Juanito Sargent, 10/16/2017 200mg Capsules every 8 hours as DO, MPH directed chronic pain patient, [facility] [id number], id # [id number] Oxycodone HCL si by mouth 90tabs Juanito Sargent, 12/25/2016 15mg every 8 hours as DO, MPH Tablets directed chronic pain patient Morphine Sulfate ER si by mouth q12 60tabs Juanito Sargent, 09/11/2016 hours as directed DO, MPH 30mg Tablets ER chronic pain. Ventolin HFA 1-2 puffs as Unknown needed every 4-6 108(90Base) mcg/Act hours for Aerosol shortness for breath Viactiv Unknown [id number] Chewtabs Wellbutrin XL si by mouth Unknown [...] Medications Promethazine HCL si/2 by mouth 5tabs Sargent, Juanito, DO, 05/21/2017 - 25mg every 12 hours as MPH 08/20/2017 Tablets directed Lyrica si by mouth 90caps Sargent, Juanito, DO, 01/24/2017 - 200mg Capsules every 8 hours as MPH 10/16/2017 directed chronic pain patient dose increase. [id number], Alpha Lipoic Acid take one capsule 60caps Sargent, Juanito, DO, 01/24/2017 - 200mg by mouth every 12 MPH 02/24/2017 Capsules hours as directed chronic pain. Lyrica si by mouth 90caps Sargent, Juanito, DO, 10/20/2016 - 150mg Capsules three times a day MPH 01/24/2017 as directed chronic pain patient code: [id number], Oxycodone HCL si by mouth 90tabs Juanito Sargent DO, 09/11/2016 - 10mg every 6 to [...] Humira Pen Unknown - 40mg/0.4ML 05/17/2018 PNKT Kevzara Unknown - 150mg/1.14ML 08/14/2018 Solution Auto-Inject Vital Signs Date Vital Result Comment 08/14/2018 11:14am BP Systolic 128 mmHg BP Diastolic 86 mmHg Heart Rate 84 /min Respiratory Rate 20 /min Height 66 inches 5'6" Weight 218.00 lb Pain Level 6 Pain at this time. Pain Level With Medicine 6 on average with meds Pain Level Without Medicine 9 01/09 without meds Pain Level After Procedure 5 BP Systolic Recheck 136 mmHg Pulse: 90 BP Diastolic Recheck 88 mmHg Pulse: 90 BMI (Body Mass Index) 35.2 kg/m2 07/17/2018 11:19am BP Systolic 144 mmHg BP [...] Pain Level Without Medicine 01/09 without meds Pain Level After Procedure [...] this time. Pain Level With Medicine 6 /10, on average with meds Pain Level Without [...] Pain Level Without Medicine 01/09 without meds Pain Level After Procedure [...] H/L Range Note Comp Metabolic Panel 06/04/2018 [facility] Sodium 139 mmol/L N 135-145 [address] [place] [address] [phone] Potassium 4.0 mmol/L N 3.5-5.0 Chloride 104 [...] >60 2 Iron & Iron Binding 06/04/2018 [facility] Iron 84 g/ dL N 50-[address] [place] [address] [phone] Unsaturated Iron Binding < 317 g/dL Total Iron Binding Capacity 332 g/dL N 250-450 Transferrin 237 mg/dL N 203-362 % Iron Saturation 25 % N 15-55 Laboratory test 06/04/2018 [facility] Ferritin 21.6 ng /mL N 11-[address] [place] [address] [phone] Folic Acid (Folate) > 20.00 ng/mL >3.99 4 Vitamin B12 > 1450 pg/mL High 180-914 5 Vitamin D Total 25(Oh) 33.8 ng/mL N 20-50 6 Vitamin B1 (Whole Blood) 223 nmol/L Abnormal 70-180 7 PTH Related Peptide <0.2 pmol/L <2.0 8 Vitamin E Level 9.6 mg/L 5.5 - 17.0 9 Urine Microalbumin 06/04/2018 [facility] Ur Microalbumin < 15.0 Random 101 (mg/L) [place] [address] [phone] Urine Creatinine 62.27 mg/dL Urine Microalbumin/Creatinine TNP <31 10 Urinalysis Profile 06/04/2018 [facility] Urine Color Yellow [address] [place] [address] [phone] Urine Appearance Cloudy Urine Specific [place] 1.016 N 1.010-1.030 Urine pH 8.0 N [...] Cell Present Abnormal Absent Lipid Profile 06/04/2018 [facility] Triglycerides 56 mg/dL 11 (Trig/Chol/HDL) [address] [place] [address] [phone] Cholesterol 139 mg/dL 12 HDL Cholesterol 49.1 mg/dL 13 LDL Cholesterol 79 mg/dL 14 Laboratory test 06/04/2018 [facility] TSH (Thyroid 0.97 N 0.34-5.[address] Stimulating mcIU/[place] [address] Horm) [phone] Urine Culture And 06/04/2018 [facility] Urine Culture SEE RESULT [address] [place] [address] [phone] CBC Auto Diff 06/04/2018 [facility] White Blood 6.3 N 3.5-10.[address] Count 10^3/uL [place] [id number] [phone] Red Blood Count 4.55 10^6/uL N 4.00-5.40 [...] developed and its performance characteristics determined by [facility] in a manner consistent with CLIA requirements. This test has not been cleared or approved by the U.S. Food and Drug Administration. Test Performed by: [facility] [place] [address] 8 ADDITIONAL INFORMATION This test was developed and its performance characteristics determined by [facility] in a manner consistent with CLIA requirements. This test has not been cleared or approved by the U.S. Food and Drug Administration. Test Performed by: [facility] - [address] [address] 9 ADDITIONAL INFORMATION This test was developed and its performance characteristics determined by [facility] in a manner consistent with CLIA requirements. This test has not been cleared or approved by the U.S. Food and Drug Administration. Test Performed by: [facility] [place] [address] 10 Unable to calculate due to low [...] [address]: Sebastian Zhang DO Acct: [id number] Unit: [id number] AGE: 37 Location: LAB Re06/04/18 SEX: F Status: REG REF SPEC: [id number] SAUL: 06/04/[address]: Sebastian Zhang DO REQ: [id number] RECD: 06/04/18 STATUS: TRENT PICKENS DR: Juanito Sargent DO _ SOURCE: URINE SPDESC: ORDERED: Urine Culture Procedure Result Reported Site Urine Culture Final 06/06/18- 09 ML Organism 1 KLEBSIELLA PNEUMONIAE [place] Count 75-100,000 (Many) CFU/ML 1. KLEBSIELLA PNEUMONIAE [...] Department for any additional antibiotic reporting. * [facility] - Main Lab . END OF REPORT DEPARTMENT OF PATHOLOGY, [address] [place] [address] Matthias Link M.D. Director [facility] # [id number] Procedures Date Code Description Status 07/17/2018 35449 Therapeutic, Prophylactic Or Diagnostic Injection Subq/Im Completed 07/17/2018 29957 U/S Guidance For Needle Placement Completed 07/17/201855888 Inject Tendon/Ligament Completed 06/17/2018 34188 Therapeutic, Prophylactic Or Diagnostic Injection Subq/Im Completed 05/17/2018 35684 Therapeutic, Prophylactic Or Diagnostic Injection Subq/Im Completed 05/17/2018 08434 Brief Emotional/Behav Assessment W/ Scoring Doc Per [...] Small Joint/Bursa W US Completed Guidance 03/19/2018 37152 Omt 1-2 Body Regions Completed 03/19/2018 50538 Therapeutic, Prophylactic Or Diagnostic Injection Subq/Im Completed 02/15/201866321 Inject Tendon/Ligament Completed 02/15/201823569 Inject Tendon/Ligament Completed 02/15/201853627 Inject Tendon/Ligament Completed 02/15/201852754 Inject Tendon/Ligament Completed 02/15/201837051 Injection, Tendon Origin/Insertion Completed 02/15/201885862 Injection, Tendon Origin/Insertion Completed 02/15/201886414 Injection, Single Or Mutiple Trigger Points One Or Two Completed Muscles 02/15/2018 25076 Injection For Nerve Block, Suprascapular Nerve Completed 01/17/2018 44081 Therapeutic, Prophylactic Or Diagnostic Injection Subq/Im Completed 12/19/2017 00260 Omt 1-2 Body Regions Completed 12/19/201777116 Arthrocentesis/Aspiration/Inj Of Major Joint Or Bursa W/ Completed Ultra 11/19/2017 55655 Omt 1-2 Body Regions Completed 11/19/2017 70748 Therapeutic, Prophylactic Or Diagnostic Injection Subq/Im Completed 11/19/201762657 Arthrocentesis Aspirtation Inj,Intermediate W/ US Guide & Completed Report 11/05/201721801 Inject Tendon/Ligament Completed 11/05/201719738 Inject Tendon/Ligament Completed 11/05/201790735 Inject Tendon/Ligament Completed 11/05/201763461 Inject Tendon/Ligament Completed 11/05/201794640 Injection, Tendon Origin/Insertion Completed 11/05/201727613 Injection, Tendon Origin/Insertion Completed 11/05/201778934 Injection, Single Or Mutiple Trigger Points One Or Two Completed Muscles 10/19/2017 26463 Omt 1-2 Body Regions Completed 10/19/2017 93272 Therapeutic, Prophylactic Or Diagnostic Injection Subq/Im Completed 10/19/201753001 Arthrocentesis/Aspiration/Inj Of Major Joint Or Bursa W/ Completed Ultra 09/18/2017 54973 Therapeutic, Prophylactic Or Diagnostic Injection Subq/Im Completed 09/18/201790751 Injection, Single Or Mutiple Trigger Points One Or Two Completed Muscles 09/18/201723947 Injection, Tendon Origin/Insertion Completed 09/18/201791595 Injection, Tendon Origin/Insertion Completed 09/18/201755592 Inject Tendon/Ligament Completed 09/18/2017 39170 Inject Tendon/Ligament Completed 09/18/2017 20428 Inject Tendon/Ligament Completed 09/18/201717350 Inject Tendon/Ligament Completed 08/20/2017 19538 Omt 3-4 Body Regions Completed 07/20/2017 97839 Therapeutic, Prophylactic Or Diagnostic Injection Subq/Im Completed 07/20/201757431 Injection, Single Or Mutiple Trigger Points One Or Two Completed Muscles 07/20/201756350 Injection, Tendon Origin/Insertion Completed 07/20/201751029 Injection, Tendon Origin/Insertion Completed 07/20/201790982 Inject Tendon/Ligament Completed 07/20/2017 07605 Inject Tendon/Ligament Completed 07/20/2017 90223 Inject Tendon/Ligament Completed 07/20/201716000 Inject Tendon/Ligament Completed 06/20/2017 02832 Omt 3-4 Body Regions Completed 06/20/2017 96046 Therapeutic, Prophylactic Or Diagnostic Injection Subq/Im Completed 05/21/201760063 Inject Tendon/Ligament Completed 05/21/201759878 Inject Tendon/Ligament Completed 05/21/201723963 Inject Tendon/Ligament Completed 05/21/2017 73878 Inject Tendon/Ligament Completed 05/21/2017 35913 Injection, Tendon Origin/Insertion Completed 05/21/201747437 Injection, Tendon Origin/Insertion Completed 05/21/201755520 Injection, Single Or Mutiple Trigger Points One Or Two Completed Muscles 05/21/2017 46849 Injection For Nerve Block, Suprascapular Nerve Completed 05/21/2017 89768 Omt 1-2 Body Regions Completed 05/04/2017 61915 Omt 1-2 Body Regions Completed 05/04/201790740 Arthrocentesis/Aspiration/Inj Of Major Joint Or Bursa W/ Completed Ultra 04/20/2017 82907 Therapeutic, Prophylactic Or Diagnostic Injection Subq/Im Completed 03/22/2017 10981 Omt 1-2 Body Regions Completed 03/08/2017 39334 Injection For Nerve Block, Other Peripheral Nerve Or Completed Branch 03/08/2017 57406 Omt 1-2 Body Regions Completed 02/20/2017 96372 Omt 1-2 Body Regions Completed 01/24/2017 43294 Omt 3-4 Body Regions Completed 01/09/2017 88676 Omt 1-2 Body Regions Completed 01/09/2017 20295 Test Autonomic Nervous System, Sudomotor Completed 01/04/2017 44784 Nerve Conduction 11-12 Studies Completed 12/25/2016 50999 Omt 1-2 Body Regions Completed 11/27/2016 09288 Omt 1-2 Body Regions Completed 11/27/2016 02183 Nerve Conduction 11-12 Studies Completed 11/23/2016 52500 Omt 1-2 Body Regions Completed 10/23/2016 32147 Arthrocentesis/Aspiration/Inj Of Major Joint Or Bursa W/ Completed Ultra 10/10/2016 43711 Injection, Single Or Mutiple Trigger Points One Or Two Completed Muscles 10/10/2016 97569 Injection For Nerve Block, Greater Occipital Nerve Completed 10/10/2016 28167 Therapeutic, Prophylactic Or Diagnostic Injection Subq/Im Completed 10/10/2016 76408 Omt 1-2 Body Regions Completed 09/25/2016 39640 Omt 1-2 Body Regions Completed 09/25/2016 16249 Therapeutic, Prophylactic Or Diagnostic Injection Subq/Im Completed 09/25/2016 55715 Injection For Nerve Block, Suprascapular Nerve Completed 09/25/2016 22182 Injection, Single Or Mutiple Trigger Points One Or Two Completed Muscles 09/25/2016 03007 Injection, Tendon Origin/Insertion Completed 09/25/2016 77608 Injection, Tendon Origin/Insertion Completed 09/25/2016 10827 Inject Tendon/Ligament Completed 09/25/2016 43013 Inject Tendon/Ligament Completed 09/25/2016 39401 Inject Tendon/Ligament Completed 09/25/2016 99251 Inject Tendon/Ligament Completed Encounters Type Date Location Provider Dx Diagnosis Office Visit 07/17/2018 Main Office as Of Juanito Sargent DO, G89.29 Other chronic pain 11:15a 05/03/13 MPH M54.5 Low back pain M72.2 Plantar fascial fibromatosis R53.83 Other fatigue 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 Office Visit 06/17/2018 11:30a Main Office as Juanito Sargent G89.29 Other chronic Of 05/03/13 DO, MPH pain 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, cervical region M54.5 Low back pain M65.879 Other synovitis and tenosynovitis, unsp ankle and foot R53.83 Other fatigue Z79.891 FDC (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 Office Visit 05/17/2018 11:30a Main Office as Juanito Sargent G89.29 Other chronic Of 05/03/13 DO, MPH pain 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, cervical region M54.5 Low back pain Z13.31 Encounter for screening for depression 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 R53.83 Other fatigue Office Visit 04/18/2018 11:15a Main Office as Juanito Sargent G89.29 Other chronic Of 05/03/13 DO, MPH pain 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, cervical region M25.542 Pain in joints of left hand M25.541 Pain in joints of right hand M54.5 Low back pain R53.83 Other fatigue Z79.891 FDC (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 Office Visit 03/19/2018 11:00a Main Office as Juanito Sargent G89.29 Other chronic Of 05/03/13 DO, MPH pain 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, cervical region M54.5 Low back pain M25.511 Pain in right shoulder M25.512 Pain in left shoulder M99.07 Segmental and somatic dysfunction of upper extremity R53.83 Other fatigue Z79.891 FDC (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 Office Visit 02/15/2018 11:15a Main Office as Juanito Sargent G89.29 Other chronic Of 05/03/13 DO, MPH pain 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, cervical region M54.5 Low back pain M65.88 Other synovitis and tenosynovitis, other site M79.12 Myalgia of auxiliary muscles, head and neck M54.2 Cervicalgia Z79.891 FDC (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 Office Visit 01/17/2018 11:30a Main Office as Juanito Sargent, G89.29 Other chronic Of 05/03/13 DO, MPH pain 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, cervical region M54.5 Low back pain R53.83 Other fatigue Z79.891 FDC (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 Office Visit 12/19/2017 2:30p Main Office as Juanito Sargent G89.29 Other chronic Of 05/03/13 DO, MPH pain 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, cervical region M54.5 Low back pain M25.511 Pain in right shoulder M99.07 Segmental and somatic dysfunction of upper extremity M25.552 Pain in left hip R53.83 Other fatigue 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 Office Visit 11/19/2017 2:45p Main Office as Juanito Sargent G89.29 Other chronic Of 05/03/13 DO, MPH pain 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, cervical region M54.2 Cervicalgia M79.1 Myalgia M25.521 Pain in right elbow M99.07 Segmental and somatic dysfunction of upper extremity R53.83 Other fatigue Z79.891 FDC (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 Office Visit 11/05/2017 2:00p Main Office as Juanito Sargent G89.29 Other chronic Of 05/03/13 DO, MPH pain 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, cervical region M54.2 Cervicalgia M79.1 Myalgia M46.02 Spinal enthesopathy, cervical region M65.88 Other synovitis and tenosynovitis, other site Z79.891 FDC (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 Office Visit 10/19/2017 11:00a Main Office as Juanito Sargent G89.29 Other chronic Of 05/03/13 DO, MPH pain 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, cervical region M54.2 Cervicalgia M25.552 Pain in left hip M99.06 Segmental and somatic dysfunction of lower extremity R53.83 Other fatigue Z79.891 FDC (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 Office Visit 09/18/2017 11:00a Main Office as Juanito Sargent G89.29 Other chronic Of 05/03/13 DO, MPH pain 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, cervical region M54.2 Cervicalgia M65.88 Other synovitis and tenosynovitis, other site M79.1 Myalgia Z79.891 FDC (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 R53.83 Other fatigue Office Visit 08/20/2017 10:45a Main Office as Juanito Sargent, G89.29 Other chronic Of 05/03/13 DO, MPH pain 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, cervical region M54.2 Cervicalgia M99.01 Segmental and somatic dysfunction of cervical region M54.6 Pain in thoracic spine M99.02 Segmental and somatic dysfunction of thoracic region M25.511 Pain in right shoulder M99.07 Segmental and somatic dysfunction of upper extremity Z79.891 FDC (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 Office Visit [...] of upper extremity R53.83 Other fatigue 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 Office Visit 06/20/2017 11:00a Main Office as Juanito Sargent, G89.29 Other chronic Of 05/03/13 DO, MPH pain 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, cervical region M54.2 Cervicalgia M99.01 Segmental and somatic dysfunction of cervical region M79.1 Myalgia M54.6 Pain in thoracic spine M99.02 Segmental and somatic dysfunction of thoracic region M25.511 Pain in right shoulder M99.07 Segmental and somatic dysfunction of upper extremity R53.83 Other fatigue 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 Office Visit 05/21/2017 11:30a Main Office as Juanito Sargent, G89.29 Other chronic Of 05/03/13 DO, MPH pain 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, cervical region M54.2 Cervicalgia M79.1 Myalgia M65.88 Other synovitis and tenosynovitis, other site M54.13 Radiculopathy, cervicothoracic region M99.01 Segmental and somatic dysfunction of cervical region Z79.891 FDC (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 Office Visit [...] region M54.2 Cervicalgia R53.83 Other fatigue 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 Office Visit 03/22/2017 9:45a Main Office as Juanito Sargent G89.29 Other chronic Of 05/03/13 DO, MPH pain M54.5 Low back pain M54.16 Radiculopathy, lumbar region M54.2 Cervicalgia 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, cervical region M99.01 Segmental and somatic dysfunction of cervical region 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 Office Visit 03/08/2017 2:15p Main Office as Juanito Sargent G89.29 Other chronic Of 05/03/13 DO, MPH pain M54.5 Low back pain M54.16 Radiculopathy, lumbar region M54.2 Cervicalgia M99.01 Segmental and somatic dysfunction of cervical region 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 Office Visit 02/20/2017 3:30p Main Office as Juanito Sargent G89.29 Other chronic Of 05/03/13 DO, MPH pain M54.5 Low back pain M54.16 Radiculopathy, lumbar region M54.2 Cervicalgia M99.01 Segmental and somatic dysfunction of cervical region 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 Office Visit 01/24/2017 2:00p Main Office as Chelsea Baer G89.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 M54.5 Low back pain M99.03 Segmental and somatic dysfunction of lumbar region M54.6 Pain in thoracic spine M99.02 Segmental and somatic dysfunction of thoracic region M54.2 Cervicalgia M99.01 Segmental and somatic dysfunction of cervical region 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, cervical region M54.17 Radiculopathy, lumbosacral region Z79.891 FDC (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 G90.3 Multi-system degeneration of the autonomic nervous system Z71.89 Other specified counseling Office Visit 01/09/2017 11:45a Main Office as Juanito Sargent G89.29 Other chronic Of 05/03/13 DO, MPH pain 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, cervical region M99.01 Segmental and somatic dysfunction of cervical region M54.5 Low back pain G54.4 Lumbosacral root disorders, not elsewhere classified 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 G90.3 Multi-system degeneration of the autonomic nervous system Office Visit 12/25/2016 9:30a Main Office as Chelsea Baer G89.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, cervical region M54.12 Radiculopathy, cervical region M99.01 Segmental and somatic dysfunction of cervical region M54.6 Pain in thoracic spine M54.5 Low back pain G54.4 Lumbosacral root disorders, not elsewhere classified Z71.89 Other specified counseling 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 Office Visit 11/27/2016 2:15p Main Office as Juanito Sargent G89.29 Other chronic Of 05/03/13 DO, MPH pain 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, cervical region M99.01 Segmental and somatic dysfunction of cervical region M54.12 Radiculopathy, cervical region Z79.891 FDC (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 Office Visit 11/23/2016 9:15a Main Office as Juanito Sargent G89.29 Other chronic Of 05/03/13 DO, MPH pain 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, cervical region M54.12 Radiculopathy, cervical region M99.01 Segmental and somatic dysfunction of cervical region M54.5 Low back pain M79.1 Myalgia R53.83 Other fatigue Z79.891 FDC (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 Office Visit 10/23/2016 11:00a Main Office as Juanito Sargent, G89.29 Other chronic Of 05/03/13 DO, MPH pain 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, cervical region M54.12 Radiculopathy, cervical region M54.5 Low back pain M79.1 Myalgia R53.83 Other fatigue M99.01 Segmental and somatic dysfunction of cervical region M70.62 Trochanteric bursitis, left hip 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 Office Visit 10/10/2016 2:45p Main Office as Juanito Sargent, G89.29 Other chronic Of 05/03/13 DO, MPH pain 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, cervical region M54.12 Radiculopathy, cervical region M65.88 Other synovitis and tenosynovitis, other site M79.1 Myalgia M54.5 Low back pain R53.83 Other fatigue Z79.891 FDC (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 Office Visit 09/25/2016 11:00a Main Office as Juanito Sargent, G89.29 Other chronic Of 05/03/13 DO, MPH pain 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, cervical region M54.12 Radiculopathy, cervical region M54.5 Low back pain M79.1 Myalgia M46.07 Spinal enthesopathy, lumbosacral region M65.88 Other synovitis and tenosynovitis, other site R53.83 Other fatigue 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 M99.01 Segmental and somatic dysfunction of cervical region Office Visit 09/11/2016 10:00a Main Office as Juanito Sargent G89.29 Other chronic Of 05/03/13 DO, MPH pain 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, cervical region M54.12 Radiculopathy, cervical region M54.5 Low back pain Z79.891 FDC (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 Office Visit 08/29/2016 9:00a Main Office as Juanito Sargent, G89.29 Other chronic Of 05/03/13 , MPH pain 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, cervical region M54.12 Radiculopathy, cervical region M54.5 Low back pain Z71.3 Dietary counseling and surveillance Z71.89 Other specified counseling 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 Symptoms and complaints discussed and reviewed today. No significant changes in physical findings. Continue current medical pain management.M54.5 Low back painComments:Chronic. Symptoms and complaints discussed and reviewed today.No changes in physical findings. Patient is stable and comfortable when current medical therapy is rendered.M65.88 Other synovitis and tenosynovitis, other siteComments:Chronic. Symptoms and complaints discussed and reviewed today. Physical findings reviewed and warrant intervention. Continue current medical pain management. Injection therapy today - tendon sheath. Informed consent given/refusal reviewed. See procedure sheet.M46.07 Spinal enthesopathy, lumbosacral regionComments:Chronic. Symptoms and complaints discussed and reviewed today. Physical findings reviewed and warrant intervention. Patient is stable and comfortable with current medical therapy. Injection therapy today.Tendon I/O injections performed. See procedure sheet.M79.18 Myalgia, other siteComments:Injection therapy today - Trigger Point injections. Informed consent given/refusal reviewed. See procedure sheet.R53.83 Other fatigueComments:Symptoms and complaints discussed and reviewed today. No significant changes in physical findings. Continue current medical pain management. B12 injection administered after patient evaluated. 1ml IM for fatigue. 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 Rapid Point of [...] controlled substances and is considered standard of care.AllComments:All above symptoms and complaints discussed as well as diagnoses reviewed.Continue trial of opioid pain management - note changes below; injection therapy, osteopathic manipulation (OMT), PT / modalities, and consults as needed [...] maintaining satisfactory side effect profile and minimizing nursing home end-organ damage. Activity as toleratedContinue with PCP
--- OUTSIDE RECORDS SUMMARY | 2018-08-19 18:54 | XMS REPORT | Continuity of Care Document ---
:1980 External Reference #:[id number] Author Name Elida Ibarra Care Team Providers Name Role Phone Sebastian Zhang D.O. Primary Care Physician Unavailable Payers Date Identification Numbers Payment Provider Subscriber Policy Number: [id number] Lev Resendiz Group Number: [id number] [address] PayID: [id number] [place] [address] Effective: 2013 Policy Number: [id number] [facility] Evgeny Resendiz Expires: 2013 PayID: [id number] [address] [address] [place] [address] Effective: 2017 Policy Number: [id number] [facility] Evgeny Resendiz Expires: 2019 PayID: [id number] [address] Advance Directives Description No Information Available Problems Active Problems Provider Date Cervical spondylosis without myelopathy Dandy Miller M.D. Onset: 2013 Myalgia & Myositis Unspecified Dandy Miller M.D. Onset: 06/13/2013 Cervical spondylosis Mario Iglesias M.D. 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 ETOH Use Occasionally consumes alcohol Tobacco Use Start: Unknown End: Patient is a former Unknown smoker Recreational Drug Use Denies Drug Use Smoking Status Reviewed: 08/13/18 Patient is a former smoker Exercise Type/Frequency Exercises rarely Allergies, Adverse Reactions, Alerts Description No Known Drug Allergies Medications Active Medications SIG Qnty Indications Ordering Provider Date Ventolin HFA 2 puffs by mouth 36gm R06.00 Chris Hernandez MD 08/13/2018 every 4 hours as 108(90Base) mcg/Act needed Aerosol Levofloxacin 1 tab by mouth 14tabs R06.00 Chris Hernandez MD 08/13/2018 750mg every day for 7 Tablets days Celebrex 1 by mouth twice 30caps M06.09 Mario Iglesias, 08/01/2018 100mg Capsules a day as needed M.D. for pain/inflammatio n. avoid other nsaids Nitro-bid apply small 30units Mario Iglesias, 05/01/2018 2% Ointment amount to webs M.D. of digits as needed for attack of raynaud's Vyvanse Take one G47.10 Mario Iglesias, 06/12/2017 50mg Capsules capsule/tablet M.D. daily by mouth Alpha-Lipoic Acid 1 by mouth bid Mario Iglesias, 02/13/2017 200mg M.D. Capsules Cefdinir take 1 capsule Unknown 300mg Capsules by mouth twice a day for 3 days Wellbutrin XL 1 by mouth every Unknown 300mg day Tablets ER 24HR Latuda 1 by mouth every Unknown 80mg Tablets day Viibryd 1 by mouth every Unknown 40mg Tablets day Tizanidine HCL take 1 tablet by Unknown 4mg mouth every 8 Tablets hours as needed Oxycodone HCL q 8 prn Unknown 15mg Tablets Hydroxyzine HCL 1-2 tablets by Unknown 25mg mouth every 6-8 Tablets hours as needed for pruritis. Lorazepam 1 tab bid Unknown 2 Tablets Lyrica 1 by mouth three Unknown 200mg Capsules times a day Morphine Sulfate 1 po q bid Tariq, 30mg MD Shara OT Tablets History Medications Kevzara sq every 2 weeks 6.84ml M06.09 aMrio Iglesias, 05/08/2018 - 200mg/1.14ML M.D. 08/01/2018 Soln Prefill Syringe Humira inject 40 mg 6units M06.09 Mario Iglesias, 02/20/2018 - 40mg/0.8ML subcutaneous once M.D. 05/08/2018 PSKT every other week prefilled syringe Enbrel 50mg sq every week, 12units M06.09 Mario Kramerdor, 08/13/2017 - 50mg/ml Soln to start 2 weeks M.D. 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 09/06/2017 Tablets mouth once weekly on fridays (on hold) Folic Acid take one 90tabs M06.09 Mario Iglesias, 04/17/2017 - 1mg capsule/tablet M.D. 11/20/2017 Tablets daily by mouth Armodafinil 1 by mouth every 30tabs G47.10 Mario Iglesias, 02/13/2017 - 250mg day M.D. 06/12/2017 Tablets Nuvigil take 4 90tabs G47.10 Mario Iglesias, 02/13/2017 - 50mg Tablets capsule/tablet M.D. 02/13/2017 daily by mouth as needed for hypersomnia Sulfasalazine take one tab by 90tabs M06.09 Mario Iglesias, 01/04/2017 - 500mg mouth three times a M.D. 04/17/[address] day Nuvigil Take one 30tabs G47.10 Mario Iglesias, 01/04/2017 - 150mg Tablets capsule/tablet M.D. 02/13/2017 daily by mouth as needed for hypersomnia, discontinue Provigil Provigil 1 tablet by mouth 30tabs G47.10 Mario Iglesias, 08/25/2016 - 200mg once a day M.D. 01/04/2017 Tablets Plaquenil No longer taking. 2 60tabs M06.4 Mario Iglesias, 08/07/2016 - 200mg tabs by mouth daily M.D. 01/04/2017 Tablets Provigil take one 60tabs G47.10 Mario Iglesias, 07/28/2016 - 100mg capsule/tablet M.D. 08/25/2016 Tablets daily by mouth twice daily as needed for hypersomnia Sertraline HCL 2 po qd Unknown - 100mg 11/23/2016 Tablets Vitamin D3 1 by mouth every Unknown - 2000Unit day 08/16/2016 Capsules Ibuprofen by mouth bid a day Unknown - 800mg 08/01/2018 Tablets Morphine Sulfate Unknown - 30mg 07/20/2016 Tablets Robaxin 2 tid prn 60tabs Mojennyfer, - 500mg Tablets MD Shara 09/28/2016 OT Voltaren apply 2 grams 300g Unknown - 1% Gel topically q6 hours 06/13/2013 prn Cymbalta 1 po daily 30caps Unknown - 60mg Caps DR 07/20/2016 Part Labetalol HCL 1 po bid 180tabs Unknown - 100mg 08/16/2016 Tablets Morphine Sulfate ER 1 tab po daily prn Unknown - pain 06/13/2013 15mg Tablets ER Percocet 1 po q6 hours prn 100tabs Unknown - 10-325mg pain 09/28/2016 Tablets Skelaxin 1 po tid prn 90tabs Unknown - 800mg 06/13/2013 Tablets Xanax 1 po bid prn Unknown - 2mg Tablets 07/20/2016 Xanax 1 po bid prn 15tabs Unknown - 1mg Tablets 04/30/2013 Wellbutrin XL 1 po qd 90tabs Unknown - 150mg 11/23/2016 Tablets ER 24HR Zoloft 1 po qd 30tabs Unknown - 100mg Tablets 04/30/2013 Immunizations CPT Code Status Date Vaccine Reaction Lot # [id number] Given 06/12/2017 Pneumococcal Conjugate Vaccine 13 no reaction noted [id number] Valent For Intramuscular Use [id number] Given 01/04/2017 Influenza Virus Vaccine, [id number] Quadrivalent, Split, Preservative Free Vital Signs Date Vital Result Comment 08/13/2018 2:20pm Height 65 inches 5'5" Weight 218.00 lb Heart Rate 72 /min BP Systolic Sitting 126 mmHg Lue large cuff BP Diastolic Sitting 84 mmHg Lue large cuff Respiratory Rate 16 /min O2 % BldC Oximetry 96 % BMI (Body Mass Index) 36.3 kg/m2 Neck Circumference in inches 15 08/01/2018 10:36am Height 65 inches 5'5" Weight 219.38 lb Heart Rate 59 /min BP Systolic Sitting 126 mmHg BP Diastolic Sitting 68 mmHg Body Temperature 97.6 F Pain Level 7 O2 % BldC Oximetry 98 % BMI (Body Mass Index) 36.5 kg/m2 05/01/2018 11:34am Height 65 inches 5'5" Heart Rate 95 /min BP Systolic Sitting 141 mmHg BP Diastolic Sitting 94 mmHg Respiratory Rate 14 /min Pain Level 6 02/20/2018 10:01am Height 65 inches 5'5" Weight 221.00 lb Heart Rate 76 /min BP Systolic Sitting 88 mmHg BP Diastolic Sitting 55 mmHg Respiratory Rate 14 /min Pain Level 7 BMI (Body Mass Index) 36.8 kg/m2 11/20/2017 11:31am Height 65 inches 5'5" Weight 210.50 lb Heart Rate 87 /min BP Systolic Sitting 112 mmHg BP Diastolic Sitting 68 mmHg Pain Level 7 O2 % BldC Oximetry 98 % BMI (Body Mass Index) 35.0 kg/m2 09/06/2017 4:37pm Height 65 inches 5'5" Weight 233.50 lb Heart Rate 100 /min BP Systolic Sitting 112 mmHg BP Diastolic Sitting 74 mmHg Respiratory Rate 14 /min Pain Level 6 BMI (Body Mass Index) 38.9 kg/m2 08/13/2017 3:55pm Height 65 inches 5'5" Weight 241.00 lb Heart Rate 100 /min BP Systolic Standing 126 mmHg BP Diastolic Standing 86 mmHg Respiratory Rate 14 /min Pain Level 7 BMI (Body Mass Index) 40.1 kg/m2 06/12/2017 4:27pm Height 65 inches 5'5" Weight 250.00 lb Heart Rate 84 /min BP Systolic Sitting 112 mmHg BP Diastolic Sitting 80 mmHg Respiratory Rate 14 /min Pain Level 7 BMI (Body Mass Index) 41.6 kg/m2 04/17/2017 1:27pm Height 65 inches 5'5" Weight 276.00 lb Heart Rate 80 /min BP Systolic Sitting 124 mmHg BP Diastolic Sitting 70 mmHg Respiratory Rate 16 /min Pain Level 6 BMI (Body Mass Index) 45.9 kg/m2 02/13/2017 3:26pm Height 65 inches 5'5" Weight 278.25 lb Heart Rate 70 /min BP Systolic Sitting 120 mmHg BP Diastolic Sitting 74 mmHg Respiratory Rate 14 /min Pain Level 7 BMI (Body Mass Index) 46.3 kg/m2 01/04/2017 11:24am Height 65 inches 5'5" Weight 278.25 lb Heart Rate 66 /min BP Systolic Sitting 114 mmHg BP Diastolic Sitting 73 mmHg Body Temperature 97.0 F O2 % BldC Oximetry 98 % BMI (Body Mass Index) 46.3 kg/m2 11/23/2016 11:34am Height 66 inches 5'6" Weight 267.25 lb Heart Rate 76 /min BP Systolic Sitting 110 mmHg BP Diastolic Sitting 60 mmHg Respiratory Rate 14 /min Pain Level 9 BMI (Body Mass Index) 43.1 kg/m2 09/28/2016 10:50am Height 66 inches 5'6" Weight 267.25 lb Heart Rate 80 /min BP Systolic Sitting 130 mmHg BP Diastolic Sitting 76 mmHg Respiratory Rate 14 /min Pain Level 5 BMI (Body Mass Index) 43.1 kg/m2 08/29/2016 11:15am Height 66 inches 5'6" Weight 263.00 lb Heart Rate 77 /min BP Systolic Sitting 132 mmHg BP Diastolic Sitting 81 mmHg Body Temperature 98.6 F Pain Level 8 BMI (Body Mass Index) 42.4 kg/m2 08/16/2016 10:05am Height 66 inches 5'6" Weight 258.00 lb Heart Rate 82 /min BP Systolic Sitting 120 mmHg BP Diastolic Sitting 85 mmHg Body Temperature 98.1 F Pain Level 9 BMI (Body Mass Index) 41.6 kg/m2 08/07/2016 11:27am Height 66 inches 5'6" Heart Rate 76 /min declined BP Systolic Sitting 110 mmHg BP Diastolic Sitting 60 mmHg Respiratory Rate 14 /min Pain Level 9 07/20/2016 1:03pm Height 66 inches 5'6" Weight 264.00 lb Heart Rate 76 /min BP Systolic Sitting 121 mmHg BP Diastolic Sitting 82 mmHg Respiratory Rate 14 /min Body Temperature 97.2 F BMI (Body Mass Index) 42.6 kg/m2 06/13/2013 11:17am Height 66 inches 5'6" Weight 189.00 lb BP Systolic 124 mmHg BP Diastolic 88 mmHg Pain Level 7 shoulders, hands, low back BMI (Body Mass Index) 30.5 kg/m2 08/11/2010 3:22pm Height 66 inches 5'6" Weight 191.00 lb Heart Rate 72 /min BP Systolic Sitting 110 mmHg BP Diastolic Sitting 66 mmHg BMI (Body Mass Index) 30.8 kg/m2 Results Test Date Facility Test Result H/L Range Note Laboratory test 04/26/2018 [facility] Erythrocyte Sed 29 mm/Hr High 0-14 [address] [place] [address] [phone] C Reactive Protein 14.96 mg/L High <8.01 2 CBC Auto Diff 04/26/2018 [facility] White Blood 9.0 10^3/uL N 3.5-10.[address] [place] [address] [phone] Red Blood Count 4.33 10^6/uL N 4.00-5.40 Hemoglobin 12.7 g/dL N 12.0-16.0 Hematocrit 38 % N 35-47 Mean Corpuscular Volume 87 fL N 80-97 Mean Corpuscular Hemoglobin 29 pg N 27-31 Mean Corpuscular HGB Conc 34 g/dL N 31-36 Red Cell Distribution Width 14 % N 10.5-15 Platelet Count 230 10^3/uL N 150-450 Mean Platelet Volume 10.0 fL N 7.4-10.4 Abs Neutrophils 5.9 10^3/uL N 1.5-7.7 Abs Lymphocytes 2.4 10^3/uL N 1.0-4.8 Abs Monocytes 0.5 10^3/uL N 0-0.8 Abs Eosinophils 0.1 10^3/uL N 0-0.6 Abs Basophils 0 10^3/uL N 0-0.2 Abs Nucleated RBC 0 10^3/uL Granulocyte % 65.7 % Lymphocyte % 26.7 % Monocyte % 5.8 % Eosinophil % 1.5 % Basophil % 0.3 % Nucleated Red Blood Cells % 0.1 Comp Metabolic Panel 04/26/2018 [facility] Sodium 137 mmol/L N 135-[address] [place] [address] [phone] Potassium 4.9 mmol/L N 3.5-5.0 Chloride 104 mmol/L N 101-111 Co2 Carbon Dioxide 28 mmol/L N 22-32 Anion Gap 5 mmol/L N 2-11 Glucose 71 mg/dL N 70-100 Blood Urea Nitrogen 24 mg/dL N 6-24 Creatinine 0.87 mg/dL N 0.51-0.95 BUN/Creatinine Ratio 27.6 High 8-20 Calcium 9.3 mg/dL N 8.6-10.3 Total Protein 6.8 g/dL N 6.4-8.9 Albumin 4.0 g/dL N 3.2-5.2 Globulin 2.8 g/dL N 2-4 Albumin/Globulin Ratio 1.4 N 1-3 Total Bilirubin 0.40 mg/dL N 0.2-1.0 Alkaline Phosphatase 69 U/L N 34-104 Alt 22 U/L N 7-52 Ast 39 U/L N 13-39 Egfr Non- 74.1 >60 Egfr 89.7 >60 3 Laboratory test 02/14/2018 [facility] Erythrocyte Sed 48 mm/Hr High 0-14 [address] [place] [address] [phone] C Reactive Protein 20.83 mg/L High <8.01 5 CBC Auto Diff 02/14/2018 [facility] White Blood 8.8 10^3/uL N 3.5-10.[address] [place] [address] [phone] Red Blood Count 4.49 10^6/uL N 4.00-5.40 Hemoglobin 13.3 g/dL N 12.0-16.0 Hematocrit 39 % N 35-47 Mean Corpuscular Volume 87 fL N 80-97 Mean Corpuscular Hemoglobin 30 pg N 27-31 Mean Corpuscular HGB Conc 34 g/dL N 31-36 Red Cell Distribution Width 13 % N 10.5-15 Platelet Count 228 10^3/uL N 150-450 Mean Platelet Volume 9.7 fL N 7.4-10.4 Abs Neutrophils 5.6 10^3/uL N 1.5-7.7 Abs Lymphocytes 2.5 10^3/uL N 1.0-4.8 Abs Monocytes 0.5 10^3/uL N 0-0.8 Abs Eosinophils 0.1 10^3/uL N 0-0.6 Abs Basophils 0 10^3/uL N 0-0.2 Abs Nucleated RBC 0 10^3/uL Granulocyte % 64.2 % N 38-83 Lymphocyte % 28.2 % N 25-47 Monocyte % 6.3 % N 0-7 Eosinophil % 0.9 % N 0-6 Basophil % 0.4 % N 0-2 Nucleated Red Blood Cells % 0.1 Comp Metabolic Panel 02/14/2018 [facility] Sodium 139 mmol/L N 135-[address] [place] [address] [phone] Potassium 4.1 mmol/L N 3.5-5.0 Chloride 104 mmol/L N 101-111 Co2 Carbon Dioxide 29 mmol/L N 22-32 Anion Gap 6 mmol/L N 2-11 Glucose 83 mg/dL N 70-100 Blood Urea Nitrogen 16 mg/dL N 6-24 Creatinine 0.76 mg/dL N 0.51-0.95 BUN/Creatinine Ratio 21.1 High 8-20 Calcium 9.0 mg/dL N 8.6-10.3 Total Protein 6.7 g/dL N 6.4-8.9 Albumin 3.9 g/dL N 3.2-5.2 Globulin 2.8 g/dL N 2-4 Albumin/Globulin Ratio 1.4 N 1-3 Total Bilirubin 0.30 mg/dL N 0.2-1.0 Alkaline Phosphatase 74 U/L N 34-104 Alt 15 U/L N 7-52 Ast 15 U/L N 13-39 Egfr Non- 86.6 >60 Egfr 104.8 >60 6 Laboratory test 11/16/2017 [facility] Erythrocyte Sed 29 mm/Hr High 0-14 [address] [place] [address] [phone] C Reactive Protein 8.96 mg/L High <8.01 8 CBC Auto Diff 11/16/2017 [facility] White Blood 9.6 10^3/uL N 3.5-10.[address] [place] [address] [phone] Red Blood Count 4.74 10^6/uL N 4.00-5.40 Hemoglobin 13.4 g/dL N 12.0-16.0 Hematocrit 41 % N 35-47 Mean Corpuscular Volume 86 fL N 80-97 Mean Corpuscular Hemoglobin 28 pg N 27-31 Mean Corpuscular HGB Conc 33 g/dL N 31-36 Red Cell Distribution Width 13 % N 10.5-15 Platelet Count 237 10^3/uL N 150-450 Mean Platelet Volume 10.1 um3 N 7.4-10.4 Abs Neutrophils 7.3 10^3/uL N 1.5-7.7 Abs Lymphocytes 1.7 10^3/uL N 1.0-4.8 Abs Monocytes 0.5 10^3/uL N 0-0.8 Abs Eosinophils 0 10^3/uL N 0-0.6 Abs Basophils 0 10^3/uL N 0-0.2 Abs Nucleated RBC 0 10^3/uL Granulocyte % 76.3 % N 38-83 Lymphocyte % 17.5 % Low 25-47 Monocyte % 5.5 % N 0-7 Eosinophil % 0.4 % N 0-6 Basophil % 0.3 % N 0-2 Nucleated Red Blood Cells % 0 Comp Metabolic Panel 11/16/2017 [facility] Sodium 141 mmol/L N 135-[address] [place] [address] [phone] Potassium 4.2 mmol/L N 3.5-5.0 Chloride 106 mmol/L N 101-111 Co2 Carbon Dioxide 29 mmol/L N 22-32 Anion Gap 6 mmol/L N 2-11 Glucose 84 mg/dL N 70-100 Blood Urea Nitrogen 18 mg/dL N 6-24 Creatinine 0.74 mg/dL N 0.51-0.95 BUN/Creatinine Ratio 24.3 High 8-20 Calcium 9.0 mg/dL N 8.6-10.3 Total Protein 6.8 g/dL N 6.4-8.9 Albumin 4.2 g/dL N 3.2-5.2 Globulin 2.6 g/dL N 2-4 Albumin/Globulin Ratio 1.6 N 1-3 Total Bilirubin 0.40 mg/dL N 0.2-1.0 Alkaline Phosphatase 73 U/L N 34-104 Alt 16 U/L N 7-52 Ast 17 U/L N 13-39 Egfr Non- 89.3 >60 Egfr 108.1 >60 9 Laboratory test 08/21/2017 [facility] Surgical SEE RESULT [address] [place] [address] [phone] CBC No Diff 08/14/2017 [facility] White Blood 15.6 High 3.5-[address] Count 10^3/uL 0.8 [place] [address] [phone] Red Blood Count 4.79 10^6/uL N 4.0-5.4 Hemoglobin 13.7 g/dL N 12.0-16.0 Hematocrit 41 % N 35-47 Mean Corpuscular Volume 87 fL N 80-97 Mean Corpuscular Hemoglobin 29 pg N 27-31 Mean Corpuscular HGB Conc 33 g/dL N 31-36 Red Cell Distribution Width 14 % N 10.5-15 Platelet Count 268 10^3/uL N 150-450 Mean Platelet Volume 10.1 um3 N 7.4-10.4 Basic Metabolic 08/14/2017 [facility] Sodium 138 mmol/L Low 139-[address] [place] [address] [phone] Potassium 4.3 mmol/L N 3.5-5.0 Chloride 100 mmol/L Low 101-111 Co2 Carbon Dioxide 28 mmol/L N 22-32 Anion Gap 10 mmol/L N 2-11 Glucose 81 mg/dL N 70-100 Blood Urea Nitrogen 20 mg/dL N 6-24 Creatinine 0.89 mg/dL N 0.51-0.95 BUN/Creatinine Ratio 22.5 High 8-20 Calcium 9.9 mg/dL N 8.6-10.3 Egfr Non- 72.6 >60 Egfr 93.4 >60 12 Quantiferon 08/14/2017 [facility] QuantiFERON-Tb Negative Negative 13 Gold TB [address] [place] [address] [phone] TB1 Ag minus Nil Result 0 IU/mL TB2 Ag minus Nil Result -0.01 IU/mL TB Mitogen minus Nil Result 9.05 IU/mL TB Nil Result 0.05 IU/mL 14 Urinalysis Profile 08/07/2017 [facility] Urine Color Yellow [address] [place] [address] [phone] Urine Appearance Clear Urine Specific [place] 1.031 High 1.010-1.030 Urine pH 5.0 N 5-9 Urine Urobilinogen Negative Negative Urine Ketones Negative Negative Urine Protein Negative Negative Urine Leukocytes Negative Negative Urine Blood Negative Negative Urine Nitrite Negative Negative Urine Bilirubin Negative Negative Urine Glucose Negative Negative Urine Microalbumin 08/07/2017 [facility] Ur Microalbumin < 15.[address] (mg/L) mg/[place] [address] [phone] Urine Creatinine 228.32 mg/dL Urine Microalbumin/Creatinine TNP ug/mg <31 15 CBC No Diff 08/07/2017 [facility] White Blood 10.2 10^3/uL N 3.5-10.[address] [place] [address] [phone] Red Blood Count 4.76 10^6/uL N 4.0-5.4 Hemoglobin 13.9 g/dL N 12.0-16.0 Hematocrit 41 % N 35-47 Mean Corpuscular Volume 86 fL N 80-97 Mean Corpuscular Hemoglobin 29 pg N 27-31 Mean Corpuscular HGB Conc 34 g/dL N 31-36 Red Cell Distribution Width 14 % N 10.5-15 Platelet Count 266 10^3/uL N 150-450 Mean Platelet Volume 9.8 um3 N 7.4-10.4 Laboratory test 08/07/2017 [facility] Erythrocyte Sed 33 mm/Hr High 0-[address] [place] [address] [phone] Comp Metabolic 08/07/2017 [facility] Sodium 139 N 139-[address] mmol/[place] [address] [phone] Chloride 104 mmol/L N 101-111 Co2 Carbon Dioxide 30 mmol/L N 22-32 Glucose 92 mg/dL N 70-100 Blood Urea Nitrogen 26 mg/dL High 6-24 Creatinine 0.99 mg/dL High 0.51-0.95 BUN/Creatinine Ratio 26.3 High 8-20 Calcium 9.9 mg/dL N 8.6-10.3 Total Protein 7.4 g/dL N 6.4-8.9 Albumin 4.6 g/dL N 3.2-5.2 Globulin 2.8 g/dL N 2-4 Albumin/Globulin Ratio 1.6 N 1-3 Total Bilirubin 0.40 mg/dL N 0.2-1.0 Alkaline Phosphatase 96 U/L N 34-104 Alt 27 U/L N 7-52 Ast 22 U/L N 13-39 Egfr Non- 64.2 >60 Egfr 82.6 >60 16 Potassium 5.2 mmol/L High 3.5-5.0 Anion Gap 5 mmol/L N 2-11 Lipid Profile 08/07/2017 [facility] Triglycerides 57 mg/dL 17 (Trig/Chol/HDL) [address] [place] [address] [phone] Cholesterol 162 mg/dL 18 HDL Cholesterol 43.7 mg/dL 19 LDL Cholesterol 107 mg/dL 20 Laboratory test 08/07/2017 [facility] C Reactive 17.84 mg/L High < 5.[address] [place] [address] [phone] TSH (Thyroid Stim Horm) 0.89 mcIU/mL N 0.34-5.60 22 Laboratory test 06/05/2017 [facility] C Reactive 20.10 mg/L High < 5.[address] [place] [address] [phone] Erythrocyte Sed Rate 29 mm/Hr High 0-14 CBC Auto Diff 06/05/2017 [facility] White Blood 9.9 10^3/uL N 3.5-10.[address] [place] [address] [phone] Red Blood Count 4.75 10^6/uL N 4.0-5.4 Hemoglobin 13.9 g/dL N 12.0-16.0 Hematocrit 42 % N 35-47 Mean Corpuscular Volume 89 fL N 80-97 Mean Corpuscular Hemoglobin 29 pg N 27-31 Mean Corpuscular HGB Conc 33 g/dL N 31-36 Red Cell Distribution Width 14 % N 10.5-15 Platelet Count 229 10^3/uL N 150-450 Mean Platelet Volume 10 um3 N 7.4-10.4 Abs Neutrophils 7.4 10^3/uL N 1.5-7.7 Abs Lymphocytes 1.9 10^3/uL N 1.0-4.8 Abs Monocytes 0.4 10^3/uL N 0-0.8 Abs Eosinophils 0.1 10^3/uL N 0-0.6 Abs Basophils 0 10^3/uL N 0-0.2 Abs Nucleated RBC 0 10^3/uL Granulocyte % 75.3 % N 38-83 Lymphocyte % 19.4 % Low 25-47 Monocyte % 3.9 % N 0-7 Eosinophil % 1.1 % N 0-6 Basophil % 0.3 % N 0-2 Nucleated Red Blood Cells % 0 Comp Metabolic Panel 06/05/2017 [facility] Sodium 139 mmol/L N 133-[address] [place] [address] [phone] Potassium 4.7 mmol/L N 3.5-5.0 Chloride 105 mmol/L N 101-111 Co2 Carbon Dioxide 29 mmol/L N 22-32 Anion Gap 5 mmol/L N 2-11 Glucose 93 mg/dL N 70-100 Blood Urea Nitrogen 15 mg/dL N 6-24 Creatinine 0.89 mg/dL N 0.51-0.95 BUN/Creatinine Ratio 16.9 N 8-20 Calcium 9.8 mg/dL N 8.6-10.3 Total Protein 7.0 g/dL N 6.4-8.9 Albumin 4.5 g/dL N 3.2-5.2 Globulin 2.5 g/dL N 2-4 Albumin/Globulin Ratio 1.8 N 1-3 Total Bilirubin 0.40 mg/dL N 0.2-1.0 Alkaline Phosphatase 73 U/L N 34-104 Alt 24 U/L N 7-52 Ast 23 U/L N 13-39 Egfr Non- 72.6 >60 Egfr 93.4 >60 24 Hepatitis 06/05/2017 [facility] Hepatitis C Nonreactive Nonreactive Acute Panel [address] [place] [address] [phone] Hepatitis A AB Igm Nonreactive Nonreactive Hepatitis B Core AB Igm Nonreactive Nonreactive Hepatitis B Surface Ag Nonreactive Nonreactive Laboratory test 04/16/2017 [facility] Erythrocyte Sed 21 mm/Hr High 0-[address] [place] [address] [phone] C Reactive Protein 26.12 mg/L High < 5.00 26 CBC Auto Diff 04/16/2017 [facility] White Blood 8.8 10^3/uL N 3.5-10.[address] [place] [address] [phone] Red Blood Count 4.75 10^6/uL N 4.0-5.4 Hemoglobin 13.6 g/dL N 12.0-16.0 Hematocrit 41 % N 35-47 Mean Corpuscular Volume 86 fL N 80-97 Mean Corpuscular Hemoglobin 29 pg N 27-31 Mean Corpuscular HGB Conc 33 g/dL N 31-36 Red Cell Distribution Width 14 % N 10.5-15 Platelet Count 237 10^3/uL N 150-450 Mean Platelet Volume 10 um3 N 7.4-10.4 Abs Neutrophils 6.5 10^3/uL N 1.5-7.7 Abs Lymphocytes 1.6 10^3/uL N 1.0-4.8 Abs Monocytes 0.5 10^3/uL N 0-0.8 Abs Eosinophils 0.1 10^3/uL N 0-0.6 Abs Basophils 0 10^3/uL N 0-0.2 Abs Nucleated RBC 0 10^3/uL Granulocyte % 74.1 % N 38-83 Lymphocyte % 18.7 % Low 25-47 Monocyte % 6.0 % N 1-9 Eosinophil % 0.9 % N 0-6 Basophil % 0.3 % N 0-2 Nucleated Red Blood Cells % 0 Comp Metabolic Panel 04/16/2017 [facility] Sodium 136 mmol/L N 133-145 [address] [place] [address] [phone] Potassium 4.4 mmol/L N 3.5-5.0 Chloride 106 mmol/L N 101-111 Co2 Carbon Dioxide 23 mmol/L N 22-32 Anion Gap 7 mmol/L N 2-11 Glucose 86 mg/dL N 70-100 Blood Urea Nitrogen 19 mg/dL N 6-24 Creatinine 0.70 mg/dL N 0.51-0.95 BUN/Creatinine Ratio 27.1 High 8-20 Calcium 9.3 mg/dL N 8.6-10.3 Total Protein 6.9 g/dL N 6.4-8.9 Albumin 4.3 g/dL N 3.2-5.2 Globulin 2.6 g/dL N 2-4 Albumin/Globulin Ratio 1.7 N 1-3 Total Bilirubin 0.40 mg/dL N 0.2-1.0 Alkaline Phosphatase 79 U/L N 34-104 Alt 18 U/L N 7-52 Ast 20 U/L N 13-39 Egfr Non- 95.8 >60 Egfr 123.2 >60 27 Laboratory test 04/16/2017 [facility] Uric Acid 5.0 mg/dL N 2.3-6.6 28 finding [address] [place] [address] [phone] Creatine Kinase(CK) 77 U/L N 10-223 29 Laboratory test 02/13/2017 [facility] Erythrocyte Sed 22 mm/Hr High 0-[address] [place] [address] [phone] C Reactive Protein 15.81 mg/L High < 5.00 30 CBC Auto Diff 02/13/2017 [facility] White Blood 8.7 10^3/uL N 3.5-10.[address] [place] [address] [phone] Red Blood Count 4.62 10^6/uL N 4.0-5.4 Hemoglobin 13.0 g/dL N 12.0-16.0 Hematocrit 40 % N 35-47 Mean Corpuscular Volume 86 fL N 80-97 Mean Corpuscular Hemoglobin 28 pg N 27-31 Mean Corpuscular HGB Conc 33 g/dL N 31-36 Red Cell Distribution Width 13 % N 10.5-15 Platelet Count 241 10^3/uL N 150-450 Mean Platelet Volume 10 um3 N 7.4-10.4 Abs Neutrophils 5.3 10^3/uL N 1.5-7.7 Abs Lymphocytes 2.7 10^3/uL N 1.0-4.8 Abs Monocytes 0.6 10^3/uL N 0-0.8 Abs Eosinophils 0.2 10^3/uL N 0-0.6 Abs Basophils 0 10^3/uL N 0-0.2 Abs Nucleated RBC 0.01 10^3/uL Granulocyte % 60.8 % N 38-83 Lymphocyte % 30.6 % N 25-47 Monocyte % 6.6 % N 1-9 Eosinophil % 1.8 % N 0-6 Basophil % 0.2 % N 0-2 Nucleated Red Blood Cells % 0.1 Laboratory test 02/13/2017 [facility] Creatine 108 U/L N 10- [address] Kinase(CK) [place] [address] [phone] Comp Metabolic 02/13/2017 [facility] Sodium 138 N 133-[address] mmol/[place] [address] [phone] Potassium 4.3 mmol/L N 3.5-5.0 Chloride 104 mmol/L N 101-111 Co2 Carbon Dioxide 32 mmol/L N 22-32 Anion Gap 2 mmol/L N 2-11 Glucose 80 mg/dL N 70-100 Blood Urea Nitrogen 14 mg/dL N 6-24 Creatinine 0.83 mg/dL N 0.51-0.95 BUN/Creatinine Ratio 16.9 N 8-20 Calcium 9.2 mg/dL N 8.6-10.3 Total Protein 7.0 g/dL N 6.4-8.9 Albumin 4.3 g/dL N 3.2-5.2 Globulin 2.7 g/dL N 2-4 Albumin/Globulin Ratio 1.6 N 1-3 Total Bilirubin 0.30 mg/dL N 0.2-1.0 Alkaline Phosphatase 72 U/L N 34-104 Alt 12 U/L N 7-52 Ast 16 U/L N 13-39 Egfr Non- 78.7 >60 Egfr 101.2 >60 31 Laboratory test 02/13/2017 [facility] Uric Acid 4.1 mg/dL N 2.3-6.[address] [place] [address] [phone] Laboratory test 12/25/2016 [facility] Erythrocyte Sed 25 mm/Hr High 0-14 [address] [place] [address] [phone] C Reactive Protein 25.96 mg/L High < 5.00 33 Laboratory test 12/25/2016 [facility] Creatine 66 U/L N 10- 223 [address] Kinase(CK) [place] [address] [phone] Angiotensin Converting Enzyme 55 U/L Abnormal 8 - 53 35 Comp Metabolic Panel 12/25/2016 [facility] Sodium 137 mmol/L N 133-[address] [place] [address] [phone] Potassium 4.3 mmol/L N 3.5-5.0 Chloride 104 mmol/L N 101-111 Co2 Carbon Dioxide 26 mmol/L N 22-32 Anion Gap 7 mmol/L N 2-11 Glucose 89 mg/dL N 70-100 Blood Urea Nitrogen 17 mg/dL N 6-24 Creatinine 0.90 mg/dL N 0.51-0.95 BUN/Creatinine Ratio 18.9 N 8-20 Calcium 9.7 mg/dL N 8.6-10.3 Total Protein 7.7 g/dL N 6.4-8.9 Albumin 4.6 g/dL N 3.2-5.2 Globulin 3.1 g/dL N 2-4 Albumin/Globulin Ratio 1.5 N 1-3 Total Bilirubin 0.50 mg/dL N 0.2-1.0 Alkaline Phosphatase 76 U/L N 34-104 Alt 13 U/L N 7-52 Ast 15 U/L N 13-39 Egfr Non- 71.7 N >60 Egfr 92.2 N >60 36 Iron & Iron Binding 12/25/2016 [facility] Iron 111 g/dL N 50 -[address] [place] [address] [phone] Unsaturated Iron Binding 284 g/dL N Total Iron Binding Capacity 395 g/dL N 250-450 % Iron Saturation 28 % N 15-55 Laboratory test 12/25/2016 [facility] T3 Free 4.40 pg/mL High 2.5-3.9 [address] [place] [address] [phone] CBC Auto Diff 12/25/2016 [facility] White Blood 10.4 N 3.5- 10.[address] Count 10^3/[place] [address] [phone] Red Blood Count 4.84 10^6/uL N 4.0-5.4 Hemoglobin 13.7 g/dL N 12.0-16.0 Hematocrit 42 % N 35-47 Mean Corpuscular Volume 86 fL N 80-97 Mean Corpuscular Hemoglobin 28 pg N 27-31 Mean Corpuscular HGB Conc 33 g/dL N 31-36 Red Cell Distribution Width 13 % N 10.5-15 Platelet Count 285 10^3/uL N 150-450 Mean Platelet Volume 10 um3 N 7.4-10.4 Abs Neutrophils 7.7 10^3/uL N 1.5-7.7 Abs Lymphocytes 1.9 10^3/uL N 1.0-4.8 Abs Monocytes 0.5 10^3/uL N 0-0.8 Abs Eosinophils 0.2 10^3/uL N 0-0.6 Abs Basophils 0 10^3/uL N 0-0.2 Abs Nucleated RBC 0 10^3/uL N Granulocyte % 74.2 % N 38-83 Lymphocyte % 18.7 % Low 25-47 Monocyte % 4.8 % N 1-9 Eosinophil % 2.0 % N 0-6 Basophil % 0.3 % N 0-2 Nucleated Red Blood Cells % 0 N Laboratory 12/25/2016 [facility] Anti Ssa/Ro <0.2 U N 38 test finding [address] [place], [place] [id number] [phone] Hepatitis 12/25/2016 [facility] Hepatitis B Nonreactive N Nonreactive Acute Panel [address] [place] [address] Antigen [phone] Hepatitis B Core IgM Nonreactive N Nonreactive Hepatitis A AB IgM Nonreactive N Nonreactive Hepatitis C Antibody Nonreactive N Nonreactive Laboratory test 09/28/2016 [facility] T3 Free 3.90 pg/mL N 2.5 -3.9 finding [address] [place], [place] [id number] [phone] CBC Auto Diff 09/28/2016 [facility] White Blood 11.1 High 3.5- 10.[address] Count 10^3/uL [place], [place] [id number] [phone] Red Blood Count 4.78 10^6/uL N 4.0-5.4 Hemoglobin 13.4 g/dL N 12.0-16.0 Hematocrit 42 % N 35-47 Mean Corpuscular Volume 88 fL N 80-97 Mean Corpuscular Hemoglobin 28 pg N 27-31 Mean Corpuscular HGB Conc 32 g/dL N 31-36 Red Cell Distribution Width 13 % N 10.5-15 Platelet Count 254 10^3/uL N 150-450 Mean Platelet Volume 10 um3 N 7.4-10.4 Abs Neutrophils 7.5 10^3/uL N 1.5-7.7 Abs Lymphocytes 2.7 10^3/uL N 1.0-4.8 Abs Monocytes 0.7 10^3/uL N 0-0.8 Abs Eosinophils 0.2 10^3/uL N 0-0.6 Abs Basophils 0 10^3/uL N 0-0.2 Abs Nucleated RBC 0 10^3/uL N Granulocyte % 67.5 % N 38-83 Lymphocyte % 24.6 % Low 25-47 Monocyte % 6.0 % N 1-9 Eosinophil % 1.5 % N 0-6 Basophil % 0.4 % N 0-2 Nucleated Red Blood Cells % 0 N Iron & Iron Binding 09/28/2016 [facility] Iron 48 g/dL Low 50-[address] [place] [address] [phone] Unsaturated Iron Binding 336 g/dL N Total Iron Binding Capacity 384 g/dL N 250-450 % Iron Saturation 13 % Low 15-55 Laboratory test 09/28/2016 [facility] C Reactive 13.48 mg/L High < 5.[address] [place] [address] [phone] Comp Metabolic 09/28/2016 [facility] Sodium 136 mmol/L N 133- [address] [place] [address] [phone] Potassium 4.7 mmol/L N 3.5-5.0 Chloride 104 mmol/L N 101-111 Co2 Carbon Dioxide 26 mmol/L N 22-32 Anion Gap 6 mmol/L N 2-11 Glucose 77 mg/dL N 70-100 Blood Urea Nitrogen 18 mg/dL N 6-24 Creatinine 0.86 mg/dL N 0.51-0.95 BUN/Creatinine Ratio 20.9 High 8-20 Calcium 9.0 mg/dL N 8.6-10.3 Total Protein 6.8 g/dL N 6.4-8.9 Albumin 4.1 g/dL N 3.2-5.2 Globulin 2.7 g/dL N 2-4 Albumin/Globulin Ratio 1.5 N 1-3 Total Bilirubin 0.30 mg/dL N 0.2-1.0 Alkaline Phosphatase 76 U/L N 34-104 Alt 51 U/L N 7-52 Ast 53 U/L High 13-39 Egfr Non- 75.5 N >60 Egfr 97.1 N >60 40 Laboratory test 09/28/2016 [facility] Creatine 42 U/L N 10- [address] Kinase([place]) [place] [address] [phone] Anti Ssa/Ro <0.2 U N 41 Angiotensin Converting Enzyme 40 U/L N 8 - 53 42 Erythrocyte Sed Rate 21 mm/Hr High 0-14 Hepatitis 09/28/2016 [facility] Hepatitis B Nonreactive N Nonreactive Acute Panel [address] [place] [address] Antigen [phone] Hepatitis B Core IgM Nonreactive N Nonreactive Hepatitis A AB IgM Nonreactive N Nonreactive Hepatitis C Antibody Nonreactive N Nonreactive Laboratory test 07/20/2016 [facility] Angiotensin 40 U/L N 8 - [address] [place] [address] Enzyme [phone] Anca AB Ser If 07/20/2016 [facility] C-Anca Negative N Negative [address] [place] [address] [phone] P-Anca Negative N Negative 44 Laboratory 07/20/2016 [facility] Aso Negative N <200 [address] (Antistreptolysin O) IU/mL Iu/[place] [address] Titer [phone] Creatine Kinase(CK) 82 U/L N 10-223 46 Hla B27 07/20/2016 [facility] Hla B27 Negative N [address] [place] [address] [phone] Hla B27 Interp See Comment N 48 Connective Tissue 07/20/2016 [facility] Anti-Nuclear < 0.1 U N [address] [place] [address] [phone] Cyclic Citrullinated Peptide <15.6 U N 50 Interpretation See Comment N 51 Laboratory test 07/20/2016 [facility] Rheumatoid Factor <15 IU/ mL N <[address] [place], [place] [address] [phone] Erythrocyte Sed Rate 30 mm/Hr High 0-14 53 C Reactive Protein 30.58 mg/L High < 5.00 54 Anca Panel For 07/20/2016 [facility] Myeloperoxidase AB < 0.2 U N [address] [place] [address] [phone] Proteinase 3 AB < 0.2 U N 56 Laboratory test 07/20/2016 [facility] Free Cortisol 0.08 g/dL N [address] [place] [address] [phone] Lyme Disease Serology Negative N Negative 58 Vitamin B12 And 07/20/2016 [facility] Vitamin B12 409 pg/mL N 180-914 59 Folate Serum [address] [place] [address] [phone] Folic Acid (Folate) > 20.00 ng/mL N >3.99 60 Laboratory test 07/20/2016 [facility] Vitamin D, 100 pg/mL Abnormal 18-78 [address] 1,25 [place] [address] [phone] Laboratory test 07/20/2016 [facility] Babesiosis <1:64 N <1: 64 [address] [place] [address] [phone] Free T4 (Free Thyroxine) 1.01 ng/dL N 0.61-1.12 63 T3 Free 4.10 pg/mL High 2.5-3.9 64 TSH (Thyroid Stim Horm) 1.01 mcIU/mL N 0.34-5.60 65 Thyroperoxidase AB 1.35 IU/mL N <9 66 CBC Auto 07/20/2016 [facility] White Blood 12.4 10^3/uL High 3.5-10.[address] [place] [address] [phone] Red Blood Count 4.63 10^6/uL N 4.0-5.4 Hemoglobin 12.7 g/dL N 12.0-16.0 Hematocrit 39 % N 35-47 Mean Corpuscular Volume 85 fL N 80-97 Mean Corpuscular Hemoglobin 28 pg N 27-31 Mean Corpuscular HGB Conc 33 g/dL N 31-36 Red Cell Distribution Width 14 % N 10.5-15 Platelet Count 280 10^3/uL N 150-450 Mean Platelet Volume 9 um3 N 7.4-10.4 Abs Neutrophils 9.1 10^3/uL High 1.5-7.7 Abs Lymphocytes 2.6 10^3/uL N 1.0-4.8 Abs Monocytes 0.5 10^3/uL N 0-0.8 Abs Eosinophils 0.2 10^3/uL N 0-0.6 Abs Basophils 0 10^3/uL N 0-0.2 Abs Nucleated RBC 0 10^3/uL N Granulocyte % 73.6 % N 38-83 Lymphocyte % 20.9 % Low 25-47 Monocyte % 4.1 % N 1-9 Eosinophil % 1.3 % N 0-6 Basophil % 0.1 % N 0-2 Nucleated Red Blood Cells % 0 N 1 Please check labs 2 days before follow up 2 Please check labs 2 days before follow up 3 Because ethnic data is not always readily [...] 15-29 5 Kidney failure <15 (or dialysis) 4 Please check labs 2 days before follow up 5 Please check labs 2 days before follow up 6 Because ethnic data is not always readily [...] 15-29 5 Kidney failure <15 (or dialysis) 7 Please check labs 2 days before follow up visit 8 Please check labs 2 days before follow up visit 9 Because ethnic data is not always readily [...] 15-29 5 Kidney failure <15 (or dialysis) 10 SEE RESULT BELOW Name: EVGENY RESENDIZ : [address]: Selwyn العراقي MD Acct: [id number] Unit: [id number] AGE: 36 Location: [place] [address] Re08/21/17 SEX: F Status: ADM IN SPEC: [id number] SAUL: 08/21/17-[address] [facility] [address]: Selwyn العراقي MD REQ: [id number] RECD: 08/21/173601 STATUS: SOUT _ ORDERED: LEVEL 5 FINAL DIAGNOSIS Stomach, partial gastrectomy: -- Benign gastric tissue with no significant pathologic abnormalities. PRE-OPERATIVE DIAGNOSIS Morbid obesity GROSS DESCRIPTION The specimen is received in formalin labeled, Portion of Stomach, and consists of an 18.0 by up to 5.0 x 2.7 cm focally disrupted portion of gastric tissue with a prominent staple line. The serosa is smooth to focally shaggy lomax-pink with a few defects and scant adherent yellow fat. The mucosa is glistening lomax-red with normal rugal folds. Certified Family Mediator sections, one cassette. Signed by and Reported on: Bessy Barnard MD 08/23/17 1005 END OF REPORT DEPARTMENT OF PATHOLOGY, [address] [place] [address] Matthias Link M.D. Director [facility] # [id number] 08/21 12 Because ethnic data is not always readily [...] 15-29 5 Kidney failure <15 (or dialysis) 13 No interferon-gamma response to M. tuberculosis antigens was detected. Infection with M. tuberculosis is unlikely. A single negative result does not exclude infection with M. tuberculosis. In patients at high risk for M.tuberculosis infection, a second test should be considered in accordance with the 2017 ATS/IDSA/CDC Clinical Practice Guidelines for Diagnosis of Tuberculosis in Adults and Children [Dilcia KOO et. al. Clin. Infect. Dis. 2017;64(2):111-115]. 14 Test Performed by: [facility] [address] [facility], [place] [address] 15 Unable to calculate due to low microalbumin 16 Because ethnic data is not always readily [...] 15-29 5 Kidney failure <15 (or dialysis) 17 Desirable: <150 Borderline High: 150-199 High: 200-499 Very High: >500 18 Desirable: <200 Borderline High: 200-239 High: >239 19 Low: <40 Desirable: 40-60 High: >60 20 Desirable: <100 Near Optimal: 100-129 Borderline High: 130-159 High: 160-189 Very High: >189 21 Acute inflammation: >10.00 22 FASTING 23 Acute inflammation: >10.00 24 Because ethnic data is not always readily [...] 15-29 5 Kidney failure <15 (or dialysis) 25 Please check labs and xrays and MRI this week 26 Acute inflammation: >10.00 27 Because ethnic data is not always readily [...] 15-29 5 Kidney failure <15 (or dialysis) 28 Please check labs and xrays and MRI this week 29 Please check labs and xrays and MRI this week 30 Acute inflammation: >10.00 31 Because ethnic data is not always readily [...] 15-29 5 Kidney failure <15 (or dialysis) 32 Please check this week 33 Acute inflammation: >10.00 34 Please check this week 35 Test Performed by: [address] [address] 36 Because ethnic data is not always readily [...] 15-29 5 Kidney failure <15 (or dialysis) 37 Please check this week 38 REFERENCE VALUE <1.0 (Negative) Test Performed by: [address] [address] 39 Acute inflammation: >10.00 40 Because ethnic data is not always readily [...] 15-29 5 Kidney failure <15 (or dialysis) 41 REFERENCE VALUE <1.0 (Negative) Test Performed by: [address] [address] 42 Test Performed by: [facility] - [address] [address] 43 Test Performed by: [facility] - [address] [address] 44 Negative for cANCA and pANCA patterns by immunofluorescence. ADDITIONAL INFORMATION This test was developed and its performance characteristics determined by [facility] in a manner consistent with CLIA requirements. This test has not been cleared or approved by the U.S. Food and Drug Administration. Test Performed by: [address] [address] 45 Normal values may vary with age, season and geographic area. Titers above upper limits may be indicative of infection, however only a two dilution rise in titer is required to be considered significant. ASO titer will usually rise above upper limits within one week of exposure, increase to peak levels at 3-5 weeks and return to baseline level at 6-12 twelve months. 46 Please check labs today 47 REFERENCE VALUE Not Applicable 48 RESULT: HLA-B27 antigen was not detected. ADDITIONAL INFORMATION Method: Flow Cytometry Performing Laboratory CLIA# [id number] Test Performed by: [facility] - [address] [address] 49 REFERENCE VALUE <=1.0 (Negative) 50 REFERENCE VALUE <20.0 (Negative) 51 Tests for antibodies to dsDNA and MULU antigens are not performed automatically unless the HUMBLE result is > or= 3.0 U. Studies performed at [facility] indicate that positive HUMBLE results <3.0 U are rarely accompanied by positive second order tests. Test Performed by: [facility] - [address] [address] 52 Test Performed by: [facility] - [address] [address] 53 Please check labs today 54 Acute inflammation: >10.00 55 REFERENCE VALUE <0.4 (Negative) 56 REFERENCE VALUE <0.4 (Negative) Test Performed by: [facility] - [address] [address] 57 Adult Reference Ranges for Cortisol, Free, LC/MS/MS: 8:00 - 10:00 AM 0.07-0.93 mcg/dL 4:00 - 6:00 PM 0.04-0.45 mcg/dL 10:00 - 11:00 PM 0.04-0.35 mcg/dL This test was developed and its analytical performance characteristics have been determined by [employer] [facility]. It has not been cleared or approved by FDA. This assay has been validated pursuant to the CLIA regulations and is used for clinical purposes. Test Performed by: [employer] [address] [place] [address] 58 Serologic response to B. burgdorferi infection is not detected, but cannot rule out early infection during which low or undetectable antibody levels to B. burgdorferi may be present. If clinically indicated, a new serum specimen should be submitted in 7-14 days. Test Performed by: [facility] - [address] [address] 59 Normal Range 180 to 914 Indeterminate Range 145 to 180 Deficient Range <145 60 Please check labs today 61 ADDITIONAL INFORMATION This test was developed and its performance characteristics determined by [facility] in a manner consistent with CLIA requirements. This test has not been cleared or approved by the U.S. Food and Drug Administration. Test Performed by: [facility] - [address] [address] 62 ADDITIONAL INFORMATION This test was developed using an analyte specific reagent. Its performance characteristics were determined by [facility] in a manner consistent with CLIA requirements. This test has not been cleared or approved by the U.S. Food and Drug Administration. Test Performed by: [facility] - [address] [address] 63 Please check labs today 64 Please check labs today 65 Please check labs today 66 Please check labs today Procedures Date Code Description Status 01/25/2017 86330 Polysomnography Sleep Staging 4+ Parameters Completed 08/29/2016 Injection Single Or Multiple Trigger Points Three Or More Completed Muscles 08/16/2016 Injection Single Or Multiple Trigger Points Three Or More Completed Muscles Encounters Type Date Location Provider Dx Diagnosis Office Visit 07/29/2018 [facility] Betsy Taylor, R65.20 Severe sepsis 9:45a nancy Zuñiga M.D. without septic Hospitalists shock E87.2 Acidosis J96.01 Acute respiratory failure with hypoxia Z87.39 Personal history of diseases of the ms sys and conn tiss I73.00 Raynaud's syndrome without gangrene M19.90 Unspecified osteoarthritis, unspecified site M06.4 Inflammatory polyarthropathy M79.7 Fibromyalgia Office Visit 07/28/2018 Yeyo Taylor J18.9 Pneumonia, 9:45a nancy Zuñiga M.D. unspecified Hospitalists organism M06.09 Rheumatoid arthritis w/o rheumatoid factor, multiple sites N39.0 Urinary tract infection, site not specified G89.29 Other chronic pain Office Visit 07/27/2018 Yeyo Taylor J15.4 Pneumonia due to 9:44a nancy Zuñiga M.D. other streptococci Hospitalists B95.3 Streptococcus pneumoniae causing diseases classd elswhr M06.9 Rheumatoid arthritis, unspecified N39.0 Urinary tract infection, site not specified G89.29 Other chronic pain [facility] J15.4 Pneumonia due to 9:44a Assnancy fisher M.D. other streptococci Hospitalists B95.3 Streptococcus pneumoniae causing diseases classd elswhr M06.9 Rheumatoid arthritis, unspecified N39.0 Urinary tract infection, site not specified G89.29 Other chronic pain Office [facility]2018 [facility], J15.4 Pneumonia due to 9:43a Assnancy fisher M.D. other streptococci Hospitalists B95.3 Streptococcus pneumoniae causing diseases classd elswhr M06.9 Rheumatoid arthritis, unspecified N39.0 Urinary tract infection, site not specified G89.29 Other chronic pain Office Visit 07/24/2018 9:42a Intens[facility]ists Jarrett Callahan J15.4 Pneumonia due to M.D. other streptococci M79.7 Fibromyalgia F41.9 Anxiety disorder, unspecified Office Visit 05/01/2018 11:20a Rheumatology Mario Fernández6.09 [facility] M.[facility]. arthritis w/o rheumatoid factor, multiple sites R79.82 Elevated C-reactive protein (CRP) Z79.899 Other halfway (current) drug therapy M54.5 Low back pain R53.82 Chronic fatigue, unspecified I73.00 Raynaud's syndrome without gangrene Office Visit 02/20/2018 10:00a Rheumatology Mario Fernández6.[facility] M.D. arthritis w/o rheumatoid factor, multiple sites M54.5 Low back pain R79.82 Elevated C-reactive protein (CRP) Z79.899 Other vermin exterminator (current) drug therapy Office Visit 11/20/2017 11:20a Rheumatology Mario Fernández6.09 [facility] M.D. arthritis w/o rheumatoid factor, multiple sites M54.5 Low back pain M79.1 Myalgia R79.82 Elevated C-reactive protein (CRP) Z79.899 Other halfway (current) drug therapy Office Visit 09/06/2017 4:20p Rheumatology Mario Fernández6.09 [facility] M.D. arthritis w/o rheumatoid factor, multiple sites D64.9 Anemia, unspecified R79.82 Elevated C-reactive protein (CRP) Z79.899 Other vermin exterminator (current) drug therapy Office Visit 08/13/2017 3:20p Rheumatology Mario Fernández6.09 [facility] M.D. arthritis w/o rheumatoid factor, multiple sites D64.9 Anemia, unspecified R79.82 Elevated C-reactive protein (CRP) Z79.899 Other halfway (current) drug therapy Office Visit 06/12/2017 4:20p Rheumatology Mario Fernández6.09 [facility] M.D. arthritis w/o rheumatoid factor, multiple sites D64.9 Anemia, unspecified R79.82 Elevated C-reactive protein (CRP) Z79.899 Other vermin exterminator (current) drug therapy Z23 Encounter for immunization Office Visit 04/17/2017 1:20p Rheumatology Mario Fernández6.[facility] M.D. arthritis w/o rheumatoid factor, multiple sites D64.9 Anemia, unspecified R79.82 Elevated C-reactive protein (CRP) Z79.899 Other halfway (current) drug therapy G47.10 Hypersomnia, unspecified M54.5 Low back pain M79.1 Myalgia Office Visit 02/13/2017 Rheumatology Mario M06.4 Inflammatory 3:20p [facility] M.D. polyarthropathy D64.9 Anemia, unspecified R79.82 Elevated C-reactive protein (CRP) Z79.899 Other halfway (current) drug therapy G47.10 Hypersomnia, unspecified M54.5 Low back pain G62.9 Polyneuropathy, unspecified Office Visit 01/04/2017 Rheumatology Mario M06.4 Inflammatory 11:20a [facility] M.D. polyarthropathy R79.82 Elevated C-reactive protein (CRP) D64.9 Anemia, unspecified E06.1 Subacute thyroiditis Z79.899 Other vermin exterminator (current) drug therapy G47.10 Hypersomnia, unspecified Z23 Encounter for immunization Office Visit 11/23/2016 11:20a Rheumatology Mario R79.82 Elevated [facility] M.D. C-reactive protein (CRP) M47.892 Other spondylosis, cervical region Z79.899 Other vermin exterminator (current) drug therapy G47.10 Hypersomnia, unspecified M79.7 Fibromyalgia Office Visit 09/28/2016 11:00a Rheumatology Mario D64.9 Anemia, [facility] M.D. unspecified R79.82 Elevated C-reactive protein (CRP) M47.892 Other spondylosis, cervical region Z79.899 Other halfway (current) drug therapy G47.10 Hypersomnia, unspecified M79.7 Fibromyalgia M81.0 Age-related osteoporosis w/o current pathological fracture Office Visit 08/29/2016 11:00a Rheumatology Kanchan Christie.7 [facility] Jaime M06.4 Inflammatory polyarthropathy M47.892 Other spondylosis, cervical region G47.10 Hypersomnia, unspecified Office Visit 08/16/2016 10:00a Rheumatology Kanchan Christie.7 [facility] Ja[facility] M06.4 Inflammatory polyarthropathy M47.892 Other spondylosis, cervical region E06.1 Subacute thyroiditis Office Visit 08/07/2016 Rheumatology Mario M06.4 Inflammatory 11:20a [facility] M.D. polyarthropathy M79.7 Fibromyalgia M47.892 Other spondylosis, cervical region Z79.899 Other halfway (current) drug therapy G47.10 Hypersomnia, unspecified Office Visit 07/20/2016 1:00p Rheumatology Kath Christie7 [facility] M06.4 Inflammatory polyarthropathy M47.892 Other spondylosis, cervical region R20.8 Other disturbances of skin sensation D64.9 Anemia, unspecified E55.9 Vitamin D deficiency, unspecified Office Visit 06/13/2013 11:00a Neurosurgery Dandy Olivo 721.0 Spondylosis [facility] Miller M.D. Cervical W/O Myelopathy 729.1 Myalgia & Myositis Unspec Office Visit 08/11/2010 3:00p DO Not Use [facility] Gaitan, 300.02 Anxiety Disorder AT [facility] Yeni Generalized V17.49 Family HX Of Other Cardiovascular Diseases V70.0 Examination General Medical Routine AT [facility] 448.1 Nevus Non-Neoplastic Plan of Treatment Future Appointment(s):09/11/2018 10:15 am - Chris Hernandez MD at [facility]09/12/2018 11:40 am - Mario Iglesias M.D. at [facility]08/13/2018 - Chris Hernandez, MDR06.00 Dyspnea, unspecifiedNew Medication:Ventolin HFA 108(90 Base) mcg/Act - 2 puffs by mouth every 4 hours as neededLevofloxacin 750 mg - 1 tab by mouth every day for 7 daysNew Xrays: Chest PA & Lat 2 VWS, Ordered: 08/13/18Comments:We will prescribe her some levaquin. She can take that if she is not getting better. I will order a repeat chest xray for her and albuterol prn.G47.30 Sleep apnea, unspecifiedNew Orders: Sleep Study Over Night & Cpap Titration If Positive, Ordered: Comments:Will order a sleep study.Follow up:1 month.
--- OUTSIDE RECORDS SUMMARY | 2018-08-19 18:55 | XMS REPORT | Continuity of Care Document ---
:1980 External Reference #:[id number] Author Name Mahi Vergara Care Team Providers Name Role Phone Sebastian Zhang D.O. Primary Care Physician Unavailable Payers Date Identification Numbers Payment Provider Subscriber Policy Number: [id number] Lev Resendiz Group Number: [id number] [address] PayID: [id number] [place] [address] Effective: 2013 Policy Number: [id number] [facility] Evgeny Resendiz Expires: 2013 PayID: [id number] [address] [address] [place] [address] Effective: 2017 Policy Number: [id number] [facility] Evgeny Resendiz Expires: 2019 PayID: [id number] [address] Advance Directives Description No Information Available Problems Active Problems Provider Date Cervical spondylosis without myelopathy Dandy Miller M.D. Onset: 2013 Myalgia & Myositis Unspecified Dandy Miller M.D. Onset: 06/13/2013 Cervical spondylosis Mario Iglesias M.D. 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 08/01/2018 Soln Prefill Syringe Humira inject 40 mg 6units M06.09 Mario Iglesias, 02/20/2018 - 40mg/0.8ML subcutaneous once M.D. 05/08/2018 PSKT every other week prefilled syringe Enbrel 50mg sq every week, 12units M06.09 Mraio Iglesias, 08/13/2017 - 50mg/ml Soln to start 2 [...] 07/20/2016 Tablets Robaxin 2 tid prn 60tabs Mokmagdalena, - 500mg Tablets MD Shara 09/28/2016 OT [...] Code Status Date Vaccine Reaction Lot # 46568 Given 06/12/2017 Pneumococcal Conjugate Vaccine 13 no reaction noted [id number] Valent For Intramuscular Use [id number] Given 01/04/2017 Influenza Virus Vaccine, [id number] Quadrivalent, Split, Preservative Free Vital Signs Date Vital Result Comment 08/01/2018 10:36am Height 65 inches 5'5" Weight [...] Result H/L Range Note Laboratory test 04/26/2018 [facility] Erythrocyte Sed 29 mm/Hr High 0-14 [address] [place] [address] [phone] C Reactive Protein 14.96 mg/L High <8.01 2 CBC Auto Diff 04/26/2018 [facility] White Blood 9.0 10^3/uL N 3.5-10.[address] [place] [address] [phone] Red Blood Count 4.33 10^6/uL N 4.00-5.40 [...] Cells % 0.1 Comp Metabolic Panel 04/26/2018 [facility] Sodium 137 mmol/L N 135-145 [address] [place] [address] [phone] Potassium 4.9 mmol/L N 3.5-5.0 Chloride 104 [...] Egfr 89.7 >60 3 Laboratory test 02/14/2018 [facility] Erythrocyte Sed 48 mm/Hr High 0-14 [address] [place] [address] [phone] C Reactive Protein 20.83 mg/L High <8.01 5 CBC Auto Diff 02/14/2018 [facility] White Blood 8.8 10^3/uL N 3.5-10.[address] [place] [address] [phone] Red Blood Count 4.49 10^6/uL N 4.00-5.40 [...] Cells % 0.1 Comp Metabolic Panel 02/14/2018 [facility] Sodium 139 mmol/L N 135-[address] [place], [place] [address] [phone] Potassium 4.1 mmol/L N 3.5-5.0 Chloride 104 [...] Non- 86.6 >60 Egfr 104.8 >60 6 Comp Metabolic Panel 11/16/2017 [facility] Sodium 141 mmol/L N 135-[address] [place] [address] [phone] Potassium 4.2 mmol/L N 3.5-5.0 Chloride 106 [...] Egfr Non- 89.3 >60 Egfr 108.1 >60 7 CBC Auto Diff 11/16/2017 [facility] White Blood 9.6 10^3/uL N 3.5-10.[address] [place] [address] [phone] Red Blood Count 4.74 10^6/uL N 4.00-5.40 [...] 0-2 Nucleated Red Blood Cells % 0 Laboratory test 11/16/2017 [facility] Erythrocyte Sed 29 mm/Hr High 0-14 [address] [place] [address] [phone] C Reactive Protein 8.96 mg/L High <8.01 9 Laboratory test 08/21/2017 [facility] Surgical SEE RESULT [address] [place] [address] [phone] Quantiferon Gold 08/14/2017 [facility] QuantiFERON-T Negative Negative [address] [place] [address] [phone] TB1 Ag minus Nil Result 0 IU/mL TB2 Ag minus Nil Result -0.01 IU/mL TB Mitogen minus Nil Result 9.05 IU/mL TB Nil Result 0.05 IU/mL 12 Basic Metabolic 08/14/2017 [facility] Sodium 138 mmol/L Low 139-145 [address] [place] [address] [phone] Potassium 4.3 mmol/L N 3.5-5.0 Chloride 100 mmol/L Low 101-111 Co2 Carbon Dioxide 28 mmol/L N 22-32 Anion Gap 10 mmol/L N 2-11 Glucose 81 mg/dL N 70-100 Blood Urea Nitrogen 20 mg/dL N 6-24 Creatinine 0.89 mg/dL N 0.51-0.95 BUN/Creatinine Ratio 22.5 High 8-20 Calcium 9.9 mg/dL N 8.6-10.3 Egfr Non- 72.6 >60 Egfr 93.4 >60 14 CBC No Diff 08/14/2017 [facility] White Blood 15.6 10^3/uL High 3.5-10.[address] [place] [address] [phone] Red Blood Count 4.79 10^6/uL N 4.0-5.4 Hemoglobin 13.7 g/dL N 12.0-16.0 Hematocrit 41 % N 35-47 Mean Corpuscular Volume 87 fL N 80-97 Mean Corpuscular Hemoglobin 29 pg N 27-31 Mean Corpuscular HGB Conc 33 g/dL N 31-36 Red Cell Distribution Width 14 % N 10.5-15 Platelet Count 268 10^3/uL N 150-450 Mean Platelet Volume 10.1 um3 N 7.4-10.4 Urinalysis Profile 08/07/2017 [facility] Urine Color Yellow [address] [place] [address] [phone] Urine Appearance Clear Urine Specific [place] 1.031 High 1.010-1.030 Urine pH 5.0 N 5-9 Urine Urobilinogen Negative Negative Urine Ketones Negative Negative Urine Protein Negative Negative Urine Leukocytes Negative Negative Urine Blood Negative Negative Urine Nitrite Negative Negative Urine Bilirubin Negative Negative Urine Glucose Negative Negative Urine Microalbumin 08/07/2017 [facility] Ur Microalbumin < 15.[address] (mg/L) mg/[place] [address] [phone] Urine Creatinine 228.32 mg/dL Urine Microalbumin/Creatinine TNP ug/mg <31 15 CBC No Diff 08/07/2017 [facility] White Blood 10.2 10^3/uL N 3.5-10.[address] [place] [address] [phone] Red Blood Count 4.76 10^6/uL N 4.0-5.4 Hemoglobin 13.9 g/dL N 12.0-16.0 Hematocrit 41 % N 35-47 Mean Corpuscular Volume 86 fL N 80-97 Mean Corpuscular Hemoglobin 29 pg N 27-31 Mean Corpuscular HGB Conc 34 g/dL N 31-36 Red Cell Distribution Width 14 % N 10.5-15 Platelet Count 266 10^3/uL N 150-450 Mean Platelet Volume 9.8 um3 N 7.4-10.4 Laboratory test 08/07/2017 [facility] Erythrocyte Sed 33 mm/Hr High 0-[address] [place] [address] [phone] Comp Metabolic 08/07/2017 [facility] Sodium 139 N 139-[address] mmol/[place] [address] [phone] Chloride 104 mmol/L N 101-111 Co2 Carbon [...] 5 mmol/L N 2-11 Lipid Profile 08/07/2017 [facility] Triglycerides 57 mg/dL 17 (Trig/Chol/HDL) [address] [place] [address] [phone] Cholesterol 162 mg/dL 18 HDL Cholesterol 43.7 mg/dL 19 LDL Cholesterol 107 mg/dL 20 Laboratory test 08/07/2017 [facility] C Reactive 17.84 mg/L High < 5.[address] [place] [address] [phone] TSH (Thyroid Stim Horm) 0.89 mcIU/mL N 0.34-5.60 22 Hepatitis 06/05/2017 [facility] Hepatitis C Nonreactive Nonreactive Acute Panel [address] [place] [address] [phone] Hepatitis A AB Igm Nonreactive Nonreactive Hepatitis B Core AB Igm Nonreactive Nonreactive Hepatitis B Surface Ag Nonreactive Nonreactive Comp Metabolic Panel 06/05/2017 [facility] Sodium 139 mmol/L N 133-[address] [place] [address] [phone] Potassium 4.7 mmol/L N 3.5-5.0 Chloride 105 [...] Egfr Non- 72.6 >60 Egfr 93.4 >60 23 CBC Auto Diff 06/05/2017 [facility] White Blood 9.9 10^3/uL N 3.5-10.[address] [place] [address] [phone] Red Blood Count 4.75 10^6/uL N 4.0-5.4 [...] 0-2 Nucleated Red Blood Cells % 0 Laboratory test 06/05/2017 [facility] C Reactive 20.10 mg/L High < 5.00 24 finding 101 [facility] [place] [address] [phone] Erythrocyte Sed Rate 29 mm/Hr High 0-14 Laboratory test 04/16/2017 [facility] Uric Acid 5.0 mg/dL N 2.3-6.6 25 finding [address] [place] [address] [phone] Creatine Kinase(CK) 77 U/L N 10-223 26 Comp Metabolic Panel 04/16/2017 [facility] Sodium 136 mmol/L N 133-145 [address] [place] [address] [phone] Potassium 4.4 mmol/L N 3.5-5.0 Chloride 106 [...] Non- 95.8 >60 Egfr 123.2 >60 27 CBC Auto Diff 04/16/2017 [facility] White Blood 8.8 10^3/uL N 3.5-10.[address] [place] [address] [phone] Red Blood Count 4.75 10^6/uL N 4.0-5.4 [...] 0-2 Nucleated Red Blood Cells % 0 Laboratory test 04/16/2017 [facility] Erythrocyte Sed 21 mm/Hr High 0-14 [address] [place] [address] [phone] C Reactive Protein 26.12 mg/L High < 5.00 29 Laboratory test 02/13/2017 [facility] Erythrocyte Sed 22 mm/Hr High 0-[address] [place] [address] [phone] C Reactive Protein 15.81 mg/L High < 5.00 30 CBC Auto Diff 02/13/2017 [facility] White Blood 8.7 10^3/uL N 3.5-10.[address] [place] [address] [phone] Red Blood Count 4.62 10^6/uL N 4.0-5.4 [...] Blood Cells % 0.1 Laboratory test 02/13/2017 [facility] Creatine 108 U/L N 10- [address] Kinase(CK) [place] [address] [phone] Comp Metabolic 02/13/2017 [facility] Sodium 138 N 133-[address] mmol/[place] [address] [phone] Potassium 4.3 mmol/L N 3.5-5.0 Chloride 104 [...] Egfr 101.2 >60 31 Laboratory test 02/13/2017 [facility] Uric Acid 4.1 mg/dL N 2.3-6.[address] [place] [address] [phone] Laboratory test 12/25/2016 [facility] Erythrocyte Sed 25 mm/Hr High 0-14 32 finding [address] [place] [address] [phone] C Reactive Protein 25.96 mg/L High < 5.00 33 Laboratory test 12/25/2016 [facility] Creatine 66 U/L N 10- 223 34 finding 101 [facility] Kinase(CK) [place] [address] [phone] Angiotensin Converting Enzyme 55 U/L Abnormal 8 - 53 35 Comp Metabolic Panel 12/25/2016 [facility] Sodium 137 mmol/L N 133-145 [address] [place] [address] [phone] Potassium 4.3 mmol/L N 3.5-5.0 Chloride 104 [...] >60 36 Iron & Iron Binding 12/25/2016 [facility] Iron 111 g/dL N 50 -212 [address] [place] [address] [phone] Unsaturated Iron Binding 284 g/dL N Total Iron Binding Capacity 395 g/dL N 250-450 % Iron Saturation 28 % N 15-55 Laboratory test 12/25/2016 [facility] T3 Free 4.40 pg/mL High 2.5-3.9 [address] [place] [address] [phone] CBC Auto Diff 12/25/2016 [facility] White Blood 10.4 N 3.5- 10.[address] Count 10^3/[place] [address] [phone] Red Blood Count 4.84 10^6/uL N 4.0-5.4 [...] Blood Cells % 0 N Laboratory 12/25/2016 [facility] Anti Ssa/Ro <0.2 U N 38 test finding [address] [place] [address] [phone] Hepatitis 12/25/2016 [facility] Hepatitis B Nonreactive N Nonreactive Acute Panel [address] [place] [address] Antigen [phone] Hepatitis B Core IgM Nonreactive N Nonreactive Hepatitis A AB IgM Nonreactive N Nonreactive Hepatitis C Antibody Nonreactive N Nonreactive Laboratory test 09/28/2016 [facility] T3 Free 3.90 pg/mL N 2.5 -3.[address] [place] [address] [phone] CBC Auto Diff 09/28/2016 [facility] White Blood 11.1 High 3.5- 10.[address] Count 10^3/[place] [address] [phone] Red Blood Count 4.78 10^6/uL N 4.0-5.4 [...] 0 N Iron & Iron Binding 09/28/2016 [facility] Iron 48 g/dL Low 50-[address] [place] [address] [phone] Unsaturated Iron Binding 336 g/dL N Total Iron Binding Capacity 384 g/dL N 250-450 % Iron Saturation 13 % Low 15-55 Laboratory test 09/28/2016 [facility] C Reactive 13.48 mg/L High < 5.00 39 finding 101 [facility] [place] [address] [phone] Comp Metabolic 09/28/2016 [facility] Sodium 136 mmol/L N 133- [address] [place] [address] [phone] Potassium 4.7 mmol/L N 3.5-5.0 Chloride 104 [...] 97.1 N >60 40 Laboratory test 09/28/2016 [facility] Creatine 42 U/L N 10- [address] Kinase(CK) [place] [address] [phone] Anti Ssa/Ro <0.2 U N 41 Angiotensin Converting Enzyme 40 U/L N 8 - 53 42 Erythrocyte Sed Rate 21 mm/Hr High 0-14 Hepatitis 09/28/2016 [facility] Hepatitis B Nonreactive N Nonreactive Acute Panel [address] [place] [address] Antigen [phone] Hepatitis B Core IgM Nonreactive N Nonreactive Hepatitis A AB IgM Nonreactive N Nonreactive Hepatitis C Antibody Nonreactive N Nonreactive Laboratory test 07/20/2016 [facility] Angiotensin 40 U/L N 8 - [address] [place] [address] Enzyme [phone] Anca AB Ser If 07/20/2016 [facility] C-Anca Negative N Negative [address] [place] [address] [phone] P-Anca Negative N Negative 44 Laboratory 07/20/2016 [facility] Aso Negative N <200 45 test finding [address] (Antistreptolysin O) IU/mL Iu/[place] [address] Titer [phone] Creatine Kinase(CK) 82 U/L N 10-223 46 Hla B27 07/20/2016 [facility] Hla B27 Negative N 47 [address] [place] [address] [phone] Hla B27 Interp See Comment N 48 Connective Tissue 07/20/2016 [facility] Anti-Nuclear < 0.1 U N 49 Panel 101 [facility] Antibody [place], [place] [address] [phone] Cyclic Citrullinated Peptide <15.6 U N 50 Interpretation See Comment N 51 Laboratory test 07/20/2016 [facility] Rheumatoid Factor <15 IU/ mL N <15 52 finding [address] [place], [place] [address] [phone] Erythrocyte Sed Rate 30 mm/Hr High 0-14 53 C Reactive Protein 30.58 mg/L High < 5.00 54 Anca Panel For 07/20/2016 [facility] Myeloperoxidase AB < 0.2 U N 55 Vasculitis [address] [place], [place] [phone] Proteinase 3 AB < 0.2 U N 56 Laboratory test 07/20/2016 [facility] Free Cortisol 0.08 g/dL N 57 finding 101 [facility] Serum [place], [place] [address] [phone] Lyme Disease Serology Negative N Negative 58 Vitamin B12 And 07/20/2016 [facility] Vitamin B12 409 pg/mL N 180-914 59 Folate Serum [address] [place], [place] [address] [phone] Folic Acid (Folate) > 20.00 ng/mL N >3.99 60 Laboratory 07/20/2016 [facility] Vitamin D, 100 pg/mL Abnormal 18-78 61 test finding 101 [facility] 1,25 [place] [address] Dihydroxy [phone] CBC Auto Diff 07/20/2016 [facility] White Blood 12.4 High 3.5- 10.[address] Count 10^3/uL [place], [place] [address] [phone] Red Blood Count 4.63 10^6/uL N 4.0-5.4 [...] Red Blood Cells % 0 N Laboratory test 07/20/2016 [facility] Babesiosis <1:64 titer N <1:64 [address] [place] [address] [phone] Free T4 (Free Thyroxine) 1.01 ng/dL N 0.61-1.12 63 T3 Free 4.10 pg/mL High 2.5-3.9 64 TSH (Thyroid Stim Horm) 1.01 mcIU/mL N 0.34-5.60 65 Thyroperoxidase AB 1.35 IU/mL N <9 66 1 Please check labs 2 days before [...] 5 Kidney failure <15 (or dialysis) 7 Because ethnic data is not always readily [...] 15-29 5 Kidney failure <15 (or dialysis) 8 Please check labs 2 days before follow up visit 9 Please check labs 2 days before follow up visit 10 SEE RESULT BELOW Name: EVGENY RESENDIZ : [address]: Selwyn العراقي MD Acct: [id number] Unit: [id number] AGE: 36 Location: [place] [address] Re08/21/17 SEX: F Status: ADM IN SPEC: [id number] SAUL: 08/21/17-[address]: Selwyn العراقي MD REQ: [id number] RECD: 08/21/17 STATUS: SOUT _ ORDERED: LEVEL 5 FINAL [...] is glistening lomax-red with normal rugal folds. 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 Signed by and Reported on: Bessy Barnard MD 08/23/17 1005 END OF REPORT DEPARTMENT OF PATHOLOGY, [address] [place] [address] Matthias Link M.D. Director [facility] # [id number] 11 No interferon-gamma response to M. tuberculosis antigens [...] KOO et. al. Clin. Infect. Dis. 2017;64(2):111-115]. 12 Test Performed by: [facility] [address] [place] [id number] 13 AA 08/21 14 Because ethnic data is not always readily [...] 15-29 5 Kidney failure <15 (or dialysis) 15 Unable to calculate due to low [...] 21 Acute inflammation: >10.00 22 FASTING 23 Because ethnic data is not always readily [...] 15-29 5 Kidney failure <15 (or dialysis) 24 Acute inflammation: >10.00 25 Please check labs and xrays and MRI this week 26 Please check labs and xrays and MRI this week 27 Because ethnic data is not always [...] and xrays and MRI this week 29 Acute inflammation: >10.00 30 Acute inflammation: >10.00 31 Because ethnic [...] check this week 35 Test Performed by: [address] [address] 36 Because ethnic data is not always [...] REFERENCE VALUE <1.0 (Negative) Test Performed by: [place] [address] 39 Acute inflammation: >10.00 40 Because ethnic [...] REFERENCE VALUE <1.0 (Negative) Test Performed by: [place] [address] 42 Test Performed by: [place] [address] 43 Test Performed by: [place] [address] 44 Negative for cANCA and pANCA patterns by immunofluorescence. ADDITIONAL INFORMATION This test was developed and its performance characteristics determined by [facility] in a manner consistent with CLIA requirements. This test has not been cleared or approved by the U.S. Food and Drug Administration. Test Performed by: [address] [place] [address] 45 Normal values may vary with age, [...] INFORMATION Method: Flow Cytometry Performing Laboratory CLIA# [id number] Test Performed by: [facility] [place] [id number] 49 REFERENCE VALUE <=1.0 (Negative) 50 REFERENCE VALUE <20.0 (Negative) 51 Tests for antibodies to dsDNA and MULU antigens are not performed automatically unless the HUMBLE result is > or= 3.0 U. Studies performed at [facility] indicate that positive HUMBLE results <3.0 U are rarely accompanied by positive second order tests. Test Performed by: [facility] - [address] [address] 52 Test Performed by: [place] [address] 53 Please check labs today 54 Acute inflammation: >10.00 55 REFERENCE VALUE <0.4 (Negative) 56 REFERENCE VALUE <0.4 (Negative) Test Performed by: [facility] - [address] [address] 57 Adult Reference Ranges for Cortisol, Free, LC/MS/MS: 8:00 - 10:00 AM 0.07-0.93 mcg/dL 4:00 - 6:00 PM 0.04-0.45 mcg/dL 10:00 - 11:00 PM 0.04-0.35 mcg/dL This test was developed and its analytical performance characteristics have been determined by [facility]. It has not been cleared or approved by FDA. This assay has been validated pursuant to the CLIA regulations and is used for clinical purposes. Test Performed by: [facility] [address] [place] [id number] 58 Serologic response to B. burgdorferi infection is not detected, but cannot rule out early infection during which low or undetectable antibody levels to B. burgdorferi may be present. If clinically indicated, a new serum specimen should be submitted in 7-14 days. Test Performed by: [facility] - [address] [address] 59 Normal Range 180 to 914 Indeterminate Range 145 to 180 Deficient Range <145 60 Please check labs today 61 ADDITIONAL INFORMATION This test was developed and its performance characteristics determined by [facility] in a manner consistent with CLIA requirements. This test has not been cleared or approved by the U.S. Food and Drug Administration. Test Performed by: [facility] - [address] [address] 62 ADDITIONAL INFORMATION This test was developed using an analyte specific reagent. Its performance characteristics were determined by [facility] in a manner consistent with CLIA requirements. This test has not been cleared or approved by the U.S. Food and Drug Administration. Test Performed by: [address] [address] 63 Please check labs today 64 Please check labs today 65 Please check labs today 66 Please check labs today Procedures Date Code Description Status 01/25/2017 81450 Polysomnography Sleep Staging 4+ Parameters Completed 08/29/2016 Injection Single Or Multiple Trigger Points Three Or More Completed Muscles 08/16/2016 Injection Single Or Multiple Trigger Points Three Or More Completed Muscles Encounters Type Date Location Provider Dx Diagnosis Office Visit 07/28/2018 [facility] Betsy Taylor J18.9 Pneumonia, 9:45a nancy Zuñiga M.D. unspecified Hospitalists ramya M06.09 Rheumatoid arthritis w/o rheumatoid factor, multiple [...] Z79.899 Other vermin exterminator (current) drug therapy M54.5 Low back pain R53.82 Chronic fatigue, unspecified I73.00 Raynaud's syndrome without gangrene Office Visit 02/20/2018 10:00a Rheumatology Mario Fernández6.09 [facility] M.[facility]. arthritis w/o rheumatoid factor, multiple sites M54.5 Low back pain R79.82 Elevated C-reactive protein (CRP) Z79.899 Other vermin exterminator (current) drug therapy Office Visit 11/20/2017 11:20a Rheumatology Mario Fernández6.09 [facility] M.D. arthritis w/o rheumatoid factor, multiple sites M54.5 Low back pain M79.1 Myalgia R79.82 Elevated C-reactive protein (CRP) Z79.899 Other skilled nursing (current) drug therapy Office Visit 09/06/2017 4:20p Rheumatology Mario Fernández6.09 [facility] M.D. arthritis w/o rheumatoid factor, multiple sites D64.9 Anemia, unspecified R79.82 Elevated C-reactive protein (CRP) Z79.899 Other skilled nursing (current) drug therapy Office Visit 08/13/2017 3:20p Rheumatology Mario Fernández6.09 [facility] M.D. arthritis w/o rheumatoid factor, multiple sites D64.9 Anemia, unspecified R79.82 Elevated C-reactive protein (CRP) Z79.899 Other vermin exterminator (current) drug therapy Office Visit 06/12/2017 4:20p Rheumatology Mario Fernández6.09 [facility] M.D. arthritis w/o rheumatoid factor, multiple sites D64.9 Anemia, unspecified R79.82 Elevated C-reactive protein (CRP) Z79.899 Other skilled nursing (current) drug therapy Z23 Encounter for immunization Office Visit 04/17/2017 1:20p Rheumatology Mario Fernández6.09 [facility] M.D. 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 polyarthropathy D64.9 Anemia, unspecified R79.82 Elevated C-reactive protein (CRP) Z79.899 Other skilled nursing (current) drug therapy G47.10 Hypersomnia, unspecified M54.5 [...] M47.892 Other spondylosis, cervical region Z79.899 Other skilled nursing (current) drug therapy G47.10 Hypersomnia, unspecified M79.7 Fibromyalgia Office Visit 09/28/2016 11:00a Rheumatology Mario D64.9 Anemia, Services Of Casi Iglesias M.D. unspecified R79.82 Elevated C-reactive protein (CRP) M47.892 Other spondylosis, cervical region Z79.899 Other skilled nursing (current) drug therapy G47.10 Hypersomnia, unspecified M79.7 [...] M47.892 Other spondylosis, cervical region Z79.899 Other skilled nursing (current) drug therapy G47.10 Hypersomnia, unspecified Office [...] Use Casi Gaitan, 300.02 Anxiety Disorder AT [facility] Yeni Generalized V17.49 Family HX Of Other Cardiovascular Diseases V70.0 Examination General Medical Routine AT [facility] 448.1 Nevus Non-Neoplastic Plan of Treatment Future Appointment(s):09/12/2018 11:40 am - Mario Iglesias M.D. at [facility]08/01/2018 - Mario Iglesias M.D.M06.09 Rheumatoid arthritis without rheumatoid factor, multiple sitR79.82 Elevated C-reactive protein (CRP) Z79.899 Other vermin exterminator (current) drug xlinznyU38.5 Low back pain
--- NOTE | 2018-08-19 19:04 | ED ---
Shortness of Breath - HPI Summary HPI Summary: The patient is a 37 y/o F presenting to [facility] accompanied by with a chief complaint of sudden onset SOB starting at approximately 1200 today and sharp anterior CP starting approximately an hour ago. The CP concerns her because it is a similar feeling to the pain she experienced when she was diagnosed with septic PNA in July 2018 for which she was admitted to the hospital from 07/23-07/31. She has since followed up with all of the specialists recommended to her, and she recently saw the manager people a few days ago where the CXR looked normal. She reports using her Albuterol inhaler four times today to minimal relief. She additionally c/o aching upper back pain that radiates to the bilateral shoulders and neck which is worsened with coughing. She also reports increased productive cough with a green and frothy sputum. Pain is currently rated 8/10 in severity. No previous hx of pulmonary conditions until the PNA. Hx of RA. - History of Current Complaint Chief Complaint: EDShortnessOfBreath Time Seen by Provider: 08/19/18 18:51 Hx Obtained From: Patient Onset/Duration: Sudden Onset, Lasting Hours - since 1200 today, Still Present Current Severity: Moderate Dyspnea At: Rest Aggrevating Factors: Other - coughing Alleviating Factors: Nothing Associated Signs & Symptoms: Cough (Productive) - green, frothy sputum - Allergy/Home Medications Allergies/Adverse Reactions: Allergies Allergy/AdvReac Type Severity Reaction Status Date / Time No Known Allergies Allergy Verified 08/19/18 18:46 Home Medications: Home Medications celeCOXIB CAP* [CeleBREX CAP*] 100 mg PO BID 08/19/18 [History Confirmed ] levoFLOXacin [Levofloxacin] 1 tab PO DAILY 08/19/18 [History Confirmed 08/19/18] PMH/Surg Hx/FS Hx/Imm Hx Endocrine/Hematology History: Denies: Hx Diabetes, Hx Thyroid Disease Cardiovascular History: Denies: Hx Hypertension, Hx Pacemaker/ICD, Other Cardiovascular Problems/ Disorders Respiratory History: Reports: Hx Sleep Apnea - position controled Denies: Hx Asthma, Hx Chronic Obstructive Pulmonary Disease (COPD), Other Respiratory Problems/Disorders GI History: Denies: Hx Ulcer, Other GI Disorders History: Reports: Other Problems/Disorders - history of renal calculi Denies: Hx Renal Disease Musculoskeletal History: Reports: Hx Arthritis - hands, elbows, ankles, osteoarthritis, Hx Rheumatoid Arthritis, Hx Bursitis - left hip, Hx Fibromyalgia , Other Musculoskeletal History - left plantar fasciitis Sensory History: Reports: Hx Contacts or Glasses - not wearing Denies: Hx Hearing Aid Opthamlomology History: Reports: Hx Contacts or Glasses - not wearing Neurological History: Reports: Hx Nerve Disease - myopathic feet, legs and hands , fibromyalgia Denies: Other Neuro Impairments/Disorders Psychiatric History: Reports: Hx Anxiety, Hx Eating Disorder - binge eating disorder, Hx Depression, Hx Panic Disorder - ANXIETY, Hx Post Traumatic Stress Disorder, Hx Bipolar Disorder, Other Psychiatric Issues/Disorders - opiate addiction - Surgical History Surgery Procedure, Year, and Place: 3 C-SECTIONS. C3 to C7 fusion. TUBAL LIGATION Hx Anesthesia Reactions: No - Immunization History Date of Tetanus Vaccine: utd Date of Influenza Vaccine: utd Infectious Disease History: No Infectious Disease History: Denies: Hx Clostridium Difficile, Hx Hepatitis, Hx Human Immunodeficiency Virus (HIV), Hx of Known/Suspected MRSA, Hx Shingles, Hx Tuberculosis, Hx Known/ Suspected VRE, Hx Known/Suspected VRSA, History Other Infectious Disease, Traveled Outside the [place] in Last 30 Days - Family History Known Family History: Positive: Cardiac Disease - father [place] 48yo alive, Hypertension, Diabetes, Respiratory Disease - COPD - parents, Other - copd, parents - Social History Alcohol Use: None Hx Substance Use: Yes Substance Use Type: Reports: Prescribed Substance Use Comment - Amount & Last Used: Percocet bid, morphine er 30 mg bid Hx Tobacco Use: Yes Smoking Status (MU): Former Smoker Type: Cigarettes Amount Used/How Often: 1/4 pack a day for 9 months Have You Smoked in the Last Year: No Review of Systems Positive: Chest Pain - anterior Positive: Shortness Of Breath, Cough - productive - green and frothy sputum Positive: Other - upper back pain that radiates to the bilateral shoulders and neck All Other Systems Reviewed And Are Negative: Yes Physical Exam - Summary Physical Exam Summary: Appearance: The patient is well-nourished in no acute distress and in no acute pain. Skin: The skin is warm and dry and skin color reflects adequate perfusion. HEENT: The head is normocephalic and atraumatic. The pupils are equal and reactive. The conjunctivae are clear and without drainage. Nares are patent and without drainage. Mouth reveals moist mucous membranes and the throat is without erythema and exudate. The external ears are intact. The ear canals are patent and without drainage. The tympanic membranes are intact. Neck: The neck is supple with full range of motion and non-tender. There are no carotid bruits. There is no neck vein distension. Respiratory: Chest is non-tender. Lungs reveal rhonchi and wheezes in right upper lung field. Breath sounds are symmetrical and equal. Cardiovascular: Heart is regular rate and rhythm. There is no murmur or rub auscultated. There is no peripheral edema and pulses are symmetrical and equal. Abdomen: The abdomen is soft and non-tender. There are normal bowel sounds heard in all four quadrants and there is no organomegaly palpated. Musculoskeletal: There is no back tenderness noted. Extremities are non-tender with full range of motion. There is good capillary refill. There is no peripheral edema or calf tenderness elicited. Neurological: Patient is alert and oriented to person, place and time. The patient has symmetrical motor strength in all four extremities. Cranial nerves are grossly intact. Deep tendon reflexes are symmetrical and equal in all four extremities. Psychiatric: The patient has an appropriate affect and does not exhibit any anxiety or depression. Triage Information Reviewed: Yes Vital Signs On Initial Exam: Initial Vitals Temp Pulse Resp BP Pulse Ox 97.2 F 93 20 129/76 99 08/19/18 18:38 08/19/18 18:38 08/19/18 18:38 08/19/18 18:38 08/19/18 18:38 Vital Signs Reviewed: Yes Diagnostics - Vital Signs Vital Signs Temp Pulse Resp BP Pulse Ox 08/19/18 18:38 97.2 F 93 20 129/76 99 - Laboratory Result Diagrams: 08/19/18 19:29 08/19/18 19:29 Lab Statement: Any lab studies that have been ordered have been reviewed, and results considered in the medical decision making process. - Radiology CXR Radiology Interpretation Completed By: Radiologist Summary of Radiographic Findings: No acute process. ED physician has reviewed this report. - EKG 19:08 Cardiac Rate: NL - 73 BPM EKG Rhythm: Sinus Rhythm Summary of EKG Findings: Normal sinus rhythm, normal ST, no ectopy, no STEMI Re-Evaluation - Re-Evaluation First Eval Re-Evaluation Time: 20:27 Change: Improved Comment: She states she is feeling better after the medication. We discussed discharge home. Course/Dx - Course Course Of Treatment: Ms. Giles has been fighting upper respiratory symptoms for several months. She was recently restarted on antibiotics by her PCP but comes in today feeling more short of breath. She has been using her nebulizers. She' s been on steroids a couple of times and I think she is going to need to be on them again. She clearly had some wheezes which improved with treatment here. She was nontoxic in appearance with stable vitals and I recommended close follow -up. - Diagnoses Provider Diagnoses: Bronchospasm Discharge - Sign-Out/Discharge Documenting (check all that apply): Patient Departure - Patient will be discharged home. Patient Received Moderate/Deep Sedation with Procedure: No - Discharge Plan Condition: Stable Disposition: HOME Prescriptions: methylPREDNISolone [Medrol Dosepak 4 MG*] 4 mg PO .SEE DELL INSTRUCTION #1 tab Patient Education Materials: Bronchospasm (ED) Referrals: Cheryl Phillips MD [Medical Doctor] - 3 Days Additional Instructions: Please take medication as prescribed. Follow up with Dr. Phillips in 2-3 days. RETURN TO THE EMERGENCY DEPARTMENT FOR ANY NEW OR WORSENING SYMPTOMS THAT MAY OCCUR. - Billing Disposition and Condition Condition: STABLE Disposition: Home - Attestation Statements Document Initiated by Maria E: Yes Documenting Scribe: Soheila Hardy Provider For Whom Maria E is Documenting (Include Credential): Dr. Behzad Valiente MD Scribe Attestation: Soheila Morrison scribed for Dr. Behzad Valiente MD on 08/20/18 at 1508. Scribe Documentation Reviewed: Yes Provider Attestation: The documentation as recorded by the Soheila pineda accurately reflects the service I personally performed and the decisions made by me, Dr. Behzad Valiente MD Status of Scrlillian Document: Viewed
[2018-08-19] MEDS ORDERED: Morphine 4 MG/ML VIAL (1 ml) 4 MG/ML VIAL IV ONE (19:05)
[2018-08-19] MEDS ORDERED: Ondansetron INJ* 2 MG/ML VIAL IV ONE (19:05)
[2018-08-19 19:42] LABS: ABS Basophils 0.1 10^3/ul (0-0.2); ABS Eosinophils 0.2 10^3/ul (0-0.6); ABS Lymphocytes 2.6 10^3/ul (1.0-4.8); ABS Monocytes 0.4 10^3/ul (0-0.8); ABS Neutrophils 4.3 10^3/ul (1.5-7.7); Eosinophil % 2.6 %; Hematocrit 35 % (35-47); Hemoglobin 11.7 g/dL (12.0-16.0); Lymphocyte % 34.3 %; Mean Corpuscular HGB Conc 33 g/dL (31-36); Mean Corpuscular Hemoglobin 29 pg (27-31); Mean Corpuscular Volume 86 fL (80-97); Mean Platelet Volume 9.9 fL (7.4-10.4); Platelet Count 185 10^3/uL (150-450); Red Blood Count 4.06 10^6 /uL (3.70-4.87); Red Cell Distribution Width 14 % (10.5-15); White Blood Count 7.6 10^3/uL (3.5-10.8)
[2018-08-19 19:51] LABS: INR 1.15 (0.82-1.09)
[2018-08-19 20:02] LABS: ALT 14 U/L (7-52); AST 18 U/L (13-39); Albumin/Globulin Ratio 1.5 (1-3); Alkaline Phosphatase 59 U/L (34-104); Anion Gap 5 mmol/L (2-11); BUN/Creatinine Ratio 22.1 (8-20); Blood Urea Nitrogen 19 mg/dL (6-24); C Reactive Protein 3.67 mg/L (<8.01); CO2 Carbon Dioxide 26 mmol/L (22-32); Calcium 8.9 mg/dL (8.6-10.3); Chloride 106 mmol/L (101-111); EGFR African American 90.9 (>60); EGFR Non-African American 75.1 (>60); Globulin 2.7 g/dL (2-4); Glucose 100 mg/dL (70-100); Potassium 3.7 mmol/L (3.5-5.0); Sodium 137 mmol/L (135-145); Total Protein 6.7 g/dL (6.4-8.9)
[2018-08-19 20:05] LABS: HCG Pregnancy < 0.60 mIU/mL
[2018-08-19] MEDS ORDERED: HYDROmorphone INJ1* 1 MG/ML SYRINGE IV SLOW PU ONE (20:30)
[2018-08-19] MEDS ORDERED: methylPREDNISolone 125 MG* 2 ML VIAL IV ONE (20:32)
[2018-08-19 21:28] VITALS: BP 132/77
== END 2018-08-19 21:25 | disposition home or self-care (01) ==
LOC: ED 18:37
DX: J98.01 Acute bronchospasm (principal); G47.30 Sleep apnea, unspecified; F41.9 Anxiety disorder, unspecified; F43.10 Post-traumatic stress disorder, unspecified; F32.9 Major depressive disorder, single episode, unspecified; Z87.891 Personal history of nicotine dependence
CPT/HCPCS: 36415; 71046; 80053; 83605; 83880; 84484; 84702; 85025; 85379; 85610; 86140; 87040; 93005; 96374; 96375; 99284; J1170; J2270; J2405; J2930

== ENCOUNTER 2018-10-07 18:26 | Emergency (ER) | payer OTHER ==
--- OUTSIDE RECORDS SUMMARY | 2018-10-07 18:44 | XMS REPORT | Continuity of Care Document ---
:1980 External Reference #:[id number] Author Name Montse Goodman Care Team Providers Name Role Phone Sebastian Zhang D.O. Primary Care Physician Unavailable Payers Date Identification Numbers Payment Provider Subscriber Policy Number: [id number] Lev Resendiz Group Number: [id number] [address] PayID: [id number] [place] [address] Effective: 2013 Policy Number: [id number] [facility] Evgeny Resendiz Expires: 2013 PayID: [id number] [address] [address] [place] [address] Effective: 2017 Policy Number: [id number] [facility] Evgeny Resendiz Expires: 2019 PayID: [id number] [address] Problems Active Problems Provider Date Cervical spondylosis [...] Use Denies Drug Use Smoking Status Reviewed: 10/01/18 Patient is a former smoker Exercise Type/Frequency Exercises rarely Allergies, Adverse Reactions, Alerts Description No Known Drug Allergies Medications Active Medications SIG Qnty Indications Ordering Date Provider Celebrex take one 60caps M06.09 Mario Iglesias, 10/01/2018 200mg Capsules capsule/tablet M.D. twice daily by mouth for pain, avoid ibuprofen and other nsaids Doxycycline Hyclate 1 by mouth twice 60caps Mario Iglesias, 10/01/2018 a day M.D. 100mg Capsules Levofloxacin 1 tab by mouth 14tabs R06.00 Chris Hernandez MD 08/13/2018 750mg every day for 7 Tablets days Nitro-bid apply small 30units Mario Iglesias, 05/01/2018 2% Ointment amount to webs of M.D. digits as needed for attack of raynaud's Vyvanse Take one G47.10 Mario Iglesias, 06/12/2017 50mg Capsules capsule/tablet M.D. daily by mouth Alpha-Lipoic Acid 1 by mouth bid Mario Iglesias, 02/13/2017 200mg M.D. Capsules Cefdinir take 1 capsule by Unknown 300mg Capsules mouth twice a day for 3 days [...] po q bid Tariq, 30mg MD Shara Tablets OT History Medications Ventolin HFA 2 puffs by mouth 36gm R06.00 Chris Hernandez, 08/13/2018 - every 4 hours as 08/14/2018 108(90Base) mcg/Act needed Aerosol Celebrex 1 by mouth twice a 60caps M06.09 Mario Iglesias, 08/01/2018 - 100mg day as needed for M.D. 10/01/2018 Capsules pain/inflammation. avoid other nsaids Kevzara sq every 2 weeks 6.84ml M06.09 Mario Iglesias, 05/08/2018 - 200mg/1.14ML M.D. 08/01/2018 Soln Prefill Syringe Humira inject 40 mg 6units M06.09 Mario Iglesias, 02/20/2018 - 40mg/0.8ML subcutaneous once M.D. 05/08/2018 PSKT every other week prefilled syringe Enbrel 50mg sq every week, 12units M06.09 Mario Iglesias, 08/13/2017 - 50mg/ml Soln to start 2 weeks M.D. 02/20/2018 Prefill Syringe after your gastric sleeve surgery Folic Acid take one 90tabs M06.09 Mario Iglesias, 04/17/2017 - 1mg capsule/tablet M.D. 11/20/2017 Tablets daily by mouth Methotrexate take 7 60tabs M06.09 Mario Iglesias, 04/17/2017 - 2.5mg capsules/tablets by M.D. 09/06/2017 Tablets mouth once weekly on fridays (on hold) Nuvigil take 4 90tabs G47.10 Mario Iglesias, 02/13/2017 - 50mg Tablets capsule/tablet M.D. 02/13/2017 daily by mouth as needed for hypersomnia Armodafinil 1 by mouth every 30tabs G47.10 Mario Iglesias, 02/13/2017 - 250mg day M.D. 06/12/2017 Tablets Sulfasalazine take one tab by 90tabs M06.09 [...] Tablets Provigil take one 60tabs G47.10 Mario Kramerdor, 07/28/2016 - 100mg capsule/tablet M.D. 08/25/2016 Tablets daily by mouth twice daily as needed for hypersomnia Sertraline HCL 2 po qd Unknown - 100mg 11/23/2016 Tablets Vitamin D3 1 by mouth every Unknown - 2000Unit day 08/16/2016 Capsules Ibuprofen by mouth bid a day Unknown - 800mg 08/01/2018 Tablets Morphine Sulfate Unknown - 30mg 07/20/2016 Tablets Robaxin 2 tid prn 60tabs Tariq, - 500mg Tablets MD Shara 09/28/2016 OT [...] Code Status Date Vaccine Reaction Lot # [id number] Given 06/12/2017 Pneumococcal Conjugate Vaccine 13 no reaction noted [id number] Valent For Intramuscular Use [id number] Given 01/04/2017 Influenza Virus Vaccine, [id number] Quadrivalent, Split, Preservative Free Vital Signs Date Vital Result Comment 10/01/2018 4:52pm Height 65 inches 5'5" Weight 219.56 lb Heart Rate 89 /min BP Systolic Sitting 130 mmHg BP Diastolic Sitting 80 mmHg Pain Level 8 O2 % BldC Oximetry 98 % BMI (Body Mass Index) 36.5 kg/m2 08/13/2018 2:20pm Height 65 inches 5'5" Weight [...] Test Result H/L Range Note Laboratory test 09/17/2018 [facility] Erythrocyte Sed 30 mm/Hr High 0-[address] [place] [address] [phone] C Reactive Protein 7.82 mg/L N <8.01 CBC Auto Diff 09/17/2018 [facility] White Blood 7.8 10^3/uL N 3.5-10.[address] [place] [address] [phone] Red Blood Count 4.53 10^6/uL N 3.70-4.87 Hemoglobin 13.3 g/dL N 12.0-16.0 Hematocrit 39 % N 35-47 Mean Corpuscular Volume 86 fL N 80-97 Mean Corpuscular Hemoglobin 29 pg N 27-31 Mean Corpuscular HGB Conc 34 g/dL N 31-36 Red Cell Distribution Width 13 % N 10-15 Platelet Count 241 10^3/uL N 150-450 Mean Platelet Volume 9.8 fL N 7.4-10.4 Abs Neutrophils 5.0 10^3/uL N 1.5-7.7 Abs Lymphocytes 2.3 10^3/uL N 1.0-4.8 Abs Monocytes 0.4 10^3/uL N 0-0.8 Abs Eosinophils 0.2 10^3/uL N 0-0.6 Abs Basophils 0.0 10^3/uL N 0-0.2 Abs Nucleated RBC 0.0 10^3/uL Granulocyte % 63.3 % Lymphocyte % 28.7 % Monocyte % 5.3 % Eosinophil % 2.3 % Basophil % 0.4 % Nucleated Red Blood Cells % 0.2 Comp Metabolic Panel 09/17/2018 [facility] Sodium 138 mmol/L N 135-[address] [place] [address] [phone] Potassium 4.2 mmol/L N 3.5-5.0 Chloride 104 mmol/L N 101-111 Co2 Carbon Dioxide 28 mmol/L N 22-32 Anion Gap 6 mmol/L N 2-11 Glucose 129 mg/dL High 70-100 Blood Urea Nitrogen 19 mg/dL N 6-24 Creatinine 0.85 mg/dL N 0.51-0.95 BUN/Creatinine Ratio 22.4 High 8-20 Calcium 9.2 mg/dL N 8.6-10.3 Total Protein 6.7 g/dL N 6.4-8.9 Albumin 4.0 g/dL N 3.2-5.2 Globulin 2.7 g/dL N 2-4 Albumin/Globulin Ratio 1.5 N 1-3 Total Bilirubin 0.40 mg/dL N 0.2-1.0 Alkaline Phosphatase 62 U/L N 34-104 Alt 14 U/L N 7-52 Ast 16 U/L N 13-39 Egfr Non- 75.7 >60 Egfr 91.6 >60 1 Laboratory test 04/26/2018 [facility] Erythrocyte Sed 29 mm/Hr High 0-14 [address] [place] [address] [phone] C Reactive Protein 14.96 mg/L High <8.01 3 CBC Auto Diff 04/26/2018 [facility] White Blood 9.0 10^3/uL N 3.5-10.[address] [place] [address] [phone] Red Blood Count 4.33 10^6/uL N 4.00-5.40 [...] Cells % 0.1 Comp Metabolic Panel 04/26/2018 [facility] Sodium 137 mmol/L N 135-[address] [place] [address] [phone] Potassium 4.9 mmol/L N 3.5-5.0 Chloride 104 [...] Egfr Non- 74.1 >60 Egfr 89.7 >60 4 Laboratory test 02/14/2018 [facility] Erythrocyte Sed 48 mm/Hr High 0-14 [address] [place] [address] [phone] C Reactive Protein 20.83 mg/L High <8.01 6 CBC Auto Diff 02/14/2018 [facility] White Blood 8.8 10^3/uL N 3.5-10.[address] [place] [address] [phone] Red Blood Count 4.49 10^6/uL N 4.00-5.40 [...] Cells % 0.1 Comp Metabolic Panel 02/14/2018 [facility] Sodium 139 mmol/L N 135-[address] [place] [address] [phone] Potassium 4.1 mmol/L N 3.5-5.0 Chloride 104 [...] Egfr Non- 86.6 >60 Egfr 104.8 >60 7 Laboratory test 11/16/2017 [facility] Erythrocyte Sed 29 mm/Hr High 0-14 [address] [place] [address] [phone] C Reactive Protein 8.96 mg/L High <8.01 9 CBC Auto Diff 11/16/2017 [facility] White Blood 9.6 10^3/uL N 3.5-10.[address] [place] [address] [phone] Red Blood Count 4.74 10^6/uL N 4.00-5.40 [...] Cells % 0 Comp Metabolic Panel 11/16/2017 [facility] Sodium 141 mmol/L N 135-[address] [place] [address] [phone] Potassium 4.2 mmol/L N 3.5-5.0 Chloride 106 [...] Egfr Non- 89.3 >60 Egfr 108.1 >60 10 Laboratory test 08/21/2017 [facility] Surgical SEE RESULT [address] [place] [address] [phone] CBC No Diff 08/14/2017 [facility] White Blood 15.6 High 3.5-[address] Count 10^3/uL 0.8 [place] [address] [phone] Red Blood Count 4.79 10^6/uL N 4.0-5.4 Hemoglobin 13.7 g/dL N 12.0-16.0 Hematocrit 41 % N 35-47 Mean Corpuscular Volume 87 fL N 80-97 Mean Corpuscular Hemoglobin 29 pg N 27-31 Mean Corpuscular HGB Conc 33 g/dL N 31-36 Red Cell Distribution Width 14 % N 10.5-15 Platelet Count 268 10^3/uL N 150-450 Mean Platelet Volume 10.1 um3 N 7.4-10.4 Basic Metabolic 08/14/2017 [facility] Sodium 138 mmol/L Low 139-[address] [place] [address] [phone] Potassium 4.3 mmol/L N 3.5-5.0 Chloride 100 mmol/L Low 101-111 Co2 Carbon Dioxide 28 mmol/L N 22-32 Anion Gap 10 mmol/L N 2-11 Glucose 81 mg/dL N 70-100 Blood Urea Nitrogen 20 mg/dL N 6-24 Creatinine 0.89 mg/dL N 0.51-0.95 BUN/Creatinine Ratio 22.5 High 8-20 Calcium 9.9 mg/dL N 8.6-10.3 Egfr Non- 72.6 >60 Egfr 93.4 >60 13 Quantiferon 08/14/2017 [facility] QuantiFERON-Tb Negative Negative 14 Gold TB [address] [place] [address] [phone] TB1 Ag minus Nil Result 0 IU/mL TB2 Ag minus Nil Result -0.01 IU/mL TB Mitogen minus Nil Result 9.05 IU/mL TB Nil Result 0.05 IU/mL 15 Urinalysis Profile 08/07/2017 [facility] Urine Color Yellow [address] [place] [address] [phone] Urine Appearance Clear Urine Specific [place] 1.031 High 1.010-1.030 Urine pH 5.0 N 5-9 Urine Urobilinogen Negative Negative Urine Ketones Negative Negative Urine Protein Negative Negative Urine Leukocytes Negative Negative Urine Blood Negative Negative Urine Nitrite Negative Negative Urine Bilirubin Negative Negative Urine Glucose Negative Negative Urine Microalbumin 08/07/2017 [facility] Ur Microalbumin < 15.[address] (mg/L) mg/[place] [address] [phone] Urine Creatinine 228.32 mg/dL Urine Microalbumin/Creatinine TNP ug/mg <31 16 CBC No Diff 08/07/2017 [facility] White Blood 10.2 10^3/uL N 3.5-10.[address] [place] [address] [phone] Red Blood Count 4.76 10^6/uL N 4.0-5.4 Hemoglobin 13.9 g/dL N 12.0-16.0 Hematocrit 41 % N 35-47 Mean Corpuscular Volume 86 fL N 80-97 Mean Corpuscular Hemoglobin 29 pg N 27-31 Mean Corpuscular HGB Conc 34 g/dL N 31-36 Red Cell Distribution Width 14 % N 10.5-15 Platelet Count 266 10^3/uL N 150-450 Mean Platelet Volume 9.8 um3 N 7.4-10.4 Laboratory test 08/07/2017 [facility] Erythrocyte Sed 33 mm/Hr High 0-[address] [place] [address] [phone] Comp Metabolic 08/07/2017 [facility] Sodium 139 N 139-145 Panel [address] mmol/[place] [address] [phone] Chloride 104 mmol/L N 101-111 Co2 Carbon [...] Egfr Non- 64.2 >60 Egfr 82.6 >60 17 Potassium 5.2 mmol/L High 3.5-5.0 Anion Gap 5 mmol/L N 2-11 Lipid Profile 08/07/2017 [facility] Triglycerides 57 mg/dL 18 (Trig/Chol/HDL) [address] [place] [address] [phone] Cholesterol 162 mg/dL 19 HDL Cholesterol 43.7 mg/dL 20 LDL Cholesterol 107 mg/dL 21 Laboratory test 08/07/2017 [facility] C Reactive 17.84 mg/L High < 5.[address] [place] [address] [phone] TSH (Thyroid Stim Horm) 0.89 mcIU/mL N 0.34-5.60 23 Laboratory test 06/05/2017 [facility] C Reactive 20.10 mg/L High < 5.[address] [place] [address] [phone] Erythrocyte Sed Rate 29 mm/Hr High 0-14 CBC Auto Diff 06/05/2017 [facility] White Blood 9.9 10^3/uL N 3.5-10.[address] [place] [address] [phone] Red Blood Count 4.75 10^6/uL N 4.0-5.4 [...] Cells % 0 Comp Metabolic Panel 06/05/2017 [facility] Sodium 139 mmol/L N 133-145 [address] [place] [address] [phone] Potassium 4.7 mmol/L N 3.5-5.0 Chloride 105 [...] Egfr Non- 72.6 >60 Egfr 93.4 >60 25 Hepatitis 06/05/2017 [facility] Hepatitis C Nonreactive Nonreactive Acute Panel [address] [place] [address] [phone] Hepatitis A AB Igm Nonreactive Nonreactive Hepatitis B Core AB Igm Nonreactive Nonreactive Hepatitis B Surface Ag Nonreactive Nonreactive Laboratory test 04/16/2017 [facility] Erythrocyte Sed 21 mm/Hr High 0-14 [address] [place] [address] [phone] C Reactive Protein 26.12 mg/L High < 5.00 27 CBC Auto Diff 04/16/2017 [facility] White Blood 8.8 10^3/uL N 3.5-10.[address] [place] [address] [phone] Red Blood Count 4.75 10^6/uL N 4.0-5.4 [...] Cells % 0 Comp Metabolic Panel 04/16/2017 [facility] Sodium 136 mmol/L N 133-[address] [place] [address] [phone] Potassium 4.4 mmol/L N 3.5-5.0 Chloride 106 [...] Egfr Non- 95.8 >60 Egfr 123.2 >60 28 Laboratory test 04/16/2017 [facility] Uric Acid 5.0 mg/dL N 2.3-6.6 [address] [place] [address] [phone] Creatine Kinase(CK) 77 U/L N 10-223 30 Laboratory test 02/13/2017 [facility] Erythrocyte Sed 22 mm/Hr High 0-[address] [place] [address] [phone] C Reactive Protein 15.81 mg/L High < 5.00 31 CBC Auto Diff 02/13/2017 [facility] White Blood 8.7 10^3/uL N 3.5-10.[address] [place] [address] [phone] Red Blood Count 4.62 10^6/uL N 4.0-5.4 [...] Blood Cells % 0.1 Laboratory test 02/13/2017 [facility] Creatine 108 U/L N 10- [address] Kinase([place]) [place] [address] [phone] Comp Metabolic 02/13/2017 [facility] Sodium 138 N 133-[address] mmol/[place] [address] [phone] Potassium 4.3 mmol/L N 3.5-5.0 Chloride 104 [...] Egfr Non- 78.7 >60 Egfr 101.2 >60 32 Laboratory test 02/13/2017 [facility] Uric Acid 4.1 mg/dL N 2.3-6.[address] [place] [address] [phone] Laboratory test 12/25/2016 [facility] Erythrocyte Sed 25 mm/Hr High 0-[address] [place] [address] [phone] C Reactive Protein 25.96 mg/L High < 5.00 34 Laboratory test 12/25/2016 [facility] Creatine 66 U/L N 10- [address] Kinase([place]) [place] [address] [phone] Angiotensin Converting Enzyme 55 U/L Abnormal 8 - 53 36 Comp Metabolic Panel 12/25/2016 [facility] Sodium 137 mmol/L N 133-[address] [place] [address] [phone] Potassium 4.3 mmol/L N 3.5-5.0 Chloride 104 [...] 71.7 N >60 Egfr 92.2 N >60 37 Iron & Iron Binding 12/25/2016 [facility] Iron 111 g/dL N 50 -[address] [place] [address] [phone] Unsaturated Iron Binding 284 g/dL N Total Iron Binding Capacity 395 g/dL N 250-450 % Iron Saturation 28 % N 15-55 Laboratory test 12/25/2016 [facility] T3 Free 4.40 pg/mL High 2.5-3.[address] [place] [address] [phone] CBC Auto Diff 12/25/2016 [facility] White Blood 10.4 N 3.5- 10.[address] Count 10^3/[place] [address] [phone] Red Blood Count 4.84 10^6/uL N 4.0-5.4 [...] Blood Cells % 0 N Laboratory 12/25/2016 [facility] Anti Ssa/Ro <0.2 U N 39 test finding [address] [place], [place] [address] [phone] Hepatitis 12/25/2016 [facility] Hepatitis B Nonreactive N Nonreactive Acute Panel [address] [place] [address] Antigen [phone] Hepatitis B Core IgM Nonreactive N Nonreactive Hepatitis A AB IgM Nonreactive N Nonreactive Hepatitis C Antibody Nonreactive N Nonreactive Laboratory test 09/28/2016 [facility] T3 Free 3.90 pg/mL N 2.5 -3.[address] [place] [address] [phone] CBC Auto Diff 09/28/2016 [facility] White Blood 11.1 High 3.5- 10.[address] Count 10^3/uL [place], [place] [address] [phone] Red Blood Count 4.78 10^6/uL N 4.0-5.4 [...] 0 N Iron & Iron Binding 09/28/2016 [facility] Iron 48 g/dL Low 50-212 [address] [place] [address] [phone] Unsaturated Iron Binding 336 g/dL N Total Iron Binding Capacity 384 g/dL N 250-450 % Iron Saturation 13 % Low 15-55 Laboratory test 09/28/2016 [facility] C Reactive 13.48 mg/L High < 5.00 40 finding 101 [facility] [place] [address] [phone] Comp Metabolic 09/28/2016 [facility] Sodium 136 mmol/L N 133- 145 Panel [address] [place] [address] [phone] Potassium 4.7 mmol/L N 3.5-5.0 Chloride 104 [...] 75.5 N >60 Egfr 97.1 N >60 41 Laboratory test 09/28/2016 [facility] Creatine 42 U/L N 10- [address] Kinase([place]) [place] [address] [phone] Anti Ssa/Ro <0.2 U N 42 Angiotensin Converting Enzyme 40 U/L N 8 - 53 43 Erythrocyte Sed Rate 21 mm/Hr High 0-14 Hepatitis 09/28/2016 [facility] Hepatitis B Nonreactive N Nonreactive Acute Panel [address] [place] [address] Antigen [phone] Hepatitis B Core IgM Nonreactive N Nonreactive Hepatitis A AB IgM Nonreactive N Nonreactive Hepatitis C Antibody Nonreactive N Nonreactive Laboratory test 07/20/2016 [facility] Angiotensin 40 U/L N 8 - [address] [place] [address] Enzyme [phone] Anca AB Ser If 07/20/2016 [facility] C-Anca Negative N Negative [address] [place] [address] [phone] P-Anca Negative N Negative 45 Laboratory 07/20/2016 [facility] Aso Negative N <[address] (Antistreptolysin O) IU/mL Iu/[place] [address] Titer [phone] Creatine Kinase(CK) 82 U/L N 10-223 47 Hla B27 07/20/2016 [facility] Hla B27 Negative N [address] [place] [address] [phone] Hla B27 Interp See Comment N 49 Connective Tissue 07/20/2016 [facility] Anti-Nuclear < 0.1 U N 50 Panel [address] [place] [address] [phone] Cyclic Citrullinated Peptide <15.6 U N 51 Interpretation See Comment N 52 Laboratory test 07/20/2016 [facility] Rheumatoid Factor <15 IU/ mL N <15 53 finding [address] [place] [address] [phone] Erythrocyte Sed Rate 30 mm/Hr High 0-14 54 C Reactive Protein 30.58 mg/L High < 5.00 55 Anca Panel For 07/20/2016 [facility] Myeloperoxidase AB < 0.2 U N 56 Vasculitis [address] [place] [address] [phone] Proteinase 3 AB < 0.2 U N 57 Laboratory test 07/20/2016 [facility] Free Cortisol 0.08 g/dL N 58 finding 101 [facility] [place] [address] [phone] Lyme Disease Serology Negative N Negative 59 Vitamin B12 And 07/20/2016 [facility] Vitamin B12 409 pg/mL N 180-914 60 Folate Serum [address] [place] [address] [phone] Folic Acid (Folate) > 20.00 ng/mL N >3.99 61 Laboratory 07/20/2016 [facility] Vitamin D, 100 pg/mL Abnormal 18-78 62 test finding [address] [employer] [facility] 1,25 [place] [address] Dihydroxy [phone] CBC Auto Diff 07/20/2016 [facility] White Blood 12.4 High 3.5- 10.[address] Count 10^3/[place] [address] [phone] Red Blood Count 4.63 10^6/uL N 4.0-5.4 [...] Cells % 0 N Laboratory test 07/20/2016 [facility] Babesiosis <1:64 titer N <1:64 [address] [place] [address] [phone] Free T4 (Free Thyroxine) 1.01 ng/dL N 0.61-1.12 64 T3 Free 4.10 pg/mL High 2.5-3.9 65 TSH (Thyroid Stim Horm) 1.01 mcIU/mL N 0.34-5.60 66 Thyroperoxidase AB 1.35 IU/mL N <9 67 1 Because ethnic data is not always readily [...] 15-29 5 Kidney failure <15 (or dialysis) 2 Please check labs 2 days before follow up 3 Please check labs 2 days before follow up 4 Because ethnic data is not always readily [...] 15-29 5 Kidney failure <15 (or dialysis) 5 Please check labs 2 days before follow up 6 Please check labs 2 days before follow up 7 Because ethnic data is not always [...] 2 days before follow up visit 10 Because ethnic data is not always readily [...] 15-29 5 Kidney failure <15 (or dialysis) 11 SEE RESULT BELOW Name: EVGENY RESENDIZ Wilmer : [address]: Selwyn العراقي MD Acct: [id number] Unit: [id number] AGE: 36 Location: [place] [address] Re08/21/17 SEX: F Status: ADM IN SPEC: [id number] SAUL: 08/21/17-[address]: Selwyn العراقي MD REQ: [id number] RECD: [id number]/21/[id number] STATUS: SOUT _ ORDERED: LEVEL 5 FINAL [...] is glistening lomax-red with normal rugal folds. Digital Sales Director sections, one cassette. Signed by and Reported on: Bessy Barnard MD 08/23/17 1005 END OF REPORT DEPARTMENT OF PATHOLOGY, [address] [place] [address] Matthias Link M.D. Director [facility] # [id number] 08/21 13 Because ethnic data is not always readily [...] 15-29 5 Kidney failure <15 (or dialysis) 14 No interferon-gamma response to M. tuberculosis antigens was detected. Infection with M. tuberculosis is unlikely. A single negative result does not exclude infection with M. tuberculosis. In patients at high risk for M.tuberculosis infection, a second test should be considered in accordance with the 2017 ATS/IDSA/CDC Clinical Practice Guidelines for Diagnosis of Tuberculosis in Adults and Children [Briann HANANE et. al. Clin. Infect. Dis. 2017;64(2):111-115]. 15 Test Performed by: [facility] - [address] [address] 16 Unable to calculate due to low microalbumin 17 Because ethnic data is not always readily [...] 15-29 5 Kidney failure <15 (or dialysis) 18 Desirable: <150 Borderline High: 150-199 High: 200-499 Very High: >500 19 Desirable: <200 Borderline High: 200-239 High: >239 20 Low: <40 Desirable: 40-60 High: >60 21 Desirable: <100 Near Optimal: 100-129 Borderline High: 130-159 High: 160-189 Very High: >189 22 Acute inflammation: >10.00 23 FASTING 24 Acute inflammation: >10.00 25 Because ethnic data is not always readily [...] 15-29 5 Kidney failure <15 (or dialysis) 26 Please check labs and xrays and MRI this week 27 Acute inflammation: >10.00 28 Because ethnic data is not always readily [...] 15-29 5 Kidney failure <15 (or dialysis) 29 Please check labs and xrays and MRI this week 30 Please check labs and xrays and MRI this week 31 Acute inflammation: >10.00 32 Because ethnic data is not always readily [...] 15-29 5 Kidney failure <15 (or dialysis) 33 Please check this week 34 Acute inflammation: >10.00 35 Please check this week 36 Test Performed by: [address] [address] 37 Because ethnic data is not always readily [...] 15-29 5 Kidney failure <15 (or dialysis) 38 Please check this week 39 REFERENCE VALUE <1.0 (Negative) Test Performed by: [place] [address] 40 Acute inflammation: >10.00 41 Because ethnic data is not always readily [...] 15-29 5 Kidney failure <15 (or dialysis) 42 REFERENCE VALUE <1.0 (Negative) Test Performed by: [place] [id number] 43 Test Performed by: [place] [address] 44 Test Performed by: [place] [address] 45 Negative for cANCA and pANCA patterns by immunofluorescence. ADDITIONAL INFORMATION This test was developed and its performance characteristics determined by [facility] in a manner consistent with CLIA requirements. This test has not been cleared or approved by the U.S. Food and Drug Administration. Test Performed by: [address] [address] 46 Normal values may vary with age, season and geographic area. Titers above upper limits may be indicative of infection, however only a two dilution rise in titer is required to be considered significant. ASO titer will usually rise above upper limits within one week of exposure, increase to peak levels at 3-5 weeks and return to baseline level at 6-12 twelve months. 47 Please check labs today 48 REFERENCE VALUE Not Applicable 49 RESULT: HLA-B27 antigen was not detected. ADDITIONAL INFORMATION Method: Flow Cytometry Performing Laboratory CLIA# [id number] Test Performed by: [facility] - [address] [address] 50 REFERENCE VALUE <=1.0 (Negative) 51 REFERENCE VALUE <20.0 (Negative) 52 Tests for antibodies to dsDNA and MULU antigens are not performed automatically unless the HUMBLE result is > or= 3.0 U. Studies performed at [facility] indicate that positive HUMBLE results <3.0 U are rarely accompanied by positive second order tests. Test Performed by: [facility] - [address] [place] [address] 53 Test Performed by: [facility] - [address] [address] 54 Please check labs today 55 Acute inflammation: >10.00 56 REFERENCE VALUE <0.4 (Negative) 57 REFERENCE VALUE <0.4 (Negative) Test Performed by: [facility] - [address] [address] 58 Adult Reference Ranges for Cortisol, Free, LC/MS/MS: 8:00 - 10:00 AM 0.07-0.93 mcg/dL 4:00 - 6:00 PM 0.04-0.45 mcg/dL 10:00 - 11:00 PM 0.04-0.35 mcg/dL This test was developed and its analytical performance characteristics have been determined by [facility]. It has not been cleared or approved by FDA. This assay has been validated pursuant to the CLIA regulations and is used for clinical purposes. Test Performed by: [facility] [id number] [place] [address] 59 Serologic response to B. burgdorferi infection is not detected, but cannot rule out early infection during which low or undetectable antibody levels to B. burgdorferi may be present. If clinically indicated, a new serum specimen should be submitted in 7-14 days. Test Performed by: [facility] - [address] [address] 60 Normal Range 180 to 914 Indeterminate Range 145 to 180 Deficient Range <145 61 Please check labs today 62 ADDITIONAL INFORMATION This test was developed and its performance characteristics determined by [facility] in a manner consistent with CLIA requirements. This test has not been cleared or approved by the U.S. Food and Drug Administration. Test Performed by: [facility] - [facility] [address] [place] [address] 63 ADDITIONAL INFORMATION This test was developed using an analyte specific reagent. Its performance characteristics were determined by [facility] in a manner consistent with CLIA requirements. This test has not been cleared or approved by the U.S. Food and Drug Administration. Test Performed by: [facility] - [address] [address] 64 Please check labs today 65 Please check labs today 66 Please check labs today 67 Please check labs today Procedures Date Code Description Status 07/24/2018 64152 EKG, Interpretation Only Completed 01/25/2017 67211 Polysomnography Sleep Staging 4+ Parameters Completed 08/29/2016 Injection Single Or Multiple Trigger Points Three Or More Completed Muscles 08/16/2016 Injection Single Or Multiple Trigger Points Three Or More Completed Muscles Encounters Type Date Location Provider Dx Diagnosis Office Visit 08/13/2018 Pulmonology And Chris Hernandez MD R06.00 Dyspnea, 2:45p Sleep Services Of unspecified Cna Gna G47.30 Sleep apnea, unspecified Office Visit 08/01/2018 10:20a Rheumatology Mario J18.9 Pneumonia, Services Of Casi Iglesias M.D. 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 factor, multiple sites Z79.899 Other assisted (current) drug therapy M54.5 Low back pain [facility].20 Severe sepsis Assoc,nancy Jaime without Hospitalists septic shock E87.2 Acidosis J96.01 Acute respiratory failure with hypoxia Z87.39 Personal history of diseases of the ms sys and conn tiss I73.00 Raynaud's syndrome without gangrene M19.90 Unspecified osteoarthritis, unspecified site M06.4 Inflammatory polyarthropathy M79.7 Fibromyalgia Office Visit 07/29/2018 2:24p Pulmonology And Cheryl J96.91 Respiratory Sleep Services Of MD Alan failure, Cna Gna unspecified with hypoxia J15.4 Pneumonia due to other streptococci E66.9 Obesity, unspecified Office Visit 07/28/2018 [facility] Betsy Taylor, J18.9 Pneumonia, 9:45a nancy Zuñiga M.D. unspecified Hospitalists organism M06.09 Rheumatoid arthritis w/o rheumatoid factor, multiple sites N39.0 Urinary tract infection, site not specified G89.29 Other chronic pain Office Visit 07/27/2018 [facility] Betsy Taylor, J15.4 Pneumonia due to 9:44a nancy Zuñiga M.D. other streptococci Hospitalists B95.3 Streptococcus pneumoniae causing diseases classd elswhr M06.9 Rheumatoid arthritis, unspecified N39.0 Urinary tract infection, site not specified G89.29 Other chronic pain Office Visit 07/26/2018 [facility] Betsy Taylor J15.4 Pneumonia due to 9:44a nancy Zuñiga M.D. other streptococci Hospitalists B95.3 Streptococcus pneumoniae causing diseases classd elswhr M06.9 Rheumatoid arthritis, unspecified N39.0 Urinary tract infection, site not specified G89.29 Other chronic pain Office Visit 07/26/2018 2:23p Pulmonology And Cheryl J96.91 Respiratory Sleep Services Of MD john Phillips, Cna Gna unspecified with hypoxia J15.4 Pneumonia due to other streptococci E66.9 Obesity, unspecified Office Visit 07/25/2018 [facility] Betsy Taylor, J15.4 Pneumonia due to 9:43a nancy Zuñiga M.D. other streptococci Hospitalists B95.3 Streptococcus pneumoniae causing diseases classd elswhr M06.9 Rheumatoid arthritis, unspecified N39.0 Urinary tract infection, site not specified G89.29 Other chronic pain Office Visit 07/25/2018 2:22p Pulmonology And Cheryl J96.91 Respiratory Sleep Services Of MD john Phillips Cna Gna unspecified with hypoxia J15.4 Pneumonia due to other streptococci Office Visit 07/24/2018 9:42a [facility] Jarrett Callahan J15.4 Pneumonia due to M.D. other streptococci M79.7 Fibromyalgia F41.9 Anxiety disorder, unspecified Office Visit 07/24/2018 2:23p Pulmonology And Cheryl J15.4 Pneumonia due to Sleep Services Of MD Alan other streptococci Cna Gna Z87.891 Personal history of nicotine dependence Office Visit 07/23/2018 [facility] A41.9 Sepsis, 9:42a Assoc,nancy Hwang NP unspecified Hospitalists organism J96.01 Acute respiratory failure with hypoxia E87.6 Hypokalemia M06.9 Rheumatoid arthritis, unspecified G89.29 Other chronic pain R79.89 Other specified abnormal findings of blood chemistry R74.0 Nonspec elev of levels of transamns & lactic acid dehydrgnse Office Visit 05/01/2018 11:20a Rheumatology Mario M06.09 Rheumatoid Services Of Casi Igelsias M.D. arthritis w/o rheumatoid factor, multiple sites R79.82 Elevated C-reactive protein (CRP) Z79.899 Other assisted (current) drug therapy M54.5 Low back pain R53.82 Chronic fatigue, unspecified I73.00 Raynaud's syndrome without gangrene Office Visit 02/20/2018 10:00a Rheumatology Mario Fernández6.09 Rheumatoid Services Of Casi Iglesias M.D. arthritis w/o rheumatoid factor, multiple sites M54.5 Low back pain R79.82 Elevated C-reactive protein (CRP) Z79.899 Other assisted (current) drug therapy Office Visit 11/20/2017 11:20a Rheumatology Mario Fernández6.09 Rheumatoid Services Of Casi Iglesias M.D. arthritis w/o rheumatoid factor, multiple sites M54.5 Low back pain M79.1 Myalgia R79.82 Elevated C-reactive protein (CRP) Z79.899 Other assisted (current) drug therapy Office Visit 09/06/2017 4:20p Rheumatology Maroi Fernández6.09 Rheumatoid Services Of Casi Iglesias M.D. arthritis w/o rheumatoid factor, multiple sites D64.9 Anemia, unspecified R79.82 Elevated C-reactive protein (CRP) Z79.899 Other continuous churn buttermaker (current) drug therapy Office Visit 08/13/2017 3:20p Rheumatology Mario Fernández6.09 Rheumatoid Services Of Casi Iglesias M.D. arthritis w/o rheumatoid factor, multiple sites D64.9 Anemia, unspecified R79.82 Elevated C-reactive protein (CRP) Z79.899 Other continuous churn buttermaker (current) drug therapy Office Visit 06/12/2017 4:20p Rheumatology Mario M06.09 Rheumatoid Services Of Casi Iglesias M.D. arthritis w/o rheumatoid factor, multiple sites D64.9 Anemia, unspecified R79.82 Elevated C-reactive protein (CRP) Z79.899 Other continuous churn buttermaker (current) drug therapy Z23 Encounter for immunization Office Visit 04/17/2017 1:20p Rheumatology Mario Fernández6.09 Rheumatoid Services Of Casi Iglesias M.D. arthritis w/o rheumatoid factor, multiple sites D64.9 Anemia, unspecified R79.82 Elevated C-reactive protein (CRP) Z79.899 Other assisted (current) drug therapy G47.10 Hypersomnia, unspecified M54.5 Low back pain M79.1 Myalgia Office Visit 02/13/2017 Rheumatology Mario M06.4 Inflammatory 3:20p Services Of Casi Iglesias M.D. polyarthropathy D64.9 Anemia, unspecified R79.82 Elevated C-reactive protein (CRP) Z79.899 Other continuous churn buttermaker (current) drug therapy G47.10 Hypersomnia, unspecified M54.5 Low back pain G62.9 Polyneuropathy, unspecified Office Visit 01/04/2017 Rheumatology Mario M06.4 Inflammatory 11:20a Services Of Casi Iglesias M.D. polyarthropathy R79.82 Elevated C-reactive protein (CRP) D64.9 Anemia, unspecified E06.1 Subacute thyroiditis Z79.899 Other assisted (current) drug therapy G47.10 Hypersomnia, unspecified Z23 Encounter for immunization Office Visit 11/23/2016 11:20a Rheumatology Mario R79.82 Elevated Services Of Casi Iglesias M.D. C-reactive protein (CRP) M47.892 Other spondylosis, cervical region Z79.899 Other assisted (current) drug therapy G47.10 Hypersomnia, unspecified M79.7 Fibromyalgia Office Visit 09/28/2016 11:00a Rheumatology Mario D64.9 Anemia, Services Of Casi Iglesias M.D. unspecified R79.82 Elevated C-reactive protein (CRP) M47.892 Other spondylosis, cervical region Z79.899 Other assisted (current) drug therapy G47.10 Hypersomnia, unspecified M79.7 Fibromyalgia M81.0 Age-related osteoporosis w/o current pathological fracture Office Visit 08/29/2016 11:00a Rheumatology Kanchan Christie.7 Fibromyalgia Services Of Casi Jaime M06.4 Inflammatory polyarthropathy M47.892 Other spondylosis, cervical region G47.10 Hypersomnia, unspecified Office Visit 08/16/2016 10:00a Rheumatology Zay Christie79.7 Fibromyalgia Services Of Casi Jaime M06.4 Inflammatory polyarthropathy M47.892 Other spondylosis, cervical region E06.1 Subacute thyroiditis Office Visit 08/07/2016 Rheumatology Mario Betancourt.4 Inflammatory 11:20a Services Of Casi Iglesias M.D. 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 at Rheumatology Services Of [facility]10/01/2018 - Mario Iglesias M.D.M06.09 Rheumatoid arthritis without rheumatoid factor, multiple sitNew Medication:Celebrex 200 mg - take one capsule/tablet twice daily by mouth for pain, avoid ibuprofen and other nsaidsNew Labs:Erythrocyte Sed Rate, Ordered: 10/01/18C Reactive Protein, Ordered: 10/01/18Z79.899 Other continuous churn buttermaker (current) drug therapyNew Labs:CBC Auto Diff, Ordered: 10/01/18Comp Metabolic Panel, Ordered: 10/01/18Follow up: Follow up in 6 to 8 weeks or sooner if cqtgmgF71.6 Pain in thoracic spineNew Xrays:MRI Thoracic Spine W/O, Ordered: 10/01/18M54.5 Low back painNew Xrays:MRI Lumbar Spine W/O, Ordered: 10/01/18
--- OUTSIDE RECORDS SUMMARY | 2018-10-07 18:44 | XMS REPORT | Continuity of Care Document ---
:1980 External Reference #:[id number] Author Name Juanito Sargent DO MPH Address [address] [place] [address], [address] [place] [address] Care Team Providers Name Role Phone Mario Iglesias MD Care Team Information Hand Salter Unavailable Sebastian Zhang M.D. Primary Care Physician Unavailable Payers Date Identification Numbers Payment Provider Subscriber Policy Number: [id number] [facility] Chava Giles PayID: [id number] [employer] [address] [place] [address] Family History Date Family Member(s) Observation Comments [...] is a former smoker Smoking Status Reviewed: 09/16/18 Patient is a former smoker Allergies, Adverse Reactions, Alerts Description No Known Drug Allergies Medications Active Medications SIG Qnty Indications Ordering Date Provider Tizanidine HCL si/2-1 by 120tabs Juanito Sargent, 05/17/2018 4mg mouth every 6 DO, MPH Tablets hours as directed Lyrica si by mouth 90caps Juanito Sargent, 10/16/2017 200mg Capsules every 8 hours as DO, MPH directed chronic pain patient, [facility] [id number], id # [id number] Oxycodone HCL si by mouth 90tabs Juanito Sargent, 12/25/2016 15mg every 8 hours as DO, MPH Tablets directed chronic pain patient Morphine Sulfate ER si by mouth q12 60tabs Juanito Sargent, 09/11/2016 hours as directed DO, MPH 30mg Tablets ER chronic pain. Ventolin HFA 1-2 puffs as Unknown needed every 4-6 108(90Base) mcg/Act hours for Aerosol shortness for breath Viactiv Unknown [id number] Chewtabs Wellbutrin XL si by mouth Unknown [...] 10/16/2017 directed chronic pain patient dose increase. [id number], Alpha Lipoic Acid take one capsule 60caps Sargent, Juanito, DO, 01/24/2017 - 200mg by mouth every 12 MPH 02/24/2017 Capsules hours as directed chronic pain. Lyrica si by mouth 90caps Sargent, Juanito, DO, 10/20/2016 - 150mg Capsules three times a day MPH 01/24/2017 as directed chronic pain patient code: [id number], Oxycodone HCL si by mouth 90tabs Juanito [...] Auto-Inject Vital Signs Date Vital Result Comment 09/21/2018 10:45am BP Systolic 136 mmHg BP Diastolic 82 mmHg Heart Rate 84 /min Respiratory Rate 20 /min Height 66 inches 5'6" Weight 220.00 lb Pain Level 7 Pain at this time. Pain Level With Medicine 6 on average with meds Pain Level Without Medicine 9 without meds Pain Level After Procedure 5 BP Systolic Recheck 130 mmHg Pulse: 88 BP Diastolic Recheck 80 mmHg Pulse: 88 BMI (Body Mass Index) 35.5 kg/m2 09/16/2018 11:31am BP Systolic 134 mmHg BP Diastolic 84 mmHg Heart Rate 82 /min Respiratory Rate 20 /min Height 66 inches 5'6" Weight 221.00 lb Pain Level 8 Pain at this time. Pain Level With Medicine 7 on average with meds Pain Level Without Medicine 9 without meds BMI (Body Mass Index) 35.7 kg/m2 08/14/2018 11:14am BP Systolic 128 mmHg BP [...] with meds Pain Level Without Medicine 10 10/10 without meds Pain Level After Procedure 3 [...] with meds Pain Level Without Medicine 10 10/10 without meds Pain Level After Procedure 5 [...] 5'6" Weight 278.00 lb Pain Level 8 8/, Pain at this time. Pain Level With Medicine 6 09/09, on average with meds Pain Level Without [...] H/L Range Note Comp Metabolic Panel 06/04/2018 [facility] Sodium 139 mmol/L N 135-[address] [place] [address] [phone] Potassium 4.0 mmol/L N 3.5-5.0 Chloride 104 [...] >60 2 Iron & Iron Binding 06/04/2018 [facility] Iron 84 g/ dL N 50-[address] [place] [address] [phone] Unsaturated Iron Binding < 317 g/dL Total Iron Binding Capacity 332 g/dL N 250-450 Transferrin 237 mg/dL N 203-362 % Iron Saturation 25 % N 15-55 Laboratory test 06/04/2018 [facility] Ferritin 21.6 ng /mL N 11-[address] [place] [address] [phone] Folic Acid (Folate) > 20.00 ng/mL >3.99 4 Vitamin B12 > 1450 pg/mL High 180-914 5 Vitamin D Total 25(Oh) 33.8 ng/mL N 20-50 6 Vitamin B1 (Whole Blood) 223 nmol/L Abnormal 70-180 7 PTH Related Peptide <0.2 pmol/L <2.0 8 Vitamin E Level 9.6 mg/L 5.5 - 17.0 9 Urine Microalbumin 06/04/2018 [facility] Ur Microalbumin < 15.[address] (mg/L) [place] [address] [phone] Urine Creatinine 62.27 mg/dL Urine Microalbumin/Creatinine TNP <31 10 Urinalysis Profile 06/04/2018 [facility] Urine Color Yellow [address] [place] [address] [phone] Urine Appearance Cloudy Urine Specific Friedens 1.016 N 1.010-1.030 Urine pH 8.0 N [...] Cell Present Abnormal Absent Lipid Profile 06/04/2018 [facility] Triglycerides 56 mg/dL 11 (Trig/Chol/HDL) [address] [place], [place] [address] [phone] Cholesterol 139 mg/dL 12 HDL Cholesterol 49.1 mg/dL 13 LDL Cholesterol 79 mg/dL 14 Laboratory test 06/04/2018 [facility] TSH (Thyroid 0.97 N 0.34-5.[address] Stimulating mcIU/[place] [address] Horm) [phone] Urine Culture And 06/04/2018 [facility] Urine Culture SEE RESULT [address] [place], [place] [address] [phone] CBC Auto Diff 06/04/2018 [facility] White Blood 6.3 N 3.5-10.[address] Count 10^3/uL [place], [place] [address] [phone] Red Blood Count 4.55 10^6/uL N 4.00-5.40 [...] developed and its performance characteristics determined by [facility] in a manner consistent with CLIA requirements. This test has not been cleared or approved by the U.S. Food and Drug Administration. Test Performed by: [facility] [employer] - [address] [address] 8 ADDITIONAL INFORMATION This test was developed and its performance characteristics determined by [facility] in a manner consistent with CLIA requirements. This test has not been cleared or approved by the [place].S. Food and Drug Administration. Test Performed by: [facility] [employer] - [address] [address] ADDITIONAL INFORMATION This test was developed and its performance characteristics determined by [facility] in a manner consistent with CLIA requirements. This test has not been cleared or approved by the U.S. Food and Drug Administration. Test Performed by: [facility] [address] [place] [address] 10 Unable to calculate due to low [...] [address]: Sebastian Zhang DO Acct: [id number] Unit: [id number] AGE: 37 Location: LAB Re06/04/18 SEX: F Status: REG REF SPEC: [id number] SAUL: 06/04/[address] [facility] [address]: Sebastian Zhang DO REQ: [id number] RECD: 06/04/18 STATUS: TRENT PICKENS DR: Juanito Sargent DO _ SOURCE: URINE SPDESC: ORDERED: Urine Culture Procedure Result Reported Site Urine Culture Final 06/06/18- 09 ML Organism 1 KLEBSIELLA PNEUMONIAE [place] Count 75-100,000 (Many) CFU/ML 1. KLEBSIELLA PNEUMONIAE [...] . END OF REPORT DEPARTMENT OF PATHOLOGY, [address] [place] [address] Matthias Link M.D. Director [facility] # [id number] Procedures Date Code Description Status 09/16/2018 09185 Therapeutic, Prophylactic Or Diagnostic Injection Subq/Im Completed 08/14/2018 80767 Therapeutic, Prophylactic Or Diagnostic Injection Subq/Im Completed 08/14/2018 Injection, Single Or Mutiple Trigger Points One Or Two Completed Muscles 08/14/2018 Injection, Tendon Origin/Insertion Completed 08/14/201882622 Injection, Tendon Origin/Insertion Completed 08/14/201803880 Inject Tendon/Ligament Completed 08/14/201863093 Inject Tendon/Ligament Completed 08/14/201890790 Inject Tendon/Ligament Completed 08/14/201801219 Inject Tendon/Ligament Completed 07/17/201889929 Inject Tendon/Ligament Completed 07/17/2018 89723 U/S Guidance For Needle Placement Completed 07/17/2018 27938 Therapeutic, Prophylactic Or Diagnostic Injection Subq/Im Completed 06/17/2018 96252 Therapeutic, Prophylactic Or Diagnostic Injection Subq/Im Completed 05/17/2018 25974 Therapeutic, Prophylactic Or Diagnostic Injection Subq/Im Completed 05/17/2018 64997 Brief Emotional/Behav Assessment W/ Scoring Doc Per [...] Small Joint/Bursa W US Completed Guidance 03/19/2018 48597 Omt 1-2 Body Regions Completed 03/19/2018 43438 Therapeutic, Prophylactic Or Diagnostic Injection Subq/Im Completed 02/15/201817447 Inject Tendon/Ligament Completed 02/15/201830337 Inject Tendon/Ligament Completed 02/15/201835829 Inject Tendon/Ligament Completed 02/15/201809779 Inject Tendon/Ligament Completed 02/15/201861146 Injection, Tendon Origin/Insertion Completed 02/15/201847042 Injection, Tendon Origin/Insertion Completed 02/15/201847603 Injection, Single Or Mutiple Trigger Points One Or Two Completed Muscles 02/15/2018 17470 Injection For Nerve Block, Suprascapular Nerve Completed 01/17/2018 04317 Therapeutic, Prophylactic Or Diagnostic Injection Subq/Im Completed 12/19/2017 12228 Omt 1-2 Body Regions Completed 12/19/201755115 Arthrocentesis/Aspiration/Inj Of Major Joint Or Bursa W/ Completed Ultra 11/19/2017 34962 Omt 1-2 Body Regions Completed 11/19/2017 61666 Therapeutic, Prophylactic Or Diagnostic Injection Subq/Im Completed 11/19/201773218 Arthrocentesis Aspirtation Inj,Intermediate W/ US Guide & Completed Report 11/05/201773429 Inject Tendon/Ligament Completed 11/05/201791237 Inject Tendon/Ligament Completed 11/05/201758020 Inject Tendon/Ligament Completed 11/05/201780044 Inject Tendon/Ligament Completed 11/05/201775246 Injection, Tendon Origin/Insertion Completed 11/05/201723582 Injection, Tendon Origin/Insertion Completed 11/05/201702230 Injection, Single Or Mutiple Trigger Points One Or Two Completed Muscles 10/19/2017 18914 Omt 1-2 Body Regions Completed 10/19/2017 78615 Therapeutic, Prophylactic Or Diagnostic Injection Subq/Im Completed 10/19/201780298 Arthrocentesis/Aspiration/Inj Of Major Joint Or Bursa W/ Completed Ultra 09/18/201723478 Inject Tendon/Ligament Completed 09/18/201743291 Inject Tendon/Ligament Completed 09/18/201700682 Inject Tendon/Ligament Completed 09/18/201793154 Inject Tendon/Ligament Completed 09/18/201702141 Injection, Tendon Origin/Insertion Completed 09/18/201724029 Injection, Tendon Origin/Insertion Completed 09/18/201755974 Injection, Single Or Mutiple Trigger Points One Or Two Completed Muscles 09/18/2017 03549 Therapeutic, Prophylactic Or Diagnostic Injection Subq/Im Completed 08/20/2017 88101 Omt 3-4 Body Regions Completed 07/20/2017 86801 Therapeutic, Prophylactic Or Diagnostic Injection Subq/Im Completed 07/20/201720144 Injection, Single Or Mutiple Trigger Points One Or Two Completed Muscles 07/20/201794992 Injection, Tendon Origin/Insertion Completed 07/20/201742226 Injection, Tendon Origin/Insertion Completed 07/20/201714695 Inject Tendon/Ligament Completed 07/20/2017 23053 Inject Tendon/Ligament Completed 07/20/2017 93279 Inject Tendon/Ligament Completed 07/20/2017 11855 Inject Tendon/Ligament Completed 06/20/2017 76313 Therapeutic, Prophylactic Or Diagnostic Injection Subq/Im Completed 06/20/2017 30648 Omt 3-4 Body Regions Completed 05/21/2017 32088 Omt 1-2 Body Regions Completed 05/21/2017 89091 Injection For Nerve Block, Suprascapular Nerve Completed 05/21/201700994 Injection, Single Or Mutiple Trigger Points One Or Two Completed Muscles 05/21/201786602 Injection, Tendon Origin/Insertion Completed 05/21/201796302 Injection, Tendon Origin/Insertion Completed 05/21/2017 91865 Inject Tendon/Ligament Completed 05/21/2017 33099 Inject Tendon/Ligament Completed 05/21/2017 99391 Inject Tendon/Ligament Completed 05/21/2017 86522 Inject Tendon/Ligament Completed 05/04/2017 67343 Omt 1-2 Body Regions Completed 05/04/2017 78711 Arthrocentesis/Aspiration/Inj Of Major Joint Or Bursa W/ Completed Ultra 04/20/2017 23678 Therapeutic, Prophylactic Or Diagnostic Injection Subq/Im Completed 03/22/2017 41494 Omt 1-2 Body Regions Completed 03/08/2017 83742 Omt 1-2 Body Regions Completed 03/08/2017 19024 Injection For Nerve Block, Other Peripheral Nerve Or Completed Branch 02/20/2017 66240 Omt 1-2 Body Regions Completed 01/24/2017 82324 Omt 3-4 Body Regions Completed 01/09/2017 98622 Omt 1-2 Body Regions Completed 01/09/2017 65356 Test Autonomic Nervous System, Sudomotor Completed 01/04/2017 75922 Nerve Conduction 11-12 Studies Completed 12/25/2016 18848 Omt 1-2 Body Regions Completed 11/27/2016 16685 Omt 1-2 Body Regions Completed 11/27/2016 44949 Nerve Conduction 11-12 Studies Completed 11/23/2016 45785 Omt 1-2 Body Regions Completed 10/23/201620242 Arthrocentesis/Aspiration/Inj Of Major Joint Or Bursa W/ Completed Ultra 10/10/201647359 Injection, Single Or Mutiple Trigger Points One Or Two Completed Muscles 10/10/2016 78431 Injection For Nerve Block, Greater Occipital Nerve Completed 10/10/2016 55295 Therapeutic, Prophylactic Or Diagnostic Injection Subq/Im Completed 10/10/2016 76292 Omt 1-2 Body Regions Completed 09/25/2016 15996 Omt 1-2 Body Regions Completed 09/25/2016 13737 Therapeutic, Prophylactic Or Diagnostic Injection Subq/Im Completed 09/25/2016 99845 Injection For Nerve Block, Suprascapular Nerve Completed 09/25/201625028 Injection, Single Or Mutiple Trigger Points One Or Two Completed Muscles 09/25/201695028 Injection, Tendon Origin/Insertion Completed 09/25/201607207 Injection, Tendon Origin/Insertion Completed 09/25/2016 77769 Inject Tendon/Ligament Completed 09/25/2016 20672 Inject Tendon/Ligament Completed 09/25/2016 71661 Inject Tendon/Ligament Completed 09/25/201692028 Inject Tendon/Ligament Completed Encounters Type Date Location Provider Dx Diagnosis Office Visit 09/16/2018 Main Office as Of Juanito Sargent DO G89.29 Other chronic pain 11:30a 05/03/13 MPH M54.5 Low back pain M54.2 Cervicalgia R51 Headache R53.83 Other fatigue 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 Office Visit 08/14/2018 11:30a Main Office as Juanito Sargent G89.29 Other chronic Of 05/03/13 DO, MPH pain M54.5 Low back pain M65.88 Other synovitis and tenosynovitis, other site M46.07 Spinal enthesopathy, lumbosacral region M79.18 Myalgia, other site R53.83 Other fatigue Z79.891 long-term (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 Office Visit 07/17/2018 11:15a Main Office as Juanito Sargent G89.29 Other chronic Of 05/03/13 DO, MPH pain M54.5 Low back pain M72.2 Plantar fascial fibromatosis R53.83 Other fatigue Z79.891 long-term (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 Office Visit 06/17/2018 11:30a Main Office as Juanito Sargent G89.29 Other chronic Of 05/03/13 DO, MPH pain 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, cervical region M54.5 Low back pain M65.879 Other synovitis and tenosynovitis, unsp ankle and foot R53.83 Other fatigue 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 Office Visit 05/17/2018 11:30a Main Office as Juanito Sargent G89.29 Other chronic Of 05/03/13 DO, MPH pain 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, cervical region M54.5 Low back pain Z13.31 Encounter for screening for depression Z79.891 long-term (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 R53.83 Other fatigue Office Visit 04/18/2018 11:15a Main Office as Juanito Sargent G89.29 Other chronic Of 05/03/13 DO, MPH pain 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, cervical region M25.542 Pain in joints of left hand M25.541 Pain in joints of right hand M54.5 Low back pain R53.83 Other fatigue Z79.891 long-term (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 Office Visit 03/19/2018 11:00a Main Office as Juanito Sargent G89.29 Other chronic Of 05/03/13 DO, MPH pain 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, cervical region M54.5 Low back pain M25.511 Pain in right shoulder M25.512 Pain in left shoulder M99.07 Segmental and somatic dysfunction of upper extremity R53.83 Other fatigue Z79.891 long-term (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 Office Visit 02/15/2018 11:15a Main Office as Juanito Sargent G89.29 Other chronic Of 05/03/13 DO, MPH pain 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, cervical region M54.5 Low back pain M65.88 Other synovitis and tenosynovitis, other site M79.12 Myalgia of auxiliary muscles, head and neck M54.2 Cervicalgia Z79.891 long-term (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 Office Visit 01/17/2018 11:30a Main Office as Juanito Sargent G89.29 Other chronic Of 05/03/13 DO, MPH pain 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, cervical region M54.5 Low back pain R53.83 Other fatigue 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 Office Visit 12/19/2017 2:30p Main Office as Juanito Sargent, G89.29 Other chronic Of 05/03/13 DO, MPH pain 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, cervical region M54.5 Low back pain M25.511 Pain in right shoulder M99.07 Segmental and somatic dysfunction of upper extremity M25.552 Pain in left hip R53.83 Other fatigue 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 Office Visit 11/19/2017 2:45p Main Office as Juanito Sargent G89.29 Other chronic Of 05/03/13 DO, MPH pain 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, cervical region M54.2 Cervicalgia M79.1 Myalgia M25.521 Pain in right elbow M99.07 Segmental and somatic dysfunction of upper extremity R53.83 Other fatigue Z79.891 long-term (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 Office Visit 11/05/2017 2:00p Main Office as Juanito Sargent G89.29 Other chronic Of 05/03/13 DO, MPH pain 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, cervical region M54.2 Cervicalgia M79.1 Myalgia M46.02 Spinal enthesopathy, cervical region M65.88 Other synovitis and tenosynovitis, other site Z79.891 long-term (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 Office Visit 10/19/2017 11:00a Main Office as Juanito Sargent G89.29 Other chronic Of 05/03/13 DO, MPH pain 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, cervical region M54.2 Cervicalgia M25.552 Pain in left hip M99.06 Segmental and somatic dysfunction of lower extremity R53.83 Other fatigue 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 Office Visit 09/18/2017 11:00a Main Office as Juanito Sargent G89.29 Other chronic Of 05/03/13 DO, MPH pain 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, cervical region M54.2 Cervicalgia M65.88 Other synovitis and tenosynovitis, other site M79.1 Myalgia Z79.891 long-term (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 R53.83 Other [...] and somatic dysfunction of upper extremity Z79.891 long-term (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 Office Visit [...] of upper extremity R53.83 Other fatigue 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 Office Visit [...] of upper extremity R53.83 Other fatigue 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 Office Visit 05/21/2017 11:30a Main Office as Juanito Sargent, G89.29 Other chronic Of 05/03/13 DO, MPH pain 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, cervical region M54.2 Cervicalgia M79.1 Myalgia M65.88 Other synovitis and tenosynovitis, other site M54.13 Radiculopathy, cervicothoracic region M99.01 Segmental and somatic dysfunction of cervical region 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 Office Visit [...] region M54.2 Cervicalgia R53.83 Other fatigue Z79.891 long-term (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 Office Visit 03/22/2017 9:45a Main Office as Juanito Sargent G89.29 Other chronic Of 05/03/13 DO, MPH pain M54.5 Low back pain M54.16 Radiculopathy, lumbar region M54.2 Cervicalgia 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, cervical region M99.01 Segmental and somatic dysfunction of cervical region 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 Office Visit 03/08/2017 2:15p Main Office as Juanito Sargent G89.29 Other chronic Of 05/03/13 DO, MPH pain M54.5 Low back pain M54.16 Radiculopathy, lumbar region M54.2 Cervicalgia M99.01 Segmental and somatic dysfunction of cervical region 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 Office Visit 02/20/2017 3:30p Main Office as Juanito Sargent G89.29 Other chronic Of 05/03/13 DO, MPH pain M54.5 Low back pain M54.16 Radiculopathy, lumbar region M54.2 Cervicalgia M99.01 Segmental and somatic dysfunction of cervical region 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 Office Visit 01/24/2017 2:00p Main Office as Chelsea Baer G89.29 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 M54.5 Low back pain M99.03 Segmental and somatic dysfunction of lumbar region M54.6 Pain in thoracic spine M99.02 Segmental and somatic dysfunction of thoracic region M54.2 Cervicalgia M99.01 Segmental and somatic dysfunction of cervical region 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, cervical region M54.17 Radiculopathy, lumbosacral region 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 G90.3 Multi-system degeneration of the autonomic nervous system Z71.89 Other specified counseling Office Visit 01/09/2017 11:45a Main Office as Juanito Sargent G89.29 Other chronic Of 05/03/13 DO, MPH pain 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, cervical region M99.01 Segmental and somatic dysfunction of cervical region M54.5 Low back pain G54.4 Lumbosacral root disorders, not elsewhere classified 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 G90.3 Multi-system degeneration of the autonomic nervous system Office Visit 12/25/2016 9:30a Main Office as Chelsea Baer G89.29 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, cervical region M54.12 Radiculopathy, cervical region M99.01 Segmental and somatic dysfunction of cervical region M54.6 Pain in thoracic spine M54.5 Low back pain G54.4 Lumbosacral root disorders, not elsewhere classified Z71.89 Other specified counseling 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 Office Visit 11/27/2016 2:15p Main Office as Juanito Sargent G89.29 Other chronic Of 05/03/13 DO, MPH pain 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, cervical region M99.01 Segmental and somatic dysfunction of cervical region M54.12 Radiculopathy, cervical region 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 Office Visit 11/23/2016 9:15a Main Office as Juanito Sargent G89.29 Other chronic Of 05/03/13 DO, MPH pain 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, cervical region M54.12 Radiculopathy, cervical region M99.01 Segmental and somatic dysfunction of cervical region M54.5 Low back pain M79.1 Myalgia R53.83 Other fatigue Z79.891 long-term (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 Office Visit 10/23/2016 11:00a Main Office as Juanito Sargent, G89.29 Other chronic Of 05/03/13 DO, MPH pain 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, cervical region M54.12 Radiculopathy, cervical region M54.5 Low back pain M79.1 Myalgia R53.83 Other fatigue M99.01 Segmental and somatic dysfunction of cervical region M70.62 Trochanteric bursitis, left hip 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 Office Visit 10/10/2016 2:45p Main Office as Juanito Sargent, G89.29 Other chronic Of 05/03/13 DO, MPH pain 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, cervical region M54.12 Radiculopathy, cervical region M65.88 Other synovitis and tenosynovitis, other site M79.1 Myalgia M54.5 Low back pain R53.83 Other fatigue 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 Office Visit 09/25/2016 11:00a Main Office as Juanito Sargent, G89.29 Other chronic Of 05/03/13 DO, MPH pain 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, cervical region M54.12 Radiculopathy, cervical region M54.5 Low back pain M79.1 Myalgia M46.07 Spinal enthesopathy, lumbosacral region M65.88 Other synovitis and tenosynovitis, other site R53.83 Other fatigue 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 M99.01 Segmental and somatic dysfunction of cervical region Office Visit 09/11/2016 10:00a Main Office as Juanito Sargent, G89.29 Other chronic Of 05/03/13 DO, MPH pain 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, cervical region M54.12 Radiculopathy, cervical region M54.5 Low back pain Z79.891 long-term (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 Office Visit 08/29/2016 9:00a Main Office as Juanito Sargent, G89.29 Other chronic Of 05/03/13 , MPH pain 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, cervical region M54.12 Radiculopathy, cervical region M54.5 Low back pain Z71.3 Dietary counseling and surveillance Z71.89 Other specified counseling Z79.891 long-term (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 Plan of Treatment Future Appointment(s):10/16/2018 11:45 am - Juanito Sargent DO, MPH at Main Office as Of 05/03/1405 - Juanito Sargent DO, MPHG89.29 Other chronic painComments:Chronic. Symptoms and complaints discussed and reviewed today. No significant changes in physical findings. Continue current medical pain management.M54.2 CervicalgiaComments:Chronic. Symptoms and complaints discussed and reviewed today. No significant changes in physical findings. Continue current medical pain management.M99.01 Segmental and somatic dysfunction of cervical regionComments:Chronic. Symptoms and complaints discussed and reviewed today. Somatic dysfunctions noted warrantingOMT. Continue current medical pain management and OMT. [id number]. OMT performed.M54.6 Pain in thoracic spineComments: Chronic.Symptoms and complaints discussed and reviewed today. No significant changes in physical findings. Continue current medical pain management.M99.02 Segmental and somatic dysfunction of thoracic regionComments:Chronic. Symptoms and complaints discussed and reviewed today. Notable somatic dysfunctions noted warranting OMT. Continue current medical pain management and OMT. [id number]. OMT performed after evaluation. HVLA.M25.511 Pain in right shoulderComments: Chronic. Symptoms and complaints discussed and reviewed today. No significant changes in physical findings. Continue current medical pain management.M25.512 Pain in left shoulderComments:Chronic. Symptoms and complaints discussed and reviewed today. No significant changes in physical findings. Continue current medical pain management.M99.07 Segmental and somatic dysfunction of upper extremityComments:Chronic. Symptoms and complaints discussed and reviewed today. Somatic dysfunctions noted warrantingOMT to the shoulder. Continue current medical pain management and OMT. Myofascial restrictions. OMTperformed. MFR.M65.88 Other synovitis and tenosynovitis, other siteComments:Chronic. Symptoms and complaints discussed and reviewed today. Physical findings reviewed and warrant intervention. Continue current medical pain management. Injection therapy today - tendon sheath. Informed consent given/refusal reviewed. See procedure sheet.M46.02 Spinal enthesopathy, cervical regionComments:Chronic. Symptoms and complaints discussed and reviewed today. Physical findings reviewed and warrant intervention. Patient is stable and comfortable with current medical therapy. Injection therapy today.Tendon I/O injections performed. See procedure sheet.M79.12 Myalgia of auxiliary muscles, head and neckComments:Injection therapy today - Trigger Point injections. Informed consent given/refusal reviewed. See procedure sheet.M54.81 Occipital neuralgiaComments:Chronic. Symptoms and complaints discussed and reviewed today. Continue current medical pain management. Physical findings reviewed and warrant intervention. Injection therapy performed today. See procedure sheet.AllComments:Continue current medical pain management; injection therapy, osteopathic manipulation, PT / modalities, and consults as needed to manage chronic pain.Non - opioid pain management discussed and optionsdiscussed.Side effects discussed; anticipatory guidance given. Patient clearly understand and agree with all medical treatments and suggestions. 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 Importance of regular nutrition throughout the day discussed.Activity as toleratedContinue with PCP
--- OUTSIDE RECORDS SUMMARY | 2018-10-07 18:45 | XMS REPORT | Continuity of Care Document ---
:1980 External Reference #:[id number] Author Name Juanito Sargent DO MPH Address [address] [place] [address], [address] [place] [address] Care Team Providers Name Role Phone Mario Iglesias MD Care Team Information Board Winder Unavailable Sebastian Zhang M.D. Primary Care Physician Unavailable Payers Date Identification Numbers Payment Provider Subscriber Policy Number: [id number] [facility] Chava Giles PayID: [id number] [employer] [address] [place] [address] Family History Date Family Member(s) Observation Comments [...] as DO, MPH directed chronic pain patient, [facility] [id number], id # [id number] Oxycodone HCL si by mouth 90tabs Juanito Sargent, 12/25/2016 15mg every 8 hours as DO, MPH Tablets directed chronic pain patient Morphine Sulfate ER si by mouth q12 60tabs Juanito Sargent, 09/11/2016 hours as directed DO, MPH 30mg Tablets ER chronic pain. Ventolin HFA 1-2 puffs as Unknown needed every 4-6 108(90Base) mcg/Act hours for Aerosol shortness for breath Viactiv Unknown [id number] Chewtabs Wellbutrin XL si by mouth Unknown [...] 10/16/2017 directed chronic pain patient dose increase. [id number], Alpha Lipoic Acid take one capsule 60caps Sargent, Juanito, DO, 01/24/2017 - 200mg by mouth every 12 MPH 02/24/2017 Capsules hours as directed chronic pain. Lyrica si by mouth 90caps Sargent, Juanito, DO, 10/20/2016 - 150mg Capsules three times a day MPH 01/24/2017 as directed chronic pain patient code: [id number], Oxycodone HCL si by mouth 90tabs Juanito [...] Auto-Inject Vital Signs Date Vital Result Comment 09/16/2018 11:31am BP Systolic 134 mmHg BP [...] H/L Range Note Comp Metabolic Panel 06/04/2018 [facility] Sodium 139 mmol/L N 135-145 1 [address] [place] [address] [phone] Potassium 4.0 mmol/L N 3.5-5.0 Chloride 104 [...] >60 2 Iron & Iron Binding 06/04/2018 [facility] Iron 84 g/ dL N 50-212 [address] [place], [place] [id number] [phone] Unsaturated Iron Binding < 317 g/dL Total Iron Binding Capacity 332 g/dL N 250-450 Transferrin 237 mg/dL N 203-362 % Iron Saturation 25 % N 15-55 Laboratory test 06/04/2018 [facility] Ferritin 21.6 ng /mL N 11-307 3 finding [address] [place] [address] [phone] Folic Acid (Folate) > 20.00 ng/mL >3.99 4 Vitamin B12 > 1450 pg/mL High 180-914 5 Vitamin D Total 25(Oh) 33.8 ng/mL N 20-50 6 Vitamin B1 (Whole Blood) 223 nmol/L Abnormal 70-180 7 PTH Related Peptide <0.2 pmol/L <2.0 8 Vitamin E Level 9.6 mg/L 5.5 - 17.0 9 Urine Microalbumin 06/04/2018 [facility] Ur Microalbumin < 15.0 Random [address] [facility] (mg/L) [place] [address] [phone] Urine Creatinine 62.27 mg/dL Urine Microalbumin/Creatinine TNP <31 10 Urinalysis Profile 06/04/2018 [facility] Urine Color Yellow [address] [place] [address] [phone] Urine Appearance Cloudy Urine Specific [place] 1.016 N 1.010-1.030 Urine pH 8.0 N [...] Cell Present Abnormal Absent Lipid Profile 06/04/2018 [facility] Triglycerides 56 mg/dL 11 (Trig/Chol/HDL) [address] [place] [address] [phone] Cholesterol 139 mg/dL 12 HDL Cholesterol 49.1 mg/dL 13 LDL Cholesterol 79 mg/dL 14 Laboratory test 06/04/2018 [facility] TSH (Thyroid 0.97 N 0.34-5.[address] Stimulating mcIU/[place] [address] Horm) [phone] Urine Culture And 06/04/2018 [facility] Urine Culture SEE RESULT [address] [place] [address] [phone] CBC Auto Diff 06/04/2018 [facility] White Blood 6.3 N 3.5-10.[address] Count 10^3/[place] [address] [phone] Red Blood Count 4.55 10^6/uL N 4.00-5.40 [...] developed and its performance characteristics determined by [facility] in a manner consistent with CLIA requirements. This test has not been cleared or approved by the U.S. Food and Drug Administration. Test Performed by: [facility] - [address] [address] 8 ADDITIONAL INFORMATION This test was developed and its performance characteristics determined by [facility] in a manner consistent with CLIA requirements. This test has not been cleared or approved by the U.S. Food and Drug Administration. Test Performed by: [facility] - [address] [address] 9 ADDITIONAL INFORMATION This test was developed and its performance characteristics determined by [facility] in a manner consistent with CLIA requirements. This test has not been cleared or approved by the U.S. Food and Drug Administration. Test Performed by: [facility] [place] [address] 10 Unable to calculate due to low microalbumin 11 Desirable: <150 Borderline High: 150-199 High: 200-499 Very High: >500 12 Desirable: <200 Borderline High: 200-239 High: >239 13 Low: <40 Desirable: 40-60 High: >60 14 Desirable: <100 Near Optimal: 100-129 Borderline High: 130-159 High: 160-189 Very High: >189 15 FASTING 16 SEE RESULT BELOW Name: MARTÍNCHAVA Wilmer : [address]: Sebastian Zhang DO Acct: [id number] Unit: [id number] AGE: 37 Location: LAB Re06/04/18 SEX: F Status: REG REF SPEC: [id number] SAUL: 06/04/[address] [facility] [address]: Sebastian Zhang DO REQ: [id number] RECD: 06/04/18 STATUS: COMP CELIO DR: Juanito Sargent DO _ SOURCE: URINE SPDESC: ORDERED: Urine Culture Procedure Result Reported Site Urine Culture Final 06/06/18- 0909 ML Organism 1 KLEBSIELLA PNEUMONIAE [place] Count 75-100,000 (Many) CFU/ML 1. KLEBSIELLA PNEUMONIAE [...] . END OF REPORT DEPARTMENT OF PATHOLOGY, [address] [place] [address] Matthias Link M.D. Director [facility] # [id number] Procedures Date Code Description Status 08/14/2018 32583 Therapeutic, Prophylactic Or Diagnostic Injection Subq/Im Completed 08/14/2018 Injection, Single Or Mutiple Trigger Points One Or Two Completed Muscles 08/14/2018 Injection, Tendon Origin/Insertion Completed 08/14/2018 Injection, Tendon Origin/Insertion Completed 08/14/2018 Inject Tendon/Ligament Completed 08/14/2018 Inject Tendon/Ligament Completed 08/14/2018 Inject Tendon/Ligament Completed 08/14/2018 Inject Tendon/Ligament Completed 07/17/2018 Inject Tendon/Ligament Completed 07/17/2018 93018 U/S Guidance For Needle Placement Completed 07/17/2018 20440 Therapeutic, Prophylactic Or Diagnostic Injection Subq/Im Completed 06/17/2018 20331 Therapeutic, Prophylactic Or Diagnostic Injection Subq/Im Completed 05/17/2018 30805 Therapeutic, Prophylactic Or Diagnostic Injection Subq/Im Completed 05/17/2018 13299 Brief Emotional/Behav Assessment W/ Scoring Doc Per [...] Small Joint/Bursa W US Completed Guidance 03/19/2018 92301 Omt 1-2 Body Regions Completed 03/19/2018 78606 Therapeutic, Prophylactic Or Diagnostic Injection Subq/Im Completed 02/15/201827091 Inject Tendon/Ligament Completed 02/15/201845080 Inject Tendon/Ligament Completed 02/15/201839340 Inject Tendon/Ligament Completed 02/15/2018 87549 Inject Tendon/Ligament Completed 02/15/201867367 Injection, Tendon Origin/Insertion Completed 02/15/201840292 Injection, Tendon Origin/Insertion Completed 02/15/201868697 Injection, Single Or Mutiple Trigger Points One Or Two Completed Muscles 02/15/2018 59292 Injection For Nerve Block, Suprascapular Nerve Completed 01/17/2018 13024 Therapeutic, Prophylactic Or Diagnostic Injection Subq/Im Completed 12/19/2017 16863 Omt 1-2 Body Regions Completed 12/19/201775416 Arthrocentesis/Aspiration/Inj Of Major Joint Or Bursa W/ Completed Ultra 11/19/2017 68989 Omt 1-2 Body Regions Completed 11/19/2017 07693 Therapeutic, Prophylactic Or Diagnostic Injection Subq/Im Completed 11/19/201719859 Arthrocentesis Aspirtation Inj,Intermediate W/ US Guide & Completed Report 11/05/201718256 Inject Tendon/Ligament Completed 11/05/201742940 Inject Tendon/Ligament Completed 11/05/201746165 Inject Tendon/Ligament Completed 11/05/201768719 Inject Tendon/Ligament Completed 11/05/201776580 Injection, Tendon Origin/Insertion Completed 11/05/201770156 Injection, Tendon Origin/Insertion Completed 11/05/201768316 Injection, Single Or Mutiple Trigger Points One Or Two Completed Muscles 10/19/2017 56436 Omt 1-2 Body Regions Completed 10/19/2017 43504 Therapeutic, Prophylactic Or Diagnostic Injection Subq/Im Completed 10/19/201727379 Arthrocentesis/Aspiration/Inj Of Major Joint Or Bursa W/ Completed Ultra 09/18/201773662 Inject Tendon/Ligament Completed 09/18/2017 91279 Inject Tendon/Ligament Completed 09/18/201785893 Inject Tendon/Ligament Completed 09/18/201711525 Inject Tendon/Ligament Completed 09/18/201738969 Injection, Tendon Origin/Insertion Completed 09/18/201731881 Injection, Tendon Origin/Insertion Completed 09/18/201797503 Injection, Single Or Mutiple Trigger Points One Or Two Completed Muscles 09/18/2017 75789 Therapeutic, Prophylactic Or Diagnostic Injection Subq/Im Completed 08/20/2017 91360 Omt 3-4 Body Regions Completed 07/20/2017 36894 Therapeutic, Prophylactic Or Diagnostic Injection Subq/Im Completed 07/20/201762895 Injection, Single Or Mutiple Trigger Points One Or Two Completed Muscles 07/20/201745878 Injection, Tendon Origin/Insertion Completed 07/20/201758308 Injection, Tendon Origin/Insertion Completed 07/20/201718146 Inject Tendon/Ligament Completed 07/20/201769258 Inject Tendon/Ligament Completed 07/20/2017 59759 Inject Tendon/Ligament Completed 07/20/201773763 Inject Tendon/Ligament Completed 06/20/2017 23679 Therapeutic, Prophylactic Or Diagnostic Injection Subq/Im Completed 06/20/2017 82875 Omt 3-4 Body Regions Completed 05/21/2017 61243 Omt 1-2 Body Regions Completed 05/21/2017 51907 Injection For Nerve Block, Suprascapular Nerve Completed 05/21/201707009 Injection, Single Or Mutiple Trigger Points One Or Two Completed Muscles 05/21/201775562 Injection, Tendon Origin/Insertion Completed 05/21/201782688 Injection, Tendon Origin/Insertion Completed 05/21/201710494 Inject Tendon/Ligament Completed 05/21/201773139 Inject Tendon/Ligament Completed 05/21/201704801 Inject Tendon/Ligament Completed 05/21/201766134 Inject Tendon/Ligament Completed 05/04/2017 38131 Omt 1-2 Body Regions Completed 05/04/201794173 Arthrocentesis/Aspiration/Inj Of Major Joint Or Bursa W/ Completed Ultra 04/20/2017 46152 Therapeutic, Prophylactic Or Diagnostic Injection Subq/Im Completed 03/22/2017 18417 Omt 1-2 Body Regions Completed 03/08/2017 18669 Omt 1-2 Body Regions Completed 03/08/2017 71431 Injection For Nerve Block, Other Peripheral Nerve Or Completed Branch 02/20/2017 20603 Omt 1-2 Body Regions Completed 01/24/2017 16709 Omt 3-4 Body Regions Completed 01/09/2017 04862 Omt 1-2 Body Regions Completed 01/09/2017 47135 Test Autonomic Nervous System, Sudomotor Completed 01/04/2017 01967 Nerve Conduction 11-12 Studies Completed 12/25/2016 85172 Omt 1-2 Body Regions Completed 11/27/2016 64423 Omt 1-2 Body Regions Completed 11/27/2016 68743 Nerve Conduction 11-12 Studies Completed 11/23/2016 71432 Omt 1-2 Body Regions Completed 10/23/2016 02399 Arthrocentesis/Aspiration/Inj Of Major Joint Or Bursa W/ Completed Ultra 10/10/2016 08085 Injection, Single Or Mutiple Trigger Points One Or Two Completed Muscles 10/10/2016 69256 Injection For Nerve Block, Greater Occipital Nerve Completed 10/10/2016 86277 Therapeutic, Prophylactic Or Diagnostic Injection Subq/Im Completed 10/10/2016 64584 Omt 1-2 Body Regions Completed 09/25/2016 07036 Omt 1-2 Body Regions Completed 09/25/2016 01251 Therapeutic, Prophylactic Or Diagnostic Injection Subq/Im Completed 09/25/2016 21643 Injection For Nerve Block, Suprascapular Nerve Completed 09/25/2016 Injection, Single Or Mutiple Trigger Points One Or Two Completed Muscles 09/25/2016 Injection, Tendon Origin/Insertion Completed 09/25/2016 Injection, Tendon Origin/Insertion Completed 09/25/201698684 Inject Tendon/Ligament Completed 09/25/201632636 Inject Tendon/Ligament Completed 09/25/201601269 Inject Tendon/Ligament Completed 09/25/201665055 Inject Tendon/Ligament Completed Encounters Type Date Location Provider Dx Diagnosis Office Visit 08/14/2018 Main Office as Of Juanito Sargent DO, G89.29 Other chronic pain 11:30a 05/03/13 MPH M54.5 Low back pain M65.88 Other synovitis and tenosynovitis, other site M46.07 Spinal enthesopathy, lumbosacral region M79.18 Myalgia, other site R53.83 Other fatigue Z79.891 intermediate card tender (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 Office Visit 07/17/2018 11:15a Main Office as Juanito Sargent G89.29 Other chronic Of 05/03/13 DO, MPH pain M54.5 Low back pain M72.2 Plantar fascial fibromatosis R53.83 Other fatigue Z79.891 [facility] (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 Office Visit 06/17/2018 11:30a Main Office as Juanito Sargent G89.29 Other chronic Of 05/03/13 DO, MPH pain 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, cervical region M54.5 Low back pain M65.879 Other synovitis and tenosynovitis, unsp ankle and foot R53.83 Other fatigue Z79.891 intermediate card tender (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 Office Visit 05/17/2018 11:30a Main Office as Juanito Sargent G89.29 Other chronic Of 05/03/13 DO, MPH pain 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, cervical region M54.5 Low back pain Z13.31 Encounter for screening for depression Z79.891 intermediate card tender (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 R53.83 Other fatigue Office Visit 04/18/2018 11:15a Main Office as Juanito Sargent, G89.29 Other chronic Of 05/03/13 DO, MPH pain 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, cervical region M25.542 Pain in joints of left hand M25.541 Pain in joints of right hand M54.5 Low back pain R53.83 Other fatigue Z79.891 [facility] (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 Office Visit 03/19/2018 11:00a Main Office as Juanito Sargent G89.29 Other chronic Of 05/03/13 DO, MPH pain 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, cervical region M54.5 Low back pain M25.511 Pain in right shoulder M25.512 Pain in left shoulder M99.07 Segmental and somatic dysfunction of upper extremity R53.83 Other fatigue Z79.891 [facility] (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 Office Visit 02/15/2018 11:15a Main Office as Juanito Sargent G89.29 Other chronic Of 05/03/13 DO, MPH pain 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, cervical region M54.5 Low back pain M65.88 Other synovitis and tenosynovitis, other site M79.12 Myalgia of auxiliary muscles, head and neck M54.2 Cervicalgia Z79.891 [facility] (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 Office Visit 01/17/2018 11:30a Main Office as Juanito Sargent G89.29 Other chronic Of 05/03/13 DO, MPH pain 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, cervical region M54.5 Low back pain R53.83 Other fatigue Z79.891 [facility] (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 Office Visit 12/19/2017 2:30p Main Office as Juanito Sargent G89.29 Other chronic Of 05/03/13 DO, MPH pain 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, cervical region M54.5 Low back pain M25.511 Pain in right shoulder M99.07 Segmental and somatic dysfunction of upper extremity M25.552 Pain in left hip R53.83 Other fatigue Z79.891 [facility] (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 Office Visit 11/19/2017 2:45p Main Office as Juanito Sargent G89.29 Other chronic Of 05/03/13 DO, MPH pain 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, cervical region M54.2 Cervicalgia M79.1 Myalgia M25.521 Pain in right elbow M99.07 Segmental and somatic dysfunction of upper extremity R53.83 Other fatigue Z79.891 intermediate card tender (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 Office Visit 11/05/2017 2:00p Main Office as Juanito Sargent G89.29 Other chronic Of 05/03/13 DO, MPH pain 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, cervical region M54.2 Cervicalgia M79.1 Myalgia M46.02 Spinal enthesopathy, cervical region M65.88 Other synovitis and tenosynovitis, other site Z79.891 intermediate card tender (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 Office Visit 10/19/2017 11:00a Main Office as Juanito Sargent G89.29 Other chronic Of 05/03/13 DO, MPH pain 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, cervical region M54.2 Cervicalgia M25.552 Pain in left hip M99.06 Segmental and somatic dysfunction of lower extremity R53.83 Other fatigue Z79.891 intermediate card tender (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 Office Visit 09/18/2017 11:00a Main Office as Juanito Sargent G89.29 Other chronic Of 05/03/13 DO, MPH pain 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, cervical region M54.2 Cervicalgia M65.88 Other synovitis and tenosynovitis, other site M79.1 Myalgia Z79.891 [facility] (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 R53.83 Other [...] and somatic dysfunction of upper extremity Z79.891 intermediate card tender (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 Office Visit [...] of upper extremity R53.83 Other fatigue Z79.891 [facility] (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 Office Visit [...] of upper extremity R53.83 Other fatigue Z79.891 [facility] (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 Office Visit 05/21/2017 11:30a Main Office as Juanito Sargent G89.29 Other chronic Of 05/03/13 DO, MPH pain 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, cervical region M54.2 Cervicalgia M79.1 Myalgia M65.88 Other synovitis and tenosynovitis, other site M54.13 Radiculopathy, cervicothoracic region M99.01 Segmental and somatic dysfunction of cervical region Z79.891 intermediate card tender (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 Office Visit [...] region M54.2 Cervicalgia R53.83 Other fatigue Z79.891 intermediate card tender (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 Office Visit 03/22/2017 9:45a Main Office as Juanito Sargent G89.29 Other chronic Of 05/03/13 DO, MPH pain M54.5 Low back pain M54.16 Radiculopathy, lumbar region M54.2 Cervicalgia 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, cervical region M99.01 Segmental and somatic dysfunction of cervical region Z79.891 [facility] (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 Office Visit 03/08/2017 2:15p Main Office as Juanito Sargent G89.29 Other chronic Of 05/03/13 DO, MPH pain M54.5 Low back pain M54.16 Radiculopathy, lumbar region M54.2 Cervicalgia M99.01 Segmental and somatic dysfunction of cervical region Z79.891 intermediate card tender (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 Office Visit 02/20/2017 3:30p Main Office as Juanito Sargent G89.29 Other chronic Of 05/03/13 DO, MPH pain M54.5 Low back pain M54.16 Radiculopathy, lumbar region M54.2 Cervicalgia M99.01 Segmental and somatic dysfunction of cervical region Z79.891 intermediate card tender (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 Office Visit 01/24/2017 2:00p Main Office as Chelsea Baer G89.29 Other chronic Of 05/03/13 BACK SIZER pain M54.5 Low back pain M99.03 Segmental and somatic dysfunction of lumbar region M54.6 Pain in thoracic spine M99.02 Segmental and somatic dysfunction of thoracic region M54.2 Cervicalgia M99.01 Segmental and somatic dysfunction of cervical region 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, cervical region M54.17 Radiculopathy, lumbosacral region Z79.891 [facility] (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 G90.3 Multi-system degeneration of the autonomic nervous system Z71.89 Other specified counseling Office Visit 01/09/2017 11:45a Main Office as Juanito Sargent G89.29 Other chronic Of 05/03/13 DO, MPH pain 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, cervical region M99.01 Segmental and somatic dysfunction of cervical region M54.5 Low back pain G54.4 Lumbosacral root disorders, not elsewhere classified Z79.891 [facility] (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 G90.3 Multi-system degeneration of the autonomic nervous system Office Visit 12/25/2016 9:30a Main Office as Chelsea Baer G89.29 Other chronic Of 05/03/13 BACK SIZER pain 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, cervical region M54.12 Radiculopathy, cervical region M99.01 Segmental and somatic dysfunction of cervical region M54.6 Pain in thoracic spine M54.5 Low back pain G54.4 Lumbosacral root disorders, not elsewhere classified Z71.89 Other specified counseling Z79.891 [facility] (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 Office Visit 11/27/2016 2:15p Main Office as Juanito Sargent G89.29 Other chronic Of 05/03/13 DO, MPH pain 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, cervical region M99.01 Segmental and somatic dysfunction of cervical region M54.12 Radiculopathy, cervical region Z79.891 [facility] (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 Office Visit 11/23/2016 9:15a Main Office as Juanito Sargent G89.29 Other chronic Of 05/03/13 DO, MPH pain 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, cervical region M54.12 Radiculopathy, cervical region M99.01 Segmental and somatic dysfunction of cervical region M54.5 Low back pain M79.1 Myalgia R53.83 Other fatigue Z79.891 intermediate card tender (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 Office Visit 10/23/2016 11:00a Main Office as Juanito Sargent G89.29 Other chronic Of 05/03/13 DO, MPH pain 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, cervical region M54.12 Radiculopathy, cervical region M54.5 Low back pain M79.1 Myalgia R53.83 Other fatigue M99.01 Segmental and somatic dysfunction of cervical region M70.62 Trochanteric bursitis, left hip Z79.891 [facility] (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 Office Visit 10/10/2016 2:45p Main Office as Juanito Sargent, G89.29 Other chronic Of 05/03/13 DO, MPH pain 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, cervical region M54.12 Radiculopathy, cervical region M65.88 Other synovitis and tenosynovitis, other site M79.1 Myalgia M54.5 Low back pain R53.83 Other fatigue Z79.891 [facility] (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 Office Visit 09/25/2016 11:00a Main Office as Juanito Sargent G89.29 Other chronic Of 05/03/13 DO, MPH pain 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, cervical region M54.12 Radiculopathy, cervical region M54.5 Low back pain M79.1 Myalgia M46.07 Spinal enthesopathy, lumbosacral region M65.88 Other synovitis and tenosynovitis, other site R53.83 Other fatigue Z79.891 [facility] (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 M99.01 Segmental and somatic dysfunction of cervical region Office Visit 09/11/2016 10:00a Main Office as Juanito Sargent G89.29 Other chronic Of 05/03/13 DO, MPH pain 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, cervical region M54.12 Radiculopathy, cervical region M54.5 Low back pain Z79.891 [facility] (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 Office Visit 08/29/2016 9:00a Main Office as Juanito Sargent G89.29 Other chronic Of 05/03/13 DO, MPH pain 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, cervical region M54.12 Radiculopathy, cervical region M54.5 Low back pain Z71.3 Dietary counseling and surveillance Z71.89 Other specified counseling Z79.891 intermediate card tender (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 Plan of Treatment Future Appointment(s):09/21/2018 10:45 am - Juanito Sargent DO MPH at Main Office as Of 05/03/1406 11:45 am - Juanito Sargent DO MPH at Main Office as Of 05/03/1405 - Juanito Sargent DO MPHG89.29 Other chronic painComments: Chronic. Symptoms and complaints discussed and reviewed today. No significant changes in physical findings. Continue current medical pain management.M54.5 Low back painComments:Chronic. Symptoms and complaints discussed and reviewed today.No changes in physical findings. Patient is stable and comfortable when current medical therapy is rendered.M54.2 CervicalgiaComments:Chronic. Symptoms and complaints discussed and reviewed today. No significant changes in physical findings. Continue current medical pain management.R51 HeadacheComments: Chronic. Symptoms and complaints discussed and reviewed today. No changes in physical findings; patient is stable and comfortable with current medical therapy. Will request authorization for injections to be approved by her insurance [employer].R53.83 Other fatigueComments:Symptoms and complaints discussed and reviewed today. No significant changes in physical findings. Continue current medical pain management. B12 injection administered after patient evaluated. 1ml IM for fatigue. (See Consent for injection-B12 document for lot number and expiration date.)Z79.891 intermediate card tender (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New Labs:Urine Drug Screen, Ordered: 09/16/18Comments:Urine drug screen sample taken. Rapid Point of [...] 4, Tendon Origin Insertion () quantity of 2, Trigger Point Injection () quantity of 2, Bilateral Occipital Nerve Block ( 23485) quantity of 2If she is able to have injections as [...] maintaining satisfactory side effect profile and minimizing penitentiary end-organ damage. Activity as toleratedContinue with PCP
[2018-10-07] MEDS ORDERED: Methocarbamol* 100 MG/ML 10 ML VIAL IV ONE (19:51)
[2018-10-07] MEDS ORDERED: methylPREDNISolone 125 MG* 2 ML VIAL IV ONE (19:51)
[2018-10-07] MEDS ORDERED: Morphine 4 MG/ML VIAL (1 ml) 4 MG/ML VIAL IV ONE (19:52)
[2018-10-07] MEDS ORDERED: NS 0.9% 1000 ML** 1,000 ML IV ONE (20:04)
--- NOTE | 2018-10-07 21:18 | ED ---
Back Pain - HPI Summary HPI Summary: 38 year old female presents with back pain for the past. She states she lifted up her daughter and felt pain in her lower back. pain radiates down left leg. pain is on the posterior aspect of leg. No numbness or tingling. no loss of bowel or bladder. no urinary symptoms. No fevers. Has a history of RA. States pain and spasming located greatest on left side of back. states pain is interfering with daily activities. She is on chronic pain medication for her neck pain. primary is ordering an MRI. - History of Current Complaint Chief Complaint: EDBackInjuryPain Stated Complaint: BACK PAIN PER PT Time Seen by Provider: 10/07/18 19:30 Hx Last Menstrual Period: 03/25/17 Pain Intensity: 10 - Allergies/Home Medications Allergies/Adverse Reactions: Allergies Allergy/AdvReac Type Severity Reaction Status Date / Time No Known Allergies Allergy Verified 10/07/18 18:37 Home Medications: Home Medications DOXYcycline CAP(*) 100 mg PO DAILY 10/07/18 [History Confirmed 10/07/18] PMH/Surg Hx/FS Hx/Imm Hx Endocrine/Hematology History: Denies: Hx Diabetes, Hx Thyroid Disease Cardiovascular History: Denies: Hx Hypertension, Hx Pacemaker/ICD, Other Cardiovascular Problems/ Disorders Respiratory History: Reports: Hx Sleep Apnea - position controled Denies: Hx Asthma, Hx Chronic Obstructive Pulmonary Disease (COPD), Other Respiratory Problems/Disorders GI History: Denies: Hx Ulcer, Other GI Disorders History: Reports: Other Problems/Disorders - history of renal calculi Denies: Hx Renal Disease Musculoskeletal History: Reports: Hx Arthritis - hands, elbows, ankles, osteoarthritis, Hx Rheumatoid Arthritis, Hx Bursitis - left hip, Hx Fibromyalgia , Other Musculoskeletal History - left plantar fasciitis Sensory History: Reports: Hx Contacts or Glasses - not wearing Denies: Hx Hearing Aid Opthamlomology History: Reports: Hx Contacts or Glasses - not wearing Neurological History: Reports: Hx Nerve Disease - myopathic feet, legs and hands , fibromyalgia Denies: Other Neuro Impairments/Disorders Psychiatric History: Reports: Hx Anxiety, Hx Eating Disorder - binge eating disorder, Hx Depression, Hx Panic Disorder - ANXIETY, Hx Post Traumatic Stress Disorder, Hx Bipolar Disorder, Other Psychiatric Issues/Disorders - opiate addiction - Surgical History Surgery Procedure, Year, and Place: 3 C-SECTIONS. C3 to C7 fusion. TUBAL LIGATION Hx Anesthesia Reactions: No - Immunization History Date of Tetanus Vaccine: utd Date of Influenza Vaccine: utd Infectious Disease History: No Infectious Disease History: Denies: Hx Clostridium Difficile, Hx Hepatitis, Hx Human Immunodeficiency Virus (HIV), Hx of Known/Suspected MRSA, Hx Shingles, Hx Tuberculosis, Hx Known/ Suspected VRE, Hx Known/Suspected VRSA, History Other Infectious Disease, Traveled Outside the [place] in Last 30 Days - Family History Known Family History: Positive: None, Cardiac Disease - father [place] 48yo alive, Hypertension, Diabetes, Respiratory Disease - COPD - parents, Other - copd, parents - Social History Alcohol Use: None Hx Substance Use: Yes Substance Use Type: Reports: Prescribed Substance Use Comment - Amount & Last Used: Percocet bid, morphine er 30 mg bid Hx Tobacco Use: Yes Smoking Status (MU): Former Smoker Type: Cigarettes Amount Used/How Often: 1/4 pack a day for 9 months Have You Smoked in the Last Year: No Review of Systems Negative: Fever Negative: Chest Pain Negative: Shortness Of Breath Positive: Myalgia - back pain All Other Systems Reviewed And Are Negative: Yes Physical Exam Triage Information Reviewed: Yes Vital Signs On Initial Exam: Initial Vitals Temp Pulse Resp BP Pulse Ox 97.6 F 91 18 165/107 98 10/07/18 18:34 10/07/18 18:34 10/07/18 18:34 10/07/18 18:34 10/07/18 18:34 Vital Signs Reviewed: Yes Appearance: Positive: Well-Appearing Skin: Positive: Warm, Dry Head/Face: Positive: Normal Head/Face Inspection Eyes: Positive: Normal, Conjunctiva Clear ENT: Positive: Pharynx normal Respiratory/Lung Sounds: Positive: Clear to Auscultation, Breath Sounds Present Cardiovascular: Positive: Normal, RRR Musculoskeletal: Positive: Limited @ - back, Other - tenderness lower back, pos SLR left, good pulses, sensation grossly intact Neurological: Positive: Normal, Babinski Bilateral - normal Psychiatric: Positive: Normal Diagnostics - Vital Signs Vital Signs Temp Pulse Resp BP Pulse Ox 10/07/18 20:13 18 10/07/18 18:34 97.6 F 91 18 165/107 98 - Laboratory Result Diagrams: 10/07/18 21:37 10/07/18 21:37 Lab Statement: Any lab studies that have been ordered have been reviewed, and results considered in the medical decision making process. - CT back CT Interpretation Completed By: Radiologist Summary of CT Findings: IMPRESSION: 1. No lumbar spine traumatic abnormalities. 2. Mild multilevel lumbar spondylopathy. Re-Evaluation - Re-Evaluation First Eval Re-Evaluation Time: 21:21 Change: Improved Comment: muscle spasms resolved but still having pain Second Eval Re-Evaluation Time: 22:18 Change: Improved Comment: pain better Back Pain Course/Dx - Course Course Of Treatment: 38 year old female presents with back pain for the past. She states she lifted up her daughter and felt pain in her lower back. pain radiates down left leg. pain is on the posterior aspect of leg. No numbness or tingling. no loss of bowel or bladder. no urinary symptoms. No fevers. Has a history of RA. States pain and spasming located greatest on left side of back. states pain is interfering with daily activities. She is on chronic pain medication for her neck pain. primary is ordering an MRI. On exam tenderness lower back. Straight leg raise. Neurovascular intact. CT shows no acute findings. Given Robaxin morphine and solumedrol and was improvement in spasms but pain continue. Gave dosed Dilaudid and feeling better. discussed will add on robaxin for pain. told follow up with primary. patient understand and agrees with plan. - Diagnoses Differential Diagnosis/HQI/PQRI: Positive: Herniated Disc, Strain, Sprain Provider Diagnoses: Back pain Discharge - Sign-Out/Discharge Documenting (check all that apply): Patient Departure Patient Received Moderate/Deep Sedation with Procedure: No - Discharge Plan Condition: Good Disposition: HOME Prescriptions: Methocarbamol TAB* [Robaxin 500 MG TAB*] 750 mg PO TID PRN #21 tab PRN Reason: Pain Patient Education Materials: Back Pain (ED) Referrals: Sebastian Zhang DO [Primary Care Provider] - Additional Instructions: Take muscle relaxers three times a day Use normal pain medication ice/heat area, move as much as possible Follow up with primary within 5 days Return to ED if develop any new or worsening symptoms - Billing Disposition and Condition Condition: GOOD Disposition: Home
[2018-10-07] MEDS ORDERED: HYDROmorphone INJ1* 1 MG/ML SYRINGE IV SLOW PU ONE ×2 (21:21→22:17)
[2018-10-07] MEDS ORDERED: Ondansetron INJ* 2 MG/ML VIAL ONE (21:37)
[2018-10-07] MEDS ORDERED: Ondansetron INJ* 2 MG/ML VIAL IV ONE ×2 (21:37→22:18)
[2018-10-07 21:51] LABS: ABS Eosinophils 0.1 10^3/ul (0-0.6); ABS Lymphocytes 1.4 10^3/ul (1.0-4.8); ABS Monocytes 0.3 10^3/ul (0-0.8); Hematocrit 39 % (35-47); Hemoglobin 13.2 g/dL (12.0-16.0); Lymphocyte % 12.7 %; Mean Corpuscular HGB Conc 34 g/dL (31-36); Mean Corpuscular Hemoglobin 29 pg (27-31); Mean Corpuscular Volume 86 fL (80-97); Mean Platelet Volume 9.6 fL (7.4-10.4); Platelet Count 226 10^3/uL (150-450); Red Cell Distribution Width 13 % (10-15); White Blood Count 10.8 10^3/uL (3.5-10.8)
[2018-10-07 22:07] LABS: Albumin 4.2 g/dL (3.2-5.2); Albumin/Globulin Ratio 1.4 (1-3); C Reactive Protein 25.13 mg/L (<8.01); Calcium 9.2 mg/dL (8.6-10.3); EGFR African American 116.5 (>60); EGFR Non-African American 96.3 (>60); Total Bilirubin 0.7 mg/dL (0.2-1.0); Total Protein 7.2 g/dL (6.4-8.9)
[2018-10-07 22:34] VITALS: BP 157/87
== END 2018-10-07 22:33 | disposition home or self-care (01) ==
LOC: ED 18:26
DX: M54.9 Dorsalgia, unspecified (principal); Z87.891 Personal history of nicotine dependence; Z79.899 Other long term (current) drug therapy; M48.8X6 Other specified spondylopathies, lumbar region
CPT/HCPCS: 36415; 72131; 80053; 85025; 86140; 96361; 96374; 96375; 99284; J1170; J2270; J2405; J2800; J2930

== ENCOUNTER 2018-10-21 19:43 | Emergency (ER) | payer OTHER ==
--- OUTSIDE RECORDS SUMMARY | 2018-10-21 19:54 | XMS REPORT | Continuity of Care Document ---
:1980 External Reference #:[id number] Author Name Juanito Sargent DO MPH Address [address] [place] [address], [address] [place] [address] Care Team Providers Name Role Phone Mario Iglesias MD Care Team Information Desk Assistant Unavailable Sebastian Zhang M.D. Primary Care Physician Unavailable Payers Date Identification Numbers Payment Provider Subscriber Policy Number: [id number] [facility] Chava Giles PayID: [id number] [employer] [address] [place] [address] Family History Date Family Member(s) Observation Comments [...] is a former smoker Smoking Status Reviewed: 10/16/18 Patient is a former smoker Allergies, Adverse Reactions, Alerts Description No Known Drug Allergies Medications Active Medications SIG Qnty Indications Ordering Date Provider Tizanidine HCL si/2-1 by 120tabs Juanito Sargent, 05/17/2018 4mg mouth every 6 DO, MPH Tablets hours as directed Lyrica si by mouth 90caps Juanito Sargent, 10/16/2017 200mg Capsules every 8 hours as DO, MPH directed chronic pain patient, [facility] [id number], id # [id number] Oxycodone HCL si by mouth 90tabs Juanito Sargent, 12/25/2016 15mg every 8 hours as DO, MPH Tablets directed chronic pain patient Morphine Sulfate ER si by mouth q12 60tabs Juanito Saregnt, 09/11/2016 hours as directed DO, MPH 30mg Tablets ER chronic pain. Ventolin HFA 1-2 puffs as Unknown needed every 4-6 108(90Base) mcg/Act hours for Aerosol shortness for breath Viactiv Unknown [id number]-mcg Chewtabs Wellbutrin XL si by mouth Unknown [...] 10/16/2017 directed chronic pain patient dose increase. [id number], Alpha Lipoic Acid take one capsule 60caps Sargent, Juanito, DO, 01/24/2017 - 200mg by mouth every 12 MPH 02/24/2017 Capsules hours as directed chronic pain. Lyrica si by mouth 90caps Sargent, Juanito, DO, 10/20/2016 - 150mg Capsules three times a day MPH 01/24/2017 as directed chronic pain patient code: [id number], Oxycodone HCL si by mouth 90tabs Juanito [...] Auto-Inject Vital Signs Date Vital Result Comment 10/16/2018 11:39am BP Systolic 140 mmHg BP Diastolic 86 mmHg Heart Rate 82 /min Respiratory Rate 20 /min Height 66 inches 5'6" Weight 220.00 lb Pain Level 6 Pain at this time. Pain Level With Medicine 6 on average with meds Pain Level Without Medicine 9 without meds BMI (Body Mass Index) 35.5 kg/m2 09/21/2018 10:45am BP Systolic 136 mmHg BP [...] 10 without meds BMI (Body Mass Index) 41.0 [...] Level Without Medicine 10 10 without meds Pain Level After Procedure 5 [...] Date Facility Test Result H/L Range Note CBC Auto Diff 06/04/2018 [facility] White Blood 6.3 10 ^3/uL N 3.5-10.[address] [place] [address] [phone] Red Blood Count 4.55 10^6/uL N 4.00-5.40 [...] % Nucleated Red Blood Cells % 0.1 Urine Culture And 06/04/2018 [facility] Urine Culture SEE RESULT [address] [place] [address] [phone] Laboratory test 06/04/2018 [facility] TSH (Thyroid 0.97 N [address] Stimulating Horm) mcIU/mL -5.6 [place] [address] 0 [phone] Lipid Profile 06/04/2018 [facility] Triglycerides 56 mg/dL 3 (Trig/Chol/HDL) [address] [place], [place] [address] [phone] Cholesterol 139 mg/dL 4 HDL Cholesterol 49.1 mg/dL 5 LDL Cholesterol 79 mg/dL 6 Urinalysis Profile 06/04/2018 [facility] Urine Color Yellow [address] [place] [address] [phone] Urine Appearance Cloudy Urine Specific [place] 1.016 N 1.010-1.030 Urine pH 8.0 N [...] Urine Squamous Epithelial Cell Present Abnormal Absent Urine Microalbumin 06/04/2018 [facility] Ur Microalbumin < 15.[address] (mg/L) [place] [address] [phone] Urine Creatinine 62.27 mg/dL Urine Microalbumin/Creatinine TNP <31 7 Laboratory test 06/04/2018 [facility] Ferritin 21.6 ng /mL N 11-307 8, [address] [place] [address] [phone] Folic Acid (Folate) > 20.00 ng/mL >3.99 10 Vitamin B12 > 1450 pg/mL High 180-914 11 Vitamin D Total 25(Oh) 33.8 ng/mL N 20-50 12 Vitamin B1 (Whole Blood) 223 nmol/L Abnormal 70-180 13 PTH Related Peptide <0.2 pmol/L <2.0 14 Vitamin E Level 9.6 mg/L 5.5 - 17.0 15 Iron & Iron Binding 06/04/2018 [facility] Iron 84 g/ dL N 50-212 [address] [place] [address] [phone] Unsaturated Iron Binding < 317 g/dL Total Iron Binding Capacity 332 g/dL N 250-450 Transferrin 237 mg/dL N 203-362 % Iron Saturation 25 % N 15-55 Comp Metabolic Panel 06/04/2018 [facility] Sodium 139 mmol/L N 135-145 [address] [place] [address] [phone] Potassium 4.0 mmol/L N 3.5-5.0 Chloride 104 [...] Egfr Non- 81.6 >60 Egfr 98.8 >60 16 1 SEE RESULT BELOW Name: CHAVA GILES : [address]: Sebastian Zhang DO Acct: [id number] Unit: [id number] AGE: 37 Location: LAB Re06/04/18 SEX: F Status: REG REF SPEC: [id number] SAUL: 06/04/18 [facility] DR: Sebastian Zhang DO REQ: [id number] RECD: 06/04/18 STATUS: TRENT PICKENS DR: Juanito Sargent DO _ SOURCE: URINE SPDESC: ORDERED: Urine Culture Procedure Result Reported Site Urine Culture Final 06/06/18- 908 ML Organism 1 KLEBSIELLA PNEUMONIAE Bryant Count 75-100,000 (Many) CFU/ML 1. KLEBSIELLA PNEUMONIAE [...] . END OF REPORT DEPARTMENT OF PATHOLOGY, [address] [place] [address] Matthias Link M.D. Director [facility] # [id number] FASTING 3 Desirable: <150 Borderline High: 150-199 High: 200-499 Very High: >500 4 Desirable: <200 Borderline High: 200-239 High: >239 5 Low: <40 Desirable: 40-60 High: >60 6 Desirable: <100 Near Optimal: 100-129 Borderline High: 130-159 High: 160-189 Very High: >189 7 Unable to calculate due to low microalbumin 8 FASTING 9 FASTING 10 FASTING 11 Normal Range 180 to 914 Indeterminate Range 145 to 180 Deficient Range <145 12 FASTING 13 ADDITIONAL INFORMATION This test was developed and its performance characteristics determined by [facility] in a manner consistent with CLIA requirements. This test has not been cleared or approved by the U.S. Food and Drug Administration. Test Performed by: [facility] [place] [address] 14 ADDITIONAL INFORMATION This test was developed and its performance characteristics determined by [facility] in a manner consistent with CLIA requirements. This test has not been cleared or approved by the U.S. Food and Drug Administration. Test Performed by: [facility] [place] [address] 15 ADDITIONAL INFORMATION This test was developed and its performance characteristics determined by [facility] in a manner consistent with CLIA requirements. This test has not been cleared or approved by the U.S. Food and Drug Administration. Test Performed by: [place] [address] 16 Because ethnic data is not always [...] 15-29 5 Kidney failure <15 (or dialysis) Procedures Date Code Description Status 09/21/2018 26534 Omt 3-4 Body Regions Completed 09/21/2018 27134 Injection For Nerve Block, Greater Occipital Nerve Completed 09/21/201872715 Injection, Single Or Mutiple Trigger Points One Or Two Completed Muscles 09/21/201815386 Injection, Tendon Origin/Insertion Completed 09/21/201896909 Injection, Tendon Origin/Insertion Completed 09/21/201870559 Inject Tendon/Ligament Completed 09/21/201810970 Inject Tendon/Ligament Completed 09/21/201861625 Inject Tendon/Ligament Completed 09/21/201800529 Inject Tendon/Ligament Completed 09/16/2018 19509 Therapeutic, Prophylactic Or Diagnostic Injection Subq/Im Completed 08/14/201884237 Inject Tendon/Ligament Completed 08/14/201834264 Inject Tendon/Ligament Completed 08/14/201867472 Inject Tendon/Ligament Completed 08/14/201876068 Inject Tendon/Ligament Completed 08/14/201869621 Injection, Tendon Origin/Insertion Completed 08/14/201832019 Injection, Tendon Origin/Insertion Completed 08/14/201871958 Injection, Single Or Mutiple Trigger Points One Or Two Completed Muscles 08/14/2018 38601 Therapeutic, Prophylactic Or Diagnostic Injection Subq/Im Completed 07/17/2018 33608 Therapeutic, Prophylactic Or Diagnostic Injection Subq/Im Completed 07/17/2018 17912 U/S Guidance For Needle Placement Completed 07/17/201859899 Inject Tendon/Ligament Completed 06/17/2018 65435 Therapeutic, Prophylactic Or Diagnostic Injection Subq/Im Completed 05/17/2018 50106 Therapeutic, Prophylactic Or Diagnostic Injection Subq/Im Completed 05/17/2018 88557 Brief Emotional/Behav Assessment W/ Scoring Doc Per [...] Small Joint/Bursa W US Completed Guidance 03/19/2018 96008 Omt 1-2 Body Regions Completed 03/19/2018 53579 Therapeutic, Prophylactic Or Diagnostic Injection Subq/Im Completed 02/15/201878418 Inject Tendon/Ligament Completed 02/15/201822116 Inject Tendon/Ligament Completed 02/15/201867576 Inject Tendon/Ligament Completed 02/15/201820563 Inject Tendon/Ligament Completed 02/15/201872917 Injection, Tendon Origin/Insertion Completed 02/15/201877778 Injection, Tendon Origin/Insertion Completed 02/15/201879057 Injection, Single Or Mutiple Trigger Points One Or Two Completed Muscles 02/15/2018 56493 Injection For Nerve Block, Suprascapular Nerve Completed 01/17/2018 64998 Therapeutic, Prophylactic Or Diagnostic Injection Subq/Im Completed 12/19/2017 17518 Omt 1-2 Body Regions Completed 12/19/201733446 Arthrocentesis/Aspiration/Inj Of Major Joint Or Bursa W/ Completed Ultra 11/19/2017 Arthrocentesis Aspirtation Inj,Intermediate W/ US Guide & Completed Report 11/19/2017 77957 Therapeutic, Prophylactic Or Diagnostic Injection Subq/Im Completed 11/19/2017 27387 Omt 1-2 Body Regions Completed 11/05/201740785 Injection, Single Or Mutiple Trigger Points One Or Two Completed Muscles 11/05/201768829 Injection, Tendon Origin/Insertion Completed 11/05/201700110 Injection, Tendon Origin/Insertion Completed 11/05/201798242 Inject Tendon/Ligament Completed 11/05/201773200 Inject Tendon/Ligament Completed 11/05/201738355 Inject Tendon/Ligament Completed 11/05/201758181 Inject Tendon/Ligament Completed 10/19/201732411 Arthrocentesis/Aspiration/Inj Of Major Joint Or Bursa W/ Completed Ultra 10/19/2017 62974 Therapeutic, Prophylactic Or Diagnostic Injection Subq/Im Completed 10/19/2017 71908 Omt 1-2 Body Regions Completed 09/18/2017 54879 Therapeutic, Prophylactic Or Diagnostic Injection Subq/Im Completed 09/18/201739507 Injection, Single Or Mutiple Trigger Points One Or Two Completed Muscles 09/18/201771389 Injection, Tendon Origin/Insertion Completed 09/18/201775137 Injection, Tendon Origin/Insertion Completed 09/18/201784070 Inject Tendon/Ligament Completed 09/18/201709798 Inject Tendon/Ligament Completed 09/18/201791314 Inject Tendon/Ligament Completed 09/18/201756062 Inject Tendon/Ligament Completed 08/20/2017 34652 Omt 3-4 Body Regions Completed 07/20/201771793 Inject Tendon/Ligament Completed 07/20/201757278 Inject Tendon/Ligament Completed 07/20/201705513 Inject Tendon/Ligament Completed 07/20/201739594 Inject Tendon/Ligament Completed 07/20/201762908 Injection, Tendon Origin/Insertion Completed 07/20/201781330 Injection, Tendon Origin/Insertion Completed 07/20/201705021 Injection, Single Or Mutiple Trigger Points One Or Two Completed Muscles 07/20/2017 05993 Therapeutic, Prophylactic Or Diagnostic Injection Subq/Im Completed 06/20/2017 00680 Omt 3-4 Body Regions Completed 06/20/2017 62397 Therapeutic, Prophylactic Or Diagnostic Injection Subq/Im Completed 05/21/2017 43233 Omt 1-2 Body Regions Completed 05/21/2017 81987 Injection For Nerve Block, Suprascapular Nerve Completed 05/21/201740148 Injection, Single Or Mutiple Trigger Points One Or Two Completed Muscles 05/21/201788131 Injection, Tendon Origin/Insertion Completed 05/21/201751219 Injection, Tendon Origin/Insertion Completed 05/21/201788032 Inject Tendon/Ligament Completed 05/21/201757916 Inject Tendon/Ligament Completed 05/21/201748891 Inject Tendon/Ligament Completed 05/21/201791937 Inject Tendon/Ligament Completed 05/04/201773317 Arthrocentesis/Aspiration/Inj Of Major Joint Or Bursa W/ Completed Ultra 05/04/2017 25907 Omt 1-2 Body Regions Completed 04/20/2017 71729 Therapeutic, Prophylactic Or Diagnostic Injection Subq/Im Completed 03/22/2017 59959 Omt 1-2 Body Regions Completed 03/08/2017 88505 Omt 1-2 Body Regions Completed 03/08/2017 11908 Injection For Nerve Block, Other Peripheral Nerve Or Completed Branch 02/20/2017 80224 Omt 1-2 Body Regions Completed 01/24/2017 63492 Omt 3-4 Body Regions Completed 01/09/2017 57568 Omt 1-2 Body Regions Completed 01/09/2017 77954 Test Autonomic Nervous System, Sudomotor Completed 01/04/2017 58948 Nerve Conduction 11-12 Studies Completed 12/25/2016 54281 Omt 1-2 Body Regions Completed 11/27/2016 50023 Omt 1-2 Body Regions Completed 11/27/2016 66420 Nerve Conduction 11-12 Studies Completed 11/23/2016 25484 Omt 1-2 Body Regions Completed 10/23/2016 49505 Arthrocentesis/Aspiration/Inj Of Major Joint Or Bursa W/ Completed Ultra 10/10/2016 66304 Omt 1-2 Body Regions Completed 10/10/2016 23397 Therapeutic, Prophylactic Or Diagnostic Injection Subq/Im Completed 10/10/2016 82766 Injection For Nerve Block, Greater Occipital Nerve Completed 10/10/2016 75520 Injection, Single Or Mutiple Trigger Points One Or Two Completed Muscles 09/25/2016 52790 Omt 1-2 Body Regions Completed 09/25/2016 99531 Therapeutic, Prophylactic Or Diagnostic Injection Subq/Im Completed 09/25/2016 68637 Injection For Nerve Block, Suprascapular Nerve Completed 09/25/2016 82714 Injection, Single Or Mutiple Trigger Points One Or Two Completed Muscles 09/25/201635855 Injection, Tendon Origin/Insertion Completed 09/25/201635269 Injection, Tendon Origin/Insertion Completed 09/25/201631884 Inject Tendon/Ligament Completed 09/25/201619868 Inject Tendon/Ligament Completed 09/25/201635398 Inject Tendon/Ligament Completed 09/25/201677176 Inject Tendon/Ligament Completed Encounters Type Date Location Provider Dx Diagnosis Office Visit 09/21/2018 Main Office as Of Juanito Sargent DO G89.29 Other chronic pain 10:45a 05/03/13 MPH M54.2 Cervicalgia M99.01 Segmental and somatic dysfunction of cervical region M54.6 Pain in thoracic spine M99.02 Segmental and somatic dysfunction of thoracic region M25.511 Pain in right shoulder M25.512 Pain in left shoulder M99.07 Segmental and somatic dysfunction of upper extremity M65.88 Other synovitis and tenosynovitis, other site M46.02 Spinal enthesopathy, cervical region M79.12 Myalgia of auxiliary muscles, head and neck M54.81 Occipital neuralgia Office Visit 09/16/2018 11:30a Main Office as Juanito Sargent G89.29 Other chronic Of 05/03/13 DO, MPH pain M54.5 Low back pain M54.2 Cervicalgia R51 Headache R53.83 Other fatigue Z79.891 stapler hand (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 Office Visit 08/14/2018 11:30a Main Office as Juanito Sargent, G89.29 Other chronic Of 05/03/13 DO, MPH pain M54.5 Low back pain M65.88 Other synovitis and tenosynovitis, other site M46.07 Spinal enthesopathy, lumbosacral region M79.18 Myalgia, other site R53.83 Other fatigue Z79.891 stapler hand (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 Office Visit 07/17/2018 11:15a Main Office as Juanito Sargent, G89.29 Other chronic Of 05/03/13 DO, MPH pain M54.5 Low back pain M72.2 Plantar fascial fibromatosis R53.83 Other fatigue Z79.891 stapler hand (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 Office Visit 06/17/2018 11:30a Main Office as Juanito Sargent, G89.29 Other chronic Of 05/03/13 DO, MPH pain 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, cervical region M54.5 Low back pain M65.879 Other synovitis and tenosynovitis, unsp ankle and foot R53.83 Other fatigue Z79.891 snf (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 Office Visit 05/17/2018 11:30a Main Office as Juanito Sargent, G89.29 Other chronic Of 05/03/13 DO, MPH pain 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, cervical region M54.5 Low back pain Z13.31 Encounter for screening for depression Z79.891 stapler hand (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 R53.83 Other fatigue Office Visit 04/18/2018 11:15a Main Office as Juanito Sargent G89.29 Other chronic Of 05/03/13 DO, MPH pain 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, cervical region M25.542 Pain in joints of left hand M25.541 Pain in joints of right hand M54.5 Low back pain R53.83 Other fatigue Z79.891 stapler hand (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 Office Visit 03/19/2018 11:00a Main Office as Juanito Sargent G89.29 Other chronic Of 05/03/13 DO, MPH pain 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, cervical region M54.5 Low back pain M25.511 Pain in right shoulder M25.512 Pain in left shoulder M99.07 Segmental and somatic dysfunction of upper extremity R53.83 Other fatigue Z79.891 stapler hand (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 Office Visit 02/15/2018 11:15a Main Office as Juanito Sargent G89.29 Other chronic Of 05/03/13 DO, MPH pain 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, cervical region M54.5 Low back pain M65.88 Other synovitis and tenosynovitis, other site M79.12 Myalgia of auxiliary muscles, head and neck M54.2 Cervicalgia Z79.891 snf (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 Office Visit 01/17/2018 11:30a Main Office as Juanito Sargent G89.29 Other chronic Of 05/03/13 DO, MPH pain 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, cervical region M54.5 Low back pain R53.83 Other fatigue Z79.891 stapler hand (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 Office Visit 12/19/2017 2:30p Main Office as Juanito Sargent G89.29 Other chronic Of 05/03/13 DO, MPH pain 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, cervical region M54.5 Low back pain M25.511 Pain in right shoulder M99.07 Segmental and somatic dysfunction of upper extremity M25.552 Pain in left hip R53.83 Other fatigue Z79.891 stapler hand (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 Office Visit 11/19/2017 2:45p Main Office as Juanito Sargent G89.29 Other chronic Of 05/03/13 DO, MPH pain 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, cervical region M54.2 Cervicalgia M79.1 Myalgia M25.521 Pain in right elbow M99.07 Segmental and somatic dysfunction of upper extremity R53.83 Other fatigue Z79.891 stapler hand (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 Office Visit 11/05/2017 2:00p Main Office as Juanito Sargent G89.29 Other chronic Of 05/03/13 DO, MPH pain 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, cervical region M54.2 Cervicalgia M79.1 Myalgia M46.02 Spinal enthesopathy, cervical region M65.88 Other synovitis and tenosynovitis, other site Z79.891 snf (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 Office Visit 10/19/2017 11:00a Main Office as Juanito Sargent G89.29 Other chronic Of 05/03/13 DO, MPH pain 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, cervical region M54.2 Cervicalgia M25.552 Pain in left hip M99.06 Segmental and somatic dysfunction of lower extremity R53.83 Other fatigue Z79.891 snf (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 Office Visit 09/18/2017 11:00a Main Office as Juanito Sargent G89.29 Other chronic Of 05/03/13 DO, MPH pain 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, cervical region M54.2 Cervicalgia M65.88 Other synovitis and tenosynovitis, other site M79.1 Myalgia Z79.891 stapler hand (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 R53.83 Other [...] and somatic dysfunction of upper extremity Z79.891 stapler hand (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 Office Visit [...] of upper extremity R53.83 Other fatigue Z79.891 snf (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 Office Visit [...] of upper extremity R53.83 Other fatigue Z79.891 snf (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 Office Visit 05/21/2017 11:30a Main Office as Juanito Sargent G89.29 Other chronic Of 05/03/13 DO, MPH pain 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, cervical region M54.2 Cervicalgia M79.1 Myalgia M65.88 Other synovitis and tenosynovitis, other site M54.13 Radiculopathy, cervicothoracic region M99.01 Segmental and somatic dysfunction of cervical region Z79.891 stapler hand (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 Office Visit [...] region M54.2 Cervicalgia R53.83 Other fatigue Z79.891 stapler hand (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 Office Visit 03/22/2017 9:45a Main Office as Juanito Sargent G89.29 Other chronic Of 05/03/13 DO, MPH pain M54.5 Low back pain M54.16 Radiculopathy, lumbar region M54.2 Cervicalgia 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, cervical region M99.01 Segmental and somatic dysfunction of cervical region Z79.891 stapler hand (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 Office Visit 03/08/2017 2:15p Main Office as Juanito Sargent G89.29 Other chronic Of 05/03/13 DO, MPH pain M54.5 Low back pain M54.16 Radiculopathy, lumbar region M54.2 Cervicalgia M99.01 Segmental and somatic dysfunction of cervical region Z79.891 stapler hand (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 Office Visit 02/20/2017 3:30p Main Office as Juanito Sargent G89.29 Other chronic Of 05/03/13 DO, MPH pain M54.5 Low back pain M54.16 Radiculopathy, lumbar region M54.2 Cervicalgia M99.01 Segmental and somatic dysfunction of cervical region Z79.891 stapler hand (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 Office Visit 01/24/2017 2:00p Main Office as Chelsea Baer G89.29 Other chronic Of 05/03/13 AUTO TECH pain M54.5 Low back pain M99.03 Segmental and somatic dysfunction of lumbar region M54.6 Pain in thoracic spine M99.02 Segmental and somatic dysfunction of thoracic region M54.2 Cervicalgia M99.01 Segmental and somatic dysfunction of cervical region 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, cervical region M54.17 Radiculopathy, lumbosacral region Z79.891 snf (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 G90.3 Multi-system degeneration of the autonomic nervous system Z71.89 Other specified counseling Office Visit 01/09/2017 11:45a Main Office as Juanito Sargent, G89.29 Other chronic Of 05/03/13 DO, MPH pain 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, cervical region M99.01 Segmental and somatic dysfunction of cervical region M54.5 Low back pain G54.4 Lumbosacral root disorders, not elsewhere classified Z79.891 stapler hand (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 G90.3 Multi-system degeneration of the autonomic nervous system Office Visit 12/25/2016 9:30a Main Office as Chelsea Baer G89.29 Other chronic Of 05/03/13 AUTO TECH pain 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, cervical region M54.12 Radiculopathy, cervical region M99.01 Segmental and somatic dysfunction of cervical region M54.6 Pain in thoracic spine M54.5 Low back pain G54.4 Lumbosacral root disorders, not elsewhere classified Z71.89 Other specified counseling Z79.891 stapler hand (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 Office Visit 11/27/2016 2:15p Main Office as Juanito Sargent, G89.29 Other chronic Of 05/03/13 DO, MPH pain 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, cervical region M99.01 Segmental and somatic dysfunction of cervical region M54.12 Radiculopathy, cervical region Z79.891 stapler hand (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 Office Visit 11/23/2016 9:15a Main Office as Juanito Sargent, G89.29 Other chronic Of 05/03/13 DO, MPH pain 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, cervical region M54.12 Radiculopathy, cervical region M99.01 Segmental and somatic dysfunction of cervical region M54.5 Low back pain M79.1 Myalgia R53.83 Other fatigue Z79.891 snf (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 Office Visit 10/23/2016 11:00a Main Office as Juanito Sargent, G89.29 Other chronic Of 05/03/13 DO, MPH pain 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, cervical region M54.12 Radiculopathy, cervical region M54.5 Low back pain M79.1 Myalgia R53.83 Other fatigue M99.01 Segmental and somatic dysfunction of cervical region M70.62 Trochanteric bursitis, left hip Z79.891 snf (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 Office Visit 10/10/2016 2:45p Main Office as Juanito Sargent G89.29 Other chronic Of 05/03/13 DO, MPH pain 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, cervical region M54.12 Radiculopathy, cervical region M65.88 Other synovitis and tenosynovitis, other site M79.1 Myalgia M54.5 Low back pain R53.83 Other fatigue Z79.891 snf (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 Office Visit 09/25/2016 11:00a Main Office as Juanito Sargent G89.29 Other chronic Of 05/03/13 DO, MPH pain 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, cervical region M54.12 Radiculopathy, cervical region M54.5 Low back pain M79.1 Myalgia M46.07 Spinal enthesopathy, lumbosacral region M65.88 Other synovitis and tenosynovitis, other site R53.83 Other fatigue Z79.891 stapler hand (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 M99.01 Segmental and somatic dysfunction of cervical region Office Visit 09/11/2016 10:00a Main Office as Juanito Sargent G89.29 Other chronic Of 05/03/13 DO, MPH pain 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, cervical region M54.12 Radiculopathy, cervical region M54.5 Low back pain Z79.891 snf (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 Office Visit 08/29/2016 9:00a Main Office as Juanito Sargent G89.29 Other chronic Of 05/03/13 DO, MPH pain 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, cervical region M54.12 Radiculopathy, cervical region M54.5 Low back pain Z71.3 Dietary counseling and surveillance Z71.89 Other specified counseling Z79.891 stapler hand (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 Plan of Treatment Future Appointment(s):11/15/2018 11:45 am - Juanito Sargent DO, MPH at Main Office as Of 05/03/1406 - Juanito Sargent DO, MPHG89.29 Other chronic painComments:Chronic. Symptoms and complaints discussed and reviewed today. No significant changes in physical findings. Continue current medical pain management.M54.2 CervicalgiaComments:Chronic. Symptoms and complaints discussed and reviewed today. Notable somatic dysfunctions warranting OMT to cervicals. Patient is stable and comfortable with current medical therapy.M99.01 Segmental and somatic dysfunction of cervical regionComments:Chronic. Symptoms and complaints discussed and reviewed today. Somatic dysfunctions noted warrantingOMT. Continue current medical pain management and OMT. E4ATuPr. OMT performed.M54.6 Pain in thoracic spineComments:Chronic. Symptoms and complaints discussed and reviewed today. Notable thoracic somatic dysfunctionswarranting OMT. Patient is stable and comfortable when current medical therapy is rendered.M99.02 Segmental and somatic dysfunction of thoracic regionComments: Chronic. Symptoms and complaints discussed and reviewed today. Notable somatic dysfunctions noted warranting OMT. Continue current medical pain management and OMT. [id number]. OMT performed after evaluation. HVLA.M25.511 Pain in right shoulderComments:Chronic. Symptoms and complaints discussed and reviewed today. Somatic dysfunctions noted warrantingOMT to the shoulder. Osteopathic Manipulation performed. MFR.M25.512 Pain in left shoulderComments:Chronic. Symptoms and complaints discussed and reviewed today.Continue current medical pain management. Complaint of pain and physical findings warrant OMT. Osteopathic Manipulation performed. MFR.M99.07 Segmental and somatic dysfunction of upper extremityComments:Chronic. Symptoms and complaints discussed and reviewed today. Somatic dysfunctions noted warrantingOMT to the shoulder. Continue current medical pain management and OMT.Myofascial restrictions. OMT performed. MFR.R53.83 Other fatigueComments:Symptoms and complaints discussed and reviewed today. No significant changes in physical findings. Continue current medical pain management. B12 injection administered after patient evaluated. 1ml IM for fatigue. 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 Rapid Point of [...] of 2,Trigger Point Injection () quantity of 2, Bilateral Suprascapular Nerve Block (51552) quantity of 2.. If she is able to have injections [...] as needed to manage chronic pain.Side effects discussed ; anticipatory guidance given. Patient clearly understands and agrees with all medical treatments and suggestions. All medicines prescribed are adequate and appropriate for this patient's complaint of pain, medical history, physical, and personal goals.Goals of Treatment are to provide adequate and appropriate multidisciplinary medical pain management to increase/ maintain patient's quality of life and functionality while maintaining satisfactory side effect profile and minimizing senior accounts payable specialist end-organ damage. Activity as toleratedContinue with PCP
[2018-10-21 20:06] VITALS: BP 130/86
[2018-10-21] MEDS ORDERED: Amoxicillin/Clavulanate TAB* 875 MG PO ONE ×2 (21:00)
--- NOTE | 2018-10-21 21:03 | UC ---
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 no pain, feels like fullness patient diagnosed with RA ~ 3 years ago, not on any immunosup since 07/2018 - History of Current Complaint Chief Complaint: UCRespiratory Stated Complaint: SORE THROAT Time Seen by Provider: 10/21/18 19:47 Hx Obtained From: Patient Hx Last Menstrual Period: 09/24/2018 ?: No Onset/Duration: Sudden Onset Pain Intensity: 7 - Allergies/Home Medications Allergies/Adverse Reactions: Allergies Allergy/AdvReac Type Severity Reaction Status Date / Time No Known Allergies Allergy Verified 10/07/18 18:37 Home Medications: Home Medications Cyanocobalamin INJ * [Vitamin B12 INJ *] 10/21/18 [History] Lurasidone(*) [Latuda] 80 mg PO 10/21/18 [History] PMH/Surg Hx/FS Hx/Imm Hx Previously Healthy: No - RA - Surgical History Surgical History: Yes Surgery Procedure, Year, and Place: 3 C-SECTIONS;. C3 to C7 FUSION;. TUBAL LIGATION;. GASTRECTOMY (BARIATRIC SURGERY) 2017; - Family History Known Family History: Positive: None, Cardiac Disease - father [place] 48yo alive, Hypertension, Diabetes, Respiratory Disease - COPD - parents, Other - copd, parents, Non-Contributory - Social History Alcohol Use: None Substance Use Type: Prescribed Substance Use Comment - Amount & Last Used: Percocet bid, morphine er 30 mg bid Smoking Status (MU): Former Smoker Type: Cigarettes Amount Used/How Often: 1/4 pack a day for 9 months Have You Smoked in the Last Year: No When Did the Patient Quit Smoking/Using Tobacco: 2013 - Immunization History Most Recent Influenza Vaccination: 2018 Most Recent Tetanus Shot: 02/07/15 Most Recent Pneumonia Vaccination: 2018 Vaccination Up to Date: Yes Review of Systems All Other Systems Reviewed And Are Negative: Yes Constitutional: Positive: Negative ENT: Positive: Dental Pain, Sore Throat Neurovascular: Positive: Negative Is Patient Immunocompromised?: No - last meds 07/2018 Physical Exam Triage Information Reviewed: Yes Appearance: Well-Appearing, No Pain Distress, Well-Nourished Vital Signs: Initial Vital Signs Temp 98.7 F 10/21/18 19:57 Pulse 68 10/21/18 19:57 Resp 16 10/21/18 19:57 BP 130/86 10/21/18 19:57 Pulse Ox 100 10/21/18 19:57 Vital Signs Reviewed: Yes Eyes: Positive: Conjunctiva Clear ENT: Positive: TMs normal - b/l, Tonsillar swelling, Tonsillar exudate - right sided, sent for culture. Negative: Pharyngeal erythema, Nasal congestion, Nasal drainage, Dental tenderness, Sinus tenderness Dental Exam: Normal Neck: Positive: Supple, Nontender, No Lymphadenopathy. Negative: Nuchal Rigidity, Enlarged Nodes @ Musculoskeletal Exam: Normal Neurological Exam: Normal Psychological Exam: Normal Skin Exam: Normal Throat Pain/Nasal Course/Dx - Course Course Of Treatment: tonsillar swelling R sided with drainage noted, grade 1 tonsil, no LAD, no erythema, abx given, continue to follow for 24 hours and if no improvement return for further treatment - Differential Dx/Diagnosis Provider Diagnosis: Tonsillar exudate Discharge - Sign-Out/Discharge Documenting (check all that apply): Patient Departure All imaging exams completed and their final reports reviewed: No Studies - Discharge Plan Condition: Fair Disposition: HOME Prescriptions: Amoxicillin/Clavulanate TAB* [Augmentin TAB 875*] 875 mg PO BID #12 tab Fluconazole 150 MG TAB* [Diflucan 150 MG TAB*] 150 mg PO ONCE #1 tablet Patient Education Materials: Pharyngitis (ED) Referrals: Sebastian Zhang, [Primary Care Provider] - Additional Instructions: - GO to ER with worsening pain, fever, neck pain, decreased swallowing - Augmentin every 12 hours x 7 days - DIflucan at end f antibiotics if yeast infection occurs - Increase fluid intake - Return if no improvement within 2-3 days - Cultures obtained- results should return wihtin 2-3 days - Billing Disposition and Condition Condition: FAIR Disposition: Home
== END 2018-10-21 21:20 | disposition home or self-care (01) ==
LOC: UCEAST 19:43
DX: J03.90 Acute tonsillitis, unspecified (principal); M06.9 Rheumatoid arthritis, unspecified; Z87.891 Personal history of nicotine dependence
CPT/HCPCS: 87070; 99212; A9270-GY; G0463

== ENCOUNTER 2019-02-03 14:12 | Emergency (ER) | payer MEDICARE, MEDICAID ==
--- OUTSIDE RECORDS SUMMARY | 2019-02-03 14:29 | XMS REPORT | Continuity of Care Document ---
:1980 External Reference #:[id number] Author Name Juanito Sargent DO, MPH Address [address] [place] [address], [address] [place] [address] Care Team Providers Name Role Phone Mario Iglesias MD - Rheumatology Care Team Information Director Of Purchasing Sebastian Zhang M.D. - Family Care Team Information Director Of Purchasing [phone] Medicine Problems Description No Information Available Social History Type Date Description Comments Sex Unknown Cigarette Use Former Cigarette Smoker 1-5 Cigarettes Daily ETOH Use Denies alcohol use Tobacco Use Start: Unknown End: Unknown Patient is a former smoker Smoking Status Reviewed: 01/14/19 Patient is a former smoker Allergies, Adverse Reactions, Alerts Description No Known Drug Allergies Medications Active Medications SIG Qnty Indications Ordering Date Provider Tizanidine HCL si/2-1 by 120tabs Juanito Sargent, 05/17/2018 4mg mouth every 6 DO, MPH Tablets hours as directed Lyrica si by mouth 90caps Juanito Sargent, 10/16/2017 200mg Capsules every 8 hours as DO, MPH directed chronic pain patient, [facility] [id number], id # [id number] Oxycodone HCL si by mouth 90tabs Juanito Sargent, 12/25/2016 15mg every 8 hours as DO, MPH Tablets directed chronic pain patient Morphine Sulfate ER si by mouth q12 60tabs Juanito Sargent, 09/11/2016 hours as directed DO, MPH 30mg Tablets ER chronic pain. Baclofen take one by mouth Unknown 10mg Tablets twice a day as directed chronic pain. Ventolin HFA 1-2 puffs as Unknown needed every 4-6 108(90Base) mcg/Act hours for Aerosol shortness for breath Viactiv Unknown [id number] Chewtabs Wellbutrin XL si by mouth Unknown 300mg every day as Tablets ER 24HR directed chronic pain patient Flpremtones Complete Unknown 60mg Chewtabs Alpha-Lipoic Acid take one capsule Unknown by mouth every 8 200mg Capsules hours as directed chronic pain. Vitamin D3 Unknown 5000Unit Chewtabs Vitamin B-1 Unknown 250mg Tablets Vyvanse once a Unknown 70mg Capsules day-Dr.Karen Jackson Hydroxyzine HCL si by mouth Unknown 25mg every night at Tablets bedtime chronic pain patient Viibryd 1 by mouth daily Unknown 40mg Tablets Latuda daily 30tabs Unknown 80mg Tablets Ativan 1 by mouth twice Unknown 2mg Tablets daily as needed Immunizations Description No Information Available Vital Signs Date Vital Result Comment 01/14/2019 10:02am BP Systolic 124 mmHg BP Diastolic 86 mmHg Heart Rate 80 /min Respiratory Rate 20 /min Height 66 inches 5'6" Weight 224.00 lb Pain Level 7 Pain Level With Medicine 6 Pain Level Without Medicine 9 BMI (Body Mass Index) 36.2 kg/m2 12/13/2018 2:59pm BP Systolic 136 mmHg BP Diastolic 86 mmHg Heart Rate 84 /min Respiratory Rate 20 /min Height 66 inches 5'6" Weight 224.00 lb Pain Level 6 Pain at this time. Pain Level With Medicine 5 on average with meds Pain Level Without Medicine 9 without meds BMI (Body Mass Index) 36.2 kg/m2 Results Description No Information Available Procedures Date Code Description Status 12/13/2018 89617 Therapeutic, Prophylactic Or Diagnostic Injection Subq/Im Completed 12/13/2018 88728 Injection For Nerve Block, Suprascapular Nerve Completed 12/13/201856032 Injection, Single Or Mutiple Trigger Points One Or Two Completed Muscles 12/13/2018 Injection, Tendon Origin/Insertion Completed 12/13/2018 Injection, Tendon Origin/Insertion Completed 12/13/2018 Inject Tendon/Ligament Completed 12/13/2018 26699 Inject Tendon/Ligament Completed 12/13/201897880 Inject Tendon/Ligament Completed 12/13/201814969 Inject Tendon/Ligament Completed 11/15/2018 62765 Therapeutic, Prophylactic Or Diagnostic Injection Subq/Im Completed 10/16/2018 87216 Omt 3-4 Body Regions Completed 10/16/2018 46255 Therapeutic, Prophylactic Or Diagnostic Injection Subq/Im Completed 09/21/201825952 Inject Tendon/Ligament Completed 09/21/201863883 Inject Tendon/Ligament Completed 09/21/201822774 Inject Tendon/Ligament Completed 09/21/201862288 Inject Tendon/Ligament Completed 09/21/201826369 Injection, Tendon Origin/Insertion Completed 09/21/201806842 Injection, Tendon Origin/Insertion Completed 09/21/201881392 Injection, Single Or Mutiple Trigger Points One Or Two Completed Muscles 09/21/2018 35383 Injection For Nerve Block, Greater Occipital Nerve Completed 09/21/2018 66676 Omt 3-4 Body Regions Completed 09/16/2018 51527 Therapeutic, Prophylactic Or Diagnostic Injection Subq/Im Completed 08/14/201867920 Inject Tendon/Ligament Completed 08/14/201872808 Inject Tendon/Ligament Completed 08/14/201862258 Inject Tendon/Ligament Completed 08/14/201834840 Inject Tendon/Ligament Completed 08/14/201852324 Injection, Tendon Origin/Insertion Completed 08/14/201856236 Injection, Tendon Origin/Insertion Completed 08/14/201843578 Injection, Single Or Mutiple Trigger Points One Or Two Completed Muscles 08/14/2018 80991 Therapeutic, Prophylactic Or Diagnostic Injection Subq/Im Completed 07/17/2018 02829 Therapeutic, Prophylactic Or Diagnostic Injection Subq/Im Completed 07/17/2018 15146 U/S Guidance For Needle Placement Completed 07/17/201888187 Inject Tendon/Ligament Completed Medical Devices Description No Information Available Encounters Type Date Location Provider Dx Diagnosis Office Visit 12/13/2018 Main Office as Of Juanito Sargent DO, G89.29 Other chronic pain 2:45p 05/03/13 MPH M54.2 Cervicalgia M65.88 Other synovitis and tenosynovitis, other site M79.12 Myalgia of auxiliary muscles, head and neck M25.511 Pain in right shoulder M25.512 Pain in left shoulder M54.6 Pain in thoracic spine 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.891 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 (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 R53.83 Other fatigue Office Visit 11/15/2018 11:45a Main Office as Juanito Sargent G89.29 Other chronic Of 05/03/13 DO, MPH pain M54.2 Cervicalgia M54.6 Pain in thoracic spine M25.511 Pain in right shoulder M25.512 Pain in left shoulder R53.83 Other fatigue Z79.891 care home (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 Office Visit 10/16/2018 11:45a Main Office as Juanito Sargent G89.29 Other chronic Of 05/03/13 DO, MPH pain M54.2 Cervicalgia M99.01 Segmental and somatic dysfunction of cervical region M54.6 Pain in thoracic spine M99.02 Segmental and somatic dysfunction of thoracic region M25.511 Pain in right shoulder M25.512 Pain in left shoulder M99.07 Segmental and somatic dysfunction of upper extremity R53.83 Other fatigue 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 Office Visit 09/21/2018 10:45a Main Office as Juanito Sargent G89.29 Other chronic Of 05/03/13 DO, MPH pain M54.2 Cervicalgia M99.01 Segmental and somatic dysfunction [...] Visit 09/16/2018 11:30a Main Office as Juanito Sargent, G89.29 Other chronic Of 05/03/13 DO, MPH pain M54.5 Low back pain M54.2 Cervicalgia R51 Headache R53.83 Other fatigue Z79.891 care home (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 Office Visit 08/14/2018 11:30a Main Office as Juanito Sargent G89.29 Other chronic Of 05/03/13 DO, MPH pain M54.5 Low back pain M65.88 Other synovitis and tenosynovitis, other site M46.07 Spinal enthesopathy, lumbosacral region M79.18 Myalgia, other site R53.83 Other fatigue Z79.891 care home (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 Office Visit 07/17/2018 11:15a Main Office as SargentJuanito escobedo, G89.29 Other chronic Of 05/03/13 DO, MPH pain M54.5 Low back pain M72.2 Plantar fascial fibromatosis R53.83 Other fatigue 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 Assessments Date Code Description Provider 01/14/2019 G89.29 Other chronic pain Sargent, Juanito, DO, MPH 01/14/2019 M54.2 Cervicalgia Sargent, Juanito, DO, MPH 01/14/2019 M25.511 Pain in right shoulder Sargent, Juanito, DO, MPH 01/14/2019 M25.512 Pain in left shoulder Sargent, Juanito, DO, MPH 01/14/2019 M54.6 Pain in thoracic spine Sargent, Juanito, DO, MPH 01/14/2019 R53.83 Other fatigue Sargent, Juanito, DO, MPH 01/14/2019 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 Sargent, Juanito , DO, MPH 01/14/2019 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, Juanito, DO , MPH nervous system 12/13/2018 G89.29 Other chronic pain Sargent, Juanito, DO, MPH 12/13/2018 M54.2 Cervicalgia Sargent, Juanito, DO, MPH 12/13/2018 M65.88 Other synovitis and tenosynovitis, other Sargent, Juanito, DO , MPH site 12/13/2018 M79.12 Myalgia of auxiliary muscles, head and neck Sargent, Juanito, DO, MPH 12/13/2018 M25.511 Pain in right shoulder Sargent, Juanito, DO, MPH 12/13/2018 M25.512 Pain in left shoulder Sargent, Juanito, DO, MPH 12/13/2018 M54.6 Pain in thoracic spine Sargent, Juanito, DO, MPH 12/13/2018 Z79.891 care home (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 Sargent, Juanito , DO, MPH 12/13/2018 R53.83 Other fatigue Sargent, Juanito, DO, MPH 11/15/2018 G89.29 Other chronic pain Sargent, Juanito, DO, MPH 11/15/2018 M54.2 Cervicalgia Sargent, Juanito, DO, MPH 11/15/2018 M54.6 Pain in thoracic spine Sargent, Juanito, DO, MPH 11/15/2018 M25.511 Pain in right shoulder Sargent, Juanito, DO, MPH 11/15/2018 M25.512 Pain in left shoulder Sargent, Juanito, DO, MPH 11/15/2018 R53.83 Other fatigue Sargent, Juanito, DO, MPH 11/15/2018 Z79.891 care home (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 Sargent, Juanito , DO, MPH 10/16/2018 G89.29 Other chronic pain Sargent, Juanito, DO, MPH 10/16/2018 M54.2 Cervicalgia Sargent, Juanito, DO, MPH 10/16/2018 M99.01 Segmental and somatic dysfunction of Sargent, Juanito, DO, MPH cervical region 10/16/2018 M54.6 Pain in thoracic spine Sargent, Juanito, DO, MPH 10/16/2018 M99.02 Segmental and somatic dysfunction of Sargent, Juanito, DO, MPH thoracic region 10/16/2018 M25.511 Pain in right shoulder Sargent, Juanito, DO, MPH 10/16/2018 M25.512 Pain in left shoulder Sargent, Juanito, DO, MPH 10/16/2018 M99.07 Segmental and somatic dysfunction of upper Sargent, Juanito, DO, MPH extremity 10/16/2018 R53.83 Other fatigue Sargent, Juanito, DO, MPH 10/16/2018 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 Sargent, Juanito , DO, MPH 09/21/2018 G89.29 Other chronic pain Sargent, Juanito, DO, MPH 09/21/2018 M54.2 Cervicalgia Sargent, Juanito, DO, MPH 09/21/2018 M99.01 Segmental and somatic dysfunction of Sargent, Juanito, DO, MPH cervical region 09/21/2018 M54.6 Pain in thoracic spine Sargent, Juanito, DO, MPH 09/21/2018 M99.02 Segmental and somatic dysfunction of Sargent, Juanito, DO, MPH thoracic region 09/21/2018 M25.511 Pain in right shoulder Sargent, Juanito, DO, MPH 09/21/2018 M25.512 Pain in left shoulder Sargent, Juanito, DO, MPH 09/21/2018 M99.07 Segmental and somatic dysfunction of upper Sargent, Juanito, DO, MPH extremity 09/21/2018 M65.88 Other synovitis and tenosynovitis, other Sargent, Juanito, DO , MPH site 09/21/2018 M46.02 Spinal enthesopathy, cervical region Sargent, Juanito, DO, MPH 09/21/2018 M79.12 Myalgia of auxiliary muscles, head and neck Sargent, Juanito, DO, MPH 09/21/2018 M54.81 Occipital neuralgia Sargent, Juanito, DO, MPH 09/16/2018 G89.29 Other chronic pain Sargent, Juanito, DO, MPH 09/16/2018 M54.5 Low back pain Sargent, Juanito, DO, MPH 09/16/2018 M54.2 Cervicalgia Sargent, Juanito, DO, MPH 09/16/2018 R51 Headache Sargent, Juanito, DO, MPH 09/16/2018 R53.83 Other fatigue Sargent, Juanito, DO, MPH 09/16/2018 Z79.891 care home (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 Sargent, Juanito , DO, MPH 08/14/2018 G89.29 Other chronic pain Sargent, Juanito, DO, MPH 08/14/2018 M54.5 Low back pain Sargent, Juanito, DO, MPH 08/14/2018 M65.88 Other synovitis and tenosynovitis, other Sargent, Juanito, DO , MPH site 08/14/2018 M46.07 Spinal enthesopathy, lumbosacral region Sargent, Juanito, DO, MPH 08/14/2018 M79.18 Myalgia, other site Sargent, Juanito, DO, MPH 08/14/2018 R53.83 Other fatigue Juanito Sargent DO MPH 08/14/2018 Z79.891 care home (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 Juanito Sargent DO MPH 07/17/2018 G89.29 Other chronic pain Juanito Sargent DO MPH 07/17/2018 M54.5 Low back pain Juanito Sargent DO MPH 07/17/2018 M72.2 Plantar fascial fibromatosis Juanito Sargent DO MPH 07/17/2018 R53.83 Other fatigue Juanito Sargent DO MPH 07/17/2018 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 Symptoms and complaints discussed and reviewed today. No significant changes in physical findings. Continue current medical pain management.M54.2 CervicalgiaComments:Chronic. Symptoms and complaints discussed and reviewed today. No significant changes in physical findings. Continue current medical pain management.M25.511 Pain in right shoulderComments:Chronic. Symptoms and complaints discussed and reviewed today. No significant changes in physical findings. Continue current medical pain management.M25.512 Pain in left shoulderComments:Chronic. Symptoms and complaints discussed and reviewed today. No significant changes in physical findings. Continue current medical pain management.M54.6 Pain in thoracic spineComments:Chronic.Symptoms and complaints discussed and reviewed today. No significant changes in physical findings. Continue current medical pain management.R53.83 Other fatigueComments: Symptoms and complaints discussed and reviewed today. No significant changes in physical findings. Continue current medical pain management. B12 injection administered after patient evaluated. 1ml IM for fatigue. (See Consent for injection-B12 document for lot number and expiration date.)Z79.891 care home ( 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New Labs:Urine Drug Screen, Ordered: Comments:Urine drug screen sample taken today to monitor opiate use and to monitor use of illicit substances.Will discuss results at next appointment.The following tests were ordered:6 AM, AMPH, JOSELUIS, RAMIREZ, BUP, CARIS, COCM, COT, ETG , FENT, MCSHSG, OPI, OXY, PCP, TAPEN, XTSY, ZOLP. A urine drug test (UDT ) was ordered for this patient and collected [...] controlled substances and is considered standard of care. Urine drug screen sample taken today to monitor opiate use and to monitor use of illicit substances. Will discuss results at next appointment.The following tests were ordered:6 AM, AMPH, JOSELUIS, RAMIREZ, BUP, CARIS , COCM, ETG, FENT, MCSHSG, OPI, OXY, PCP, TAPEN, [...] controlled substances and is considered standard of care.G90.3 Multi-system degeneration of the autonomic nervous systemNew Orders:Sudomotor Test, Ordered: 01/14/19Comments:Sudomotor test report reviewed with the patient today. The test was Positive for possible autonomic dysfunction at this time. Will follow effects of pain and current medical treatment. Future testing will help to monitor the effects of chronic illness, pain and subsequent treatment on the autonomic nervous system. May retest in 3-6 monthsAlpha lipoic acid 100 - 200 mg tid. suggested to patient. Thishas been shown to help with the neuropathic component of pain and autonomic dysfunction.AllComments:Continue current medical pain management; injection therapy, osteopathic [...] while maintaining satisfactory side effect profile andminimizing long-term end-organ damage. Importance of regular nutrition throughout the day discussed.Activity as toleratedContinue with PCP Functional Status Description No Information Available Mental Status Description No Information Available Referrals Refer to Dr Reason for Referral Status Appt Date Juanito Sargent D.O. MPH Created [address] [place] [address] [address] [place] [phone] Juanito Sargent D.O. MPH Created [address] [place] [address] [address] [place] [phone]
--- OUTSIDE RECORDS SUMMARY | 2019-02-03 14:29 | XMS REPORT | Continuity of Care Document ---
:1980 External Reference #:[id number] Author Name Juanito Sargent DO, MPH Address [address] [place] [address], [address] [place] [address] Care Team Providers Name Role Phone Mario Iglesias MD - Rheumatology Care Team Information [employer] Sebastian Zhang M.D. - Family Care Team Information [employer] [phone] Medicine Problems Description No Information Available Social History Type Date Description Comments Sex Unknown Cigarette Use Former Cigarette Smoker 1-5 Cigarettes Daily ETOH Use Denies alcohol use Tobacco Use Start: Unknown End: Unknown Patient is a former smoker Smoking Status Reviewed: 12/13/18 Patient is a former smoker Allergies, Adverse Reactions, Alerts Description No Known Drug Allergies Medications Active Medications SIG Qnty Indications Ordering Date Provider Tizanidine HCL si/2-1 by 120tabs Juanito Sargent, 05/17/2018 4mg mouth every 6 DO, MPH Tablets hours as directed Lyrica si by mouth 90caps Juanito Sargent, 10/16/2017 200mg Capsules every 8 hours as DO, MPH directed chronic pain patient, [facility] [id number], id # [id number] Oxycodone HCL si by mouth 90tabs Juanito Sargent, 12/25/2016 15mg every 8 hours as DO, MPH Tablets directed chronic pain patient Morphine Sulfate ER si by mouth q12 60tabs Juanito Sargent, 09/11/2016 hours as directed DO, MPH 30mg Tablets ER chronic pain. Ventolin HFA 1-2 puffs as Unknown needed every 4-6 108(90Base) mcg/Act hours for Aerosol shortness for breath Viactiv Unknown [id number] Chewtabs Wellbutrin XL si by mouth Unknown [...] Available Vital Signs Date Vital Result Comment 12/13/2018 2:59pm BP Systolic 136 mmHg BP Diastolic 86 mmHg Heart Rate 84 /min Respiratory Rate 20 /min Height 66 inches 5'6" Weight 224.00 lb Pain Level 6 Pain at this time. Pain Level With Medicine 5 on average with meds Pain Level Without Medicine 9 without meds BMI (Body Mass Index) 36.2 kg/m2 11/15/2018 11:59am BP Systolic 136 mmHg BP Diastolic 84 mmHg Heart Rate 80 /min Respiratory Rate 20 /min Height 66 inches 5'6" Weight 231.00 lb Pain Level 8 Pain at this time. Pain Level With Medicine 7 on average with meds Pain Level Without Medicine 9 without meds BMI (Body Mass Index) 37.3 kg/m2 Results Description No Information Available Procedures Date Code Description Status 11/15/2018 05553 Therapeutic, Prophylactic Or Diagnostic Injection Subq/Im Completed 10/16/2018 90551 Omt 3-4 Body Regions Completed 10/16/2018 40214 Therapeutic, Prophylactic Or Diagnostic Injection Subq/Im Completed 09/21/2018 17498 Omt 3-4 Body Regions Completed 09/21/2018 76463 Injection For Nerve Block, Greater Occipital Nerve Completed 09/21/201853333 Injection, Single Or Mutiple Trigger Points One Or Two Completed Muscles 09/21/201804922 Injection, Tendon Origin/Insertion Completed 09/21/201868233 Injection, Tendon Origin/Insertion Completed 09/21/201835391 Inject Tendon/Ligament Completed 09/21/2018 68589 Inject Tendon/Ligament Completed 09/21/201857460 Inject Tendon/Ligament Completed 09/21/201808043 Inject Tendon/Ligament Completed 09/16/2018 18849 Therapeutic, Prophylactic Or Diagnostic Injection Subq/Im Completed 08/14/2018 46786 Therapeutic, Prophylactic Or Diagnostic Injection Subq/Im Completed 08/14/201816544 Injection, Single Or Mutiple Trigger Points One Or Two Completed Muscles 08/14/201877624 Injection, Tendon Origin/Insertion Completed 08/14/201877662 Injection, Tendon Origin/Insertion Completed 08/14/201861986 Inject Tendon/Ligament Completed 08/14/2018 91498 Inject Tendon/Ligament Completed 08/14/2018 48356 Inject Tendon/Ligament Completed 08/14/2018 98782 Inject Tendon/Ligament Completed 07/17/2018 30061 Therapeutic, Prophylactic Or Diagnostic Injection Subq/Im Completed 07/17/2018 53464 U/S Guidance For Needle Placement Completed 07/17/201834291 Inject Tendon/Ligament Completed 06/17/2018 94153 Therapeutic, Prophylactic Or Diagnostic Injection Subq/Im Completed Medical Devices Description No Information Available Encounters Type Date Location Provider Dx Diagnosis Office Visit 11/15/2018 Main Office as Of Juanito Sargent DO, G89.29 Other chronic pain 11:45a 05/03/13 MPH M54.2 Cervicalgia M54.6 Pain in thoracic spine M25.511 Pain in right shoulder M25.512 Pain in left shoulder R53.83 Other fatigue Z79.891 manager terminal (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 Office Visit 10/16/2018 11:45a Main Office as Juanito Sargent G89.29 Other chronic Of 05/03/13 JAY NIETO pain M54.2 Cervicalgia M99.01 Segmental and somatic dysfunction of cervical region M54.6 Pain in thoracic spine M99.02 Segmental and somatic dysfunction of thoracic region M25.511 Pain in right shoulder M25.512 Pain in left shoulder M99.07 Segmental and somatic dysfunction of upper extremity R53.83 Other fatigue Z79.891 manager terminal (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 Office Visit [...] Cervicalgia R51 Headache R53.83 Other fatigue Z79.891 shelter (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 Office Visit 08/14/2018 11:30a Main Office as Juanito Sargent G89.29 Other chronic Of 05/03/13 DO, MPH pain M54.5 Low back pain M65.88 Other synovitis and tenosynovitis, other site M46.07 Spinal enthesopathy, lumbosacral region M79.18 Myalgia, other site R53.83 Other fatigue Z79.891 shelter (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 Office Visit 07/17/2018 11:15a Main Office as Juanito Sargent G89.29 Other chronic Of 05/03/13 DO, MPH pain M54.5 Low back pain M72.2 Plantar fascial fibromatosis R53.83 Other fatigue Z79.891 manager terminal (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 Office Visit 06/17/2018 11:30a Main Office as Juanito Sargent G89.29 Other chronic Of 05/03/13 DO, MPH pain 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, cervical region M54.5 Low back pain M65.879 Other synovitis and tenosynovitis, unsp ankle and foot R53.83 Other fatigue Z79.891 manager terminal (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 Assessments Date Code Description Provider 12/13/2018 G89.29 Other chronic pain Sargent, Juanito, [...] spine Sargent, Juanito, DO, MPH 12/13/2018 Z79.891 manager terminal (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 Sargent, Juanito [...] fatigue Sargent, Juanito, DO, MPH 11/15/2018 Z79.891 manager terminal (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 Sargent, Juanito [...] fatigue Sargent, Juanito, DO, MPH 10/16/2018 Z79.891 shelter (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 Sargent, Juanito [...] fatigue Sargent, Juanito, DO, MPH 09/16/2018 Z79.891 shelter (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 Sargent, Juanito [...] Juanito, DO, MPH 08/14/2018 R53.83 Other fatigue Sargent, Juanito, DO, MPH 08/14/2018 Z79.891 manager terminal (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 Sargent, Juanito , DO, MPH 07/17/2018 G89.29 Other chronic pain Sargent, Juanito, DO, MPH 07/17/2018 M54.5 Low back pain Sargent, Juanito, DO, MPH 07/17/2018 M72.2 Plantar fascial fibromatosis Sargent, Juanito, DO, MPH 07/17/2018 R53.83 Other fatigue Sargent, Juanito, DO, MPH 07/17/2018 Z79.891 manager terminal (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 Sargent, Juanito , DO, MPH 06/17/2018 G89.29 Other chronic pain Sargent, Juanito, DO, MPH 06/17/2018 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 Symptoms and complaints discussed and reviewed today. No significant changes in physical findings. Continue current medical pain management.M54.2 CervicalgiaComments:Chronic. Symptoms and complaints discussed and reviewed today. Physical findings warrant injection therapy. Continue current medical pain management. Injection therapy performed today. Informed consentgiven/refusal reviewed. See procedure sheet. Injection therapy will lower this patient's pain, increase ROM improve functionality and mitigate the need for increased medication.M65.88 Other synovitis and tenosynovitis, other siteComments:Chronic. Symptoms and complaints discussed and reviewed today. Physical findings reviewed and warrant intervention. Continue current medical pain management. Injection therapy today - tendon sheath and tendon i/o. Informed consent given/refusal reviewed. See procedure sheet.M79.12 Myalgia of auxiliary muscles, head and neckComments:Symptoms and complaints discussed and reviewed today. Physical findings reviewed and warrant intervention. Injection therapy today - Trigger Point injections. Informed consent given/refusal reviewed. See procedure sheet.M25.511 Pain in right shoulderComments:Chronic. Symptoms and complaints [...] in physical findings. Continue current medical pain management.Z79.891 manager terminal (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New Labs:Urine Drug Screen, Ordered: 12/13/18Comments: Urine drug screen sample taken. Rapid Point of Care Cup was reviewed in office with patient. Will send out UDT Rapid to [facility] for confirmation testing. Urine Drug Testing (UDT) was done today to monitor opiate use and to monitor possible use of illicit substances. I will discuss the results at the next appointment from the [facility].The following tests were ordered:6 AM , AMPH, JOSELUIS, RAMIREZ, BUP, CARIS, COCM, COT, [...] controlled substances and is considered standard of care.R53.83 Other fatigueComments:Symptoms and complaints discussed and reviewed today. No significant changes in physical findings. Continue current medical pain management. B12 injection administered after patient evaluated. 1ml IM for fatigue. (See Consent for injection-B12 document for lot number and expiration date.)AllComments:Continue current medical pain management; injection therapy, osteopathic [...] while maintaining satisfactory side effect profile andminimizing half-way end-organ damage. Importance of regular nutrition throughout the day discussed.Activity as toleratedContinue with PCP Functional Status Description No Information Available Mental Status Description No Information Available Referrals Refer to Reason for Referral Status Appt Date Juanito Sargent D.O. MPH Created [address] [place] [address] [place] [address] [id number] [phone] Juanito Sargent D.O. MPH Created [address] [place] [address] [address] [place] [id number] [phone]
--- OUTSIDE RECORDS SUMMARY | 2019-02-03 14:29 | XMS REPORT | Continuity of Care Document ---
:1980 External Reference #:[id number] Author Name Mario Iglesias M.D. (transmitted by agent of provider Mahi Vergara) Address [address] [place] [address] Care Team Providers Name Role Phone Sebastian Zhang D.O. - Internal Care Team Information Physician Office Rep [phone] Medicine Shara Potter MD OT - Care Team Information Physician Office Rep Physical Rehabilitation Problems Active Problems Provider Date Cervical spondylosis without myelopathy Dandy Miller M.D. Onset: 2013 Myalgia & Myositis Unspecified Dandy Miller M.D. Onset: 06/13/2013 Cervical spondylosis Mario Iglesias M.D. Onset: 07/20/2016 Social History Type Date Description Comments Sex Unknown ETOH Use Occasionally consumes alcohol Tobacco Use Start: Unknown End: Patient is a former smoker Unknown Recreational Drug Use Denies Drug Use Smoking Status Reviewed: 12/18/18 Patient is a former smoker Exercise Type/Frequency Exercises rarely Allergies, Adverse Reactions, Alerts Description No Known Drug Allergies Medications Active Medications SIG Qnty Indications Ordering Date Provider Celecoxib 1 cap by mouth M06.09 Mario Iglesias, 12/09/2018 200mg twice daily. per M.D. Capsules pt was increased Baclofen take one tablet by 30tabs Mario Iglesias, 11/27/2018 10mg Tablets mouth twice a day M.D. as needed for muscle spasms - avoid driving Doxycycline Hyclate 1 by mouth twice a 60caps Mario Iglesias, 10/01/2018 day M.D. 100mg Capsules Nitro-bid apply small amount 30units Mario Iglesias 05/01/2018 2% Ointment to webs of digits M.D. as needed for attack of raynaud's Vyvanse Take one G47.10 Mario Iglesias, 06/12/2017 50mg Capsules capsule/tablet M.D. daily by mouth Alpha-Lipoic Acid 1 by mouth bid Mario Iglesias, 02/13/2017 M.D. 200mg Capsules Wellbutrin XL 1 by mouth every Unknown [...] 30mg MD Shara Tablets OT History Medications Medrol take as directed 21units Mario Iglesias, 11/27/2018 - 4mg TBPK until finished as M.D. 12/08/2018 a medrol dose pack Celecoxib Take 1 Capsule By 30caps M06.09 Mario Iglesias, 11/03/2018 - 100mg Mouth Twice A Day M.D. 12/09/2018 Capsules If Needed For Pain And Inflammation(Avoi d Other NSAIDS) Prednisone take 4 tabs by 30tabs Mario Iglesias, 10/07/2018 - 10mg mouth daily for 2 M.D. 12/08/2018 Tablets days then 3 tabs daily for 2 days then 2 tabs for 2 days then 1 tab for 2 days then d/c Celebrex take one 60caps M06.09 Mario Iglesias, 10/01/2018 - 200mg capsule/tablet M.D. 11/03/2018 Capsules twice daily by mouth for pain, avoid ibuprofen and other nsaids Ventolin HFA 2 puffs by mouth 36gm R06.00 Chris Hernandez, 08/13/2018 - every 4 hours as 08/14/2018 108(90Base) mcg/Act needed Aerosol Levofloxacin 1 tab by mouth 14tabs R06.00 Chris Hernandez, 08/13/2018 - 750mg every day for 7 MD 12/08/2018 Tablets days Celebrex 1 by mouth twice 60caps M06.09 Mario Iglesias, 08/01/2018 - 100mg a day as needed M.D. 10/01/2018 Capsules for pain/inflammation . avoid other nsaids Immunizations CPT Code Status Date Vaccine Reaction Lot # [id number] Given 06/12/2017 Pneumococcal Conjugate Vaccine 13 no reaction noted [id number] Valent For Intramuscular Use 41584 Given 01/04/2017 Influenza Virus Vaccine, [id number] Quadrivalent, Split, Preservative Free Vital Signs Date Vital Result Comment 12/18/2018 3:42pm Height 65 inches 5'5" Weight 235.12 lb Heart Rate 81 /min BP Systolic 132 mmHg BP Diastolic 88 mmHg Pain Level 7 O2 % BldC Oximetry 98 % BMI (Body Mass Index) 39.1 kg/m2 12/09/2018 2:57pm Height 65 inches 5'5" Weight 225.00 lb Heart Rate 100 /min BP Systolic Sitting 138 mmHg BP Diastolic Sitting 92 mmHg Respiratory Rate 14 /min BMI (Body Mass Index) 37.4 kg/m2 Results Test Date Facility Test Result H/L Range Note Laboratory test 12/16/2018 [facility] Erythrocyte Sed 17 mm/Hr Normal 0-[address] [place], [place] [id number] [phone] C Reactive Protein 5.13 mg/L Normal <8.01 CBC Auto 12/16/2018 [facility] White Blood 8.3 10^3/uL Normal 3.5-10.[address] [place] [address] [phone] Red Blood Count 4.45 10^6/uL Normal 3.70-4.87 Hemoglobin 12.7 g/dL Normal 12.0-16.0 Hematocrit 38 % Normal 35-47 Mean Corpuscular Volume 86 fL Normal 80-97 Mean Corpuscular Hemoglobin 29 pg Normal 27-31 Mean Corpuscular HGB Conc 33 g/dL Normal 31-36 Red Cell Distribution Width 14 % Normal 10-15 Platelet Count 196 10^3/uL Normal 150-450 Mean Platelet Volume 10.0 fL Normal 7.4-10.4 Abs Neutrophils 4.3 10^3/uL Normal 1.5-7.7 Abs Lymphocytes 3.2 10^3/uL Normal 1.0-4.8 Abs Monocytes 0.6 10^3/uL Normal 0-0.8 Abs Eosinophils 0.2 10^3/uL Normal 0-0.6 Abs Basophils 0.0 10^3/uL Normal 0-0.2 Abs Nucleated RBC 0.0 10^3/uL Granulocyte % 52.1 % Lymphocyte % 38.6 % Monocyte % 6.9 % Eosinophil % 1.9 % Basophil % 0.5 % Nucleated Red Blood Cells % 0.0 Comp Metabolic 12/16/2018 [facility] Sodium 142 mmol/L Normal 135-[address] [place] [address] [phone] Potassium 3.8 mmol/L Normal 3.5-5.0 Chloride 107 mmol/L Normal 101-111 Co2 Carbon Dioxide 29 mmol/L Normal 22-32 Anion Gap 6 mmol/L Normal 2-11 Glucose 89 mg/dL Normal 70-100 Blood Urea Nitrogen 21 mg/dL Normal 6-24 Creatinine 0.85 mg/dL Normal 0.51-0.95 BUN/Creatinine Ratio 24.7 High 8-20 Calcium 9.0 mg/dL Normal 8.6-10.3 Total Protein 6.4 g/dL Normal 6.4-8.9 Albumin 4.2 g/dL Normal 3.2-5.2 Globulin 2.2 g/dL Normal 2-4 Albumin/Globulin Ratio 1.9 Normal 1-3 Total Bilirubin 0.30 mg/dL Normal 0.2-1.0 Alkaline Phosphatase 62 U/L Normal 34-104 Alt 13 U/L Normal 7-52 Ast 15 U/L Normal 13-39 Egfr Non- 75.7 >60 Egfr 91.6 >60 1 Laboratory test 11/25/2018 [facility] Erythrocyte Sed 35 mm/Hr High 0-[address] [place] [address] [phone] C Reactive Protein 19.42 mg/L High <8.01 CBC Auto 11/25/2018 [facility] White Blood 10.5 10^3/uL Normal 3.5-10.[address] [place] [address] [phone] Red Blood Count 4.44 10^6/uL Normal 3.70-4.87 Hemoglobin 12.6 g/dL Normal 12.0-16.0 Hematocrit 38 % Normal 35-47 Mean Corpuscular Volume 85 fL Normal 80-97 Mean Corpuscular Hemoglobin 28 pg Normal 27-31 Mean Corpuscular HGB Conc 33 g/dL Normal 31-36 Red Cell Distribution Width 14 % Normal 10-15 Platelet Count 213 10^3/uL Normal 150-450 Mean Platelet Volume 9.5 fL Normal 7.4-10.4 Abs Neutrophils 6.9 10^3/uL Normal 1.5-7.7 Abs Lymphocytes 2.8 10^3/uL Normal 1.0-4.8 Abs Monocytes 0.5 10^3/uL Normal 0-0.8 Abs Eosinophils 0.2 10^3/uL Normal 0-0.6 Abs Basophils 0.1 10^3/uL Normal 0-0.2 Abs Nucleated RBC 0.0 10^3/uL Granulocyte % 66.0 % Lymphocyte % 26.3 % Monocyte % 4.8 % Eosinophil % 2.3 % Basophil % 0.6 % Nucleated Red Blood Cells % 0.0 Comp Metabolic 11/25/2018 [facility] Sodium 138 mmol/L Normal 135-[address] [place] [address] [phone] Potassium 4.4 mmol/L Normal 3.5-5.0 Chloride 103 mmol/L Normal 101-111 Co2 Carbon Dioxide 29 mmol/L Normal 22-32 Anion Gap 6 mmol/L Normal 2-11 Glucose 91 mg/dL Normal 70-100 Blood Urea Nitrogen 26 mg/dL High 6-24 Creatinine 0.85 mg/dL Normal 0.51-0.95 BUN/Creatinine Ratio 30.6 High 8-20 Calcium 9.2 mg/dL Normal 8.6-10.3 Total Protein 6.3 g/dL Low 6.4-8.9 Albumin 4.0 g/dL Normal 3.2-5.2 Globulin 2.3 g/dL Normal 2-4 Albumin/Globulin Ratio 1.7 Normal 1-3 Total Bilirubin 0.40 mg/dL Normal 0.2-1.0 Alkaline Phosphatase 69 U/L Normal 34-104 Alt 25 U/L Normal 7-52 Ast 23 U/L Normal 13-39 Egfr Non- 75.7 >60 Egfr 91.6 >60 2 Laboratory test 10/21/2018 [facility] Culture Throat SEE RESULT 3, [address] [place] [address] [phone] Laboratory test 09/17/2018 [facility] Erythrocyte Sed 30 mm/Hr High 0-[address] [place] [address] [phone] C Reactive Protein 7.82 mg/L Normal <8.01 CBC Auto 09/17/2018 [facility] White Blood 7.8 10^3/uL Normal 3.5-10.[address] [place] [address] [phone] Red Blood Count 4.53 10^6/uL Normal 3.70-4.87 Hemoglobin 13.3 g/dL Normal 12.0-16.0 Hematocrit 39 % Normal 35-47 Mean Corpuscular Volume 86 fL Normal 80-97 Mean Corpuscular Hemoglobin 29 pg Normal 27-31 Mean Corpuscular HGB Conc 34 g/dL Normal 31-36 Red Cell Distribution Width 13 % Normal 10-15 Platelet Count 241 10^3/uL Normal 150-450 Mean Platelet Volume 9.8 fL Normal 7.4-10.4 Abs Neutrophils 5.0 10^3/uL Normal 1.5-7.7 Abs Lymphocytes 2.3 10^3/uL Normal 1.0-4.8 Abs Monocytes 0.4 10^3/uL Normal 0-0.8 Abs Eosinophils 0.2 10^3/uL Normal 0-0.6 Abs Basophils 0.0 10^3/uL Normal 0-0.2 Abs Nucleated RBC 0.0 10^3/uL Granulocyte % 63.3 % Lymphocyte % 28.7 % Monocyte % 5.3 % Eosinophil % 2.3 % Basophil % 0.4 % Nucleated Red Blood Cells % 0.2 Comp Metabolic 09/17/2018 [facility] Sodium 138 mmol/L Normal 135-[address] [place] [address] [phone] Potassium 4.2 mmol/L Normal 3.5-5.0 Chloride 104 mmol/L Normal 101-111 Co2 Carbon Dioxide 28 mmol/L Normal 22-32 Anion Gap 6 mmol/L Normal 2-11 Glucose 129 mg/dL High 70-100 Blood Urea Nitrogen 19 mg/dL Normal 6-24 Creatinine 0.85 mg/dL Normal 0.51-0.95 BUN/Creatinine Ratio 22.4 High 8-20 Calcium 9.2 mg/dL Normal 8.6-10.3 Total Protein 6.7 g/dL Normal 6.4-8.9 Albumin 4.0 g/dL Normal 3.2-5.2 Globulin 2.7 g/dL Normal 2-4 Albumin/Globulin Ratio 1.5 Normal 1-3 Total Bilirubin 0.40 mg/dL Normal 0.2-1.0 Alkaline Phosphatase 62 U/L Normal 34-104 Alt 14 U/L Normal 7-52 Ast 16 U/L Normal 13-39 Egfr Non- 75.7 >60 Egfr 91.6 >60 5 1 Because ethnic data is not always [...] 5 Kidney failure <15 (or dialysis) 2 Because ethnic data is not always [...] 5 Kidney failure <15 (or dialysis) 3 [id number] 4 SEE RESULT BELOW Name: EVGENY RESENDIZ Wilmer : [address]: Orville Baer MD Acct: [id number] Unit: [id number] AGE: 38 Location: [facility] Re10/21/18 SEX: F Status: DEP ER SPEC: [id number] SAUL: 10/21/18-2[address] [facility] [address]: Kathleen WILLIMA REQ: [id number] RECD: 10/22/18 STATUS: TRENT PICKENS DR: Sebastian Rodriguez MD _ SOURCE: THROAT SPDESC: ORDERED: Throat Culture COMMENTS: [id number] Procedure Result Reported Site Throat Culture Final 10/24/18- 0750 ML Organism 1 YEAST Quantity 2+ Organism 2 NORMAL GORAN Quantity 2+ Throat cultures are clinically indicated to detect the presence of group A strep, arcanobacterium and yeast. In certain cases, predominating organisms will be reported. * ML - Main Lab . END OF REPORT DEPARTMENT OF PATHOLOGY, [address] [place] [address] Matthias Link M.D. 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 factor, multiple sites Z79.899 Other correction (current) drug therapy M54.5 Low back pain Office Visit 07/29/2018 9:45a [facility] Betsy Taylor, R65.20 Severe sepsis Assoc,nancy Jaime without Hospitalists septic shock E87.2 Acidosis J96.01 Acute respiratory failure with hypoxia Z87.39 Personal history of diseases of the ms sys and conn tiss I73.00 Raynaud's syndrome without gangrene M19.90 Unspecified osteoarthritis, unspecified site M06.4 Inflammatory polyarthropathy M79.7 Fibromyalgia Office Visit 07/29/2018 2:24p Pulmonology And Cheryl J96.91 Respiratory Sleep Services Of MD Alan failure, Engineering Programmer unspecified with hypoxia J15.4 Pneumonia due to other streptococci E66.9 Obesity, unspecified Office Visit 07/28/2018 [facility] Betsy Brandon, J18.9 Pneumonia, 9:45a nancy Zuñiga M.D. 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 other streptococci Hospitalists B95.3 Streptococcus pneumoniae causing diseases classd elswhr M06.9 Rheumatoid arthritis, unspecified N39.0 Urinary tract infection, site not specified G89.29 Other chronic pain Office Visit 07/26/2018 [facility] Betsy Taylor, J15.4 Pneumonia due to 9:44a nancy Zuñiga M.D. other streptococci Hospitalists B95.3 Streptococcus pneumoniae causing diseases classd elswhr M06.9 Rheumatoid arthritis, unspecified N39.0 Urinary tract infection, site not specified G89.29 Other chronic pain Office Visit 07/26/2018 2:23p Pulmonology And Cheryl J96.91 Respiratory Sleep Services Of MD john Phillips, Engineering Programmer unspecified with hypoxia J15.4 Pneumonia due to other streptococci E66.9 Obesity, unspecified Office Visit 07/25/2018 [facility] Betsy Taylor, J15.4 Pneumonia due to 9:43a nancy Zuñiga M.D. other streptococci Hospitalists B95.3 Streptococcus pneumoniae causing diseases classd elswhr M06.9 Rheumatoid arthritis, unspecified N39.0 Urinary tract infection, site not specified G89.29 Other chronic pain Office Visit 07/25/2018 2:22p Pulmonology And Cheryl J96.91 Respiratory Sleep Services Of MD Alan failure, Engineering Programmer unspecified with hypoxia J15.4 Pneumonia due to other streptococci Office Visit 07/24/2018 9:42a Intensivists Jarrett Callahan J15.4 Pneumonia due to M.D. other streptococci M79.7 Fibromyalgia F41.9 Anxiety disorder, unspecified Office Visit 07/24/2018 2:23p Pulmonology And Cheryl J15.4 Pneumonia due to Sleep Services Of MD Alan other streptococci Engineering Programmer Z87.891 Personal history of nicotine dependence Office Visit 07/23/2018 [facility] Tamia A41.9 Sepsis, 9:42a Assoc,nancy Hwang, TERESITA unspecified Hospitalists organism J96.01 Acute respiratory failure with hypoxia E87.6 Hypokalemia M06.9 Rheumatoid arthritis, unspecified G89.29 Other chronic pain R79.89 Other specified abnormal findings of blood chemistry R74.0 Nonspec elev of levels of transamns & lactic acid dehydrgnse Assessments Date Code Description Provider 12/18/2018 M06.09 Rheumatoid arthritis without Mario Iglesias M.D. rheumatoid factor, multiple sit 12/18/2018 M54.16 Lumbar radiculopathy Mario Iglesias M.D. 12/18/2018 M54.12 Cervical radiculopathy Mario Iglesias M.D. 12/18/2018 Z79.899 Other intermediate designer (current) drug Mario Iglesias M.D. therapy 12/09/2018 M54.12 Cervical radiculopathy NATALIIA Valle 12/09/2018 M54.16 Lumbar radiculopathy NATALIIA Valle 11/27/2018 R10.2 Pelvic and perineal pain Mario Iglesias M.D. 11/27/2018 R10.30 Lower abdominal pain, unspecified Mario Iglesias M.D. 11/27/2018 M54.12 Cervical radiculopathy Mario Iglesias M.D. 11/27/2018 M06.09 Rheumatoid arthritis without Mario Iglesias M.D. rheumatoid factor, multiple sit 11/11/2018 R06.83 Snoring Cheryl Phillips MD 11/06/2018 M54.12 Cervical radiculopathy NATALIIA Valle 10/01/2018 M06.09 Rheumatoid arthritis without Mario Iglesias M.D. rheumatoid factor, multiple sit 10/01/2018 Z79.899 Other correction (current) drug Mario Iglesias M.D. therapy 10/01/2018 M54.6 Pain in thoracic spine Mario Iglesias M.D. 10/01/2018 M54.5 Low back pain Mario Iglesias M.D. 08/13/2018 R06.00 Dyspnea, unspecified Chris Hernandez MD 08/13/2018 G47.30 Sleep apnea, unspecified Chris Hernandez MD 08/01/2018 J18.9 Pneumonia, unspecified organism Mario Iglesias M.D. 08/01/2018 M06.09 Rheumatoid arthritis without Mario Iglesias M.D. rheumatoid factor, multiple sit 08/01/2018 Z79.899 Other correction (current) drug Mario Iglesias M.D. therapy 08/01/2018 M54.5 Low back pain Mario Iglesias M.D. 07/29/2018 J96.91 Respiratory failure, unspecified Cheryl Phillips MD with hypoxia 07/29/2018 J15.4 Pneumonia due to other streptococci Cheryl Phillips MD 07/29/2018 E66.9 Obesity, unspecified Cheryl Phillips MD 07/29/2018 R65.20 Severe sepsis without septic shock Betsy Taylor M.D. 07/29/2018 E87.2 Acidosis Betsy Taylor M.D. 07/29/2018 J96.01 Acute respiratory failure with Betsy Taylor M.D. hypoxia 07/29/2018 Z87.39 Personal history of diseases of the Betsy Taylor M.D. ms sys and conn tiss 07/29/2018 I73.00 Raynaud's syndrome without gangrene Betsy Taylor M.D. 07/29/2018 M19.90 Unspecified osteoarthritis, Betsy Taylor M.D. unspecified site 07/29/2018 M06.4 Inflammatory polyarthropathy Betsy Taylor M.D. 07/29/2018 M79.7 Fibromyalgia Betsy Taylro M.D. 07/28/2018 J18.9 Pneumonia, unspecified organism Betsy Taylor M.D. 07/28/2018 M06.09 Rheumatoid arthritis without Betsy Taylor M.D. rheumatoid factor, multiple sit 07/28/2018 N39.0 Urinary tract infection, site not Betsy Taylor M.D. specified 07/28/2018 G89.29 Other chronic pain Betsy Taylor M.D. 07/27/2018 J15.4 Pneumonia due to other streptococci Betsy Taylor M.D. 07/27/2018 B95.3 Streptococcus pneumoniae causing Betsy Talyor M.D. diseases classd [facility] 07/27/2018 M06.9 Rheumatoid arthritis, unspecified Betsy Taylor M.D. 07/27/2018 N39.0 Urinary tract infection, site not Betsy Taylor M.D. specified 07/27/2018 G89.29 Other chronic pain Betsy Taylor M.D. 07/26/2018 J96.91 Respiratory failure, unspecified Cheryl Phillips MD with hypoxia 07/26/2018 J15.4 Pneumonia due to other streptococci Cheryl Phillips MD 07/26/2018 E66.9 Obesity, unspecified Cheryl Pihllips MD 07/26/2018 J15.4 Pneumonia due to other streptococci Betsy Taylor M.D. 07/26/2018 B95.3 Streptococcus pneumoniae causing Betsy Taylor M.D. diseases classd [facility] 07/26/2018 M06.9 Rheumatoid arthritis, unspecified Betsy Taylor M.D. 07/26/2018 N39.0 Urinary tract infection, site not Betsy Taylor M.D. specified 07/26/2018 G89.29 Other chronic pain Betsy Taylor M.D. 07/25/2018 J96.91 Respiratory failure, unspecified Cheryl Phillips MD with hypoxia 07/25/2018 J15.4 Pneumonia due to other streptococci Cheryl Phillips MD 07/25/2018 J15.4 Pneumonia due to other streptococci Betsy Taylor M.D. 07/25/2018 B95.3 Streptococcus pneumoniae causing Betsy Taylor M.D. diseases classd [facility] 07/25/2018 M06.9 Rheumatoid arthritis, unspecified Betsy Taylor M.D. 07/25/2018 N39.0 Urinary tract infection, site not Betsy Taylor M.D. specified 07/25/2018 G89.29 Other chronic pain Betsy Taylor M.D. 07/24/2018 R00.0 Tachycardia, unspecified Marcial Lopez M.D., [facility], [facility] 07/24/2018 J15.4 Pneumonia due to other streptococci Cheryl Phillips MD 07/24/2018 Z87.891 Personal history of nicotine Cheryl Phillips MD dependence 07/24/2018 J15.4 Pneumonia due to other streptococci Jarrett Callahan M.D. 07/24/2018 M79.7 Fibromyalgia Jarrett Callahan M.D. 07/24/2018 F41.9 Anxiety disorder, unspecified Jarrett Callahan M.D. 07/23/2018 A41.9 Sepsis, unspecified organism Tamia Hwang, [employer] 07/23/2018 J96.01 Acute respiratory failure with Tamia Hwang NP hypoxia 07/23/2018 E87.6 Hypokalemia Tamia Hwang NP 07/23/2018 M06.9 Rheumatoid arthritis, unspecified Tamia Hwang, [employer] COUNSELOR 07/23/2018 G89.29 Other chronic pain Tamia Hwang NP 07/23/2018 R79.89 Other specified abnormal findings of Tamia Hwang NP blood chemistry 07/23/2018 R74.0 Nonspec elev of levels of transamns Tamia Hwang NP & lactic acid dehydrgnse Plan of Treatment Future Appointment(s):03/18/2019 10:40 am - Mario Iglesias M.D. at [facility]01/15/2019 3:00 pm - Chris Hernandez MD at [facility]12/09/2018 - Sonia Peguero, PAM54.12 Radiculopathy, cervical regionNew Xrays:Myelography Cervical, Ordered: 12/09/18M54.16 Radiculopathy, lumbar regionNew Xrays:Myelography Lumbosacral, Ordered: 12/09/18 Functional Status Description No Information Available Mental Status Description No Information Available Referrals Refer to Dr Reason for Referral Status Appt Date Christian Ryan MD Please eval and treat patient with Sent radicular back symptoms and MRI revealing paracentral disc protrusion indenting thecal sac [address] [place] [phone]
[2019-02-03] MEDS ORDERED: HYDROmorphone INJ* 0.5 MG/0.5 ML SYRINGE IM ONE (16:35)
--- NOTE | 2019-02-03 16:38 | ED ---
Back Pain - HPI Summary HPI Summary: Patient complains of worsening chronic low back pain radiating into left hip and down left leg with intermittent paresthesia in left foot. Patient had recent myelogram of lumbar spine and C-spine on 01/20. Patient states she has surgical appointment with Dr. Underwood upcoming in March, but states pain has been doing worse. States she called office of Dr. Underwood, but they did not call back. Patient is ambulatory, denies any new trauma, fever, cough, sore throat, CP, SOB, N/V/D, abdominal pain, change in urine, change in BM. Patient taking oxycodone 15 mg 3 times a day, and morphine 30 mg twice a day thru pain management - History of Current Complaint Chief Complaint: EDBackInjuryPain Stated Complaint: LEFT LEG/HIP PAIN PER PT Time Seen by Provider: 02/03/19 15:25 Hx Obtained From: Patient Hx Last Menstrual Period: 09/24/2018 Onset/Duration: Gradual Onset, Lasting Weeks Onset/Duration: Started Weeks Ago Timing: Constant Back Pain Location: Radiates To Severity Initially: Moderate Severity Currently: Severe Pain Intensity: 9 Pain Scale Used: 0-10 Numeric Character: Aching, Throbbing Aggravating Symptom(s): Movement, Walking Alleviating Symptom(s): Rest, Position Associated Signs And Symptoms: Positive: Numbness, Tingling - Allergies/Home Medications Allergies/Adverse Reactions: Allergies Allergy/AdvReac Type Severity Reaction Status Date / Time adhesive Allergy Rash Verified 02/03/19 14:22 PMH/Surg Hx/FS Hx/Imm Hx Endocrine/Hematology History: Denies: Hx Diabetes, Hx Thyroid Disease Cardiovascular History: Denies: Hx Hypertension, Hx Pacemaker/ICD, Other Cardiovascular Problems/ Disorders Respiratory History: Reports: Hx Sleep Apnea - position controled Denies: Hx Asthma, Hx Chronic Obstructive Pulmonary Disease (COPD), Other Respiratory Problems/Disorders GI History: Denies: Hx Ulcer, Other GI Disorders History: Reports: Other Problems/Disorders - history of renal calculi Denies: Hx Dialysis, Hx Renal Disease Musculoskeletal History: Reports: Hx Arthritis - hands, elbows, ankles, osteoarthritis, Hx Rheumatoid Arthritis, Hx Bursitis - left hip, Hx Fibromyalgia , Other Musculoskeletal History - left plantar fasciitis Sensory History: Reports: Hx Contacts or Glasses - not wearing Denies: Hx Hearing Aid Opthamlomology History: Reports: Hx Contacts or Glasses - not wearing EENT History: Denies: Hx Deafness Neurological History: Reports: Hx Nerve Disease - myopathic feet, legs and hands , fibromyalgia Denies: Other Neuro Impairments/Disorders Psychiatric History: Reports: Hx Anxiety, Hx Eating Disorder - binge eating disorder, Hx Depression, Hx Panic Disorder, Hx Post Traumatic Stress Disorder, Hx Bipolar Disorder, Other Psychiatric Issues/Disorders - opiate addiction - Surgical History Surgery Procedure, Year, and Place: 3 C-SECTIONS;. C3 to C7 FUSION;. TUBAL LIGATION;. GASTRECTOMY (BARIATRIC SURGERY) 2018; Hx Anesthesia Reactions: No - Immunization History Date of Tetanus Vaccine: utd Date of Influenza Vaccine: utd Immunizations Up to Date: Yes Infectious Disease History: No Infectious Disease History: Denies: Hx Clostridium Difficile, Hx Hepatitis, Hx Human Immunodeficiency Virus (HIV), Hx of Known/Suspected MRSA, Hx Shingles, Hx Tuberculosis, Hx Known/ Suspected VRE, Hx Known/Suspected VRSA, History Other Infectious Disease, Traveled Outside the [place] in Last 30 Days - Family History Known Family History: Positive: None, Cardiac Disease - father [place] 48yo alive, Hypertension, Diabetes, Respiratory Disease - COPD - parents, Other - copd, parents, Non-Contributory - Social History Alcohol Use: None Hx Substance Use: Yes Substance Use Type: Reports: None Substance Use Comment - Amount & Last Used: Percocet bid, morphine er 30 mg bid Hx Tobacco Use: Yes Smoking Status (MU): Former Smoker Type: Cigarettes Amount Used/How Often: 1/4 pack a day for 9 months Have You Smoked in the Last Year: No Review of Systems Constitutional: Negative Eyes: Negative ENT: Negative Cardiovascular: Negative Respiratory: Negative Gastrointestinal: Negative Genitourinary: Negative Musculoskeletal: Other Skin: Negative Neurological: Negative Psychological: Normal All Other Systems Reviewed And Are Negative: Yes Physical Exam - Summary Physical Exam Summary: Patient ambulatory. PMS intact distally on bilateral lower extremities. No ecchymosis, erythema, deformity, swelling noted to lower back or left hip. No tenderness to palpation of left hip. Moderate tenderness to palpation of left lower back. Triage Information Reviewed: Yes Vital Signs On Initial Exam: Initial Vitals Temp Pulse Resp BP Pulse Ox 99.0 F 96 20 125/79 100 02/03/19 14:17 02/03/19 14:17 02/03/19 14:17 02/03/19 14:17 02/03/19 14:17 Vital Signs Reviewed: Yes Appearance: Positive: Well-Appearing Skin: Positive: Warm Head/Face: Positive: Normal Head/Face Inspection Eyes: Positive: Normal Neck: Positive: Supple Respiratory/Lung Sounds: Positive: Clear to Auscultation Cardiovascular: Positive: Normal Abdomen Description: Positive: Nontender Musculoskeletal: Positive: Normal Neurological: Positive: Normal Psychiatric: Positive: Normal AVPU Assessment: Alert - [place] Coma Scale Best Eye Response: 4 - Spontaneous Best Motor Response: 6 - Obeys Commands Best Verbal Response: 5 - Oriented Coma Scale Total: 15 Procedures - Sedation Patient Received Moderate/Deep Sedation with Procedure: No Diagnostics - Vital Signs Vital Signs Temp Pulse Resp BP Pulse Ox 02/03/19 14:17 99.0 F 96 20 125/79 100 - Laboratory Lab Statement: Any lab studies that have been ordered have been reviewed, and results considered in the medical decision making process. Back Pain Course/Dx - Course Course Of Treatment: Patient complains of worsening chronic low back pain radiating into left hip and down left leg with intermittent paresthesia in left foot. Patient had recent myelogram of lumbar spine and C-spine on 01/20. Patient states she has surgical appointment with Dr. Underwood upcoming in March, but states pain has been doing worse. States she called office of Dr. Underwood, but they did not call back. Patient is ambulatory, denies any new trauma, fever, cough, sore throat, CP, SOB, N/V/D, abdominal pain, change in urine, change in BM. Patient taking oxycodone 15 mg 3 times a day, and morphine 30 mg twice a day thru pain management. Vital signs within normal limits. Discussed patient with Dr. Underwood who recommended follow-up in clinic, will try to get her an appointment this week. No prescriptions for pain meds as patient is already receiving pain management. - Diagnoses Provider Diagnoses: Back pain, Leg pain, Paresthesia and pain of left extremity Discharge ED - Sign-Out/Discharge Documenting (check all that apply): Patient Departure - Discharge Plan Condition: Stable Disposition: HOME Patient Education Materials: Paresthesia (ED), Lumbar Radiculopathy (ED) Referrals: Sebastian Zhang DO [Primary Care Provider] - Christian Ryan MD [Medical Doctor] - Additional Instructions: Call clinic of Dr. Ryan tomorrow morning to arrange appointment for further evaluation. - Billing Disposition and Condition Condition: STABLE Disposition: Home
[2019-02-03 16:56] VITALS: BP 105/78
== END 2019-02-03 16:56 | disposition home or self-care (01) ==
LOC: ED 14:12
DX: M54.5 Low back pain (principal); M25.552 Pain in left hip; M79.605 Pain in left leg; R20.2 Paresthesia of skin; Z91.048 Other nonmedicinal substance allergy status; Z87.891 Personal history of nicotine dependence
CPT/HCPCS: 96372; 99281; J1170

== ENCOUNTER 2019-03-06 05:42 | Observation (INO) | payer MEDICARE, MEDICAID ==
[~2019-03-06 05:42] MED LIST: Buffered Lidocaine 1% SYRIN* 1 ML/SYRINGE INTRADERM ONE
[2019-03-06] MEDS ORDERED: celeCOXIB CAP* 200 MG PO ONE (06:00)
[2019-03-06] MEDS ORDERED: Acetaminophen TAB* 325 MG PO ONE (06:00)
[2019-03-06] MEDS ORDERED: Lactated Ringers 1000 ML Bag* 1,000 ML IV SCH (06:00)
[2019-03-06] MEDS ORDERED: Gelfoam Sponge SIZE 100* SPONGE ONE (06:34)
[2019-03-06] MEDS ORDERED: Bupivacaine 0.25% EPI 200,000* 30 ML SDV ONE (06:34)
[2019-03-06] MEDS ORDERED: Bacitracin INJECTION* 50,000 UNITS ONE (06:35)
[2019-03-06] MEDS ORDERED: ceFAZolin 2 GM in NS PREMIX(*) 2 GM/100 ML BAG IVPB ONE (06:47)
[2019-03-06] MEDS ORDERED: Acetaminophen TAB* 325 MG ONE (06:47)
[2019-03-06] MEDS ORDERED: celeCOXIB CAP* 200 MG ONE (06:47)
[2019-03-06] MEDS ORDERED: Buffered Lidocaine 1% SYRIN* 1 ML/SYRINGE INTRADERM ONE (06:47)
[2019-03-06] MEDS ORDERED: oxyCODONE TAB* 5 MG TAB ONE ×2 (07:03→11:45)
[2019-03-06] MEDS ORDERED: Scopolamine 1.5 mg* PATCH ONE (07:04)
[2019-03-06] MEDS ORDERED: Scopolamine 1.5 mg* PATCH TRANSDERM ONE (07:05)
[2019-03-06] MEDS ORDERED: oxyCODONE TAB* 5 MG TAB PO PRN ×2 (07:06→10:26)
[2019-03-06] MEDS ORDERED: Rocuronium* 10 MG/ML VIAL ONE ×2 (07:14→07:21)
[2019-03-06] MEDS ORDERED: fentaNYL* 50 MCG/ML 5 ML VIAL (250 MCG VIAL) ONE (07:14)
[2019-03-06] MEDS ORDERED: Lidocaine 2% PF * 5 ML VIAL ONE (07:14)
[2019-03-06] MEDS ORDERED: Propofol* 10 MG/ML 20 ML BTL ONE (07:14)
[2019-03-06] MEDS ORDERED: Dexamethasone IV* 4 MG/ML 1 ML (4 MG) ONE ×2 (08:00→12:21)
[2019-03-06] MEDS ORDERED: KETAMINE HCL* 50 MG/ML 10 ML VIAL ONE (10:01)
[2019-03-06] MEDS ORDERED: Naloxone* 0.4 MG/ML 1 ML VIAL IV PRN (10:26)
[2019-03-06] MEDS ORDERED: HYDROmorphone INJ1* 1 MG/ML SYRINGE ONE ×4 (10:54→11:45)
[2019-03-06] MEDS ORDERED: Glycopyrrolate IV* 0.2 MG/ML 1 ML VIAL ONE (10:55)
[2019-03-06] MEDS ORDERED: Ondansetron INJ* 2 MG/ML VIAL ONE ×3 (10:55→13:11)
[2019-03-06] MEDS ORDERED: Ketorolac INJ* 30 MG/ML 1 ML VIAL ONE (10:55)
[2019-03-06] MEDS ORDERED: Neostigmine Methylsulfate* 3 MG/3 ML SYRINGE ONE (10:55)
[2019-03-06] MEDS: HYDROmorphone INJ1* 1 MG/ML SYRINGE IV PRN ×4 (11:30→12:09)
[2019-03-06] MEDS ORDERED: Ondansetron INJ* 2 MG/ML VIAL IV PRN (11:34)
[2019-03-06] MEDS ORDERED: Acetaminophen TAB* 325 MG PO PRN (11:34)
[2019-03-06] MEDS ORDERED: Magnesium Hydroxide LIQ* 30 ML UDC PO PRN (11:34)
[2019-03-06] MEDS ORDERED: HYDROcodone/ACETAMIN 5-325 MG* 1 TAB PO PRN ×2 (11:34)
[2019-03-06] MEDS ORDERED: HYDROcodone/ACETAMIN 5-325 MG* 1 TAB ONE (13:00)
--- NOTE | 2019-03-06 13:43 | OP ---
DATE OF OPERATION: 03/06/19 - ROOM #331 DATE OF : 84 SURGEON: Christian Ryan MD. JUTE BAG SEWER: ANA Newton. The case was done with the assistance of ANA because of the complexity of the case. ANESTHESIA: General. PRE-OP DIAGNOSIS: Left L4-5 herniated nucleus pulposus. POST-OP DIAGNOSIS: Left L4-5 herniated nucleus pulposus. OPERATIVE PROCEDURE: The patient underwent left L4-5 MIS diskectomy with extensive foraminotomy and decompressive laminectomy. ESTIMATED BLOOD LOSS: 10 cc. COMPLICATIONS: None. SUMMARY: The patient is a very pleasant 38-year-old female with history of cervical spondylotic myelopathy, status post posterior cervical decompression and fusion by Dr. Robertson, who presented with significant back pain radiating to the left lower extremity with MRI and CT myelogram findings consistent with a very large left L4-5 herniated disk. After failing conservative treatment modalities, she was offered the option of surgical intervention in the form of a left L4-5 MIS diskectomy and after explaining the expectations, limitations, and possible complications of the procedure to the patient and her significant other with complications including, but not limited to bleeding, infection, risk of injury to adjacent structures, coma, paralysis, , need for additional procedures, anesthesia risks, stroke, blindness, cancer, instability , adjacent level disease, spinal fluid leak, hematoma formation, loss of bladder or bowel control, deep venous thrombosis, pulmonary embolism, [place], need for prolonged hospitalization, prolonged ICU stay, prolonged rehabilitation, need for tracheostomy or gastrotomy; the patient was agreeable to proceed with surgery and informed consent was obtained. The patient understood that her condition may not improve and, in fact, may get worse after surgery and that she may need to have additional procedures in the future. She also understood that the operative plan may be modified according to intraoperative findings and conditions and that the case may be abandoned or done in more than 1 stages. DESCRIPTION OF PROCEDURE: The patient was brought to the operating room and was placed under general anesthesia by the anesthesia team. She was carefully positioned prone on the Raghavendra frame on the Kenrick table and all bony prominences were meticulously padded. Her skin was prepped and draped in the standard fashion. After appropriate surgical pause and patient identification, a small left paramedian incision over the disk space of L4-5 was marked on the skin with the assistance of intraoperative fluoroscopic imaging. The skin was infiltrated with local anesthetic and a #10 surgical knife was used to incise the skin. The incision was carried down with Bovie cautery and after incising the fascia with a #10 surgical blade, the [employer] tubular retractor system was introduced into the field over a series of dilators. Intraoperative fluoroscopic imaging confirmed the appropriate surgical level and a second time- out was performed. The operative microscope was brought into the field and after exposing the base of the spinous process of L4, the left L4 lamina and pars as well as the medial facet of L4-5, high-speed drill and Kerrison punches were used to perform a laminectomy including a large part of the left hemilamina and extending towards to the right side. Decompressive laminectomy was decided as significant compression and stenosis of the spinal canal was found, as expected from preoperative imaging due to the large size of the herniated disk. The ligamentum flavum was then gently reflected with the use of Kerrison punches and the thecal sac and the left L5 nerve root were definitively identified. Extensive foraminotomy was performed and after slightly retracting the nerve root and thecal sac medially, a very large subligamentous disk fragment was identified exerting significant mass effect on the thecal sac and the nerve root. A small incision over the posterior longitudinal ligament with a #11 surgical blade was performed and a very large disk fragment and smaller disk fragments were removed relieving the pressure that was present. Exploration of the disk space was performed with the use of pituitary rongeurs and all loose fragments were removed. After the diskectomy, there was no pressure phenomenon on the thecal sac or on the nerve root. After copious irrigation, confirmation of meticulous hemostasis and meticulous inspection, the wound was closed by layers. The tubular retractor was then gently removed and the dorsal fascia was approximated with 0 interrupted Vicryl sutures. The subcutaneous tissue was then approximated with inverted interrupted 2-0 Vicryl sutures and the skin was covered with Dermabond and sterile dressings. At the end of the procedure, all counts were reported to be correct. The patient remained hemodynamically stable throughout the case. The patient was then turned supine, was extubated, and was transferred to Recovery in excellent condition. The case was done with the assistance of [facility] because of the complexity of the case. [id number]/[facility] #: [id number] [facility]
--- NOTE | 2019-03-06 14:13 | CONSULT ---
Consult Consult: INPATIENT PAIN CONSULTATION Chava Giles is a 38 year old female. She has a medical history significant for low back pain. She used to see Dr. Cormier in [place] but now sees Dr. Sargent in [place]. She also has a diagnosis of Rheumatoid Arthritis and sees Dr. Iglesias for that. Normally, she takes MS Contin 30 mg BID, oxycodone 15 mg TID, Lyrica 200 mg TID. She is also on Ativan 2 mg BID and Vyvanse 70 mg daily from her psychiatrist. (The former for anxiety and the latter for binge eating disorder) I saw her in consultation in May, after she had a and she had severe back pain.Over this past summer she developed significant low back pain radiating into her left leg. It worsened with time. She saw Dr. Iglesias and she had an MRI of her lumbar and thoracic spine in September, and an MRI of her cervical spine in October. She was sent to neurosurgery and had a CT myelogram done. A left sided disc protrusion was seen at L4/5 with severe stenosis. She underwent a left L4/5 discectomy with a foraminotomy and laminectomy today. She had a lot of pain. I am asked to see her in consultation. PAST MEDICAL HISTORY: C sections x 3; Cervical fusion C3-7 (Robertson) Feb 2016; Anxiety; binge eating d/o; HTN, anxiety, RA Allergies Allergy/AdvReac Type Severity Reaction Status Date / Time adhesive Allergy Mild Rash Verified 03/06/19 06:56 Current Medications Acetaminophen (Tylenol Tab*) 650 mg PO Q4H PRN PRN Reason: MILD PAIN or TEMP > 100.4 Hydrocodone Bitart/Acetaminophen ([place] 5-325 Tab*) 1 tab PO Q4H PRN PRN Reason: moderate pain Hydrocodone Bitart/Acetaminophen ([place] 5-325 Tab*) 2 tab PO Q4H PRN PRN Reason: PAIN - SEVERE Last Admin: 03/06/19 13:07 Dose: 2 tab Magnesium Hydroxide (Milk Of Magnesia Liq*) 30 ml PO DAILY PRN PRN Reason: CONSTIPATION Ondansetron HCl (Zofran Inj*) 4 mg IV Q6H PRN PRN Reason: NAUSEA/VOMITING Last Admin: 03/06/19 13:14 Dose: 4 mg SOCIAL HISTORY: Non smoker, no alcohol; lives in a double wide with 5 steps to enter, lives with boyfriend and children, not currently working ROS: No CP or SOB Vital Signs: Temp Pulse Resp BP Pulse Ox 98.1 F 66 18 124/70 96 03/06/19 12:53 03/06/19 12:53 03/06/19 13:19 03/06/19 12:53 03/06/19 12:53 EXAM: LUNGS: Clear HEART: Reg rhythm ABDOMEN: Soft BACK: Wound dressed NEUROLOGIC: Can move all 4 extremities. Sensation intact ASSESSMENT: 1.Lumbar radiculopathy, S/P L4/5 Diskectomy with laminectomy 2. Chronic Pain/DJD 3. Chronic opioid use PLAN: I will resume her oxycodone and her MS Contin and Lyrica, as well as her Tizanidine. I will change her oxycodone to 15 Q 4 PRN for the post op period. I will stop her hydrocodone. After discharge, she can follow up with Dr. Sargent. I will add bowel medications
[2019-03-06] MEDS: tiZANidine TAB* 2 MG PO PRN (15:27)
[2019-03-06] MEDS ORDERED: Lurasidone(*) 80 MG TAB PO SCH ×2 (17:00→21:00)
[2019-03-06] MEDS: oxyCODONE TAB* 5 MG TAB PO PRN ×2 (17:07→21:09)
[2019-03-06] MEDS ORDERED: hydrOXYzine HCL TAB* 25 MG PO PRN (17:14)
--- NOTE | 2019-03-06 19:32 | CONS ---
CONSULTATION REPORT: DATE OF CONSULT: 03/06/19 REQUESTING PROVIDER: Dr. Ryan. REASON FOR CONSULT: Co-management of chronic medical conditions. HISTORY OF PRESENT ILLNESS: Chava Giles is a 38-year-old white female with past medical history significant for chronic back, neck, and bilateral arm pain ; fibromyalgia; rheumatoid arthritis; history of binge eating disorder; history of hypertension; anxiety; and depression; who presented for surgery with Dr. Ryan today for diskectomy, foraminotomy, and laminectomy of the lumbar region. The patient had a disk herniation resulting in radiating pain down her left lower extremity, which has been ongoing since the summer and she elected for surgery with Dr. Ryan today. The patient is evaluated on the surgical stay unit after surgery and she feels her pain has been quite well managed. Since surgery, she has not had any lower extremity radiation of pain. She denies lower extremity weakness, numbness, tingling. She denies loss of bowel or bladder control. She denies chest pain, difficulty breathing. She has denied abdominal pain, nausea, vomiting, and overall has no complaints. PAST MEDICAL HISTORY: 1. Chronic low back pain, neck pain, bilateral arm pain. 2. Rheumatoid arthritis. 3. Binge eating disorder. 4. Anxiety. 5. Depression. 6. Previous history of hypertension, which has now resolved. 7. Fibromyalgia. 8. Degenerative disk disease. PAST SURGICAL HISTORY: 1. x3. 2. C3 through C7 fusion. 3. Gastric sleeve in 2018. HOME MEDICATIONS: 1. Zanaflex 4 mg p.o. 4 times daily. 2. Oxycodone 15 mg p.o. t.i.d. 3. Hydroxyzine 25 mg p.o. t.i.d. p.r.n. moderate pain. 4. Wellbutrin 200 mg p.o. daily. 5. Vitamin E 400 units p.o. b.i.d. 6. Vilazodone 40 mg p.o. at bedtime. 7. Senna/docusate 1 tab p.o. t.i.d. 8. Lyrica 200 mg p.o. t.i.d. 9. Flintstones Multivitamin p.o. b.i.d. 10. Morphine sulfate 30 mg p.o. b.i.d. 11. Latuda 80 mg p.o. at bedtime. 12. Vyvanse 70 mg p.o. q.a.m. 13. Ativan 2 mg p.o. b.i.d. 14. Doxycycline 100 mg p.o. b.i.d., which the patient reportedly takes for her rheumatoid arthritis. 15. Vitamin B12 1000 mcg IM injection monthly. 16. Vitamin D3 2000 units p.o. daily. 17. Baclofen 10 mg p.o. b.i.d. 18. Alpha-lipoic acid 200 mg p.o. b.i.d. 19. Celebrex 200 mg p.o. b.i.d. ALLERGIES: Rash to ADHESIVE. FAMILY HISTORY: Father is living at 62, has COPD, history of prostate cancer, and coronary artery disease. Mother is living at age 58. She has history of COPD and lung cancer. SOCIAL HISTORY: The patient quit smoking in 2014. She smoked for approximately 1 year. She denies alcohol use or illicit drug use. She has never used illicit drugs. 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 PHYSICAL EXAM: Vital Signs: Temperature 98.1, pulse 83, respiratory rate 16, oxygen saturation 95% on room air, blood pressure 173/67. An overweight, young white female who appears well developed, well nourished, standing in hospital room, appearing comfortable, in no acute distress. Eyes: PERRL. Sclerae anicteric. ENT: Mucous membranes moist. Neck: Supple without JVD. Cardio: Regular rate and rhythm without murmurs, rubs, or gallops. Lungs: Clear to auscultation throughout. Abdomen: Soft, nontender, nondistended. Extremities : No clubbing, cyanosis, or edema. Neuro: The patient has normal gait. Sensation to light touch grossly intact in bilateral lower extremities and equal. The patient is alert and oriented x3. No focal deficits. Able to move all extremities. Skin: Warm, dry, and intact. DIAGNOSTIC STUDIES/LAB DATA: Lumbar spine x-ray for procedural control films. ASSESSMENT AND PLAN: Chava Giles is a 38-year-old white female with past medical history significant for prior history of hypertension, depression, anxiety, fibromyalgia, chronic pain, rheumatoid arthritis, who presents for lumbar diskectomy, foraminotomy, and laminectomy with Dr. Ryan. [facility] has been consulted for co-management of chronic medical conditions. 1. Previous history of hypertension. The patient no longer takes labetalol or other medications for this and she has been overall normotensive during her hospital stay. We will continue to monitor this. 2. Chronic pain/fibromyalgia. The patient follows with chronic pain clinic outpatient. Dr. Cardenas has already seen the patient in consultation and has made recommendations to overall continue her home medications, but instead use oxycodone p.o. q.4 hours in the acute pain setting postoperatively. I will be continuing her home Lyrica. 3. Rheumatoid arthritis. I will continue her doxycycline. 4. Depression. I will continue her home Wellbutrin. Continue Latuda. Continue home vilazodone. 5. Anxiety. I will continue her p.r.n. hydroxyzine and Ativan. 6. History of binge eating disorder. I will continue her home Vyvanse. 7. Status post surgery. Management per neurosurgical team. 8. Disposition: Per neurosurgical team. Thank you for allowing us to participate in the care of this patient. We will follow during this admission. NATALIIA SPARKS [id number]/[facility] #: [id number] [place]
[2019-03-06] MEDS: DOXYcycline CAP(*) 100 MG PO SCH (20:41)
[2019-03-06] MEDS: Pregabalin 100 mg CAP (*) PO SCH (20:41)
[2019-03-06] MEDS: Morphine TAB Extended Release (*) 30 MG TAB.ER PO SCH (20:42)
[2019-03-06] MEDS: Docusate CAP* 100 MG PO SCH (20:42)
[2019-03-06] MEDS: LORazepam TAB(*) 1 MG PO SCH (20:42)
[2019-03-06] MEDS ORDERED: Senna TAB 8.6 mg* TAB PO SCH (21:00)
[2019-03-06] MEDS ORDERED: CMCS:Vilazodone (NF) 40 MG TAB PO SCH (21:00)
[2019-03-06] MEDS ORDERED: LORazepam TAB(*) 1 MG PO SCH (21:00)
[2019-03-07] MEDS: oxyCODONE TAB* 5 MG TAB PO PRN ×4 (01:13→13:20)
[2019-03-07] MEDS: tiZANidine TAB* 2 MG PO PRN ×2 (01:13→09:30)
[2019-03-07 08:11] VITALS: BP 120/69
[2019-03-07 08:15] LABS: Hematocrit 37 % (35-47); Hemoglobin 12.3 g/dL (12.0-16.0)
[2019-03-07] MEDS ORDERED: buPROPion SR TAB.SR* 200 MG PO SCH (09:00)
[2019-03-07] MEDS ORDERED: Lisdexamfetamine(NF) 10 MG CAP PO SCH (09:00)
[2019-03-07] MEDS: Pregabalin 100 mg CAP (*) PO SCH ×2 (09:16→14:06)
[2019-03-07] MEDS: Docusate CAP* 100 MG PO SCH ×2 (09:16→14:06)
[2019-03-07] MEDS: Morphine TAB Extended Release (*) 30 MG TAB.ER PO SCH (09:17)
[2019-03-07] MEDS: LORazepam TAB(*) 1 MG PO SCH (09:18)
[2019-03-07] MEDS: DOXYcycline CAP(*) 100 MG PO SCH (09:19)
[2019-03-07] MEDS ORDERED: tiZANidine TAB* 2 MG PO ONE (13:27)
--- NOTE | 2019-03-07 20:59 | DS ---
CC: Dr. Ryan; Dr. Zhang * DISCHARGE SUMMARY: DATE OF ADMISSION: 03/06/19 DATE OF DISCHARGE: 03/07/19 ATTENDING PHYSICIAN WHILE IN THE HOSPITAL: Dr. Yanni Alexandra * (dictated by NATALIIA Moore). NEUROSURGEON: Dr. Ryan. PRIMARY CARE PROVIDER: Dr. Zhang. PRIMARY DIAGNOSIS: Left L4-L5 herniated nucleus pulposus, status post L4-L5 MIS diskectomy with extensive foraminotomy and decompressive laminectomy. SECONDARY DIAGNOSES: 1. Prior history of hypertension, now resolved. 2. Chronic low back pain. 3. Neck pain. 4. Bilateral arm pain. 5. Rheumatoid arthritis. 6. Binge eating disorder. 7. Anxiety. 8. Depression. 9. Fibromyalgia. 10. Degenerative disk disease. 11. History of gastric sleeve. PERTINENT LAB DATA: H and H on day of discharge, hemoglobin 12.3, hematocrit 37. HISTORY OF PRESENT ILLNESS/HOSPITAL COURSE: Chava Giles is a 38-year-old white female with past medical history significant for chronic pain, fibromyalgia, anxiety, depression, rheumatoid arthritis, previous history of hypertension, who presented for elective surgery with Dr. Ryan due to ongoing left pain radiating down her leg due to L4-L5 herniated nucleus pulposus. She underwent surgery with Dr. Ryan on 03/06/19 and tolerated the procedure well. On day of surgery, she was seen in consultation by pain specialist Dr. Cardenas who recommended increasing frequency of her p.o. oxycodone and maintaining her other medications while she is in the hospital regarding her pain. Her pain was managed during her hospital stay and ultimately she was safe for discharge on 03/07/19. Dr. Ryan recommended discharge. The patient denied loss of bowel or bladder control, numbness, tingling, weakness in her extremities, fever, chills , chest pain, or difficulty breathing. PHYSICAL EXAMINATION: General: Young white female, standing in hospital room, appearing comfortable, in no distress. Eyes: PERRL. Sclerae anicteric. ENT: Mucous membranes moist. Lungs: Respirations are equal, no use of accessory muscles. Neuro: The patient had grossly intact sensation to light touch throughout her lower extremities. Gait is normal. The patient is alert and oriented x3. Skin: Warm, dry, and intact. DISCHARGE PLAN: Diet: Regular, unrestricted diet. Activity: No bending, no twisting, no lifting, no driving. The patient is to follow up with Dr. Ryan in 1 week. She should additionally follow up with her pain specialist as scheduled. She should follow up with her primary care provider within a week to 10 days regarding this hospital stay. She should return to the emergency department if she is experiencing loss of bowel or bladder control, severe pain, discharge from her incision site, fever or chills, numbness, tingling or weakness in her lower extremities. She was advised to return to her normal home frequentcy of oxycodone 15 mg p.o. t.i.d. instead of [id number] as soon as she is able to tolerate doing so per her pain tolerance. DISCHARGE MEDICATIONS: Continued home medications: 1. Zanaflex 4 mg p.o. q.i.d. 2. Hydroxyzine 25 mg p.o. t.i.d. p.r.n. moderate pain. 3. Wellbutrin 200 mg p.o. daily. 4. Vitamin E 400 units p.o. b.i.d. 5. Vilazodone 40 mg p.o. at bedtime. 6. Senna/docusate 1 tab p.o. t.i.d. 7. Lyrica 200 mg p.o. t.i.d. 8. Flintstones Multivitamin 300 mg p.o. t.i.d. 9. Morphine sulfate extended release 30 mg p.o. b.i.d. 10. Latuda 80 mg p.o. at bedtime. 11. Vyvanse 70 mg p.o. daily. 12. Ativan 2 mg p.o. b.i.d. 13. Doxycycline 100 mg p.o. b.i.d. 14. Vitamin B12 injections 1000 mcg IM monthly. 15. Vitamin D3 2000 units p.o. daily. 16. Baclofen 10 mg p.o. b.i.d. 17. Alpha-lipoic acid 200 mg p.o. b.i.d. 18. Celebrex 200 mg p.o. b.i.d. New medications: Oxycodone 15 mg p.o. q.4 hours p.r.n. severe pain. CONDITION AT DISCHARGE: Stable. DISPOSITION: Home. TIME SPENT: Approximately 40 minutes were spent on this discharge, approximately half this time was spent at the bedside evaluating the patient and discussing plan of care. NATALIIA MOORE [id number]/[facility] #: [id number]
[2019-03-09] MEDS ORDERED: Scopolamine PATCH Remove* 1 NOTE MISC PATCH OFF ONE (07:06)
== END 2019-03-07 14:27 | disposition home or self-care (01) ==
LOC: OR 05:42 → SSU 13:00
PROVIDERS: ADMIT Neurological Surgery; ATTEND Neurological Surgery
DX: M54.16 Radiculopathy, lumbar region (principal); M47.12 Other spondylosis with myelopathy, cervical region; M51.26 Other intervertebral disc displacement, lumbar region; M54.2 Cervicalgia; M79.602 Pain in left arm; M79.601 Pain in right arm; M06.9 Rheumatoid arthritis, unspecified; F50.81 Binge eating disorder; F41.9 Anxiety disorder, unspecified; F32.9 Major depressive disorder, single episode, unspecified; M79.7 Fibromyalgia; M51.36 Other intervertebral disc degeneration, lumbar region; Z98.84 Bariatric surgery status; Z79.899 Other long term (current) drug therapy; Z87.891 Personal history of nicotine dependence
CPT/HCPCS: 36415; 72100; 85014; 85018; 86850; 86900; 86901; 96374; A9270-GY; G0378; J0690; J1100; J1170; J1885; J2405; J2704; J2710; J3010